=== PATIENT | male | born 1940 | race Caucasian/White ===

== ENCOUNTER 2017-02-19 17:14 | Inpatient (IN) | payer MEDICARE, BC ==
--- NOTE | 2017-02-19 17:36 | EDM.PDOC ---
ED HPI GENERAL MEDICAL PROBLEM - General Chief Complaint: Respiratory Problem Stated Complaint: SOB SENT BY PCP Time Seen by Provider: 02/19/17 17:25 - History of Present Illness INITIAL COMMENTS - FREE TEXT/NARRATIVE: 76-year-old male presents emergency room after being sent here by her primary care physician who was concerned of impending respiratory failure. Up until today the patient is been seen several times and tried on various antibiotics most recently Cipro in early January that did not help with his worsening shortness of breath. Patient presented to the clinic for follow-up today were was thought his overall condition was deteriorating. He was sent to the emergency room they did do a influenza test that was negative. Patient denies any chest pain or chest pressure he has no worsening edema. He has not had any fevers or chills. He has noticed increasing shortness of breath he states his oxygen feels like is gone. The patient has been on nighttime O2 for many years but now he seems to need it all the time. Knee Pain Score (Numeric/FACES): 4 - Related Data Allergies Allergy/AdvReac Type Severity Reaction Status Date / Time alendronate sodium Allergy Rash Verified 05/17/15 07:50 [From Fosamax] amoxicillin trihydrate Allergy Rash Verified 05/17/15 07:50 [From Augmentin] atorvastatin calcium Allergy Cannot Verified 05/17/15 07:50 [From Lipitor] Remember azathioprine [From Imuran] Allergy Rash Verified 05/17/15 07:50 azathioprine sodium Allergy Rash Verified 05/17/15 07:50 [From Imuran] azithromycin [From Zithromax] Allergy Rash Verified 05/17/15 07:50 cefuroxime axetil Allergy Rash Verified 05/17/15 07:50 [From Ceftin] methotrexate Allergy Rash Verified 05/17/15 07:50 potassium clavulanate Allergy Rash Verified 05/17/15 07:50 [From Augmentin] rofecoxib [From Vioxx] Allergy Rash Verified 05/17/15 07:50 Sulfa (Sulfonamide Allergy Rash Verified 05/17/15 07:50 Antibiotics) Home Meds: Home Meds Albuterol [Ventolin HFA] 2 puff INH Q6H PRN 05/04/15 [History] Aspirin [Halfprin] 81 mg PO DAILY 05/04/15 [History] Budesonide/Formoterol [Symbicort 160-4.5 MCG] 2 puff INH Q12H 05/04/15 [History] Carvedilol [Coreg] 6.25 mg PO BID 05/04/15 [History] Cholecalciferol (Vitamin D3) [Vitamin D3] 1,000 units PO DAILY 05/04/15 [History ] Citalopram Hydrobromide [Celexa] 40 mg PO BEDTIME 05/04/15 [History] Denosumab [Prolia] 60 mg SUBCUT ASDIRECTED 05/04/15 [History] Multivitamin [Daily Multiple Vitamin] 1 tab PO DAILY 05/04/15 [History] Roflumilast [Daliresp] 500 mcg PO DAILY 05/04/15 [History] Simvastatin [Zocor] 20 mg PO BEDTIME 05/04/15 [History] Tiotropium [Spiriva HandiHaler] 18 mcg INH BEDTIME 05/04/15 [History] predniSONE [Prednisone] 10 mg PO Q2D 05/04/15 [History] predniSONE [Prednisone] 20 mg PO Q2D 05/04/15 [History] Mycophenolate Mofetil [Cellcept] 1,000 mg PO BID 05/09/15 [History] Ascorbic Acid 500 mg PO DAILY 02/19/17 [History] Calcium Carbonate/Vitamin D3 [Oyster Shell+D 250 mg Tablet] 2 tab PO BID [History] Iron Polysaccharides Complex [Ferrex 150] 150 mg PO ACBREAKFAST 02/19/17 [ History] Linagliptin [Tradjenta] 5 mg PO DAILY 02/19/17 [History] Ubidecarenone [Co Q-10] 10 mg PO DAILY 02/19/17 [History] Vit A,C & E/Lutein/Minerals [Healthy Eyes] 1 tab PO DAILY 02/19/17 [History] guaiFENesin [Mucinex] 1,200 mg PO BID 02/19/17 [History] Past Medical History HEENT History: Reports: Hard of Hearing Other HEENT History: wears glasses Cardiovascular History: Reports: High Cholesterol, Hypertension Other Cardiovascular History: Churg-Skyler Syndrome/vasculitis Respiratory History: Reports: Asthma, COPD Other Respiratory History: Chronic oxygen use Gastrointestinal History: Reports: Colon Polyp Genitourinary History: Reports: Renal Disease Musculoskeletal History: Reports: Arthritis, Back Pain, Chronic Other Musculoskeletal History: Compression fractures Neurological History: Reports: Other (See Below) Other Neuro History: sural neuropathy. median neuropathy Psychiatric History: Reports: Other (See Below) Other Psychiatric History: situational depression Endocrine/Metabolic History: Reports: Diabetes, Type II Hematologic History: Reports: Other (See Below) Other Hematologic History: vitamin d deficiency Oncologic (Cancer) History: Reports: Squamous Cell Carcinoma Dermatologic History: Reports: Cellulitis Other Dermatologic History: Current cellulits has been treated with 20 days of antibiotics, completed course on 01/03/15 - Infectious Disease History Infectious Disease History: Reports: Chicken Pox, Mumps - Past Surgical History HEENT Surgical History: Reports: Other (See Below) Social & Family History - Family History Cardiac: Reports: Other (See Below) Other Cardiac Family History: Brother recently passed after open heart surgery. Respiratory: Reports: COPD, Other (See Below) Other Respiratory Family Hisory: brother Endocrine/Metabolic: Reports: Diabetes, type II, Other (See Below) Other Endocrine/Metabolic Family History: 2 brothers Oncologic: Reports: Other (See Below) Other Oncologic Family History: brother-unknown type - Tobacco Use Smoking Status *Q: Former Smoker Years of Tobacco use: 40 Packs/Tins Daily: 1 Used Tobacco, but Quit: Yes Month Tobacco Last Used: 20 yeas ago Second Hand Smoke Exposure: No - Alcohol Use Days Per Week of Alcohol Use: 0 - Recreational Drug Use Recreational Drug Use: No Drug Use in Last 12 Months: No ED ROS GENERAL - Review of Systems Review Of Systems: See Below Constitutional: Reports: No Symptoms HEENT: Reports: No Symptoms Respiratory: Reports: Shortness of Breath, Cough, Sputum (Rare whitish sputum) Cardiovascular: Denies: Chest Pain, Edema, Palpitations, Syncope Endocrine: Reports: No Symptoms GI/Abdominal: Reports: No Symptoms : Reports: No Symptoms Musculoskeletal: Reports: No Symptoms Skin: Reports: No Symptoms Neurological: Reports: No Symptoms Psychiatric: Reports: No Symptoms ED EXAM, GENERAL - Physical Exam Exam: See Below Exam Limited By: No Limitations General Appearance: Alert, No Apparent Distress Throat/Mouth: Normal Inspection, Normal Lips, Normal Oropharynx, Normal Voice, No Airway Compromise Head: Atraumatic, Normocephalic Neck: Normal Inspection, Supple, Non-Tender, Full Range of Motion, Other (No obvious JVD). No: Lymphadenopathy (L), Lymphadenopathy (R) Respiratory/Chest: No Respiratory Distress, Decreased Breath Sounds, Crackles, Other (Faint bibasilar crackles appreciated). No: Respiratory Distress, Rales, Rhonchi, Wheezing, Stridor Cardiovascular: Normal Peripheral Pulses, Regular Rate, Rhythm, Systolic Murmur (He has a very subtle soft systolic murmur heard in the left lower sternal border according to the patient his family he's had a murmur for a long time), Other (Scant if any edema. No obvious pre sacral edema) GI/Abdominal: Normal Bowel Sounds, Soft, Non-Tender, No Organomegaly, No Distention, No Abnormal Bruit, No Mass, Pelvis Stable Back Exam: Normal Inspection. No: CVA Tenderness (L), CVA Tenderness (R), Vertebral Tenderness Extremities: Normal Inspection, Non-Tender, Other (Scant edema according to the patient this is normal for him) Neurological: Alert, Oriented, Normal Cognition Psychiatric: Normal Affect, Normal Mood Skin Exam: Warm, Dry, Intact Lymphatic: No Adenopathy EKG INTERPRETATION EKG Date: 02/19/17 Rhythm: NSR [place]: LAD-Left [place] Deviation P-Wave: Present QRS: Other (Left ventricular hypertrophy) ST-T: Normal QT: Normal Comparison: Change From Previous EKG (he may have left axis changes. April 2015 most likely represents) EKG Interpretation Comments: Abnormal Course - Vital Signs Last Recorded V/S: Last Vital Signs Temp 37.2 C 02/20/17 02:55 Pulse 102 H 02/20/17 02:55 Resp 22 H 02/20/17 02:55 BP 127/63 02/20/17 02:55 Pulse Ox 92 L 02/20/17 03:29 - Orders/Labs/Meds Orders: Active Orders 24 hr Category Date Time Status EKG Documentation Completion [RC] STAT Care 02/19/17 17:50 Active RT Aerosol Therapy [RC] ASDIRECTED Care 02/19/17 17:53 Active Chest 1V Frontal [CR] Stat Exams 02/19/17 19:32 Taken Chest wo Cont [CT] Stat Exams 02/19/17 19:52 Taken CULTURE BLOOD [BC] Stat Lab 02/19/17 18:15 Received CULTURE BLOOD [BC] Stat Lab 02/19/17 18:20 Received Medication Orders Acetaminophen (Tylenol) 650 mg PO Q6H PRN PRN Reason: Fever Albuterol (Proventil Neb Soln) 2.5 mg NEB Q4HRRT PRN PRN Reason: shortness of breath Albuterol/Ipratropium (Duoneb 3.0-0.5 Mg/3 Ml) 3 ml NEB Q6HRRT [facility] Last Admin: 02/20/17 03:29 Dose: 3 ml Budesonide (Pulmicort) 0.25 mg NEB BID [facility] Enoxaparin Sodium (Lovenox) 40 mg SUBCUT DAILY [facility] Doxycycline Hyclate 100 mg/ (Sodium Chloride) 100 mls @ 100 mls/hr IV Q12HR [facility] Methylprednisolone Sodium Succinate (Solu-Medrol) 125 mg IVPUSH Q6H [facility] Last Admin: 02/20/17 03:49 Dose: 125 mg Morphine Sulfate (Morphine) 1 mg IVPUSH Q4H PRN PRN Reason: Pain (severe 7-10) Pantoprazole Sodium (Protonix) 40 mg PO ACBREAKFAST [facility] Last Admin: 02/20/17 05:43 Dose: 40 mg Temazepam (Restoril) 7.5 mg PO BEDTIME PRN PRN Reason: Insomnia Labs: Laboratory Tests 02/19/17 02/19/17 02/19/17 Range/Units 17:30 17:30 17:30 WBC 11.90 H (4.23-9.07) K/mm3 RBC 4.23 L (4.63-6.08) M/mm3 Hgb 12.0 L (13.7-17.5) gm/L Hct 38.3 L (40.1-51.0) % MCV 90.5 (79.0-92.2) fl MCH 28.4 (25.7-32.2) pg MCHC 31.3 L (32.2-35.5) g/dl RDW Std Deviation 52.1 H (35.1-43.9) fL Plt Count 336 (163-337) K/mm3 MPV 8.8 L (9.4-12.3) fl Neutrophils % (Manual) 82 H (40-60) % Band Neutrophils % 0 (0-10) % Lymphocytes % (Manual) 13 L (20-40) % Atypical Lymphs % 0 % Monocytes % (Manual) 5 (2-10) % Eosinophils % (Manual) 0 L (0.8-7.0) % Basophils % (Manual) 0 L (0.2-1.2) Platelet Estimate Adequate Plt Morphology Comment Normal RBC Morph Comment Normal PT 10.9 (8.0-13.0) SECONDS INR 1.00 APTT 39 H (22-36) SECONDS Puncture Site ABG pH (7.35-7.45) ABG pCO2 (35.0-45.0) mmHg ABG pO2 (80.0-100.0) mmHg ABG HCO3 (22.0-26.0) meq/L ABG O2 Saturation (96.0-97.0) % ABG Base Excess (-2-2.0) Bruno Test A-a Gradient mmHg O2 Delivery Device Oxygen Flow Rate FiO2 (21.00-100.00) % Sodium 133 L (136-145) mEq/L Potassium 4.5 (3.5-5.1) mEq/L Chloride 98 (98-107) mEq/L Carbon Dioxide 26 (21-32) mEq/L Anion Gap 13.5 (5-15) BUN 14 (7-18) mg/dL Creatinine 1.2 (0.7-1.3) mg/dL Est Cr Clr Drug Dosing 59.19 mL/min Estimated GFR (MDRD) 59 (>60) mL/min BUN/Creatinine Ratio 11.7 L (14-18) Glucose 220 H (83-115) mg/dL Calcium 10.0 (8.5-10.1) mg/dL Total Bilirubin 0.5 (0.2-1.0) mg/dL AST 15 (15-37) U/L ALT 15 L (16-63) U/L Alkaline Phosphatase 74 (46-116) U/L Troponin I < 0.017 (0.00-0.056) ng/mL NT-Pro-B Natriuret Pep 1080 H (0-450) pg/mL Total Protein 8.1 (6.4-8.2) g/dl Albumin 2.3 L (3.4-5.0) g/dl Globulin 5.8 gm/dL Albumin/Globulin Ratio 0.4 L (1-2) 02/19/17 Range/Units 18:15 WBC (4.23-9.07) K/mm3 RBC (4.63-6.08) M/mm3 Hgb (13.7-17.5) gm/L Hct (40.1-51.0) % MCV (79.0-92.2) fl MCH (25.7-32.2) pg MCHC (32.2-35.5) g/dl RDW Std Deviation (35.1-43.9) fL Plt Count (163-337) K/mm3 MPV (9.4-12.3) fl Neutrophils % (Manual) (40-60) % Band Neutrophils % (0-10) % Lymphocytes % (Manual) (20-40) % Atypical Lymphs % % Monocytes % (Manual) (2-10) % Eosinophils % (Manual) (0.8-7.0) % Basophils % (Manual) (0.2-1.2) Platelet Estimate Plt Morphology Comment RBC Morph Comment PT (8.0-13.0) SECONDS INR APTT (22-36) SECONDS Puncture Site Lt radial ABG pH 7.46 H (7.35-7.45) ABG pCO2 35.2 (35.0-45.0) mmHg ABG pO2 56.0 L (80.0-100.0) mmHg ABG HCO3 24.4 (22.0-26.0) meq/L ABG O2 Saturation 91.6 L (96.0-97.0) % ABG Base Excess 1.2 (-2-2.0) Bruno Test Positive A-a Gradient 79 mmHg O2 Delivery Device Nasal cannula Oxygen Flow Rate 2.0 FiO2 28.00 (21.00-100.00) % Sodium (136-145) mEq/L Potassium (3.5-5.1) mEq/L Chloride (98-107) mEq/L Carbon Dioxide (21-32) mEq/L Anion Gap (5-15) BUN (7-18) mg/dL Creatinine (0.7-1.3) mg/dL Est Cr Clr Drug Dosing mL/min Estimated GFR (MDRD) (>60) mL/min BUN/Creatinine Ratio (14-18) Glucose (83-115) mg/dL Calcium (8.5-10.1) mg/dL Total Bilirubin (0.2-1.0) mg/dL AST (15-37) U/L ALT (16-63) U/L Alkaline Phosphatase (46-116) U/L Troponin I (0.00-0.056) ng/mL NT-Pro-B Natriuret Pep (0-450) pg/mL Total Protein (6.4-8.2) g/dl Albumin (3.4-5.0) g/dl Globulin gm/dL Albumin/Globulin Ratio (1-2) Meds: Medications Generic Name Dose Route Start Last Admin Trade Name Freq PRN Reason Stop Dose Admin Acetaminophen 650 mg 02/20/17 02:20 Tylenol PO Q6H PRN Fever Albuterol 2.5 mg 02/20/17 02:20 Proventil Neb Soln NEB Q4HRRT PRN shortness of breath Albuterol/Ipratropium 3 ml 02/20/17 03:00 02/20/17 03:29 Duoneb 3.0-0.5 Mg/3 Ml NEB 3 ml Q6HRRT KEANU Administration Budesonide 0.25 mg 02/20/17 09:00 Pulmicort NEB BID KEANU Enoxaparin Sodium 40 mg 02/20/17 09:00 Lovenox SUBCUT DAILY KEANU Doxycycline Hyclate 100 mg/ 100 mls @ 100 mls/hr 02/20/17 09:00 Sodium Chloride IV Q12HR KEANU Methylprednisolone Sodium Succinate 125 mg 02/20/17 03:00 02/20/17 03:49 Solu-Medrol IVPUSH 125 mg Q6H KEANU Administration Morphine Sulfate 1 mg 02/20/17 02:20 Morphine IVPUSH Q4H PRN Pain (severe 7-10) Pantoprazole Sodium 40 mg 02/20/17 06:00 02/20/17 05:43 Protonix PO 40 mg ACBREAKFAST KEANU Administration Temazepam 7.5 mg 02/20/17 02:20 Restoril PO BEDTIME PRN Insomnia Discontinued Medications Generic Name Dose Route Start Last Admin Trade Name Freq PRN Reason Stop Dose Admin Albuterol/Ipratropium 3 ml 02/19/17 17:52 02/19/17 18:04 Duoneb 3.0-0.5 Mg/3 Ml NEB 02/19/17 17:53 3 ml ONETIME ONE Administration Budesonide 0.25 mg 02/20/17 09:00 Pulmicort NEB BID KEANU Enoxaparin Sodium 40 mg 02/20/17 09:00 Lovenox SUBCUT DAILY KEANU Furosemide 40 mg 02/19/17 21:03 02/19/17 21:17 Lasix IVPUSH 02/19/17 21:04 40 mg NOW ONE Administration Potassium Chloride 20 meq 02/19/17 21:05 02/19/17 21:17 Klor-Con M20 PO 02/19/17 21:06 20 meq ONETIME ONE Administration - Re-Assessments/Exams Free Text/Narrative Re-Assessment/Exam: 02/19/17 22:23 Chest x-ray was obtained which show some significant pulmonary fibrosis possible failure no obvious infiltrate but this cannot be excluded with the scarring. A unenhanced CT was obtained of her chest which showed no infiltrates and was most consistent with moderate pulmonary fibrosis it also showed a T12 compression fracture with central canal stenosis to T11-12 I did discuss this with the off-site radiologist and did find a lateral x-ray that was done which showed a compression fracture. The patient was admitted here in April 2015 and MRI at that point which showed an old fracture at this level no edema to suggest acuteness back then so this is an old finding. With his hypoxia the patient will be admitted. Case discussed with Dr. Zhu our hospitalist. Patient did have a nebulizer treatment here. He was also started on Lasix 40 mg as his proBNP was elevated. Patient has been what looks to be worsening pulmonary fibrosis etiology not well understood this can be further aggravated by an underlying bronchitis cannot exclude pneumonia at this point but this seems unlikely and he can be slightly fluid overloaded as well. Departure - Departure Time of Disposition: 20:00 Disposition: Admitted As Inpatient 66 Clinical Impression: Hypoxia, Shortness of breath, Heart failure - Discharge Information - My Orders Last 24 Hours: My Active Orders 02/19/17 17:50 EKG Documentation Completion [RC] STAT 02/19/17 17:53 RT Aerosol Therapy [RC] ASDIRECTED 02/19/17 18:15 CULTURE BLOOD [BC] Stat 02/19/17 18:20 CULTURE BLOOD [BC] Stat 02/19/17 19:32 Chest 1V Frontal [CR] Stat 02/19/17 19:52 Chest wo Cont [CT] Stat - Assessment/Plan Last 24 Hours: My Active Orders 02/19/17 17:50 EKG Documentation Completion [RC] STAT 02/19/17 17:53 RT Aerosol Therapy [RC] ASDIRECTED 02/19/17 18:15 CULTURE BLOOD [BC] Stat 02/19/17 18:20 CULTURE BLOOD [BC] Stat 02/19/17 19:32 Chest 1V Frontal [CR] Stat 02/19/17 19:52 Chest wo Cont [CT] Stat
[2017-02-19] MEDS ORDERED: Albuterol/Ipratropium 3.0-0.5 MG/3 ML Neb Soln NEB ONE (17:52)
[2017-02-19] MEDS ORDERED: Furosemide 40 MG/4 ML VIAL IVPUSH ONE (21:03)
[2017-02-19] MEDS ORDERED: Potassium Chloride 20 MEQ Tab.ER PO ONE (21:05)
[2017-02-20] MEDS ORDERED: Temazepam 7.5 MG Cap PO PRN (02:20)
[2017-02-20] MEDS ORDERED: Albuterol 0.083% 2.5 MG/3 ML Neb Soln NEB PRN (02:20)
[2017-02-20] MEDS ORDERED: Morphine 2 MG/ML Syringe IVPUSH PRN (02:20)
[2017-02-20] MEDS ORDERED: Acetaminophen 325 MG Tab PO PRN (02:20)
[2017-02-20] MEDS: Albuterol/Ipratropium 3.0-0.5 MG/3 ML Neb Soln NEB SCH ×4 (03:29→21:12)
[2017-02-20] MEDS: methylPREDNISolone Sodium Succinate 125 MG/2 ML SDV IVPUSH SCH ×4 (03:49→22:36)
[2017-02-20] MEDS: Pantoprazole 40 MG Tab.CR PO SCH (05:43)
[2017-02-20] MEDS ORDERED: Doxycycline 100 MG in Sodium Chloride 0.9% 100 ML IV SCH (09:00)
[2017-02-20] MEDS ORDERED: Budesonide 0.25 MG/2 ML Neb Susp NEB SCH (09:00)
[2017-02-20] MEDS ORDERED: Enoxaparin 40 MG/0.4 ML Syringe SUBCUT SCH (09:00)
[2017-02-20] MEDS: Budesonide 0.25 MG/2 ML Neb Susp NEB SCH ×2 (09:02→21:18)
--- NOTE | 2017-02-20 09:06 | CR ---
Chest: Portable view of the chest was obtained. Comparison: Prior chest x-ray of 05/17/15. Diffuse pulmonary fibrosis is seen. Findings are felt to be fairly stable from prior exam. Heart size is not enlarged. Upper mediastinum is normal. Bony structures are osteopenic. Surgical clips are seen from prior cholecystectomy. Impression: 1. Diffuse pulmonary fibrosis. When allowing for differences in technique, no appreciable change is seen from previous chest x-ray. Diagnostic code #3
[2017-02-20] MEDS: Enoxaparin 40 MG/0.4 ML Syringe SUBCUT SCH (09:12)
--- NOTE | 2017-02-20 09:30 | CT ---
CT chest Technique: Multiple axial sections were obtained from above the lung apices inferiorly through the lung bases. Intravenous contrast was not utilized. Comparison: Prior chest x-ray performed earlier on same day. Findings: Multiple mediastinal lymph nodes are seen. Largest lymph node measures approximately 2.7 cm. These are mildly prominent in number and size which most likely is due to chronic inflammation. No pericardial thickening is seen. Small portion of the visualized upper abdominal structures shows previous cholecystectomy. Small calcification seen within the left lobe of the liver which is felt to be incidental. Small cyst noted within the left kidney. Diffuse interstitial fibrosis with honeycombing seen within the periphery of both lungs. No focal consolidation is seen. No pneumothorax or pleural effusions are seen. Bone window settings were reviewed which show a severe compression deformity at L1 which appears old. Spondylolisthesis noted at T1-T2 measuring approximately 6.9 mm which is likely chronic although no old films are available to confirm. Impression: 1. Interstitial fibrosis with honeycombing. No focal consolidations are seen within the lungs. 2. 6.9 mm spondylolisthesis at T1-T2 most likely chronic but no previous study to confirm is available. 3. Multiple mediastinal lymph nodes most likely on a postinflammatory basis given the lung findings. 4. Other incidental findings. Diagnostic code #3 I agree with preliminary report issued by [employer] ([facility] report finalized on 02/19/17, 9:41 PM Central Time)
[2017-02-20] MEDS ORDERED: Denosumab 60 MG/1 ML Syringe SUBCUT SCH (10:30)
[2017-02-20] MEDS ORDERED: 50% Dextrose in Water 50 ML Syringe IVPUSH PRN (12:56)
--- NOTE | 2017-02-20 12:57 | PCM.HP ---
H&P History of Present Illness - General Date of Service: 02/20/17 Admit Problem/Dx: Admission Diagnosis/Problem Admission Diagnosis/Problem Hypoxia Source of Information: Patient, Provider History Limitations: Reports: No Limitations - History of Present Illness Initial Comments - Free Text/Narative: 76 year old male with several treatments for URI, presents from his PCP for further evaluation. The patient stated that he has not been seen by a starch factory laborer for several months but reportedly told to stop his Cellcept for two weeks. He was to have restarted it by the beginning of January. This did not occur because he reported that his PCP stated that it should be held until he has been seen in March by the starch factory laborer. He remains on prednisone, the current dose requires clarification. Overall his functional status has declined, he continues to be short of breath. Denies fever, chills, chest pain , orthopnea, PND, syncopal or presyncopal episodes. Admits to malaise, general weakness and decreased appetite; he requires nocturnal use of oxygen as his baseline. He was felt to be in heart failure in the ED, lasix was given. Onset of Symptoms: Reports: Unknown/Unsure Duration of Symptoms: Reports: Week(s):, Getting Worse Location: Reports: Chest, Generalized Quality: Reports: Same as Previous Episode Improves with: Reports: Medication Worsens with: Reports: None Context: Reports: Sick Contact (unknown) Associated Symptoms: Reports: Cough, Loss of Appetite, Malaise, Nausea/Vomiting , Shortness of Breath, Weakness Knee Pain Score (Numeric/FACES): 4 - Related Data Allergies/Adverse Reactions: Allergies Allergy/AdvReac Type Severity Reaction Status Date / Time alendronate sodium Allergy Rash Verified 05/17/15 07:50 [From Fosamax] amoxicillin trihydrate Allergy Rash Verified 05/17/15 07:50 [From Augmentin] atorvastatin calcium Allergy Cannot Verified 05/17/15 07:50 [From Lipitor] Remember azathioprine [From Imuran] Allergy Rash Verified 05/17/15 07:50 azathioprine sodium Allergy Rash Verified 05/17/15 07:50 [From Imuran] azithromycin [From Zithromax] Allergy Rash Verified 05/17/15 07:50 cefuroxime axetil Allergy Rash Verified 05/17/15 07:50 [From Ceftin] methotrexate Allergy Rash Verified 05/17/15 07:50 potassium clavulanate Allergy Rash Verified 05/17/15 07:50 [From Augmentin] rofecoxib [From Vioxx] Allergy Rash Verified 05/17/15 07:50 Sulfa (Sulfonamide Allergy Rash Verified 05/17/15 07:50 Antibiotics) Home Medications: Home Meds Albuterol [Ventolin HFA] 2 puff INH Q6H PRN 05/04/15 [History] Aspirin [Halfprin] 81 mg PO DAILY 05/04/15 [History] Budesonide/Formoterol [Symbicort 160-4.5 MCG] 2 puff INH Q12H 05/04/15 [History] Carvedilol [Coreg] 6.25 mg PO BID 05/04/15 [History] Cholecalciferol (Vitamin D3) [Vitamin D3] 1,000 units PO DAILY 05/04/15 [History ] Citalopram Hydrobromide [Celexa] 40 mg PO BEDTIME 05/04/15 [History] Denosumab [Prolia] 60 mg SUBCUT ASDIRECTED 05/04/15 [History] Multivitamin [Daily Multiple Vitamin] 1 tab PO DAILY 05/04/15 [History] Roflumilast [Daliresp] 500 mcg PO DAILY 05/04/15 [History] Simvastatin [Zocor] 20 mg PO BEDTIME 05/04/15 [History] Tiotropium [Spiriva HandiHaler] 18 mcg INH BEDTIME 05/04/15 [History] predniSONE [Prednisone] 10 mg PO Q2D 05/04/15 [History] predniSONE [Prednisone] 20 mg PO Q2D 05/04/15 [History] Mycophenolate Mofetil [Cellcept] 1,000 mg PO BID 05/09/15 [History] Ascorbic Acid 500 mg PO DAILY 02/19/17 [History] Calcium Carbonate/Vitamin D3 [Oyster Shell+D 250 mg Tablet] 2 tab PO BID [History] Iron Polysaccharides Complex [Ferrex 150] 150 mg PO ACBREAKFAST 02/19/17 [ History] Linagliptin [Tradjenta] 5 mg PO DAILY 02/19/17 [History] Ubidecarenone [Co Q-10] 10 mg PO DAILY 02/19/17 [History] Vit A,C & E/Lutein/Minerals [Healthy Eyes] 1 tab PO DAILY 02/19/17 [History] guaiFENesin [Mucinex] 1,200 mg PO BID 02/19/17 [History] Past Medical History HEENT History: Reports: Hard of Hearing Other HEENT History: wears glasses Cardiovascular History: Reports: High Cholesterol, Hypertension Other Cardiovascular History: Churg-Skyler Syndrome/vasculitis Respiratory History: Reports: Asthma, COPD Other Respiratory History: Chronic oxygen use Gastrointestinal History: Reports: Colon Polyp Genitourinary History: Reports: Renal Disease Other Genitourinary History: Bladder mass Musculoskeletal History: Reports: Arthritis, Back Pain, Chronic Other Musculoskeletal History: Compression fractures Neurological History: Reports: Other (See Below) Other Neuro History: sural neuropathy. median neuropathy Psychiatric History: Reports: Other (See Below) Other Psychiatric History: situational depression Endocrine/Metabolic History: Reports: Diabetes, Type II Hematologic History: Reports: Other (See Below) Other Hematologic History: vitamin d deficiency Oncologic (Cancer) History: Reports: Squamous Cell Carcinoma Dermatologic History: Reports: Cellulitis Other Dermatologic History: Current cellulits has been treated with 20 days of antibiotics, completed course on 01/03/15 - Infectious Disease History Infectious Disease History: Reports: Chicken Pox, Mumps - Past Surgical History HEENT Surgical History: Reports: Other (See Below) Social & Family History - Family History Family Medical History: Noncontributory Cardiac: Reports: Other (See Below) Other Cardiac Family History: Brother recently passed after open heart surgery. Respiratory: Reports: COPD, Other (See Below) Other Respiratory Family Hisory: brother Endocrine/Metabolic: Reports: Diabetes, type II, Other (See Below) Other Endocrine/Metabolic Family History: 2 brothers Oncologic: Reports: Other (See Below) Other Oncologic Family History: brother-unknown type - Tobacco Use Smoking Status *Q: Former Smoker Years of Tobacco use: 40 Packs/Tins Daily: 1 Used Tobacco, but Quit: Yes Month Tobacco Last Used: 20 yeas ago Second Hand Smoke Exposure: No - Caffeine Use Caffeine Use: Reports: None - Alcohol Use Days Per Week of Alcohol Use: 0 - Recreational Drug Use Recreational Drug Use: No Drug Use in Last 12 Months: No H&P Review of Systems - Review of Systems: Review Of Systems: See Below General: Reports: Malaise, Weakness, Fatigue, Decreased Appetite HEENT: Reports: No Symptoms Pulmonary: Reports: Shortness of Breath, Wheezing Cardiovascular: Reports: No Symptoms Gastrointestinal: Reports: No Symptoms Genitourinary: Reports: No Symptoms Musculoskeletal: Reports: No Symptoms Skin: Reports: No Symptoms Psychiatric: Reports: No Symptoms Neurological: Reports: Dizziness, Weakness Hematologic/Lymphatic: Reports: No Symptoms Immunologic: Reports: No Symptoms Exam - Exam Exam: See Below - Vital Signs Vital Signs: Last Vital Signs Temp 36.6 C 02/20/17 11:50 Pulse 89 02/20/17 11:50 Resp 18 02/20/17 11:50 BP 106/67 02/20/17 11:50 Pulse Ox 96 02/20/17 11:50 Weight: 82.826 kg - Exam Quality Assessment: Supplemental Oxygen General: Alert, Oriented, Cooperative HEENT: Conjunctiva Clear, Nares Patent, Normal Nasal Septum, Pupils Equal, Pupils Reactive, PERRLA Neck: Trachea Midline Lungs: Normal Respiratory Effort, Decreased Breath Sounds, Wheezing Cardiovascular: Regular Rate, Regular Rhythm GI/Abdominal Exam: Normal Bowel Sounds, Soft, Non-Tender, No Organomegaly, No Distention (Male) Exam: Deferred Rectal (Males) Exam: Deferred Back Exam: Normal Inspection Extremities: Normal Inspection Skin: Warm Neurological: Cranial Nerves Intact Neuro Extensive - Mental Status: Alert, Oriented x3, Normal Mood/Affect, Normal Cognition Neuro Extensive - Motor, Sensory, Reflexes: CN II-XII Intact Psychiatric: Alert, Normal Affect, Normal Mood - Patient Data Lab Results Last 24 hrs: Laboratory Results - last 24 hr 02/20/17 02/20/17 02/20/17 Range/Units 06:06 06:17 06:17 WBC 7.44 (4.23-9.07) K/mm3 RBC 3.60 L (4.63-6.08) M/mm3 Hgb 10.1 L (13.7-17.5) gm/L Hct 32.6 L (40.1-51.0) % MCV 90.6 (79.0-92.2) fl MCH 28.1 (25.7-32.2) pg MCHC 31.0 L (32.2-35.5) g/dl RDW Std Deviation 50.9 H (35.1-43.9) fL Plt Count 294 (163-337) K/mm3 MPV 8.7 L (9.4-12.3) fl Neut % (Auto) 85.2 H (34.0-67.9) % Lymph % (Auto) 7.4 L (21.8-53.1) % Ward % (Auto) 7.0 (5.3-12.2) % Eos % (Auto) 0 L (0.8-7.0) Baso % (Auto) 0.1 (0.1-1.2) % Neut # (Auto) 6.34 H (1.78-5.38) K/mm3 Lymph # (Auto) 0.55 L (1.32-3.57) K/mm3 Ward # (Auto) 0.52 (0.30-0.82) K/mm3 Eos # (Auto) 0.00 L (0.04-0.54) K/mm3 Baso # (Auto) 0.01 (0.01-0.08) K/mm3 Manual Slide Review Abnormal smear Sodium 132 L (136-145) mEq/L Potassium 4.1 (3.5-5.1) mEq/L Chloride 98 (98-107) mEq/L Carbon Dioxide 26 (21-32) mEq/L Anion Gap 12.1 (5-15) BUN 14 (7-18) mg/dL Creatinine 0.9 (0.7-1.3) mg/dL Est Cr Clr Drug Dosing 78.91 mL/min Estimated GFR (MDRD) > 60 (>60) mL/min BUN/Creatinine Ratio 15.6 (14-18) Glucose 176 H (83-115) mg/dL POC Glucose 185 H (83-110) mg/dL Calcium 9.2 (8.5-10.1) mg/dL Magnesium 1.9 (1.8-2.4) mg/dl C-Reactive Protein 35.6 H* (<1.0) mg/dL NT-Pro-B Natriuret Pep 586 H (0-450) pg/mL TSH 3rd Generation 0.668 (0.358-3.74) uIU/mL 02/20/17 Range/Units 11:35 WBC (4.23-9.07) K/mm3 RBC (4.63-6.08) M/mm3 Hgb (13.7-17.5) gm/L Hct (40.1-51.0) % MCV (79.0-92.2) fl MCH (25.7-32.2) pg MCHC (32.2-35.5) g/dl RDW Std Deviation (35.1-43.9) fL Plt Count (163-337) K/mm3 MPV (9.4-12.3) fl Neut % (Auto) (34.0-67.9) % Lymph % (Auto) (21.8-53.1) % Ward % (Auto) (5.3-12.2) % Eos % (Auto) (0.8-7.0) Baso % (Auto) (0.1-1.2) % Neut # (Auto) (1.78-5.38) K/mm3 Lymph # (Auto) (1.32-3.57) K/mm3 Ward # (Auto) (0.30-0.82) K/mm3 Eos # (Auto) (0.04-0.54) K/mm3 Baso # (Auto) (0.01-0.08) K/mm3 Manual Slide Review Sodium (136-145) mEq/L Potassium (3.5-5.1) mEq/L Chloride (98-107) mEq/L Carbon Dioxide (21-32) mEq/L Anion Gap (5-15) BUN (7-18) mg/dL Creatinine (0.7-1.3) mg/dL Est Cr Clr Drug Dosing mL/min Estimated GFR (MDRD) (>60) mL/min BUN/Creatinine Ratio (14-18) Glucose (83-115) mg/dL POC Glucose 395 H (83-110) mg/dL Calcium (8.5-10.1) mg/dL Magnesium (1.8-2.4) mg/dl C-Reactive Protein (<1.0) mg/dL NT-Pro-B Natriuret Pep (0-450) pg/mL TSH 3rd Generation (0.358-3.74) uIU/mL Result Diagrams: 02/21/17 05:38 02/21/17 05:38 *Q Meaningful Use (ADM) - VTE *Q VTE Criteria *Q: - Stroke *Q Stroke Criteria *Q: - AMI *Q AMI Criteria *Q: - Problem List (1) Heart failure SNOMED Code(s): 56329279 ICD Code: I50.9 - HEART FAILURE, UNSPECIFIED Status: Acute Priority: High Current Visit: Yes Qualifiers: Heart failure type: unspecified heart failure type Heart failure chronicity : unspecified heart failure chronicity Qualified Code(s): I50.9 - Heart failure, unspecified (2) Hypoxia SNOMED Code(s): 303286755 ICD Code: R09.02 - HYPOXEMIA Status: Acute Priority: High Current Visit : Yes (3) Shortness of breath SNOMED Code(s): 653978137 ICD Code: R06.02 - SHORTNESS OF BREATH Status: Acute Priority: High Current Visit: Yes (4) COPD (chronic obstructive pulmonary disease) SNOMED Code(s): 17836473 ICD Code: J44.9 - CHRONIC OBSTRUCTIVE PULMONARY DISEASE, UNSPECIFIED Status : Chronic Priority: High Current Visit: Yes Qualifiers: COPD type: 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 Qualified Code(s): J41.8 - Mixed simple and mucopurulent chronic bronchitis (5) Chronic steroid use SNOMED Code(s): 386107620 ICD Code: DFA5275 - Status: Chronic Priority: Low Current Visit: Yes (6) Immunocompromised SNOMED Code(s): 039750244 ICD Code: D84.9 - IMMUNODEFICIENCY, UNSPECIFIED Status: Acute Current Visit: No (7) Pulmonary fibrosis SNOMED Code(s): 81582789 ICD Code: J84.10 - PULMONARY FIBROSIS, UNSPECIFIED Status: Acute Current Visit: No (8) Vasculitis SNOMED Code(s): 46061947 ICD Code: I77.6 - ARTERITIS, UNSPECIFIED Status: Acute Current Visit: No (9) Churg-Skyler syndrome with lung involvement SNOMED Code(s): 59766393 ICD Code: M30.1 - POLYARTERITIS WITH LUNG INVOLVEMENT [CHURG-SKYLER] Status: Chronic Priority: Low Current Visit: No Problem List Initiated/Reviewed/Updated: Yes Orders Last 24hrs: Active Orders 24 hr Category Date Time Status Patient Status [ADT] Routine ADT 02/19/17 22:59 Active Activity as Tolerated [RC] .Routine Care 02/20/17 02:20 Active Antiembolic Devices [RC] PER UNIT ROUTINE Care 02/20/17 02:21 Active Blood Glucose Check, Bedside [RC] QIDACANDBED Care 02/20/17 04:00 Active Blood Glucose Check, Bedside [RC] QIDACANDBED Care 02/20/17 12:56 Ordered RT Aerosol Therapy [RC] ASDIRECTED Care 02/20/17 02:22 Active RT Aerosol Therapy [RC] ASDIRECTED Care 02/20/17 02:30 Active Consult to Case Management [CONS] Routine Cons 02/20/17 02:20 Active Consult to Pulmonary Rehabilitation [CONS] Routine Cons 02/20/17 02:20 Active OT Evaluation and Treatment [CONS] Routine Cons 02/20/17 02:20 Active PT Evaluation and Treatment [CONS] Routine Cons 02/20/17 02:20 Active Heart Healthy Diet [DIET] Diet 02/20/17 Breakfast Active Acetaminophen [Tylenol] Med 02/20/17 02:20 Active 650 mg PO Q6H PRN Albuterol [Proventil Neb Soln] Med 02/20/17 02:20 Active 2.5 mg NEB Q4HRRT PRN Albuterol/Ipratropium [DuoNeb 3.0-0.5 MG/3 ML] Med 02/20/17 03:00 Active 3 ml NEB Q6HRRT Aspirin [Halfprin] Med 02/21/17 09:00 Active 81 mg PO DAILY Budesonide [Pulmicort] Med 02/20/17 09:00 Active 0.25 mg NEB BID Carvedilol [Coreg] Med 02/20/17 21:00 Active 6.25 mg PO BID Citalopram [Celexa] Med 02/20/17 21:00 Active 40 mg PO BEDTIME Dextrose 50% in Water Med 02/20/17 12:56 Ordered 50 ml IVPUSH ASDIRECTED PRN Doxycycline [Vibramycin] 100 mg Med 02/20/17 21:00 Active Dextrose 5% in Water 100 ml IV Q12H Enoxaparin [Lovenox] Med 02/20/17 09:00 Active 40 mg SUBCUT DAILY Insulin Aspart [NovoLOG] Med 02/20/17 17:00 Ordered See Protocol SUBCUT QIDACANDBED Iron Polysaccharides Complex [Ferrex 150] Med 02/21/17 06:00 Active 150 mg PO ACBREAKFAST Mometasone/Formoterol [Dulera 200-5 MCG] Med 02/20/17 10:30 Active 2 puff IH Q12H Morphine Med 02/20/17 02:20 Active 1 mg IVPUSH Q4H PRN Mycophenolate Mofetil [Cellcept] Med 02/20/17 21:00 Active 1,000 mg PO BID Pantoprazole [ProTONIX] Med 02/20/17 06:00 Active 40 mg PO ACBREAKFAST Patient's Own Medication [Ptom] Med 02/21/17 09:00 Active 1 each PO DAILY Patient's Own Medication [Ptom] Med 02/21/17 09:00 Active 1 each PO DAILY Patient's Own Medication [Ptom] Med 02/21/17 09:00 Active 1 each PO DAILY Simvastatin [Zocor] Med 02/20/17 21:00 Active 20 mg PO BEDTIME Temazepam [Restoril] Med 02/20/17 02:20 Active 7.5 mg PO BEDTIME PRN Tiotropium [Spiriva HandiHaler] Med 02/20/17 21:00 Active 18 mcg INH BEDTIME guaiFENesin [Mucinex] Med 02/20/17 21:00 Active 1,200 mg PO BID methylPREDNISolone Sod Succ [Solu-MEDROL] Med 02/20/17 03:00 Active 125 mg IVPUSH Q6H Antiembolic Hose [OM.PC] Routine Oth 02/20/17 02:20 Ordered Resuscitation Status Routine Resus Stat 02/20/17 01:47 Ordered Medication Orders Acetaminophen (Tylenol) 650 mg PO Q6H PRN PRN Reason: Fever Albuterol (Proventil Neb Soln) 2.5 mg NEB Q4HRRT PRN PRN Reason: shortness of breath Albuterol/Ipratropium (Duoneb 3.0-0.5 Mg/3 Ml) 3 ml NEB Q6HRRT PENDING SALE TO [facility] Last Admin: 02/20/17 09:02 Dose: 3 ml Admin: 02/20/17 03:29 Dose: 3 ml Aspirin (Halfprin) 81 mg PO DAILY PENDING SALE TO [facility] Budesonide (Pulmicort) 0.25 mg NEB BID PENDING SALE TO [facility] Last Admin: 02/20/17 09:02 Dose: 0.25 mg Carvedilol (Coreg) 6.25 mg PO BID PENDING SALE TO [facility] Citalopram Hydrobromide (Celexa) 40 mg PO BEDTIME KEANU Enoxaparin Sodium (Lovenox) 40 mg SUBCUT DAILY PENDING SALE TO [facility] Last Admin: 02/20/17 09:12 Dose: 40 mg Guaifenesin (Mucinex) 1,200 mg PO BID PENDING SALE TO [facility] Doxycycline Hyclate 100 mg/ (Dextrose/Water) 100 mls @ 100 mls/hr IV Q12H KEANU Methylprednisolone Sodium Succinate (Solu-Medrol) 125 mg IVPUSH Q6H KEANU Last Admin: 02/20/17 09:12 Dose: 125 mg Admin: 02/20/17 03:49 Dose: 125 mg Mometasone Furoate/Formoterol Fumar (Dulera 200-5 Mcg) 2 puff IH Q12H KEANU Morphine Sulfate (Morphine) 1 mg IVPUSH Q4H PRN PRN Reason: Pain (severe 7-10) Mycophenolate Mofetil (Cellcept) 1,000 mg PO BID PENDING SALE TO [facility] Pantoprazole Sodium (Protonix) 40 mg PO ACBREAKFAST PENDING SALE TO [facility] Last Admin: 02/20/17 05:43 Dose: 40 mg Ptom: Linagliptin (5mg (Tradjenta)) 1 each PO DAILY PENDING SALE TO [facility] Ptom: Roflumilast (500mcg (Daliresp)) 1 each PO DAILY KEANU Ptom: Ubidecarenone (10mg (Co-Q 10)) 1 each PO DAILY KEANU Polysaccharide Iron Complex (Ferrex 150) 150 mg PO ACBREAKFAST KEANU Simvastatin (Zocor) 20 mg PO BEDTIME KEANU Temazepam (Restoril) 7.5 mg PO BEDTIME PRN PRN Reason: Insomnia Tiotropium [place] (Spiriva Handihaler) 18 mcg INH BEDTIME PENDING SALE TO [facility] Assessment/Plan Comment:: Impression: Query PNA, multiple treatment of URI Hypoxia COPD Immune compromised History of Cellcept, abrupt discontinuation History of Churchula Skyler on steroid Query CHF Chronic HTN HLD Colon polyps DM type II Hx of compression fx. Hx of SCC; Plan: IVF Empiric ATB IV steroids Clarify Cellcept with rheumatology at [facility]. O2, keep sat>90% Home meds Diurese as needed. DVT prophylaxis CSM/SW consult PT/OT consult.
[2017-02-20] MEDS: Formoterol/Mometasone 200-5 MCG 8.8 GM Inhaler IH SCH ×2 (14:11→21:12)
--- NOTE | 2017-02-20 14:58 | PCM.PN ---
- General Info Date of Service: 02/20/17 Admission Dx/Problem (Free Text): Admission Diagnosis/Problem Admission Diagnosis/Problem Hypoxia Subjective Update: In to see Deepa. He is doing quite well. He denies any SOB at rest. He does state that if he gets up to walk he experiences dyspnea. He is on 3L O2 via [place]. He does have an occasional cough. His sodium was a bit low so I will order some thermotabs for tonight. Functional Status: Reports: Pain Controlled, Tolerating Diet, Ambulating, Urinating. Denies: New Symptoms - Review of Systems General: Reports: No Symptoms. Denies: Fever, Weakness, Fatigue, Malaise, Chills HEENT: Reports: No Symptoms. Denies: Ear Pain, Eye Pain, Headaches, Sore Throat Pulmonary: Reports: Cough, Sputum (occasional ). Denies: Shortness of Breath Cardiovascular: Reports: Dyspnea on Exertion (chronic ). Denies: Chest Pain, Palpitations, Edema Gastrointestinal: Reports: No Symptoms. Denies: Abdominal Pain, Constipation, Diarrhea, Nausea, Vomiting Genitourinary: Reports: No Symptoms. Denies: Dysuria, Frequency, Burning, Pain , Urgency, Incontinence Musculoskeletal: Reports: No Symptoms Skin: Reports: No Symptoms Neurological: Reports: No Symptoms Psychiatric: Reports: No Symptoms - Patient Data Vitals - Most Recent: Last Vital Signs Temp 97.9 F 02/20/17 11:50 Pulse 89 02/20/17 11:50 Resp 18 02/20/17 11:50 BP 106/67 02/20/17 11:50 Pulse Ox 96 02/20/17 11:50 Weight - Most Recent: 182 lb 9.6 oz I&O - Last 24 Hours: Intake & Output 02/19/17 02/20/17 02/20/17 22:59 06:59 14:59 Intake Total 100 320 Output Total 600 Balance -500 320 Lab Results Last 24 Hours: Laboratory Results - last 24 hr 02/20/17 02/20/17 02/20/17 Range/Units 06:06 06:17 06:17 WBC 7.44 (4.23-9.07) K/mm3 RBC 3.60 L (4.63-6.08) M/mm3 Hgb 10.1 L (13.7-17.5) gm/L Hct 32.6 L (40.1-51.0) % MCV 90.6 (79.0-92.2) fl MCH 28.1 (25.7-32.2) pg MCHC 31.0 L (32.2-35.5) g/dl RDW Std Deviation 50.9 H (35.1-43.9) fL Plt Count 294 (163-337) K/mm3 MPV 8.7 L (9.4-12.3) fl Neut % (Auto) 85.2 H (34.0-67.9) % Lymph % (Auto) 7.4 L (21.8-53.1) % [place] % (Auto) 7.0 (5.3-12.2) % Eos % (Auto) 0 L (0.8-7.0) Baso % (Auto) 0.1 (0.1-1.2) % Neut # (Auto) 6.34 H (1.78-5.38) K/mm3 Lymph # (Auto) 0.55 L (1.32-3.57) K/mm3 [place] # (Auto) 0.52 (0.30-0.82) K/mm3 Eos # (Auto) 0.00 L (0.04-0.54) K/mm3 Baso # (Auto) 0.01 (0.01-0.08) K/mm3 Manual Slide Review Abnormal smear Sodium 132 L (136-145) mEq/L Potassium 4.1 (3.5-5.1) mEq/L Chloride 98 (98-107) mEq/L Carbon Dioxide 26 (21-32) mEq/L Anion Gap 12.1 (5-15) BUN 14 (7-18) mg/dL Creatinine 0.9 (0.7-1.3) mg/dL Est Cr Clr Drug Dosing 78.91 mL/min Estimated GFR (MDRD) > 60 (>60) mL/min BUN/Creatinine Ratio 15.6 (14-18) Glucose 176 H (83-115) mg/dL POC Glucose 185 H (83-110) mg/dL Calcium 9.2 (8.5-10.1) mg/dL Magnesium 1.9 (1.8-2.4) mg/dl C-Reactive Protein 35.6 H* (<1.0) mg/dL NT-Pro-B Natriuret Pep 586 H (0-450) pg/mL TSH 3rd Generation 0.668 (0.358-3.74) uIU/mL 02/20/17 Range/Units 11:35 WBC (4.23-9.07) K/mm3 RBC (4.63-6.08) M/mm3 Hgb (13.7-17.5) gm/L Hct (40.1-51.0) % MCV (79.0-92.2) fl MCH (25.7-32.2) pg MCHC (32.2-35.5) g/dl RDW Std Deviation (35.1-43.9) fL Plt Count (163-337) K/mm3 MPV (9.4-12.3) fl Neut % (Auto) (34.0-67.9) % Lymph % (Auto) (21.8-53.1) % [place] % (Auto) (5.3-12.2) % Eos % (Auto) (0.8-7.0) Baso % (Auto) (0.1-1.2) % Neut # (Auto) (1.78-5.38) K/mm3 Lymph # (Auto) (1.32-3.57) K/mm3 [place] # (Auto) (0.30-0.82) K/mm3 Eos # (Auto) (0.04-0.54) K/mm3 Baso # (Auto) (0.01-0.08) K/mm3 Manual Slide Review Sodium (136-145) mEq/L Potassium (3.5-5.1) mEq/L Chloride (98-107) mEq/L Carbon Dioxide (21-32) mEq/L Anion Gap (5-15) BUN (7-18) mg/dL Creatinine (0.7-1.3) mg/dL Est Cr Clr Drug Dosing mL/min Estimated GFR (MDRD) (>60) mL/min BUN/Creatinine Ratio (14-18) Glucose (83-115) mg/dL POC Glucose 395 H (83-110) mg/dL Calcium (8.5-10.1) mg/dL Magnesium (1.8-2.4) mg/dl C-Reactive Protein (<1.0) mg/dL NT-Pro-B Natriuret Pep (0-450) pg/mL TSH 3rd Generation (0.358-3.74) uIU/mL Med Orders - Current: Current Medications Acetaminophen (Tylenol) 650 mg PO Q6H PRN PRN Reason: Fever Albuterol (Proventil Neb Soln) 2.5 mg NEB Q4HRRT PRN PRN Reason: shortness of breath Albuterol/Ipratropium (Duoneb 3.0-0.5 Mg/3 Ml) 3 ml NEB Q6HRRT [facility] Last Admin: 02/20/17 09:02 Dose: 3 ml Aspirin (Halfprin) 81 mg PO DAILY [facility] Budesonide (Pulmicort) 0.25 mg NEB BID [facility] Last Admin: 02/20/17 09:02 Dose: 0.25 mg Carvedilol (Coreg) 6.25 mg PO BID [facility] Citalopram Hydrobromide (Celexa) 40 mg PO BEDTIME [facility] Dextrose/Water (Dextrose 50% In Water) 50 ml IVPUSH ASDIRECTED PRN PRN Reason: Hypoglycemia Enoxaparin Sodium (Lovenox) 40 mg SUBCUT DAILY [facility] Last Admin: 02/20/17 09:12 Dose: 40 mg Guaifenesin (Mucinex) 1,200 mg PO BID [facility] Doxycycline Hyclate 100 mg/ (Dextrose/Water) 100 mls @ 100 mls/hr IV Q12H [facility] Insulin Aspart (Novolog) 0 unit SUBCUT QIDACANDBED [facility] PRN Reason: Protocol Methylprednisolone Sodium Succinate (Solu-Medrol) 125 mg IVPUSH Q6H [facility] Last Admin: 02/20/17 09:12 Dose: 125 mg Mometasone Furoate/Formoterol Fumar (Dulera 200-5 Mcg) 2 puff IH Q12H [facility] Last Admin: 02/20/17 14:11 Dose: Not Given Morphine Sulfate (Morphine) 1 mg IVPUSH Q4H PRN PRN Reason: Pain (severe 7-10) Mycophenolate Mofetil (Cellcept) 1,000 mg PO BID [facility] Pantoprazole Sodium (Protonix) 40 mg PO ACBREAKFAST [facility] Last Admin: 02/20/17 05:43 Dose: 40 mg Ptom: Linagliptin (5mg (Tradjenta)) 1 each PO DAILY [facility] Ptom: Roflumilast (500mcg (Daliresp)) 1 each PO DAILY [facility] Ptom: Ubidecarenone (10mg (Co-Q 10)) 1 each PO DAILY [facility] Polysaccharide Iron Complex (Ferrex 150) 150 mg PO ACBREAKFAST [facility] Simvastatin (Zocor) 20 mg PO BEDTIME [facility] Temazepam (Restoril) 7.5 mg PO BEDTIME PRN PRN Reason: Insomnia Tiotropium [place] (Spiriva Handihaler) 18 mcg INH BEDTIME [facility] Discontinued Medications Albuterol/Ipratropium (Duoneb 3.0-0.5 Mg/3 Ml) 3 ml NEB ONETIME ONE Stop: 02/19/17 17:53 Last Admin: 02/19/17 18:04 Dose: 3 ml Budesonide (Pulmicort) 0.25 mg NEB BID [facility] Denosumab (Prolia) 60 mg SUBCUT ASDIRECTED [facility] Enoxaparin Sodium (Lovenox) 40 mg SUBCUT DAILY [facility] Furosemide (Lasix) 40 mg IVPUSH NOW ONE Stop: 02/19/17 21:04 Last Admin: 02/19/17 21:17 Dose: 40 mg Doxycycline Hyclate 100 mg/ (Sodium Chloride) 100 mls @ 100 mls/hr IV Q12HR [facility] Stop: 02/20/17 11:00 Last Admin: 02/20/17 09:14 Dose: 100 mls/hr Potassium Chloride (Klor-Con M20) 20 meq PO ONETIME ONE Stop: 02/19/17 21:06 Last Admin: 02/19/17 21:17 Dose: 20 meq - Exam Quality Assessment: Supplemental Oxygen (3L ), DVT Prophylaxis General: Alert, Oriented, Cooperative, No Acute Distress HEENT: Pupils Equal, Pupils Reactive, EOMI, Mucous Membr. Moist/[place] Neck: Supple, Trachea Midline, No JVD, No Thyromegaly Lungs: Normal Respiratory Effort, Decreased Breath Sounds, Crackles Cardiovascular: Regular Rate, Regular Rhythm GI/Abdominal Exam: Normal Bowel Sounds, Soft, Non-Tender, No Organomegaly, No Distention, No Abnormal Bruit, No Mass, Pelvis Stable (Male) Exam: Deferred Back Exam: Normal Inspection, Full Range of Motion Extremities: Normal Inspection, Normal Range of Motion, Non-Tender, No Pedal Edema, Normal Capillary Refill Peripheral Pulses: 2+: Radial (L), Radial (R), Posterior Tibial (L), Posterior Tibial (R), Dorsalis Pedis (L), Dorsalis Pedis (R) Skin: Warm, Dry Neurological: No New Focal Deficit Psy/Mental Status: Alert, Normal Affect, Normal Mood - Problem List & Annotations (1) Heart failure SNOMED Code(s): 09039539 Code(s): I50.9 - HEART FAILURE, UNSPECIFIED Status: Acute Priority: High Current Visit: Yes Qualifiers: Heart failure type: unspecified heart failure type Heart failure chronicity : unspecified heart failure chronicity Qualified Code(s): I50.9 - Heart failure, unspecified (2) Hypoxia SNOMED Code(s): 753837197 Code(s): R09.02 - HYPOXEMIA Status: Acute Priority: High Current Visit : Yes (3) Shortness of breath SNOMED Code(s): 843821759 Code(s): R06.02 - SHORTNESS OF BREATH Status: Acute Priority: High Current Visit: Yes (4) COPD (chronic obstructive pulmonary disease) SNOMED Code(s): 28570868 Code(s): J44.9 - CHRONIC OBSTRUCTIVE PULMONARY DISEASE, UNSPECIFIED Status : Chronic Priority: High Current Visit: Yes Qualifiers: COPD type: 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 Qualified Code(s): J41.8 - Mixed 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 SNOMED Code(s): 40802395 Code(s): M30.1 - POLYARTERITIS WITH LUNG INVOLVEMENT [CHURG-MARCELLA] Status : Chronic Priority: Low Current Visit: No (6) GILMER (iron deficiency anemia) SNOMED Code(s): 18997664 Code(s): D50.9 - IRON DEFICIENCY ANEMIA, UNSPECIFIED Status: Chronic Priority: Medium Current Visit: Yes Qualifiers: Iron deficiency anemia type: unspecified iron deficiency Qualified Code(s) : D50.9 - Iron deficiency anemia, unspecified (7) Chronic steroid use SNOMED Code(s): 100374454 Code(s): ICQ8957 - Status: Chronic Priority: Low Current Visit: Yes (8) Compression fracture of T12 vertebra SNOMED Code(s): 091002557 Code(s): S22.080A - WEDGE COMPRESSION FRACTURE OF T11-T12 VERTEBRA, INIT Status: Chronic Priority: Low Current Visit: Yes - Problem List Review Problem List Initiated/Reviewed/Updated: Yes - Plan Plan:: I/P: Acute: COPD exacerbation -Increasing SOB over last few days, reports difficulty with blood sugars -Normally on 3L oxygen at night -Hx/o significant pulmonary fibrosis - stable from last CXR -WBC slightly elevated in ED but on chronic steroid - WNL today -Doxycycline -Duo-nebs Q6Hr/RT -Pulmicort BID -Solumedrol 125mg Q6 -Home pulmonary medications -Consult pulmonary rehab -O2, titrate as needed; attempt to wean to home baseline Questionable CHF -No hx/o CHF per prior charts -Unable to find prior echo in our charts - attempt to locate if prior -Does report some trace edema chronically at home -BNP 1080 in ED --> 586 - repeat tomorrow -Lasix given in ED -Echo ordered Hyponatreamia -Na 133 in ED --> 132 -Thermotabs ordered tonight -Monitor need for more Anemia -Chronic -Hgb 12.0 in ED -->10.1 -Hct 38.3--32.6 -On iron supplementation at home - continue -Monitor Chronic: HLD HTN - stable Shurg-Marcella Syndrome/vasculitis Asthma Renal disease - stable Back pain Arthritis Steroid use Compression fractures at T12 - stable from last MRI Sural neuropathy Median neuropathy situational depression Type II DM Vitamin D deficiency Hx/o squamous cell carcinoma Plan: Admit to medical floor on telemetry PT/OT CM for discharge planning Other orders as indicated above Home medications as ordered Routine AM labs DVT/PE prophylaxis - mike and ILDA [place] Code status: Full Code; His PCP is Dr. Castillo at [facility] here in [place].
[2017-02-20] MEDS: Insulin Aspart 100 Units/ML 3 ML Pen SUBCUT SCH ×2 (17:28→22:37)
[2017-02-20] MEDS ORDERED: Potassium Chloride/Sodium Chloride Tab PO ONE (18:00)
[2017-02-20] MEDS: Tiotropium Inhaler 18 MCG Inhalation Powder Cap Kit of 5 INH SCH (21:13)
[2017-02-20] MEDS: Citalopram 20 MG Tab PO SCH (22:34)
[2017-02-20] MEDS: Mycophenolate Mofetil 250 MG Cap PO SCH (22:34)
[2017-02-20] MEDS: Simvastatin 20 MG Tab PO SCH (22:35)
[2017-02-20] MEDS: guaiFENesin 600 MG Tab.ER PO SCH (22:35)
[2017-02-20] MEDS: Carvedilol 6.25 MG Tab PO SCH (22:36)
[2017-02-21] MEDS: Formoterol/Mometasone 200-5 MCG 8.8 GM Inhaler IH SCH ×3 (01:55→20:57)
[2017-02-21] MEDS: Albuterol/Ipratropium 3.0-0.5 MG/3 ML Neb Soln NEB SCH ×4 (03:23→20:57)
[2017-02-21] MEDS: methylPREDNISolone Sodium Succinate 125 MG/2 ML SDV IVPUSH SCH ×4 (03:33→20:47)
[2017-02-21] MEDS: Iron Polysaccharides Complex 150 MG Cap PO SCH (06:23)
[2017-02-21] MEDS: Pantoprazole 40 MG Tab.CR PO SCH (06:23)
[2017-02-21] MEDS: Budesonide 0.25 MG/2 ML Neb Susp NEB SCH (08:46)
[2017-02-21] MEDS: Insulin Aspart 100 Units/ML 3 ML Pen SUBCUT SCH ×4 (09:42→21:04)
[2017-02-21] MEDS: Enoxaparin 40 MG/0.4 ML Syringe SUBCUT SCH (09:43)
[2017-02-21] MEDS: Mycophenolate Mofetil 250 MG Cap PO SCH ×3 (09:43→20:45)
[2017-02-21] MEDS: guaiFENesin 600 MG Tab.ER PO SCH ×2 (09:44→20:46)
[2017-02-21] MEDS: Carvedilol 6.25 MG Tab PO SCH ×2 (09:44→20:45)
[2017-02-21] MEDS: Aspirin 81 MG Tab.EC PO SCH (09:45)
[2017-02-21] MEDS: UBIDECARENONE 10 MG PO SCH (09:46)
[2017-02-21] MEDS: ROFLUMILAST 500 MCG PO SCH (09:46)
[2017-02-21] MEDS: LINAGLIPTIN 5 MG PO SCH (09:46)
--- NOTE | 2017-02-21 11:03 | PCM.PN ---
- General Info Date of Service: 02/21/17 Functional Status: Reports: Tolerating Diet, Ambulating - Review of Systems General: Reports: Weakness HEENT: Reports: No Symptoms Pulmonary: Reports: Shortness of Breath Cardiovascular: Reports: No Symptoms Gastrointestinal: Reports: No Symptoms Genitourinary: Reports: No Symptoms Musculoskeletal: Reports: No Symptoms Skin: Reports: No Symptoms Neurological: Reports: No Symptoms Psychiatric: Reports: No Symptoms - Patient Data Vitals - Most Recent: Last Vital Signs Temp 36.6 C 02/21/17 08:07 Pulse 76 02/21/17 09:44 Resp 16 02/21/17 08:07 BP 107/55 L 02/21/17 09:44 Pulse Ox 95 02/21/17 08:47 Weight - Most Recent: 81.692 kg I&O - Last 24 Hours: Intake & Output 02/20/17 02/21/17 02/21/17 22:59 06:59 14:59 Intake Total 2100 400 180 Output Total 750 950 Balance 1350 -550 180 Lab Results Last 24 Hours: Laboratory Results - last 24 hr 02/20/17 02/20/17 02/20/17 Range/Units 11:35 17:02 21:24 WBC (4.23-9.07) K/mm3 RBC (4.63-6.08) M/mm3 Hgb (13.7-17.5) gm/L Hct (40.1-51.0) % MCV (79.0-92.2) fl MCH (25.7-32.2) pg MCHC (32.2-35.5) g/dl RDW Std Deviation (35.1-43.9) fL Plt Count (163-337) K/mm3 MPV (9.4-12.3) fl Neut % (Auto) (34.0-67.9) % Lymph % (Auto) (21.8-53.1) % [place] % (Auto) (5.3-12.2) % Eos % (Auto) (0.8-7.0) Baso % (Auto) (0.1-1.2) % Neut # (Auto) (1.78-5.38) K/mm3 Lymph # (Auto) (1.32-3.57) K/mm3 [place] # (Auto) (0.30-0.82) K/mm3 Eos # (Auto) (0.04-0.54) K/mm3 Baso # (Auto) (0.01-0.08) K/mm3 Manual Slide Review Sodium (136-145) mEq/L Potassium (3.5-5.1) mEq/L Chloride (98-107) mEq/L Carbon Dioxide (21-32) mEq/L Anion Gap (5-15) BUN (7-18) mg/dL Creatinine (0.7-1.3) mg/dL Est Cr Clr Drug Dosing mL/min Estimated GFR (MDRD) (>60) mL/min BUN/Creatinine Ratio (14-18) Glucose (83-115) mg/dL POC Glucose 395 H 319 H 240 H (83-110) mg/dL Calcium (8.5-10.1) mg/dL Magnesium (1.8-2.4) mg/dl C-Reactive Protein (<1.0) mg/dL NT-Pro-B Natriuret Pep (0-450) pg/mL 02/21/17 02/21/17 02/21/17 Range/Units 05:38 05:38 06:46 WBC 6.34 (4.23-9.07) K/mm3 RBC 3.65 L (4.63-6.08) M/mm3 Hgb 10.1 L (13.7-17.5) gm/L Hct 33.1 L (40.1-51.0) % MCV 90.7 (79.0-92.2) fl MCH 27.7 (25.7-32.2) pg MCHC 30.5 L (32.2-35.5) g/dl RDW Std Deviation 50.9 H (35.1-43.9) fL Plt Count 338 H (163-337) K/mm3 MPV 8.7 L (9.4-12.3) fl Neut % (Auto) 82.7 H (34.0-67.9) % Lymph % (Auto) 10.1 L (21.8-53.1) % [place] % (Auto) 6.9 (5.3-12.2) % Eos % (Auto) 0 L (0.8-7.0) Baso % (Auto) 0.0 L (0.1-1.2) % Neut # (Auto) 5.24 (1.78-5.38) K/mm3 Lymph # (Auto) 0.64 L (1.32-3.57) K/mm3 [place] # (Auto) 0.44 (0.30-0.82) K/mm3 Eos # (Auto) 0.00 L (0.04-0.54) K/mm3 Baso # (Auto) 0.00 L (0.01-0.08) K/mm3 Manual Slide Review Abnormal smear Sodium 139 (136-145) mEq/L Potassium 4.5 (3.5-5.1) mEq/L Chloride 103 (98-107) mEq/L Carbon Dioxide 28 (21-32) mEq/L Anion Gap 12.5 (5-15) BUN 21 H (7-18) mg/dL Creatinine 1.0 (0.7-1.3) mg/dL Est Cr Clr Drug Dosing 71.02 mL/min Estimated GFR (MDRD) > 60 (>60) mL/min BUN/Creatinine Ratio 21.0 H (14-18) Glucose 235 H (83-115) mg/dL POC Glucose 246 H (83-110) mg/dL Calcium 9.3 (8.5-10.1) mg/dL Magnesium 2.0 (1.8-2.4) mg/dl C-Reactive Protein 26.2 H* (<1.0) mg/dL NT-Pro-B Natriuret Pep 441 (0-450) pg/mL Med Orders - Current: Current Medications Acetaminophen (Tylenol) 650 mg PO Q6H PRN PRN Reason: Fever Albuterol (Proventil Neb Soln) 2.5 mg NEB Q4HRRT PRN PRN Reason: shortness of breath Albuterol/Ipratropium (Duoneb 3.0-0.5 Mg/3 Ml) 3 ml NEB Q6HRRT [facility] Last Admin: 02/21/17 08:46 Dose: 3 ml Aspirin (Halfprin) 81 mg PO DAILY [facility] Last Admin: 02/21/17 09:45 Dose: 81 mg Budesonide (Pulmicort) 0.25 mg NEB BID [facility] Last Admin: 02/21/17 08:46 Dose: 0.25 mg Carvedilol (Coreg) 6.25 mg PO BID [facility] Last Admin: 02/21/17 09:44 Dose: 6.25 mg Citalopram Hydrobromide (Celexa) 40 mg PO BEDTIME [facility] Last Admin: 02/20/17 22:34 Dose: 40 mg Dextrose/Water (Dextrose 50% In Water) 50 ml IVPUSH ASDIRECTED PRN PRN Reason: Hypoglycemia Enoxaparin Sodium (Lovenox) 40 mg SUBCUT DAILY [facility] Last Admin: 02/21/17 09:43 Dose: 40 mg Guaifenesin (Mucinex) 1,200 mg PO BID [facility] Last Admin: 02/21/17 09:44 Dose: 1,200 mg Doxycycline Hyclate 100 mg/ (Dextrose/Water) 100 mls @ 100 mls/hr IV Q12H [facility] Last Admin: 02/21/17 09:45 Dose: 100 mls/hr Insulin Aspart (Novolog) 0 unit SUBCUT QIDACANDBED [facility] PRN Reason: Protocol Last Admin: 02/21/17 09:42 Dose: 4 units Methylprednisolone Sodium Succinate (Solu-Medrol) 125 mg IVPUSH Q6H [facility] Last Admin: 02/21/17 09:43 Dose: 125 mg Mometasone Furoate/Formoterol Fumar (Dulera 200-5 Mcg) 2 puff IH BID [facility] Last Admin: 02/21/17 08:46 Dose: 2 puff Morphine Sulfate (Morphine) 1 mg IVPUSH Q4H PRN PRN Reason: Pain (severe 7-10) Mycophenolate Mofetil (Cellcept) 1,000 mg PO BID [facility] Last Admin: 02/21/17 09:47 Dose: Not Given Pantoprazole Sodium (Protonix) 40 mg PO ACBREAKFAST [facility] Last Admin: 02/21/17 06:23 Dose: 40 mg Ptom: Linagliptin (5mg (Tradjenta)) 1 each PO DAILY [facility] Last Admin: 02/21/17 09:46 Dose: Not Given Ptom: Roflumilast (500mcg (Daliresp)) 1 each PO DAILY [facility] Last Admin: 02/21/17 09:46 Dose: Not Given Ptom: Ubidecarenone (10mg (Co-Q 10)) 1 each PO DAILY [facility] Last Admin: 02/21/17 09:46 Dose: Not Given Polysaccharide Iron Complex (Ferrex 150) 150 mg PO ACBREAKFAST [facility] Last Admin: 02/21/17 06:23 Dose: 150 mg Simvastatin (Zocor) 20 mg PO BEDTIME [facility] Last Admin: 02/20/17 22:35 Dose: 20 mg Temazepam (Restoril) 7.5 mg PO BEDTIME PRN PRN Reason: Insomnia Tiotropium [place] (Spiriva Handihaler) 18 mcg INH BEDTIME [facility] Last Admin: 02/20/17 21:13 Dose: 1 puff Discontinued Medications Albuterol/Ipratropium (Duoneb 3.0-0.5 Mg/3 Ml) 3 ml NEB ONETIME ONE Stop: 02/19/17 17:53 Last Admin: 02/19/17 18:04 Dose: 3 ml Budesonide (Pulmicort) 0.25 mg NEB BID [facility] Denosumab (Prolia) 60 mg SUBCUT ASDIRECTED [facility] Enoxaparin Sodium (Lovenox) 40 mg SUBCUT DAILY [facility] Furosemide (Lasix) 40 mg IVPUSH NOW ONE Stop: 02/19/17 21:04 Last Admin: 02/19/17 21:17 Dose: 40 mg Doxycycline Hyclate 100 mg/ (Sodium Chloride) 100 mls @ 100 mls/hr IV Q12HR [facility] Stop: 02/20/17 11:00 Last Admin: 02/20/17 09:14 Dose: 100 mls/hr Mometasone Furoate/Formoterol Fumar (Dulera 200-5 Mcg) 2 puff IH Q12H [facility] Last Admin: 02/21/17 01:55 Dose: Not Given Oral Electrolytes (Thermotabs) 1 each PO ONETIME ONE Stop: 02/20/17 18:01 Last Admin: 02/20/17 22:33 Dose: 1 each Potassium Chloride (Klor-Con M20) 20 meq PO ONETIME ONE Stop: 02/19/17 21:06 Last Admin: 02/19/17 21:17 Dose: 20 meq - Exam Quality Assessment: Supplemental Oxygen, DVT Prophylaxis General: Alert, Oriented, Cooperative, No Acute Distress HEENT: Pupils Equal, Pupils Reactive, EOMI Neck: Trachea Midline, No JVD Lungs: Normal Respiratory Effort, Decreased Breath Sounds Cardiovascular: Regular Rate, Regular Rhythm GI/Abdominal Exam: Normal Bowel Sounds, Soft, Non-Tender, No Organomegaly, No Distention (Male) Exam: Deferred Back Exam: Normal Inspection Extremities: Normal Inspection, Non-Tender Skin: Warm Neurological: No New Focal Deficit Psy/Mental Status: Alert, Normal Affect, Normal Mood - Problem List Review Problem List Initiated/Reviewed/Updated: Yes - My Orders Last 24 Hours: My Active Orders 02/20/17 12:56 Dextrose 50% in Water 50 ml IVPUSH ASDIRECTED PRN 02/20/17 17:00 Insulin Aspart [NovoLOG] See Protocol SUBCUT QIDACANDBED 02/20/17 21:00 Carvedilol [Coreg] 6.25 mg PO BID Citalopram [Celexa] 40 mg PO BEDTIME Doxycycline [Vibramycin] 100 mg Dextrose 5% in Water 100 ml IV Q12H Mycophenolate Mofetil [Cellcept] 1,000 mg PO BID Simvastatin [Zocor] 20 mg PO BEDTIME Tiotropium [Spiriva HandiHaler] 18 mcg INH BEDTIME guaiFENesin [Mucinex] 1,200 mg PO BID 02/20/17 22:34 Oxygen Therapy [RC] ASDIRECTED 02/21/17 06:00 Iron Polysaccharides Complex [Ferrex 150] 150 mg PO ACBREAKFAST 02/21/17 09:00 Aspirin [Halfprin] 81 mg PO DAILY Mometasone/Formoterol [Dulera 200-5 MCG] 2 puff IH BID Patient's Own Medication [Ptom] 1 each PO DAILY Patient's Own Medication [Ptom] 1 each PO DAILY Patient's Own Medication [Ptom] 1 each PO DAILY - Plan Plan:: I/P: Acute: COPD exacerbation -Increasing SOB over last few days, reports difficulty with blood sugars -Normally on 3L oxygen at night -Hx/o significant pulmonary fibrosis - stable from last CXR -WBC slightly elevated in ED but on chronic steroid - WNL today -Doxycycline -Duo-nebs Q6Hr/RT -Pulmicort BID -Solumedrol 125mg Q6 -Home pulmonary medications -Consult pulmonary rehab -O2, titrate as needed; attempt to wean to home baseline Questionable CHF -No hx/o CHF per prior charts -Unable to find prior echo in our charts - attempt to locate if prior -Does report some trace edema chronically at home -BNP 1080 in ED --> 586 - repeat tomorrow -Lasix given in ED -Echo ordered Hyponatreamia -Na 133 in ED --> 132 -Thermotabs ordered tonight -Monitor need for more Anemia -Chronic -Hgb 12.0 in ED -->10.1 -Hct 38.3--32.6 -On iron supplementation at home - continue -Monitor Chronic: HLD HTN - stable Churg-Skyler Syndrome/vasculitis Asthma Renal disease - stable Back pain Arthritis Steroid use Compression fractures at T12 - stable from last MRI Sural neuropathy Median neuropathy situational depression Type II DM Vitamin D deficiency Hx/o squamous cell carcinoma Plan: Admit to medical floor on telemetry PT/OT CM for discharge planning Other orders as indicated above Home medications as ordered Routine AM labs DVT/PE prophylaxis - mike and ILDA Ocamp[place] Code status: Full Code; His PCP is Dr. Castillo at [facility] here in [place].
[2017-02-21] MEDS ORDERED: Albuterol/Ipratropium 3.0-0.5 MG/3 ML Neb Soln NEB SCH (17:00)
[2017-02-21] MEDS: Citalopram 20 MG Tab PO SCH (20:45)
[2017-02-21] MEDS: Simvastatin 20 MG Tab PO SCH (20:47)
[2017-02-21] MEDS: Tiotropium Inhaler 18 MCG Inhalation Powder Cap Kit of 5 INH SCH (20:58)
[2017-02-21] MEDS: Budesonide 0.5 MG/2 ML Neb Susp NEB SCH (20:58)
[2017-02-22] MEDS: methylPREDNISolone Sodium Succinate 125 MG/2 ML SDV IVPUSH SCH ×4 (03:54→21:53)
[2017-02-22] MEDS: Albuterol/Ipratropium 3.0-0.5 MG/3 ML Neb Soln NEB SCH ×4 (06:45→21:13)
[2017-02-22] MEDS: Iron Polysaccharides Complex 150 MG Cap PO SCH (07:22)
[2017-02-22] MEDS: Pantoprazole 40 MG Tab.CR PO SCH (07:22)
[2017-02-22] MEDS: Formoterol/Mometasone 200-5 MCG 8.8 GM Inhaler IH SCH ×2 (09:21→21:13)
[2017-02-22] MEDS: Budesonide 0.5 MG/2 ML Neb Susp NEB SCH ×2 (09:21→21:13)
[2017-02-22] MEDS: Enoxaparin 40 MG/0.4 ML Syringe SUBCUT SCH (09:36)
[2017-02-22] MEDS: Insulin Aspart 100 Units/ML 3 ML Pen SUBCUT SCH ×4 (09:36→21:56)
[2017-02-22] MEDS: guaiFENesin 600 MG Tab.ER PO SCH ×2 (09:37→21:49)
[2017-02-22] MEDS: Aspirin 81 MG Tab.EC PO SCH (09:37)
[2017-02-22] MEDS: Carvedilol 6.25 MG Tab PO SCH ×2 (09:37→21:48)
[2017-02-22] MEDS: UBIDECARENONE 10 MG PO SCH (09:38)
[2017-02-22] MEDS: Mycophenolate Mofetil 250 MG Cap PO SCH ×2 (09:38→21:50)
[2017-02-22] MEDS: LINAGLIPTIN 5 MG PO SCH (09:38)
[2017-02-22] MEDS: ROFLUMILAST 500 MCG PO SCH (09:38)
--- NOTE | 2017-02-22 14:28 | PCM.PN ---
- General Info Date of Service: 02/22/17 Functional Status: Reports: Ambulating - Review of Systems General: Reports: Weakness HEENT: Reports: No Symptoms Pulmonary: Reports: Shortness of Breath Cardiovascular: Reports: No Symptoms Gastrointestinal: Reports: No Symptoms Genitourinary: Reports: No Symptoms Musculoskeletal: Reports: No Symptoms Skin: Reports: No Symptoms Neurological: Reports: No Symptoms Psychiatric: Reports: No Symptoms - Patient Data Vitals - Most Recent: Last Vital Signs Temp 36.7 C 02/22/17 07:48 Pulse 63 02/22/17 09:37 Resp 17 02/22/17 07:48 BP 118/70 02/22/17 09:37 Pulse Ox 97 02/22/17 09:21 Weight - Most Recent: 81.783 kg I&O - Last 24 Hours: Intake & Output 02/21/17 02/22/17 02/22/17 22:59 06:59 14:59 Intake Total 1400 700 540 Output Total 750 750 Balance 650 -50 540 Lab Results Last 24 Hours: Laboratory Results - last 24 hr 02/21/17 02/21/17 02/22/17 Range/Units 17:26 21:00 06:30 WBC 7.35 (4.23-9.07) K/mm3 RBC 3.67 L (4.63-6.08) M/mm3 Hgb 10.3 L (13.7-17.5) gm/L Hct 33.5 L (40.1-51.0) % MCV 91.3 (79.0-92.2) fl MCH 28.1 (25.7-32.2) pg MCHC 30.7 L (32.2-35.5) g/dl RDW Std Deviation 50.6 H (35.1-43.9) fL Plt Count 338 H (163-337) K/mm3 MPV 8.4 L (9.4-12.3) fl Neut % (Auto) 85.4 H (34.0-67.9) % Lymph % (Auto) 9.3 L (21.8-53.1) % [place] % (Auto) 4.8 L (5.3-12.2) % Eos % (Auto) 0 L (0.8-7.0) Baso % (Auto) 0.1 (0.1-1.2) % Neut # (Auto) 6.28 H (1.78-5.38) K/mm3 Lymph # (Auto) 0.68 L (1.32-3.57) K/mm3 [place] # (Auto) 0.35 (0.30-0.82) K/mm3 Eos # (Auto) 0.00 L (0.04-0.54) K/mm3 Baso # (Auto) 0.01 (0.01-0.08) K/mm3 Manual Slide Review Abnormal smear Sodium (136-145) mEq/L Potassium (3.5-5.1) mEq/L Chloride (98-107) mEq/L Carbon Dioxide (21-32) mEq/L Anion Gap (5-15) BUN (7-18) mg/dL Creatinine (0.7-1.3) mg/dL Est Cr Clr Drug Dosing mL/min Estimated GFR (MDRD) (>60) mL/min BUN/Creatinine Ratio (14-18) Glucose (83-115) mg/dL POC Glucose 175 H 364 H (83-110) mg/dL Calcium (8.5-10.1) mg/dL Magnesium (1.8-2.4) mg/dl C-Reactive Protein (<1.0) mg/dL 02/22/17 02/22/17 02/22/17 Range/Units 06:30 06:32 11:24 WBC (4.23-9.07) K/mm3 RBC (4.63-6.08) M/mm3 Hgb (13.7-17.5) gm/L Hct (40.1-51.0) % MCV (79.0-92.2) fl MCH (25.7-32.2) pg MCHC (32.2-35.5) g/dl RDW Std Deviation (35.1-43.9) fL Plt Count (163-337) K/mm3 MPV (9.4-12.3) fl Neut % (Auto) (34.0-67.9) % Lymph % (Auto) (21.8-53.1) % [place] % (Auto) (5.3-12.2) % Eos % (Auto) (0.8-7.0) Baso % (Auto) (0.1-1.2) % Neut # (Auto) (1.78-5.38) K/mm3 Lymph # (Auto) (1.32-3.57) K/mm3 [place] # (Auto) (0.30-0.82) K/mm3 Eos # (Auto) (0.04-0.54) K/mm3 Baso # (Auto) (0.01-0.08) K/mm3 Manual Slide Review Sodium 138 (136-145) mEq/L Potassium 4.5 (3.5-5.1) mEq/L Chloride 104 (98-107) mEq/L Carbon Dioxide 27 (21-32) mEq/L Anion Gap 11.5 (5-15) BUN 23 H (7-18) mg/dL Creatinine 0.9 (0.7-1.3) mg/dL Est Cr Clr Drug Dosing 78.91 mL/min Estimated GFR (MDRD) > 60 (>60) mL/min BUN/Creatinine Ratio 25.6 H (14-18) Glucose 198 H (83-115) mg/dL POC Glucose 175 H 301 H (83-110) mg/dL Calcium 9.1 (8.5-10.1) mg/dL Magnesium 2.1 (1.8-2.4) mg/dl C-Reactive Protein 12.0 H* (<1.0) mg/dL Med Orders - Current: Current Medications Acetaminophen (Tylenol) 650 mg PO Q6H PRN PRN Reason: Fever Albuterol (Proventil Neb Soln) 2.5 mg NEB Q4HRRT PRN PRN Reason: shortness of breath Albuterol/Ipratropium (Duoneb 3.0-0.5 Mg/3 Ml) 3 ml NEB QIDRT [facility] Last Admin: 02/22/17 09:21 Dose: 3 ml Aspirin (Halfprin) 81 mg PO DAILY [facility] Last Admin: 02/22/17 09:37 Dose: 81 mg Budesonide (Pulmicort) 0.5 mg NEB BID [facility] Last Admin: 02/22/17 09:21 Dose: 0.5 mg Carvedilol (Coreg) 6.25 mg PO BID [facility] Last Admin: 02/22/17 09:37 Dose: 6.25 mg Citalopram Hydrobromide (Celexa) 40 mg PO BEDTIME [facility] Last Admin: 02/21/17 20:45 Dose: 40 mg Dextrose/Water (Dextrose 50% In Water) 50 ml IVPUSH ASDIRECTED PRN PRN Reason: Hypoglycemia Enoxaparin Sodium (Lovenox) 40 mg SUBCUT DAILY [facility] Last Admin: 02/22/17 09:36 Dose: 40 mg Guaifenesin (Mucinex) 1,200 mg PO BID [facility] Last Admin: 02/22/17 09:37 Dose: 1,200 mg Doxycycline Hyclate 100 mg/ (Dextrose/Water) 100 mls @ 100 mls/hr IV Q12H [facility] Last Admin: 02/22/17 09:44 Dose: 100 mls/hr Insulin Aspart (Novolog) 0 unit SUBCUT QIDACANDBED [facility] PRN Reason: Protocol Last Admin: 02/22/17 11:25 Dose: 8 units Methylprednisolone Sodium Succinate (Solu-Medrol) 125 mg IVPUSH Q6H [facility] Last Admin: 02/22/17 14:24 Dose: 125 mg Mometasone Furoate/Formoterol Fumar (Dulera 200-5 Mcg) 2 puff IH BID [facility] Last Admin: 02/22/17 09:21 Dose: 2 puff Morphine Sulfate (Morphine) 1 mg IVPUSH Q4H PRN PRN Reason: Pain (severe 7-10) Mycophenolate Mofetil (Cellcept) 1,000 mg PO BID [facility] Last Admin: 02/22/17 09:38 Dose: Not Given Pantoprazole Sodium (Protonix) 40 mg PO ACBREAKFAST [facility] Last Admin: 02/22/17 07:22 Dose: 40 mg Ptom: Linagliptin (5mg (Tradjenta)) 1 each PO DAILY [facility] Last Admin: 02/22/17 09:38 Dose: Not Given Ptom: Roflumilast (500mcg (Daliresp)) 1 each PO DAILY [facility] Last Admin: 02/22/17 09:38 Dose: Not Given Ptom: Ubidecarenone (10mg (Co-Q 10)) 1 each PO DAILY [facility] Last Admin: 02/22/17 09:38 Dose: Not Given Polysaccharide Iron Complex (Ferrex 150) 150 mg PO ACBREAKFAST [facility] Last Admin: 02/22/17 07:22 Dose: 150 mg Simvastatin (Zocor) 20 mg PO BEDTIME [facility] Last Admin: 02/21/17 20:47 Dose: 20 mg Temazepam (Restoril) 7.5 mg PO BEDTIME PRN PRN Reason: Insomnia Tiotropium [place] (Spiriva Handihaler) 18 mcg INH BEDTIME [facility] Last Admin: 02/21/17 20:58 Dose: 1 puff Discontinued Medications Albuterol/Ipratropium (Duoneb 3.0-0.5 Mg/3 Ml) 3 ml NEB ONETIME ONE Stop: 02/19/17 17:53 Last Admin: 02/19/17 18:04 Dose: 3 ml Albuterol/Ipratropium (Duoneb 3.0-0.5 Mg/3 Ml) 3 ml NEB Q6HRRT [facility] Last Admin: 02/21/17 14:32 Dose: 3 ml Albuterol/Ipratropium (Duoneb 3.0-0.5 Mg/3 Ml) 3 ml NEB QID [facility] Budesonide (Pulmicort) 0.25 mg NEB BID [facility] Budesonide (Pulmicort) 0.25 mg NEB BID [facility] Last Admin: 02/21/17 08:46 Dose: 0.25 mg Denosumab (Prolia) 60 mg SUBCUT ASDIRECTED [facility] Enoxaparin Sodium (Lovenox) 40 mg SUBCUT DAILY [facility] Furosemide (Lasix) 40 mg IVPUSH NOW ONE Stop: 02/19/17 21:04 Last Admin: 02/19/17 21:17 Dose: 40 mg Doxycycline Hyclate 100 mg/ (Sodium Chloride) 100 mls @ 100 mls/hr IV Q12HR [facility] Stop: 02/20/17 11:00 Last Admin: 02/20/17 09:14 Dose: 100 mls/hr Mometasone Furoate/Formoterol Fumar (Dulera 200-5 Mcg) 2 puff IH Q12H [facility] Last Admin: 02/21/17 01:55 Dose: Not Given Oral Electrolytes (Thermotabs) 1 each PO ONETIME ONE Stop: 02/20/17 18:01 Last Admin: 02/20/17 22:33 Dose: 1 each Potassium Chloride (Klor-Con M20) 20 meq PO ONETIME ONE Stop: 02/19/17 21:06 Last Admin: 02/19/17 21:17 Dose: 20 meq - Exam Quality Assessment: Supplemental Oxygen, DVT Prophylaxis General: Alert, Oriented, No Acute Distress HEENT: Pupils Equal, Pupils Reactive, EOMI Neck: Trachea Midline, No JVD Lungs: Normal Respiratory Effort Cardiovascular: Regular Rate, Regular Rhythm GI/Abdominal Exam: Normal Bowel Sounds, Soft, Non-Tender, No Organomegaly, No Distention (Male) Exam: Deferred Back Exam: Normal Inspection Extremities: Normal Inspection Skin: Warm Neurological: No New Focal Deficit, Normal Speech Psy/Mental Status: Alert, Normal Affect, Normal Mood - Problem List Review Problem List Initiated/Reviewed/Updated: Yes - My Orders Last 24 Hours: My Active Orders 02/21/17 15:07 Budesonide [Pulmicort] 0.5 mg NEB BID 02/21/17 21:00 Albuterol/Ipratropium [DuoNeb 3.0-0.5 MG/3 ML] 3 ml NEB QIDRT 02/23/17 09:00 Echo Comp wo Cont [US] Routine 02/23/17 10:00 CXR [Chest 2V] [CR] Routine - Plan Plan:: I/P: Acute: COPD exacerbation -Increasing SOB over last few days, reports difficulty with blood sugars -Normally on 3L oxygen at night -Hx/o significant pulmonary fibrosis - stable from last CXR -WBC slightly elevated in ED but on chronic steroid - WNL today -Doxycycline -Duo-nebs Q6Hr/RT -Pulmicort BID -Solumedrol 125mg Q6 -Home pulmonary medications -Consult pulmonary rehab -O2, titrate as needed; attempt to wean to home baseline Questionable CHF -No hx/o CHF per prior charts -Unable to find prior echo in our charts - attempt to locate if prior -Does report some trace edema chronically at home -BNP 1080 in ED --> 586 - repeat tomorrow -Lasix given in ED -Echo ordered Hyponatreamia -Na 133 in ED --> 132 -Thermotabs ordered tonight -Monitor need for more Anemia -Chronic -Hgb 12.0 in ED -->10.1 -Hct 38.3--32.6 -On iron supplementation at home - continue -Monitor Chronic: HLD HTN - stable Churg-Skyler Syndrome/vasculitis Asthma Renal disease - stable Back pain Arthritis Steroid use Compression fractures at T12 - stable from last MRI Sural neuropathy Median neuropathy situational depression Type II DM Vitamin D deficiency Hx/o squamous cell carcinoma Plan: Admit to medical floor on telemetry PT/OT CM for discharge planning Other orders as indicated above Home medications as ordered Routine AM labs DVT/PE prophylaxis - mike and ILDA Ocampo Code status: Full Code; His PCP is Dr. Castillo at [facility] here in [place].
[2017-02-22] MEDS: Tiotropium Inhaler 18 MCG Inhalation Powder Cap Kit of 5 INH SCH (21:13)
[2017-02-22] MEDS: Simvastatin 20 MG Tab PO SCH (21:49)
[2017-02-22] MEDS: Doxycycline 100 MG Cap PO SCH (21:50)
[2017-02-22] MEDS: Citalopram 20 MG Tab PO SCH (21:50)
[2017-02-23] MEDS: Albuterol/Ipratropium 3.0-0.5 MG/3 ML Neb Soln NEB SCH ×4 (06:48→21:08)
[2017-02-23] MEDS: Pantoprazole 40 MG Tab.CR PO SCH (07:02)
[2017-02-23] MEDS: Iron Polysaccharides Complex 150 MG Cap PO SCH (07:02)
[2017-02-23] MEDS: methylPREDNISolone Sodium Succinate 125 MG/2 ML SDV IVPUSH SCH (07:02)
[2017-02-23] MEDS: Insulin Aspart 100 Units/ML 3 ML Pen SUBCUT SCH ×4 (08:02→23:15)
[2017-02-23] MEDS: Mycophenolate Mofetil 250 MG Cap PO SCH ×2 (08:14→21:44)
[2017-02-23] MEDS: Aspirin 81 MG Tab.EC PO SCH (08:15)
[2017-02-23] MEDS: Carvedilol 6.25 MG Tab PO SCH ×2 (08:15→21:41)
[2017-02-23] MEDS: guaiFENesin 600 MG Tab.ER PO SCH ×2 (08:15→21:41)
[2017-02-23] MEDS: LINAGLIPTIN 5 MG PO SCH (08:15)
[2017-02-23] MEDS: Doxycycline 100 MG Cap PO SCH ×2 (08:15→21:41)
[2017-02-23] MEDS: Enoxaparin 40 MG/0.4 ML Syringe SUBCUT SCH (08:15)
[2017-02-23] MEDS: ROFLUMILAST 500 MCG PO SCH (08:16)
[2017-02-23] MEDS: UBIDECARENONE 10 MG PO SCH (08:16)
--- NOTE | 2017-02-23 08:54 | CR ---
Chest: Two views of the chest were obtained. Comparison: Prior chest x-ray of 02/19/17. Diffuse interstitial change is seen which appears fairly stable. Heart size is normal. Tortuous thoracic aorta is seen. Bony structures are osteopenic. Compression deformities noted at the thoracolumbar junction and upper lumbar spine appear stable. Impression: 1. Diffuse interstitial change which appears fairly stable from prior exam. 2. Other stable findings as noted above. Diagnostic code #3
--- NOTE | 2017-02-23 09:54 | PCM.PN ---
- General Info Date of Service: 02/23/17 Admission Dx/Problem (Free Text): Admission Diagnosis/Problem Admission Diagnosis/Problem Hypoxia/COPD braden Arenas is seen this morning, resting comfortably in bed. Reports O2 and breathing is "much better". Oxygen levels are 97% on 3L, titrating down as he has required oxygen at night only prior. Denies c/o pain/discomfort. Slept well. Ate good breakfast. Has been up ambulatory. Moving bowels, no difficulty with voiding. Functional Status: Reports: Pain Controlled, Tolerating Diet, Ambulating, Urinating. Denies: New Symptoms - Review of Systems General: Reports: No Symptoms, Weakness (improved) HEENT: Reports: No Symptoms Pulmonary: Reports: Shortness of Breath (improved), Cough (improved) Cardiovascular: Reports: No Symptoms. Denies: Chest Pain Gastrointestinal: Reports: No Symptoms. Denies: Abdominal Pain, Diarrhea, Nausea, Vomiting Genitourinary: Reports: No Symptoms Musculoskeletal: Reports: Other (reports chronic "arthritis" pain in general.) Skin: Reports: No Symptoms Neurological: Reports: No Symptoms Psychiatric: Reports: No Symptoms - Patient Data Vitals - Most Recent: Last Vital Signs Temp 97.9 F 02/23/17 08:12 Pulse 81 02/23/17 08:15 Resp 18 02/23/17 08:12 BP 124/65 02/23/17 08:15 Pulse Ox 97 02/23/17 08:12 Weight - Most Recent: 181 lb 3.2 oz I&O - Last 24 Hours: Intake & Output 02/22/17 02/23/17 02/23/17 22:59 06:59 14:59 Intake Total 740 600 Output Total 675 1200 Balance 65 -600 Lab Results Last 24 Hours: Laboratory Results - last 24 hr 02/22/17 02/22/17 02/22/17 Range/Units 11:24 16:11 21:21 WBC (4.23-9.07) K/mm3 RBC (4.63-6.08) M/mm3 Hgb (13.7-17.5) gm/L Hct (40.1-51.0) % MCV (79.0-92.2) fl MCH (25.7-32.2) pg MCHC (32.2-35.5) g/dl RDW Std Deviation (35.1-43.9) fL Plt Count (163-337) K/mm3 MPV (9.4-12.3) fl Neut % (Auto) (34.0-67.9) % Lymph % (Auto) (21.8-53.1) % [place] % (Auto) (5.3-12.2) % Eos % (Auto) (0.8-7.0) Baso % (Auto) (0.1-1.2) % Neut # (Auto) (1.78-5.38) K/mm3 Lymph # (Auto) (1.32-3.57) K/mm3 [place] # (Auto) (0.30-0.82) K/mm3 Eos # (Auto) (0.04-0.54) K/mm3 Baso # (Auto) (0.01-0.08) K/mm3 Manual Slide Review Sodium (136-145) mEq/L Potassium (3.5-5.1) mEq/L Chloride (98-107) mEq/L Carbon Dioxide (21-32) mEq/L Anion Gap (5-15) BUN (7-18) mg/dL Creatinine (0.7-1.3) mg/dL Est Cr Clr Drug Dosing mL/min Estimated GFR (MDRD) (>60) mL/min BUN/Creatinine Ratio (14-18) Glucose (83-115) mg/dL POC Glucose 301 H 261 H 319 H (83-110) mg/dL Hemoglobin A1c (4.50-6.20) % Calcium (8.5-10.1) mg/dL Magnesium (1.8-2.4) mg/dl C-Reactive Protein (<1.0) mg/dL 02/23/17 02/23/17 02/23/17 Range/Units 05:50 05:50 05:50 WBC 8.31 (4.23-9.07) K/mm3 RBC 3.70 L (4.63-6.08) M/mm3 Hgb 10.2 L (13.7-17.5) gm/L Hct 33.8 L (40.1-51.0) % MCV 91.4 (79.0-92.2) fl MCH 27.6 (25.7-32.2) pg MCHC 30.2 L (32.2-35.5) g/dl RDW Std Deviation 50.5 H (35.1-43.9) fL Plt Count 341 H (163-337) K/mm3 MPV 8.6 L (9.4-12.3) fl Neut % (Auto) 82.2 H (34.0-67.9) % Lymph % (Auto) 10.7 L (21.8-53.1) % [place] % (Auto) 6.7 (5.3-12.2) % Eos % (Auto) 0 L (0.8-7.0) Baso % (Auto) 0.2 (0.1-1.2) % Neut # (Auto) 6.82 H (1.78-5.38) K/mm3 Lymph # (Auto) 0.89 L (1.32-3.57) K/mm3 [place] # (Auto) 0.56 (0.30-0.82) K/mm3 Eos # (Auto) 0.00 L (0.04-0.54) K/mm3 Baso # (Auto) 0.02 (0.01-0.08) K/mm3 Manual Slide Review Abnormal smear Sodium 140 (136-145) mEq/L Potassium 4.7 (3.5-5.1) mEq/L Chloride 106 (98-107) mEq/L Carbon Dioxide 29 (21-32) mEq/L Anion Gap 9.7 (5-15) BUN 25 H (7-18) mg/dL Creatinine 0.9 (0.7-1.3) mg/dL Est Cr Clr Drug Dosing 78.91 mL/min Estimated GFR (MDRD) > 60 (>60) mL/min BUN/Creatinine Ratio 27.8 H (14-18) Glucose 204 H (83-115) mg/dL POC Glucose (83-110) mg/dL Hemoglobin A1c 7.10 H (4.50-6.20) % Calcium 8.8 (8.5-10.1) mg/dL Magnesium 2.2 (1.8-2.4) mg/dl C-Reactive Protein 6.1 H* (<1.0) mg/dL 02/23/17 Range/Units 07:05 WBC (4.23-9.07) K/mm3 RBC (4.63-6.08) M/mm3 Hgb (13.7-17.5) gm/L Hct (40.1-51.0) % MCV (79.0-92.2) fl MCH (25.7-32.2) pg MCHC (32.2-35.5) g/dl RDW Std Deviation (35.1-43.9) fL Plt Count (163-337) K/mm3 MPV (9.4-12.3) fl Neut % (Auto) (34.0-67.9) % Lymph % (Auto) (21.8-53.1) % [place] % (Auto) (5.3-12.2) % Eos % (Auto) (0.8-7.0) Baso % (Auto) (0.1-1.2) % Neut # (Auto) (1.78-5.38) K/mm3 Lymph # (Auto) (1.32-3.57) K/mm3 [place] # (Auto) (0.30-0.82) K/mm3 Eos # (Auto) (0.04-0.54) K/mm3 Baso # (Auto) (0.01-0.08) K/mm3 Manual Slide Review Sodium (136-145) mEq/L Potassium (3.5-5.1) mEq/L Chloride (98-107) mEq/L Carbon Dioxide (21-32) mEq/L Anion Gap (5-15) BUN (7-18) mg/dL Creatinine (0.7-1.3) mg/dL Est Cr Clr Drug Dosing mL/min Estimated GFR (MDRD) (>60) mL/min BUN/Creatinine Ratio (14-18) Glucose (83-115) mg/dL POC Glucose 205 H (83-110) mg/dL Hemoglobin A1c (4.50-6.20) % Calcium (8.5-10.1) mg/dL Magnesium (1.8-2.4) mg/dl C-Reactive Protein (<1.0) mg/dL Med Orders - Current: Current Medications Acetaminophen (Tylenol) 650 mg PO Q6H PRN PRN Reason: Fever Albuterol (Proventil Neb Soln) 2.5 mg NEB Q4HRRT PRN PRN Reason: shortness of breath Albuterol/Ipratropium (Duoneb 3.0-0.5 Mg/3 Ml) 3 ml NEB QIDRT [facility] Last Admin: 02/23/17 06:48 Dose: 3 ml Aspirin (Halfprin) 81 mg PO DAILY [facility] Last Admin: 02/23/17 08:15 Dose: 81 mg Budesonide (Pulmicort) 0.5 mg NEB BID [facility] Last Admin: 02/22/17 21:13 Dose: 0.5 mg Carvedilol (Coreg) 6.25 mg PO BID [facility] Last Admin: 02/23/17 08:15 Dose: 6.25 mg Citalopram Hydrobromide (Celexa) 40 mg PO BEDTIME [facility] Last Admin: 02/22/17 21:50 Dose: 40 mg Dextrose/Water (Dextrose 50% In Water) 50 ml IVPUSH ASDIRECTED PRN PRN Reason: Hypoglycemia Doxycycline Hyclate (Vibramycin) 100 mg PO BID [facility] Last Admin: 02/23/17 08:15 Dose: 100 mg Enoxaparin Sodium (Lovenox) 40 mg SUBCUT DAILY [facility] Last Admin: 02/23/17 08:15 Dose: 40 mg Guaifenesin (Mucinex) 1,200 mg PO BID [facility] Last Admin: 02/23/17 08:15 Dose: 1,200 mg Insulin Aspart (Novolog) 0 unit SUBCUT QIDACANDBED [facility] PRN Reason: Protocol Last Admin: 02/23/17 08:02 Dose: 4 units Methylprednisolone Sodium Succinate (Solu-Medrol) 80 mg IVPUSH Q8H [facility] Last Admin: 02/23/17 07:02 Dose: 80 mg Mometasone Furoate/Formoterol Fumar (Dulera 200-5 Mcg) 2 puff IH BID [facility] Last Admin: 02/22/17 21:13 Dose: 2 puff Morphine Sulfate (Morphine) 1 mg IVPUSH Q4H PRN PRN Reason: Pain (severe 7-10) Mycophenolate Mofetil (Cellcept) 1,000 mg PO BID [facility] Last Admin: 02/23/17 08:14 Dose: 1,000 mg Pantoprazole Sodium (Protonix) 40 mg PO ACBREAKFAST [facility] Last Admin: 02/23/17 07:02 Dose: 40 mg Ptom: Linagliptin (5mg (Tradjenta)) 1 each PO DAILY [facility] Last Admin: 02/23/17 08:15 Dose: Not Given Ptom: Roflumilast (500mcg (Daliresp)) 1 each PO DAILY [facility] Last Admin: 02/23/17 08:16 Dose: Not Given Ptom: Ubidecarenone (10mg (Co-Q 10)) 1 each PO DAILY [facility] Last Admin: 02/23/17 08:16 Dose: Not Given Polysaccharide Iron Complex (Ferrex 150) 150 mg PO ACBREAKFAST [facility] Last Admin: 02/23/17 07:02 Dose: 150 mg Simvastatin (Zocor) 20 mg PO BEDTIME [facility] Last Admin: 02/22/17 21:49 Dose: 20 mg Temazepam (Restoril) 7.5 mg PO BEDTIME PRN PRN Reason: Insomnia Tiotropium [place] (Spiriva Handihaler) 18 mcg INH BEDTIME [facility] Last Admin: 02/22/17 21:13 Dose: 1 puff Discontinued Medications Albuterol/Ipratropium (Duoneb 3.0-0.5 Mg/3 Ml) 3 ml NEB ONETIME ONE Stop: 02/19/17 17:53 Last Admin: 02/19/17 18:04 Dose: 3 ml Albuterol/Ipratropium (Duoneb 3.0-0.5 Mg/3 Ml) 3 ml NEB Q6HRRT [facility] Last Admin: 02/21/17 14:32 Dose: 3 ml Albuterol/Ipratropium (Duoneb 3.0-0.5 Mg/3 Ml) 3 ml NEB QID [facility] Budesonide (Pulmicort) 0.25 mg NEB BID [facility] Budesonide (Pulmicort) 0.25 mg NEB BID [facility] Last Admin: 02/21/17 08:46 Dose: 0.25 mg Denosumab (Prolia) 60 mg SUBCUT ASDIRECTED [facility] Enoxaparin Sodium (Lovenox) 40 mg SUBCUT DAILY [facility] Furosemide (Lasix) 40 mg IVPUSH NOW ONE Stop: 02/19/17 21:04 Last Admin: 02/19/17 21:17 Dose: 40 mg Doxycycline Hyclate 100 mg/ (Sodium Chloride) 100 mls @ 100 mls/hr IV Q12HR [facility] Stop: 02/20/17 11:00 Last Admin: 02/20/17 09:14 Dose: 100 mls/hr Doxycycline Hyclate 100 mg/ (Dextrose/Water) 100 mls @ 100 mls/hr IV Q12H [facility] Last Admin: 02/22/17 09:44 Dose: 100 mls/hr Methylprednisolone Sodium Succinate (Solu-Medrol) 125 mg IVPUSH Q6H [facility] Last Admin: 02/22/17 14:24 Dose: 125 mg Mometasone Furoate/Formoterol Fumar (Dulera 200-5 Mcg) 2 puff IH Q12H [facility] Last Admin: 02/21/17 01:55 Dose: Not Given Oral Electrolytes (Thermotabs) 1 each PO ONETIME ONE Stop: 02/20/17 18:01 Last Admin: 02/20/17 22:33 Dose: 1 each Potassium Chloride (Klor-Con M20) 20 meq PO ONETIME ONE Stop: 02/19/17 21:06 Last Admin: 02/19/17 21:17 Dose: 20 meq - Exam Quality Assessment: DVT Prophylaxis General: Alert, Oriented, Cooperative, No Acute Distress HEENT: Pupils Equal, EOMI, Mucous Membr. Moist/[place] Neck: Supple Lungs: Normal Respiratory Effort, Decreased Breath Sounds (mid to lower lobes), Rales (bilat, fine at bases) Cardiovascular: Regular Rate, Regular Rhythm GI/Abdominal Exam: Normal Bowel Sounds, Soft, Non-Tender (Male) Exam: Deferred Extremities: No Pedal Edema, Normal Capillary Refill Neurological: No New Focal Deficit Psy/Mental Status: Alert, Normal Affect, Normal Mood - Problem List & Annotations (1) Hypoxia SNOMED Code(s): 161856932 Code(s): R09.02 - HYPOXEMIA Status: Acute Priority: High Current Visit : Yes (2) COPD (chronic obstructive pulmonary disease) SNOMED Code(s): 41727681 Code(s): J44.9 - CHRONIC OBSTRUCTIVE PULMONARY DISEASE, UNSPECIFIED Status : Chronic Priority: High Current Visit: Yes Qualifiers: COPD type: 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 Qualified Code(s): J41.8 - Mixed simple and mucopurulent chronic bronchitis (3) Chronic steroid use SNOMED Code(s): 108645722 Code(s): ZAH0037 - Status: Chronic Priority: Low Current Visit: Yes (4) Compression fracture of T12 vertebra SNOMED Code(s): 670117573 Code(s): S22.080A - WEDGE COMPRESSION FRACTURE OF T11-T12 VERTEBRA, INIT Status: Chronic Priority: Low Current Visit: Yes (5) GILMER (iron deficiency anemia) SNOMED Code(s): 16087839 Code(s): D50.9 - IRON DEFICIENCY ANEMIA, UNSPECIFIED Status: Chronic Priority: Medium Current Visit: Yes Qualifiers: Iron deficiency anemia type: unspecified iron deficiency Qualified Code(s) : D50.9 - Iron deficiency anemia, unspecified (6) Churg-Marcella syndrome with lung involvement SNOMED Code(s): 09497095 Code(s): M30.1 - POLYARTERITIS WITH LUNG INVOLVEMENT [CHURG-MARCELLA] Status : Chronic Priority: Low Current Visit: No - Problem List Review Problem List Initiated/Reviewed/Updated: Yes - Plan Plan:: I/P: Acute: COPD exacerbation with hx of churg-marcella vasculitis -Increasing SOB over last few days, reports difficulty with blood sugars; Normally on 3L oxygen at night -Hx/o significant pulmonary fibrosis - stable from last CXR--repeat CXR on 02/23/17 is also "stable". -WBC slightly elevated in ED but on chronic steroid -Doxycycline, IV --->PO now -Solumedrol 125mg Q6-->decreasing dose then transition to prednisone taper to baseline dose -Home pulmonary medications -Consult pulmonary rehab -RT/Nebs/IS/FV; O2, titrate as needed; attempt to wean to home baseline Questionable CHF -No hx/o CHF per prior charts; Unable to find prior echo in our charts-- ordered and pending results. 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 Asthma CKD - stable Back pain Arthritis Steroid use- chronic daily, as above Compression fractures at A18--dbzzvuv as stable from last MRI--minimal to no pain. Sural neuropathy; median neuropathy Reactive depression Type II DM--A1C 7.1 Vitamin D deficiency Hx/o squamous cell carcinoma Plan: Admit to medical floor on telemetry PT/OT CM for discharge planning -- plans to DC home with family when ready. Likely 24- 48 hours--will taper solumedrol. -Has f/up with new Systems Mgr Dr. Garcia scheduled fro 03/30/17. Was abruptly stopped on cellcept in December, not restarted but has been maintained on prednisone 20mg alternating with 10mg every other day since that time. Routine AM labs DVT/PE prophylaxis - lovenox and ILDA Hose Code status: Full Code His PCP is Dr. Castillo at [facility] here in [place].
[2017-02-23] MEDS: Formoterol/Mometasone 200-5 MCG 8.8 GM Inhaler IH SCH ×2 (10:33→21:08)
[2017-02-23] MEDS: Budesonide 0.5 MG/2 ML Neb Susp NEB SCH ×2 (10:33→21:08)
[2017-02-23] MEDS: Nystatin Susp 100,000 Unit/ML 5 ML UD Cup PO SCH ×3 (12:11→21:43)
[2017-02-23] MEDS: Tiotropium Inhaler 18 MCG Inhalation Powder Cap Kit of 5 INH SCH (21:08)
[2017-02-23] MEDS: Citalopram 20 MG Tab PO SCH (21:43)
[2017-02-23] MEDS: Simvastatin 20 MG Tab PO SCH (21:43)
[2017-02-24] MEDS: Albuterol/Ipratropium 3.0-0.5 MG/3 ML Neb Soln NEB SCH ×2 (06:08→09:00)
[2017-02-24] MEDS: Pantoprazole 40 MG Tab.CR PO SCH (06:16)
[2017-02-24] MEDS: Iron Polysaccharides Complex 150 MG Cap PO SCH (06:16)
[2017-02-24] MEDS: Insulin Aspart 100 Units/ML 3 ML Pen SUBCUT SCH ×2 (06:18→11:42)
--- NOTE | 2017-02-24 07:51 | PCM.DCSUM1 ---
Discharge Summary - Hospital Course Free Text/Narrative:: 76 year old male with several treatments for URI, presents from his PCP for further evaluation. The patient stated that he has not been seen by a senior validation engineer for several months but reportedly told to stop his Cellcept for two weeks. He was to have restarted it by the beginning of January. This did not occur because he reported that his PCP stated that it should be held until he has been seen in March by the senior validation engineer. He remains on prednisone, the current dose requires clarification. Overall his functional status has declined, he continues to be short of breath. Denies fever, chills, chest pain , orthopnea, PND, syncopal or presyncopal episodes. Admits to malaise, general weakness and decreased appetite; he requires nocturnal use of oxygen as his baseline. He was felt to be in heart failure in the ED, lasix was given. Hospitalist is consulted for admission to [facility] for ? 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 Of note: Patient history with regard to vasculitis-- Patient is in between Rheumatologists at this time. Had been seeing Dr. Hernandez , who unfortunately left, will now be seeing Dr. Chappell with next f/up/consult set for 03/30/17. Cellcept had been discontinued in December, by patient report was to be restarted 2 weeks later. He had seen Dr Castillo in the mean time who recommended prednisone 20mg alternating with 10mg every other day. He has been taking this dosing schedule since December, off of cellcept which he had previously been on for 5 years. - Discharge Data Discharge Date: 02/24/17 (admit date 02/19/17) Discharge Disposition: Home, Self-Care 01 Condition: Good - Discharge Diagnosis/Problem(s) (1) Hypoxia SNOMED Code(s): 523074849 ICD Code: R09.02 - HYPOXEMIA Status: Acute Priority: High Current Visit : Yes (2) COPD (chronic obstructive pulmonary disease) SNOMED Code(s): 20751521 ICD Code: J44.9 - CHRONIC OBSTRUCTIVE PULMONARY DISEASE, UNSPECIFIED Status : Chronic Priority: High Current Visit: Yes Qualifiers: COPD type: 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 Qualified Code(s): J41.8 - Mixed simple and mucopurulent chronic bronchitis (3) Chronic steroid use SNOMED Code(s): 744181053 ICD Code: [id number] - Status: Chronic Priority: Low Current Visit: Yes (4) Compression fracture of T12 vertebra SNOMED Code(s): 778730713 ICD Code: S22.080A - WEDGE COMPRESSION FRACTURE OF T11-T12 VERTEBRA, INIT Status: Chronic Priority: Low Current Visit: Yes (5) GILMER (iron deficiency anemia) SNOMED Code(s): 21967714 ICD Code: D50.9 - IRON DEFICIENCY ANEMIA, UNSPECIFIED Status: Chronic Priority: Medium Current Visit: Yes Qualifiers: Iron deficiency anemia type: unspecified iron deficiency Qualified Code(s) : D50.9 - Iron deficiency anemia, unspecified (6) Churg-Marcella syndrome with lung involvement SNOMED Code(s): 76541149 ICD Code: M30.1 - POLYARTERITIS WITH LUNG INVOLVEMENT [CHURG-MARCELLA] Status: Chronic Priority: Low Current Visit: No - Patient Summary/Data Operative Procedure(s) Performed: None Complications: None Consults: Consultations 02/20/17 02:20 Consult to Case Management [CONS] Routine Consult to Pulmonary Rehabilitation [CONS] Routine OT Evaluation and Treatment [CONS] Routine PT Evaluation and Treatment [CONS] Routine Labs Pending at D/C: None Recommended Follow-up Testing/Procedures: Patient DC instructions: Continue home Oxygen. Reassess oxygen need at next fup with PCP. Outpatient PT. Patient has Front wheeled walker at home. Follow up with PCP, Dr. Castillo within one week of discharge Follow up with Rheumatology, Dr. Chappell as scheduled on 03/30/17--continue current dose of prednisone as directed by Dr. 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 -WBC slightly elevated in ED but on chronic steroid -Doxycycline, IV --->PO now--will DC on doxycycline -Solumedrol 125mg Q6-->decreasing dose then transition to prednisone taper to baseline dose -Home pulmonary medications -Consult pulmonary rehab -RT/Nebs/IS/FV; O2, titrate as needed; attempt to wean to home baseline Questionable CHF---Resolved -No hx/o CHF per prior charts; Unable to find prior echo in our charts-- ordered and pending results. Results still pending for echo---will forward to PCP office when available. 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 --Phoned [facility] yesterday (02/23/17) discussed cellcept vs prednisone dosing. Recommend cont prednisone dosing until establish care with Dr. Chappell on 03/30/17. Asthma CKD - stable Back pain Arthritis Steroid use- chronic daily, as above Compression fractures at S45--urlowdx as stable from last MRI--minimal to no pain. Sural neuropathy; median neuropathy Reactive depression Type II DM--A1C 7.1 Vitamin D deficiency Hx/o squamous cell carcinoma Plan: Admit to medical floor on telemetry PT/OT CM for discharge planning -- plans to DC home with family when ready. Likely 24- 48 hours--will taper solumedrol. -Has f/up with new Metal Die Finisher Dr. Garcia scheduled fro 03/30/17. Was abruptly stopped on cellcept in December, not restarted but has been maintained on prednisone 20mg alternating with 10mg every other day since that time. Routine AM labs DVT/PE prophylaxis - lovenox and ILDA Hose Code status: Full Code His PCP is Dr. Castillo at [facility] here in [place]. - Patient Instructions Diet: Heart Healthy Diet, Diabetic Diet Activity: As Tolerated Showering/Bathing: May Shower Notify Provider of: Fever, Increased Pain, Swelling and Redness, Nausea and/or Vomiting - Discharge Plan Prescriptions/Med Rec: Nystatin [Mycostatin] 5 ml PO QID #240 ml Pantoprazole [ProTONIX] 40 mg PO ACBREAKFAST #30 tab.cr predniSONE 40 mg PO .Daily Taper #35 tablet Home Medications: Home Meds Albuterol [Ventolin HFA] 2 puff INH Q6H PRN 05/04/15 [History] Aspirin [Halfprin] 81 mg PO DAILY 05/04/15 [History] Budesonide/Formoterol [Symbicort 160-4.5 MCG] 2 puff INH Q12H 05/04/15 [History] Carvedilol [Coreg] 6.25 mg PO BID 05/04/15 [History] Cholecalciferol (Vitamin D3) [Vitamin D3] 1,000 units PO DAILY 05/04/15 [History ] Citalopram Hydrobromide [Celexa] 40 mg PO BEDTIME 05/04/15 [History] Denosumab [Prolia] 60 mg SUBCUT ASDIRECTED 05/04/15 [History] Multivitamin [Daily Multiple Vitamin] 1 tab PO DAILY 05/04/15 [History] Roflumilast [Daliresp] 500 mcg PO DAILY 05/04/15 [History] Simvastatin [Zocor] 20 mg PO BEDTIME 05/04/15 [History] Tiotropium [Spiriva HandiHaler] 18 mcg INH BEDTIME 05/04/15 [History] predniSONE [Prednisone] 10 mg PO Q2D 05/04/15 [History] predniSONE [Prednisone] 20 mg PO Q2D 05/04/15 [History] Mycophenolate Mofetil [Cellcept] 1,000 mg PO BID 05/09/15 [History] Ascorbic Acid 500 mg PO DAILY 02/19/17 [History] Calcium Carbonate/Vitamin D3 [Oyster Shell+D 250 mg Tablet] 2 tab PO BID [History] Iron Polysaccharides Complex [Ferrex 150] 150 mg PO ACBREAKFAST 02/19/17 [ History] Linagliptin [Tradjenta] 5 mg PO DAILY 02/19/17 [History] Ubidecarenone [Co Q-10] 10 mg PO DAILY 02/19/17 [History] Vit A,C & E/Lutein/Minerals [Healthy Eyes] 1 tab PO DAILY 02/19/17 [History] guaiFENesin [Mucinex] 1,200 mg PO BID 02/19/17 [History] Nystatin [Mycostatin] 5 ml PO QID #240 ml 02/24/17 [Rx] Pantoprazole [ProTONIX] 40 mg PO ACBREAKFAST #30 tab.cr 02/24/17 [Rx] predniSONE 40 mg PO .Daily Taper #35 tablet 02/24/17 [Rx] Patient Handouts: Type 2 Diabetes Mellitus, Adult, Vasculitis, Chronic Obstructive Pulmonary Disease, [id number] Forms: ED Department Discharge Referrals: Shara Castillo MD [Primary Care Provider] - 03/02/17 2:30 pm (Please follow up with Dr. Castillo on ThursdayMarch 02 at 2:30pm) - Discharge Summary/Plan Comment DC Time >30 min.: Yes (45 min) - General Info Date of Service: 02/24/17 Admission Dx/Problem (Free Text: Admission Diagnosis/Problem Admission Diagnosis/Problem Hypoxia/COPD braden Arenas is seen this morning, resting comfortably in bed. Reports O2 and breathing is "much better". Denies c/o pain/discomfort. Slept well. Ate good breakfast. Has been up ambulatory. Moving bowels, no difficulty with voiding. Doing very well, ambulating. Plans dc today, home. Functional Status: Reports: Pain Controlled, Tolerating Diet, Ambulating, Urinating, Incentive Spirometry. Denies: New Symptoms - Review of Systems General: Reports: No Symptoms HEENT: Reports: No Symptoms Pulmonary: Reports: No Symptoms, Shortness of Breath (chronic- at baseline), Cough (chronic- at baseline) Cardiovascular: Reports: No Symptoms Gastrointestinal: Reports: No Symptoms Genitourinary: Reports: No Symptoms Musculoskeletal: Reports: No Symptoms Skin: Reports: No Symptoms Neurological: Reports: No Symptoms Psychiatric: Reports: No Symptoms - Patient Data Vitals - Most Recent: Last Vital Signs Temp 98.1 F 02/24/17 03:27 Pulse 66 02/24/17 03:27 Resp 20 02/24/17 03:27 BP 114/69 02/24/17 03:20 Pulse Ox 90 L 02/24/17 06:09 Weight - Most Recent: 179 lb 4.8 oz I&O - Last 24 hours: Intake & Output 02/23/17 02/24/17 02/24/17 22:59 06:59 14:59 Intake Total 1400 700 Output Total 800 950 Balance 600 -250 Lab Results - Last 24 hrs: Laboratory Results - last 24 hr 02/23/17 02/23/17 02/23/17 Range/Units 05:50 11:14 17:14 WBC (4.23-9.07) K/mm3 RBC (4.63-6.08) M/mm3 Hgb (13.7-17.5) gm/L Hct (40.1-51.0) % MCV (79.0-92.2) fl MCH (25.7-32.2) pg MCHC (32.2-35.5) g/dl RDW Std Deviation (35.1-43.9) fL Plt Count (163-337) K/mm3 MPV (9.4-12.3) fl Neut % (Auto) (34.0-67.9) % Lymph % (Auto) (21.8-53.1) % Wallace % (Auto) (5.3-12.2) % Eos % (Auto) (0.8-7.0) Baso % (Auto) (0.1-1.2) % Neut # (Auto) (1.78-5.38) K/mm3 Lymph # (Auto) (1.32-3.57) K/mm3 Wallace # (Auto) (0.30-0.82) K/mm3 Eos # (Auto) (0.04-0.54) K/mm3 Baso # (Auto) (0.01-0.08) K/mm3 Sodium (136-145) mEq/L Potassium (3.5-5.1) mEq/L Chloride (98-107) mEq/L Carbon Dioxide (21-32) mEq/L Anion Gap (5-15) BUN (7-18) mg/dL Creatinine (0.7-1.3) mg/dL Est Cr Clr Drug Dosing mL/min Estimated GFR (MDRD) (>60) mL/min BUN/Creatinine Ratio (14-18) Glucose (83-115) mg/dL POC Glucose 277 H 255 H (83-110) mg/dL Hemoglobin A1c 7.10 H (4.50-6.20) % Calcium (8.5-10.1) mg/dL Magnesium (1.8-2.4) mg/dl C-Reactive Protein (<1.0) mg/dL 02/23/17 02/24/17 02/24/17 Range/Units 22:07 06:04 06:35 WBC 8.72 (4.23-9.07) K/mm3 RBC 3.84 L (4.63-6.08) M/mm3 Hgb 10.7 L (13.7-17.5) gm/L Hct 35.1 L (40.1-51.0) % MCV 91.4 (79.0-92.2) fl MCH 27.9 (25.7-32.2) pg MCHC 30.5 L (32.2-35.5) g/dl RDW Std Deviation 51.6 H (35.1-43.9) fL Plt Count 359 H (163-337) K/mm3 MPV 8.2 L (9.4-12.3) fl Neut % (Auto) 71.0 H (34.0-67.9) % Lymph % (Auto) 19.2 L (21.8-53.1) % Wallace % (Auto) 8.8 (5.3-12.2) % Eos % (Auto) 0.3 L (0.8-7.0) Baso % (Auto) 0.1 (0.1-1.2) % Neut # (Auto) 6.19 H (1.78-5.38) K/mm3 Lymph # (Auto) 1.67 (1.32-3.57) K/mm3 Wallace # (Auto) 0.77 (0.30-0.82) K/mm3 Eos # (Auto) 0.03 L (0.04-0.54) K/mm3 Baso # (Auto) 0.01 (0.01-0.08) K/mm3 Sodium (136-145) mEq/L Potassium (3.5-5.1) mEq/L Chloride (98-107) mEq/L Carbon Dioxide (21-32) mEq/L Anion Gap (5-15) BUN (7-18) mg/dL Creatinine (0.7-1.3) mg/dL Est Cr Clr Drug Dosing mL/min Estimated GFR (MDRD) (>60) mL/min BUN/Creatinine Ratio (14-18) Glucose (83-115) mg/dL POC Glucose 187 H 131 H (83-110) mg/dL Hemoglobin A1c (4.50-6.20) % Calcium (8.5-10.1) mg/dL Magnesium (1.8-2.4) mg/dl C-Reactive Protein (<1.0) mg/dL 02/24/17 Range/Units 06:35 WBC (4.23-9.07) K/mm3 RBC (4.63-6.08) M/mm3 Hgb (13.7-17.5) gm/L Hct (40.1-51.0) % MCV (79.0-92.2) fl MCH (25.7-32.2) pg MCHC (32.2-35.5) g/dl RDW Std Deviation (35.1-43.9) fL Plt Count (163-337) K/mm3 MPV (9.4-12.3) fl Neut % (Auto) (34.0-67.9) % Lymph % (Auto) (21.8-53.1) % Wallace % (Auto) (5.3-12.2) % Eos % (Auto) (0.8-7.0) Baso % (Auto) (0.1-1.2) % Neut # (Auto) (1.78-5.38) K/mm3 Lymph # (Auto) (1.32-3.57) K/mm3 Wallace # (Auto) (0.30-0.82) K/mm3 Eos # (Auto) (0.04-0.54) K/mm3 Baso # (Auto) (0.01-0.08) K/mm3 Sodium 140 (136-145) mEq/L Potassium 4.0 (3.5-5.1) mEq/L Chloride 105 (98-107) mEq/L Carbon Dioxide 28 (21-32) mEq/L Anion Gap 11.0 (5-15) BUN 19 H (7-18) mg/dL Creatinine 0.8 (0.7-1.3) mg/dL Est Cr Clr Drug Dosing 88.78 mL/min Estimated GFR (MDRD) > 60 (>60) mL/min BUN/Creatinine Ratio 23.8 H (14-18) Glucose 116 H (83-115) mg/dL POC Glucose (83-110) mg/dL Hemoglobin A1c (4.50-6.20) % Calcium 8.5 (8.5-10.1) mg/dL Magnesium 2.0 (1.8-2.4) mg/dl C-Reactive Protein 3.6 H* (<1.0) mg/dL Med Orders - Current: Current Medications Acetaminophen (Tylenol) 650 mg PO Q6H PRN PRN Reason: Fever Albuterol (Proventil Neb Soln) 2.5 mg NEB Q4HRRT PRN PRN Reason: shortness of breath Albuterol/Ipratropium (Duoneb 3.0-0.5 Mg/3 Ml) 3 ml NEB QIDRT [facility] Last Admin: 02/24/17 06:08 Dose: 3 ml Aspirin (Halfprin) 81 mg PO DAILY [facility] Last Admin: 02/23/17 08:15 Dose: 81 mg Budesonide (Pulmicort) 0.5 mg NEB BID [facility] Last Admin: 02/23/17 21:08 Dose: 0.5 mg Carvedilol (Coreg) 6.25 mg PO BID [facility] Last Admin: 02/23/17 21:41 Dose: 6.25 mg Citalopram Hydrobromide (Celexa) 40 mg PO BEDTIME [facility] Last Admin: 02/23/17 21:43 Dose: 40 mg Dextrose/Water (Dextrose 50% In Water) 50 ml IVPUSH ASDIRECTED PRN PRN Reason: Hypoglycemia Doxycycline Hyclate (Vibramycin) 100 mg PO BID [facility] Last Admin: 02/23/17 21:41 Dose: 100 mg Enoxaparin Sodium (Lovenox) 40 mg SUBCUT DAILY [facility] Last Admin: 02/23/17 08:15 Dose: 40 mg Guaifenesin (Mucinex) 1,200 mg PO BID [facility] Last Admin: 02/23/17 21:41 Dose: 1,200 mg Insulin Aspart (Novolog) 0 unit SUBCUT QIDACANDBED [facility] PRN Reason: Protocol Last Admin: 02/24/17 06:18 Dose: Not Given Mometasone Furoate/Formoterol Fumar (Dulera 200-5 Mcg) 2 puff IH BID [facility] Last Admin: 02/23/17 21:08 Dose: 2 puff Morphine Sulfate (Morphine) 1 mg IVPUSH Q4H PRN PRN Reason: Pain (severe 7-10) Mycophenolate Mofetil (Cellcept) 1,000 mg PO BID [facility] Last Admin: 02/23/17 21:44 Dose: 1,000 mg Nystatin (Mycostatin) 5 ml PO QID [facility] Last Admin: 02/23/17 21:43 Dose: 5 ml Pantoprazole Sodium (Protonix) 40 mg PO ACBREAKFAST [facility] Last Admin: 02/24/17 06:16 Dose: 40 mg Ptom: Linagliptin (5mg (Tradjenta)) 1 each PO DAILY [facility] Last Admin: 02/23/17 08:15 Dose: Not Given Ptom: Roflumilast (500mcg (Daliresp)) 1 each PO DAILY [facility] Last Admin: 02/23/17 08:16 Dose: Not Given Ptom: Ubidecarenone (10mg (Co-Q 10)) 1 each PO DAILY [facility] Last Admin: 02/23/17 08:16 Dose: Not Given Polysaccharide Iron Complex (Ferrex 150) 150 mg PO ACBREAKFAST [facility] Last Admin: 02/24/17 06:16 Dose: 150 mg Prednisone (Prednisone) 40 mg PO .Daily Taper [facility] Simvastatin (Zocor) 20 mg PO BEDTIME [facility] Last Admin: 02/23/17 21:43 Dose: 20 mg Temazepam (Restoril) 7.5 mg PO BEDTIME PRN PRN Reason: Insomnia Tiotropium [place] (Spiriva Handihaler) 18 mcg INH BEDTIME [facility] Last Admin: 02/23/17 21:08 Dose: 1 puff Discontinued Medications Albuterol/Ipratropium (Duoneb 3.0-0.5 Mg/3 Ml) 3 ml NEB ONETIME ONE Stop: 02/19/17 17:53 Last Admin: 02/19/17 18:04 Dose: 3 ml Albuterol/Ipratropium (Duoneb 3.0-0.5 Mg/3 Ml) 3 ml NEB Q6HRRT [facility] Last Admin: 02/21/17 14:32 Dose: 3 ml Albuterol/Ipratropium (Duoneb 3.0-0.5 Mg/3 Ml) 3 ml NEB QID [facility] Budesonide (Pulmicort) 0.25 mg NEB BID [facility] Budesonide (Pulmicort) 0.25 mg NEB BID [facility] Last Admin: 02/21/17 08:46 Dose: 0.25 mg Denosumab (Prolia) 60 mg SUBCUT ASDIRECTED [facility] Enoxaparin Sodium (Lovenox) 40 mg SUBCUT DAILY [facility] Furosemide (Lasix) 40 mg IVPUSH NOW ONE Stop: 02/19/17 21:04 Last Admin: 02/19/17 21:17 Dose: 40 mg Doxycycline Hyclate 100 mg/ (Sodium Chloride) 100 mls @ 100 mls/hr IV Q12HR [facility] Stop: 02/20/17 11:00 Last Admin: 02/20/17 09:14 Dose: 100 mls/hr Doxycycline Hyclate 100 mg/ (Dextrose/Water) 100 mls @ 100 mls/hr IV Q12H [facility] Last Admin: 02/22/17 09:44 Dose: 100 mls/hr Methylprednisolone Sodium Succinate (Solu-Medrol) 125 mg IVPUSH Q6H [facility] Last Admin: 02/22/17 14:24 Dose: 125 mg Methylprednisolone Sodium Succinate (Solu-Medrol) 80 mg IVPUSH Q8H [facility] Last Admin: 02/23/17 07:02 Dose: 80 mg Mometasone Furoate/Formoterol Fumar (Dulera 200-5 Mcg) 2 puff IH Q12H [facility] Last Admin: 02/21/17 01:55 Dose: Not Given Oral Electrolytes (Thermotabs) 1 each PO ONETIME ONE Stop: 02/20/17 18:01 Last Admin: 02/20/17 22:33 Dose: 1 each Potassium Chloride (Klor-Con M20) 20 meq PO ONETIME ONE Stop: 02/19/17 21:06 Last Admin: 02/19/17 21:17 Dose: 20 meq - Exam Quality Assessment: Reports: Supplemental Oxygen, DVT Prophylaxis General: Reports: Alert, Oriented, Cooperative, No Acute Distress HEENT: Reports: Pupils Equal, EOMI, Mucous Membr. Moist/[place] Neck: Reports: Supple Lungs: Reports: Normal Respiratory Effort, Decreased Breath Sounds, Rales ( bilat fine at bases) Cardiovascular: Reports: Regular Rate, Regular Rhythm GI/Abdominal Exam: Normal Bowel Sounds, Soft, Non-Tender (Male) Exam: Deferred Rectal (Males) Exam: Deferred Extremities: No Pedal Edema, Normal Capillary Refill Neurological: Reports: No New Focal Deficit Psy/Mental Status: Reports: Alert, Normal Affect, Normal Mood *Q Meaningful Use (DIS) - VTE *Q VTE Criteria *Q: - Stroke *Q Stroke Criteria *Q: - AMI *Q AMI Criteria *Q:
[2017-02-24] MEDS: Mycophenolate Mofetil 250 MG Cap PO SCH (08:20)
[2017-02-24] MEDS: Nystatin Susp 100,000 Unit/ML 5 ML UD Cup PO SCH (08:20)
[2017-02-24] MEDS: Doxycycline 100 MG Cap PO SCH (08:20)
[2017-02-24] MEDS: Aspirin 81 MG Tab.EC PO SCH (08:21)
[2017-02-24] MEDS: guaiFENesin 600 MG Tab.ER PO SCH (08:21)
[2017-02-24] MEDS: ROFLUMILAST 500 MCG PO SCH (08:21)
[2017-02-24] MEDS: LINAGLIPTIN 5 MG PO SCH (08:21)
[2017-02-24] MEDS: Enoxaparin 40 MG/0.4 ML Syringe SUBCUT SCH (08:21)
[2017-02-24] MEDS: UBIDECARENONE 10 MG PO SCH (08:21)
[2017-02-24] MEDS: Carvedilol 6.25 MG Tab PO SCH (08:21)
[2017-02-24 08:22] VITALS: BP 115/76
[2017-02-24] MEDS: Budesonide 0.5 MG/2 ML Neb Susp NEB SCH (08:49)
[2017-02-24] MEDS: Formoterol/Mometasone 200-5 MCG 8.8 GM Inhaler IH SCH (08:49)
[2017-02-24] MEDS ORDERED: predniSONE 10 MG Tab PO SCH (09:00)
== END 2017-02-24 12:22 | disposition home or self-care (01) | DRG 191 ==
LOC: JD.ED 17:14 → UNDOADMIN 21:20 → JD.MS 21:20 → UNDODISIN 02-24 12:22
PROVIDERS: ADMIT Internal Medicine Cardiovascular Disease; ATTEND Internal Medicine Cardiovascular Disease
DX: I11.0 Hypertensive heart disease with heart failure (principal); J44.1 Chronic obstructive pulmonary disease with (acute) exacerbation; D84.9 Immunodeficiency, unspecified; E78.00 Pure hypercholesterolemia, unspecified; M30.1 Polyarteritis with lung involvement [Churg-Strauss]; E87.1 Hypo-osmolality and hyponatremia; I13.0 Hypertensive heart and chronic kidney disease with heart failure and stage 1 through stage 4 chronic kidney disease, or unspecified chronic kidney disease; I50.9 Heart failure, unspecified; R09.02 Hypoxemia; J44.9 Chronic obstructive pulmonary disease, unspecified; H91.90 Unspecified hearing loss, unspecified ear; J41.8 Mixed simple and mucopurulent chronic bronchitis; Z79.52 Long term (current) use of systemic steroids; J84.10 Pulmonary fibrosis, unspecified; E78.5 Hyperlipidemia, unspecified; E11.40 Type 2 diabetes mellitus with diabetic neuropathy, unspecified; D64.9 Anemia, unspecified; E11.22 Type 2 diabetes mellitus with diabetic chronic kidney disease; N18.9 Chronic kidney disease, unspecified; D50.9 Iron deficiency anemia, unspecified; M19.90 Unspecified osteoarthritis, unspecified site; G89.29 Other chronic pain; M54.9 Dorsalgia, unspecified; E55.9 Vitamin D deficiency, unspecified; Z87.891 Personal history of nicotine dependence; Z88.1 Allergy status to other antibiotic agents; Z88.2 Allergy status to sulfonamides; Z88.8 Allergy status to other drugs, medicaments and biological substances; Z79.82 Long term (current) use of aspirin; Z99.81 Dependence on supplemental oxygen; Z79.899 Other long term (current) drug therapy
CPT/HCPCS: 36415; 36600; 71045; 71250; 80053; 82803; 83880; 84484; 85025; 85610; 85730; 87040 ×2; 93005; 96374; 99285; A9270; J1940; 71046; 71046-26; 80048; 82962; 83036; 83735; 84443; 86140; 93010; 93306; 94640; 94664; 94761; 97116-GP; 97162-GP; 97165-GO; 97530-GO; 97530-GP; J1650; J1815-GY; J2930; J7030; J7060

== ENCOUNTER 2018-10-25 15:07 | Emergency (ER) | payer MEDICARE, BC ==
--- NOTE | 2018-10-25 15:25 | EDM.PDOC ---
ED HPI GENERAL MEDICAL PROBLEM - General Chief Complaint: Respiratory Problem Stated Complaint: SOB SENT BY DR LISA Time Seen by Provider: 10/25/18 15:19 Source of Information: Reports: Patient History Limitations: Reports: No Limitations - History of Present Illness INITIAL COMMENTS - FREE TEXT/NARRATIVE: 78-year-old male sent to the ED by his distal care physician Dr. Shara Lisa at [facility]. Patient arrives there with a history of being sick for at least 3 days with high fever of 102 associate with fever chills and rigors 2 days. He did keep down a little bit of food today. Do not have much to eat yesterday. Patient has lost a good deal of weight since I have seen him last probably 30 pounds. Current vital signs show a heart rate in the 130s. BP 127/77 spine . Respiratory rate is 28--32 /m. Sats are 88% on 3 L. Patient is usually maintained on 2-3 L at all times at home. I've asked the patient if he wishes to be intubated or not and he states whenever I decide. He has never been intubated before. Patient presents in a moribund state. He appreciates increased shortness of breath and productive sounding cough. Temperature up to 102 yesterday. According to his . No vomiting or diarrhea. No genitourinary complaints. Onset: Sudden Onset Date: 10/23/18 Duration: Day(s):, Getting Worse, Other (Fever chills riders 2 days.) Location: Reports: Chest ( Increasing productive cough Increasing dyspnea on minimal exertion and productive cough.). Denies: Upper Extremity, Left, Upper Extremity, Right, Lower Extremity, Left Quality: Reports: Other (Productive sounding cough. Yellowish sputum denies blood.) Severity: Severe Improves with: Reports: Rest Worsens with: Reports: Breathing, Movement Context: Reports: Other (Spontaneous). Denies: Activity, Exercise (Any movement makes him much worse.), Lifting, Sick Contact, Trauma Associated Symptoms: Reports: Cough ( yellowish-green in color. ), cough w sputum ( recurrence of fever chills and rigors. Patient has history of chronic bronchitis and COPD.), Fever/Chills, Loss of Appetite (With rigors.), Malaise, Shortness of Breath (Much worse than normal.), Weakness. 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: Oxygen (He is on home oxygen at 3 L/m most times.) Right Knee Pain Score (Numeric/FACES): 7 - Related Data Allergies Allergy/AdvReac Type Severity Reaction Status Date / Time alendronate sodium Allergy Rash Verified 10/25/18 15:19 [From Fosamax] amoxicillin trihydrate Allergy Rash Verified 10/25/18 15:19 [From Augmentin] atorvastatin calcium Allergy Cannot Verified 10/25/18 15:19 [From Lipitor] Remember azathioprine [From Imuran] Allergy Rash Verified 10/25/18 15:19 azathioprine sodium Allergy Rash Verified 10/25/18 15:19 [From Imuran] azithromycin [From Zithromax] Allergy Rash Verified 10/25/18 15:19 cefuroxime axetil Allergy Rash Verified 10/25/18 15:19 [From Ceftin] methotrexate Allergy Rash Verified 10/25/18 15:19 potassium clavulanate Allergy Rash Verified 10/25/18 15:19 [From Augmentin] rofecoxib [From Vioxx] Allergy Rash Verified 10/25/18 15:19 Sulfa (Sulfonamide Allergy Rash Verified 10/25/18 15:19 Antibiotics) Home Meds: Home Meds Albuterol [Ventolin HFA] 2 puff INH Q6H PRN 10/25/18 [History] Budesonide/Formoterol [Symbicort 160-4.5 MCG] 2 puff INH Q12HR 10/25/18 [History ] Calcium Carbonate/Vitamin D3 [Oyster Shell Calcium-Vit D Tab] 2 tab PO BID 10/25 [History] Carvedilol [Coreg] 12.5 mg PO BID 10/25/18 [History] Citalopram Hydrobromide [Celexa] 20 mg PO BEDTIME 10/25/18 [History] Denosumab [Prolia] 60 mg SUBCUT ASDIRECTED 10/25/18 [History] Furosemide [Lasix] 20 mg PO DAILY 10/25/18 [History] Iron Ag,Ps/C/Fa6/B12/Zn/SA/Sto [Niferex Tablet] 1 tab PO BID 10/25/18 [History] LORazepam [Ativan] 0.5 mg PO DAILY PRN 10/25/18 [History] Multivitamin [Multivitamins] 1 tab PO DAILY 10/25/18 [History] Mycophenolate Mofetil [Cellcept] 1,000 mg PO DAILY 10/25/18 [History] Mycophenolate Mofetil [Cellcept] 1,500 mg PO DAILY 10/25/18 [History] Omeprazole Magnesium [Prilosec Otc] 40 mg PO DAILY 10/25/18 [History] Roflumilast [Daliresp] 500 mcg PO DAILY 10/25/18 [History] Simvastatin 20 mg PO DAILY 10/25/18 [History] Tiotropium [Spiriva HandiHaler] 18 mcg PO DAILY 10/25/18 [History] Ubidecarenone [Co Q-10] 100 mg PO DAILY 10/25/18 [History] Vit A,C & E/Lutein/Minerals [Healthy Eyes] 1 tab PO DAILY 10/25/18 [History] guaiFENesin [Mucinex] 1,200 mg PO BID 10/25/18 [History] predniSONE [Prednisone] 1 mg PO DAILY 10/25/18 [History] Past Medical History HEENT History: Reports: Hard of Hearing Other HEENT History: wears glasses, has hearing aids, dentures Cardiovascular History: Reports: Heart Failure, High Cholesterol, Hypertension, SOB on Exertion Other Cardiovascular History: Churg-Skyler Syndrome/vasculitis, ASCVD, edema Respiratory History: Reports: Asthma, COPD Other Respiratory History: Chronic oxygen use at 3 L/m. interstitial lung disease--pulmonary fibrosis with COPD Gastrointestinal History: Reports: Colon Polyp, Gastritis Genitourinary History: Reports: Renal Disease Other Genitourinary History: Bladder mass Musculoskeletal History: Reports: Arthritis, Back Pain, Chronic, Osteoarthritis (Knees hips low back and shoulders.), Other (See Below) (Rotator cuff disease both shoulders) Other Musculoskeletal History: Compression fractures Neurological History: Reports: None, Other (See Below) Other Neuro History: sural neuropathy. median neuropathy Psychiatric History: Reports: Depression, Other (See Below) Other Psychiatric History: situational depression Endocrine/Metabolic History: Reports: Diabetes, Type II Hematologic History: Reports: Other (See Below) Other Hematologic History: vitamin d deficiency, eosinophillia Immunologic History: Reports: None Oncologic (Cancer) History: Reports: None, Bladder (History of bladder carcinoma treated with fulguration and cauterization.), Squamous Cell Carcinoma Dermatologic History: Reports: Cellulitis Other Dermatologic History: Current cellulits has been treated with 20 days of antibiotics, completed course on 01/03/15 - Infectious Disease History Infectious Disease History: Reports: Chicken Pox, Mumps - Past Surgical History Head Surgeries/Procedures: Reports: None HEENT Surgical History: Reports: Cataract Surgery, Naso-Sinus Surgery, Other ( See Below) Other HEENT Surgeries/Procedures: Septum repair Cardiovascular Surgical History: Reports: None Respiratory Surgical History: Reports: None GI Surgical History: Reports: Appendectomy, Cholecystectomy, Colonoscopy Male Surgical History: Reports: Vasectomy Endocrine Surgical History: Reports: None Neurological Surgical History: Reports: None Musculoskeletal Surgical History: Reports: Other (See Below) Other Musculoskeletal Surgeries/Procedures:: kyphoplasty Oncologic Surgical History: Reports: None Social & Family History - Family History Family Medical History: Noncontributory Cardiac: Reports: Other (See Below) Other Cardiac Family History: Brother recently passed after open heart surgery. Respiratory: Reports: COPD, Other (See Below) Other Respiratory Family Hisory: brother Endocrine/Metabolic: Reports: Diabetes, type II, Other (See Below) Other Endocrine/Metabolic Family History: 2 brothers Oncologic: Reports: Other (See Below) Other Oncologic Family History: brother-unknown type - Caffeine Use Caffeine Use: Reports: Coffee - Living Situation & Occupation Living situation: Reports: Occupation: Retired ED ROS GENERAL - Review of Systems Review Of Systems: See Below Constitutional: Reports: Fever, Chills, Malaise, Weakness, Fatigue, Decreased Appetite, Weight Loss HEENT: Reports: Glasses, Hearing Loss, Vertigo Respiratory: Reports: Shortness of Breath (Has had positive vertigo in the past) , Wheezing, Cough, Sputum (Very productive sounding cough much worse than normal over the last 3 days.). Denies: Pleuritic Chest Pain (. He), Hemoptysis , Other ( Yellowish green color to the sputum.) Cardiovascular: Reports: Orthopnea. Denies: Blood Pressure Problem, Claudication Endocrine: Reports: Fatigue GI/Abdominal: Reports: Constipation (Occasional positive constipation.), Difficulty Swallowing (Lai easily at times.). Denies: Diarrhea, Hematemesis, Hematochezia : Reports: Frequency, Other (Known prostatic hypertrophy. Nocturia 3 times nightly.) Musculoskeletal: Reports: Shoulder Pain (Lateral shoulder pain due to rotator cuff disease. Worse on the right side as compared to the left.), Back Pain, Joint Pain (Particular his left knee.) Skin: Reports: Bruising (Uses very easily.) Neurological: Reports: No Symptoms Psychiatric: Reports: No Symptoms Hematologic/Lymphatic: Reports: No Symptoms ED EXAM, GENERAL - Physical Exam Exam: See Below Exam Limited By: No Limitations General Appearance: Alert, Severe Distress, Cachetic (All ribs are easily visible. Patient has lost at least 30 pounds weight sinusitis seen him last which is probably 6 months ago.), Other (Temperature is 37.1 at this time. His heart rate is 138-1 40/m respiratory rate is 25-32/m sats are 87% on 3 L. Placed on 5 L to bring him up to 92%. BP 125/79.) Eye Exam: Bilateral Eye: Normal Inspection (Mild bladder pallor. No scleral icterus.) Throat/Mouth: Normal Inspection, Normal Oropharynx, Other (Tongue is mildly dry and coated.). No: Normal Teeth Head: Atraumatic, Normocephalic Neck: Normal Inspection, Supple, Non-Tender, Limited Range of Motion, Tender Lateral (Tender both sides of his neck.). No: Carotid Bruit, Lymphadenopathy (L ), Lymphadenopathy (R) Respiratory/Chest: Respiratory Distress (Marked tachypnea 28-32/m.), Decreased Breath Sounds (Occasional expiratory wheeze. Decreased breath sounds to the lower 50% of lung meneses), Rhonchi (Rhonchi throughout both lung meneses.), Wheezing, Accessory Muscle Use (Using accessory muscles of respiration.). No: Lungs Clear, Normal Breath Sounds Cardiovascular: No Edema, No Gallop, No Murmur, No Rub, Tachycardia ( Tachycardia of unclear etiology. 1 40/m.) Peripheral Pulses: 0: Posterior Tibial (L), Posterior Tibial (R), Dorsalis Pedis (L), Dorsalis Pedis (R), 2+: Carotid (L), Carotid (R) GI/Abdominal: Soft, Non-Tender, No Organomegaly, No Abnormal Bruit, No Mass, Pelvis Stable, Distended (Scaphoid abdomen. Mildly tympanitic to percussion throughout.), Abnormal Bowel Sounds, Other Back Exam: Decreased Range of Motion, Other (Mild kyphosis thoracic spine.). No : CVA Tenderness (L), CVA Tenderness (R) Extremities: Limited Range of Motion (Limited range of motion of both shoulders particular with abduction past 80 bilaterally.), Increased Warmth. No: Pedal Edema Neurological: Alert (Mildly increased warmth medial aspect of the left knee joint. He has osteophytic changes both knees with very limited internal/ external rotation of both hips compare with arthritis.), Oriented, CN II-XII Intact, Normal Cognition Psychiatric: Anxious, Other Skin Exam: Warm, Dry, Intact, Normal Color, No Rash, Other (Patient is definitely febrile.) Course - Vital Signs Last Recorded V/S: Last Vital Signs Temp 37.1 C 10/25/18 15:17 Pulse 138 H 10/25/18 15:17 Resp 25 H 10/25/18 15:17 BP 125/79 10/25/18 15:17 Pulse Ox 94 L 10/25/18 15:31 - Orders/Labs/Meds Orders: Active Orders 24 hr Category Date Time Status Bladder Scan [RC] ASDIRECTED Care 10/25/18 15:56 Active Blood Glucose Check, Bedside [RC] ONETIME Care 10/25/18 15:20 Active EKG Documentation Completion [RC] STAT Care 10/25/18 15:20 Active Oxygen Therapy [RC] ASDIRECTED Care 10/25/18 15:20 Active Chest 1V Frontal [CR] Stat Exams 10/25/18 15:19 Taken CULTURE BLOOD [BC] Stat Lab 10/25/18 15:43 Received CULTURE BLOOD [BC] Stat Lab 10/25/18 15:57 Received CULTURE SPUTUM + SMEAR [RM] Stat Lab 10/25/18 16:30 Ordered DOPamine/Dextrose 5%-Water [DOPamine in D5W 400 MG/250 Med 10/25/18 18:15 Active ML] 400 mg in 250 ml IV ASDIRECTED Dextrose 5%-0.9% NaCl [Dextrose 5%-Normal Saline] 1,000 Med 10/25/18 15:30 Active ml IV ASDIRECTED Blood Culture x2 Reflex Set [OM.PC] Stat Oth 10/25/18 15:21 Ordered Medication Orders Dextrose/Sodium Chloride (Dextrose 5%-Normal Saline) 1,000 mls @ 999 mls/hr IV ASDIRECTED KEANU Last Admin: 10/25/18 15:36 Dose: 999 mls/hr Dopamine HCl/Dextrose (Dopamine In D5w 400 Mg/250 Ml) 400 mg in 250 mls @ 8.505 mls/hr IV ASDIRECTED KEANU Labs: Laboratory Tests 10/25/18 10/25/18 10/25/18 Range/Units 15:39 15:44 15:45 WBC 16.55 H (4.23-9.07) K/mm3 RBC 3.87 L (4.63-6.08) M/mm3 Hgb 10.2 L (13.7-17.5) gm/L Hct 33.6 L (40.1-51.0) % MCV 86.8 D (79.0-92.2) fl MCH 26.4 (25.7-32.2) pg MCHC 30.4 L (32.2-35.5) g/dl RDW Std Deviation 63.0 H (35.1-43.9) fL Plt Count 335 (163-337) K/mm3 MPV 7.9 L (9.4-12.3) fl Neutrophils % (Manual) 44 (40-60) % Band Neutrophils % 0 (0-10) % Lymphocytes % (Manual) 25 (20-40) % Atypical Lymphs % 0 % Monocytes % (Manual) 4 (2-10) % Eosinophils % (Manual) 27 H (0.8-7.0) % Basophils % (Manual) 0 L (0.2-1.2) Platelet Estimate Adequate Hypochromasia 2+ moderate Anisocytosis 2+ moderate RBC Morph Comment Abnormal ESR (0-15) mm/hr PT (9.7-12.0) SECONDS INR APTT (22-31) SECONDS Puncture Site Lt radial ABG pH 7.45 (7.35-7.45) ABG pCO2 36.4 (35.0-45.0) mmHg ABG pO2 63.0 L (80.0-100.0) mmHg ABG HCO3 25.0 (22.0-26.0) meq/L ABG O2 Saturation 93.3 L (96.0-97.0) % ABG Base Excess 1.6 (-2-2.0) Bruno Test Positive A-a Gradient 163 mmHg O2 Delivery Device Nasal cannula Oxygen Flow Rate 4.5 FiO2 38.00 (21.00-100.00) % Sodium (136-145) mEq/L Potassium (3.5-5.1) mEq/L Chloride (98-107) mEq/L Carbon Dioxide (21-32) mEq/L Anion Gap (5-15) BUN (7-18) mg/dL Creatinine (0.7-1.3) mg/dL Est Cr Clr Drug Dosing mL/min Estimated GFR (MDRD) (>60) mL/min BUN/Creatinine Ratio (14-18) Glucose (83-115) mg/dL POC Glucose 134 H (83-110) mg/dL Lactic Acid (0.4-2.0) mmol/L Calcium (8.5-10.1) mg/dL Magnesium (1.8-2.4) mg/dl Total Bilirubin (0.2-1.0) mg/dL AST (15-37) U/L ALT (16-63) U/L Alkaline Phosphatase (46-116) U/L CK-MB (CK-2) (0-3.6) ng/ml Troponin I (0.00-0.056) ng/mL C-Reactive Protein (<1.0) mg/dL NT-Pro-B Natriuret Pep (0-450) pg/mL Total Protein (6.4-8.2) g/dl Albumin (3.4-5.0) g/dl Globulin gm/dL Albumin/Globulin Ratio (1-2) Urine Color (Yellow) Urine Appearance (Clear) Urine pH (5.0-8.0) Ur Specific [place] (1.005-1.030) Urine Protein (Negative) Urine Glucose (UA) (Negative) Urine Ketones (Negative) Urine Occult Blood (Negative) Urine Nitrite (Negative) Urine Bilirubin (Negative) Urine Urobilinogen (0.2-1.0) Ur Leukocyte Esterase (Negative) Urine RBC (0-5) /hpf Urine WBC (0-5) /hpf Ur Squamous Epith Cells (0-5) /hpf Urine Bacteria (FEW) /hpf Urine Mucus (FEW) /hpf 10/25/18 10/25/18 10/25/18 Range/Units 15:45 15:45 15:45 WBC (4.23-9.07) K/mm3 RBC (4.63-6.08) M/mm3 Hgb (13.7-17.5) gm/L Hct (40.1-51.0) % MCV (79.0-92.2) fl MCH (25.7-32.2) pg MCHC (32.2-35.5) g/dl RDW Std Deviation (35.1-43.9) fL Plt Count (163-337) K/mm3 MPV (9.4-12.3) fl Neutrophils % (Manual) (40-60) % Band Neutrophils % (0-10) % Lymphocytes % (Manual) (20-40) % Atypical Lymphs % % Monocytes % (Manual) (2-10) % Eosinophils % (Manual) (0.8-7.0) % Basophils % (Manual) (0.2-1.2) Platelet Estimate Hypochromasia Anisocytosis RBC Morph Comment ESR 97 H (0-15) mm/hr PT 13.0 H (9.7-12.0) SECONDS INR 1.21 APTT 33 H (22-31) SECONDS Puncture Site ABG pH (7.35-7.45) ABG pCO2 (35.0-45.0) mmHg ABG pO2 (80.0-100.0) mmHg ABG HCO3 (22.0-26.0) meq/L ABG O2 Saturation (96.0-97.0) % ABG Base Excess (-2-2.0) Bruno Test A-a Gradient mmHg O2 Delivery Device Oxygen Flow Rate FiO2 (21.00-100.00) % Sodium 137 (136-145) mEq/L Potassium 4.9 (3.5-5.1) mEq/L Chloride 102 (98-107) mEq/L Carbon Dioxide 26 (21-32) mEq/L Anion Gap 13.9 (5-15) BUN 19 H (7-18) mg/dL Creatinine 1.0 (0.7-1.3) mg/dL Est Cr Clr Drug Dosing 48.82 mL/min Estimated GFR (MDRD) > 60 (>60) mL/min BUN/Creatinine Ratio 19.0 H (14-18) Glucose 132 H (83-115) mg/dL POC Glucose (83-110) mg/dL Lactic Acid (0.4-2.0) mmol/L Calcium 8.8 (8.5-10.1) mg/dL Magnesium 1.7 L (1.8-2.4) mg/dl Total Bilirubin 0.4 (0.2-1.0) mg/dL AST 32 (15-37) U/L ALT 28 (16-63) U/L Alkaline Phosphatase 142 H (46-116) U/L CK-MB (CK-2) 3.5 (0-3.6) ng/ml Troponin I 2.542 H* (0.00-0.056) ng/mL C-Reactive Protein 23.8 H* (<1.0) mg/dL NT-Pro-B Natriuret Pep (0-450) pg/mL Total Protein 7.9 (6.4-8.2) g/dl Albumin 1.6 L (3.4-5.0) g/dl Globulin 6.3 gm/dL Albumin/Globulin Ratio 0.3 L (1-2) Urine Color (Yellow) Urine Appearance (Clear) Urine pH (5.0-8.0) Ur Specific [place] (1.005-1.030) Urine Protein (Negative) Urine Glucose (UA) (Negative) Urine Ketones (Negative) Urine Occult Blood (Negative) Urine Nitrite (Negative) Urine Bilirubin (Negative) Urine Urobilinogen (0.2-1.0) Ur Leukocyte Esterase (Negative) Urine RBC (0-5) /hpf Urine WBC (0-5) /hpf Ur Squamous Epith Cells (0-5) /hpf Urine Bacteria (FEW) /hpf Urine Mucus (FEW) /hpf 10/25/18 10/25/18 10/25/18 Range/Units 15:45 15:45 16:22 WBC (4.23-9.07) K/mm3 RBC (4.63-6.08) M/mm3 Hgb (13.7-17.5) gm/L Hct (40.1-51.0) % MCV (79.0-92.2) fl MCH (25.7-32.2) pg MCHC (32.2-35.5) g/dl RDW Std Deviation (35.1-43.9) fL Plt Count (163-337) K/mm3 MPV (9.4-12.3) fl Neutrophils % (Manual) (40-60) % Band Neutrophils % (0-10) % Lymphocytes % (Manual) (20-40) % Atypical Lymphs % % Monocytes % (Manual) (2-10) % Eosinophils % (Manual) (0.8-7.0) % Basophils % (Manual) (0.2-1.2) Platelet Estimate Hypochromasia Anisocytosis RBC Morph Comment ESR (0-15) mm/hr PT (9.7-12.0) SECONDS INR APTT (22-31) SECONDS Puncture Site ABG pH (7.35-7.45) ABG pCO2 (35.0-45.0) mmHg ABG pO2 (80.0-100.0) mmHg ABG HCO3 (22.0-26.0) meq/L ABG O2 Saturation (96.0-97.0) % ABG Base Excess (-2-2.0) Bruno Test A-a Gradient mmHg O2 Delivery Device Oxygen Flow Rate FiO2 (21.00-100.00) % Sodium (136-145) mEq/L Potassium (3.5-5.1) mEq/L Chloride (98-107) mEq/L Carbon Dioxide (21-32) mEq/L Anion Gap (5-15) BUN (7-18) mg/dL Creatinine (0.7-1.3) mg/dL Est Cr Clr Drug Dosing mL/min Estimated GFR (MDRD) (>60) mL/min BUN/Creatinine Ratio (14-18) Glucose (83-115) mg/dL POC Glucose (83-110) mg/dL Lactic Acid 2.6 H (0.4-2.0) mmol/L Calcium (8.5-10.1) mg/dL Magnesium (1.8-2.4) mg/dl Total Bilirubin (0.2-1.0) mg/dL AST (15-37) U/L ALT (16-63) U/L Alkaline Phosphatase (46-116) U/L CK-MB (CK-2) (0-3.6) ng/ml Troponin I (0.00-0.056) ng/mL C-Reactive Protein (<1.0) mg/dL NT-Pro-B Natriuret Pep 15304 H (0-450) pg/mL Total Protein (6.4-8.2) g/dl Albumin (3.4-5.0) g/dl Globulin gm/dL Albumin/Globulin Ratio (1-2) Urine Color Dark yellow (Yellow) Urine Appearance Clear (Clear) Urine pH 5.5 (5.0-8.0) Ur Specific [place] 1.020 (1.005-1.030) Urine Protein 2+ H (Negative) Urine Glucose (UA) Negative (Negative) Urine Ketones Negative (Negative) Urine Occult Blood Negative (Negative) Urine Nitrite Negative (Negative) Urine Bilirubin Negative (Negative) Urine Urobilinogen 0.2 (0.2-1.0) Ur Leukocyte Esterase Negative (Negative) Urine RBC 0-5 (0-5) /hpf Urine WBC 0-5 (0-5) /hpf Ur Squamous Epith Cells 0-5 (0-5) /hpf Urine Bacteria Rare (FEW) /hpf Urine Mucus Few (FEW) /hpf Meds: Medications Generic Name Dose Route Start Last Admin Trade Name Freq PRN Reason Stop Dose Admin Dextrose/Sodium Chloride 1,000 mls @ 999 mls/hr 10/25/18 15:30 10/25/18 15:36 Dextrose 5%-Normal Saline IV 999 mls/hr ASDIRECTED KEANU Administration Dopamine HCl/Dextrose 400 mg in 250 mls @ 8.505 mls/hr 10/25/18 18:15 Dopamine In D5w 400 Mg/250 Ml IV ASDIRECTED KEANU 4 MCG/KG/MIN Discontinued Medications Generic Name Dose Route Start Last Admin Trade Name Freq PRN Reason Stop Dose Admin Acetaminophen 650 mg 10/25/18 15:32 10/25/18 15:44 Tylenol PO 10/25/18 15:33 650 mg NOW STA Administration Adenosine Confirm 10/25/18 15:45 10/25/18 15:49 Adenocard Administered 10/25/18 15:46 Not Given Dose 6 mg .ROUTE .STK-MED ONE Adenosine 6 mg 10/25/18 15:48 10/25/18 15:50 Adenocard IVPUSH 10/25/18 15:49 6 mg NOW ONE Administration Adenosine 12 mg 10/25/18 15:49 10/25/18 15:52 Adenocard IVPUSH 10/25/18 15:50 12 mg NOW ONE Administration Adenosine Confirm 10/25/18 15:50 10/25/18 16:35 Adenocard Administered 10/25/18 15:51 Not Given Dose 12 mg .ROUTE .STK-MED ONE Furosemide 60 mg 10/25/18 16:42 10/25/18 16:55 Lasix IVPUSH 10/25/18 16:43 60 mg NOW ONE Administration Linezolid 600 mg/ Premix 300 mls @ 300 mls/hr 10/25/18 15:33 10/25/18 15:44 IV 10/25/18 16:32 300 mls/hr ONETIME ONE Administration Metoclopramide HCl 5 mg 10/25/18 18:09 Reglan IVPUSH 10/25/18 18:10 ONETIME ONE - Radiology Interpretation Free Text/Narrative:: 78-year-old male presents to the ED at the request of his primary care physician Dr. Shara Lisa at [facility]. Patient presented there with worsening of his COPD with very productive sounding cough and reported fever of 2-1/2-3 days duration. Fever has been up to 102. He shouldn't has taken very little oral intake over the last 2 days. He hasn't voided apparently for 24 hours. Urine was quite dark in color according to the patient. Heart rate was noted to be up as high as 140. Question whether he is in atrial fibrillation or sinus tach. Has COPD and is on oxygen at 3 L/m all times with O2 sats here only 87%. He will be bumped up to 5 L/m. He on questioning would allow intubation if necessary. has a very productive sounding cough suggestive of pneumonia. Lab will be septic workup including an ABG right off the bat. He will be given Zosyn 600 mg IV as soon as blood cultures 2 are collected. - Re-Assessments/Exams Free Text/Narrative Re-Assessment/Exam: 10/25/18: His ECG shows a regular tachycardia at 133/m. I cannot define any definitive P waves I think that is probably sinus with a P wave on top of the T- wave. It is important to make a differentiation between atrial fibrillation is the treatment would be completely different. Shaheed clinically is febrile. Plan I 'm going to slowing down with some addendum occurred trying 6 mg first and if necessary 12 mg to establish whether or not this is a sinus tachycardia. 10/25/18 6 mg of Benicar did not change his heart rate substantially. 12 mg did slowing down transiently to prove that he has in a sinus rhythm. Therefore we will continue fluid resuscitation for sepsis. Bladder scan will be done to make sure that he is not in retention since he mentions he has not voided for 24 hours. 10/25/18 16:24 White count is elevated at 16.55. Differential pending. Hemoglobin slightly low at 10.2. Hematocrit is 33.6. Platelet count 3 and 35, 000. PT is 13.0 with an INR 1.21. PTT is 33 slightly elevated. ABG showed pH of 7.45. PCO2 is 36.4 i.e. he has a non-retainer. PO2 is 63.0. Bicarbonate is 25 oxygen saturation 93.3% on 4.5 L. Bedside glucose was 134. Chest x-ray is not yet done. 10/25/18: Bladder scan showed greater than 500 mils of urine in the bladder. He was therefore catheterized and bladder emptied. Will not be left in at this time. Patient couldn't void on his own volition however. Remy sent for analysis. We'll try and get him to cough hard enough to produce a good sputum 10/25/18 16:31 heart rate is down to 1 23/m. BP is fallen to 94/45. Sats are 95% . 10/25/18 16:41 Chemistry shows a sodium of 137. Potassium 4.9 chloride 102 with a bicarbonate of 26. Anion gap is 13.9. BUN is 19 with a creatinine of 1.0. GFR remains greater than 60. BUN/creatinine ratio slightly elevated at 19.0. Glucose is 132. Lactic acid is elevated at 2.6. Calcium is 8.8 with a magnesium slightly low at 1.7. Liver function normal alk phosphatase 142. CK-MB fraction 3.5. Troponin is elevated at 2.54-6 strongly suggestive of a cardiac infarction. BNP is 10,828. Total protein is 7.9 with an albumin fraction of 1.6 international units very low. This bodes very poorly for survival. He is in significant heart failure likely cardiogenic. His blood pressure continues to fall secondary to sepsis and cardiogenic shock. Will give him Lasix 60 mg IV. 10/25/18 16:41 CRP is elevated at 23.8. Discussed the findings with the patient and the patient's daughter and they both prefer to stay in [place] versus going to [facility] for care. Advised that his condition is extremely grave. He has a combination of timing had a heart attack due to the stress of rapid heart rate and high fever. Severe congestive heart failure causing hypoxemia on top of this. He is maintaining his blood pressure long enough to perfuse his kidneys to try and promote a diuresis and improve his hypoxic state and allow the antibiotics to potentially clear up pneumonia. The chest x-ray shows a combination of fluid and pneumonia likely in both lungs. Peers to have a small pleural effusion on the right side. Elevated left hemidiaphragm which appears to be chronic. Hazy infiltrate left lower lobe compatible with pneumonia. Treated right upper lobe and right middle lobe with collapse consolidation I believe in this area compatible with pneumonia. There is fluid in the azygous fissure. Lungs are hyperinflated compatible with COPD pattern. Cardiac silhouette is essentially normal size. Does have a lot of air in his stomach at this time. I will discuss case with Dr. Vidal aeronautical research engineer hospitalist. 10/25/18 17:29 have spoken with the patient once again. It spoken with Dr. Vidal and he does not feel comfortable looking after the patient here if he is a full CODE STATUS. He should would be better suited in a larger hospital that can manage sepsis and congestive heart failure in particular he is likely going to require inotropic support. Right now his blood pressure is 96/52 with a mean arterial pressure of 66. He is therefore borderline about needing inotrope support. Heart rate is down to 110 per minute and is sinus. Sats are improving up to 97% on the 5 L after receiving Lasix 60 mg IV. His IV fluids have been completed 1 L. I will now run maintenance fluids at 100 mils per hour. 10/25/18 18:37 I have spoken with --tower switch operator at [facility] in [place] and he is accepted care of this patient primarily because he required an atrophic support to improve his blood pressure hasn't dropped and stayed pretty well around 78-89 systolic. His mean arterial pressure was around 60. However shortly after starting the dopamine at 4 mcg/kg/m the patient's blood pressure went up to 123/76 but his heart rate also went up to 160. Therefore the dosage was reduced to 2 mcg/kg/m and may have to be discontinued due to aggravation of tachycardia. Decision made to place Moore catheter to urometer. Patient voided 100 however bladder scan revealed 600 mils still his bladder and that's what came out in the catheter. Therefore he has voided 700+ mils of urine after receiving Lasix 60 mg IV. 10/25/18 18:48 Patient had persistent tachycardia on the dopamine infusion given at 2 mcg/m he was still in the high 130s. It will therefore be discontinued. This may change his admission status, ICU versus going to [facility] telemetry unit. I will discuss this with aeronautical research engineer personnel at [facility]. 10/25/18 18:56 heart rate is coming back down to 117. Minute. BP is 93/57. O2 sats dropped with the elevated heart rate but are slowly improving again from 85 % up to 92% on 5 L. The medics were instructed that they could place him on 6 L and if he cannot keep them above 92 he can be placed on a nonrebreather mask at 10 L/m. patient will receive second dose of Tylenol 650 mg by mouth it is been 4 hours since initial dose and I don't want to spike a fever in transit. Departure - Departure Time of Disposition: 19:00 Disposition: DC/Tfer to [facility] 02 Condition: Critical Clinical Impression: Acute febrile illness, Elevated troponin I measurement, Hypoxemia requiring supplemental oxygen Bilateral pneumonia Qualifiers: Pneumonia type: due to unspecified organism Lung location: unspecified part of lung Qualified Code(s): J18.9 - Pneumonia, unspecified organism Congestive heart failure Qualifiers: Heart failure type: diastolic Heart failure chronicity: acute on chronic Qualified Code(s): I50.33 - Acute on chronic diastolic (congestive) heart failure Hypotension Qualifiers: Hypotension type: other hypotension type Qualified Code(s): I95.89 - Other hypotension - Discharge Information Referrals: Shara Lisa MD [Primary Care Provider] - Forms: ED Department Discharge Additional Instructions: Patient wishes to remain code level I status. For transferred to [facility] in [facility] for management of acute febrile illness with bilateral pneumonia with exacerbation of COPD causing hypoxemia. Elevated troponin I suggest recent myocardial infarction with acute exacerbation of congestive heart failure with BNP nearly 11,000. This is continued into the hypoxemia and he has a component of septic and cardiogenic shock. Blood pressure is maintaining in the lower 90s. Could not tolerate low-dose dopamine inotrope support due to severe tachycardia . - My Orders Last 24 Hours: My Active Orders 10/25/18 15:19 Chest 1V Frontal [CR] Stat 10/25/18 15:20 Blood Glucose Check, Bedside [RC] ONETIME EKG Documentation Completion [RC] STAT Oxygen Therapy [RC] ASDIRECTED 10/25/18 15:21 Blood Culture x2 Reflex Set [OM.PC] Stat 10/25/18 15:30 Dextrose 5%-0.9% NaCl [Dextrose 5%-Normal Saline] 1,000 ml IV ASDIRECTED 10/25/18 15:43 CULTURE BLOOD [BC] Stat 10/25/18 15:56 Bladder Scan [RC] ASDIRECTED 10/25/18 15:57 CULTURE BLOOD [BC] Stat 10/25/18 16:30 CULTURE SPUTUM + SMEAR [RM] Stat 10/25/18 18:15 DOPamine/Dextrose 5%-Water [DOPamine in D5W 400 MG/250 ML] 400 mg in 250 ml IV ASDIRECTED - Assessment/Plan Last 24 Hours: My Active Orders 10/25/18 15:19 Chest 1V Frontal [CR] Stat 10/25/18 15:20 Blood Glucose Check, Bedside [RC] ONETIME EKG Documentation Completion [RC] STAT Oxygen Therapy [RC] ASDIRECTED 10/25/18 15:21 Blood Culture x2 Reflex Set [OM.PC] Stat 10/25/18 15:30 Dextrose 5%-0.9% NaCl [Dextrose 5%-Normal Saline] 1,000 ml IV ASDIRECTED 10/25/18 15:43 CULTURE BLOOD [BC] Stat 10/25/18 15:56 Bladder Scan [RC] ASDIRECTED 10/25/18 15:57 CULTURE BLOOD [BC] Stat 10/25/18 16:30 CULTURE SPUTUM + SMEAR [RM] Stat 10/25/18 18:15 DOPamine/Dextrose 5%-Water [DOPamine in D5W 400 MG/250 ML] 400 mg in 250 ml IV ASDIRECTED
[2018-10-25] MEDS ORDERED: Dextrose 5%-0.9% NaCl 1,000 ML IV SCH (15:30)
[2018-10-25] MEDS ORDERED: Acetaminophen 325 MG Tab PO STA (15:32)
[2018-10-25] MEDS ORDERED: Linezolid 600 MG in Premix Bag 1 BAG IV ONE (15:33)
[2018-10-25] MEDS ORDERED: Adenosine 6 MG/2 ML SDV ONE (15:45)
[2018-10-25] MEDS ORDERED: Adenosine 6 MG/2 ML SDV IVPUSH ONE ×2 (15:48→15:49)
[2018-10-25] MEDS ORDERED: Adenosine 12 MG/4 ML SDV ONE (15:50)
[2018-10-25] MEDS ORDERED: Furosemide 40 MG/4 ML VIAL IVPUSH ONE (16:42)
[2018-10-25] MEDS ORDERED: Metoclopramide 10 MG/2 ML SDV IVPUSH ONE (18:09)
[2018-10-25] MEDS ORDERED: cefTRIAXone 2 GM in Sodium Chloride 0.9% 100 ML IV SCH (18:15)
[2018-10-25] MEDS ORDERED: DOPamine/Dextrose 5%-Water 400 MG/250 ML BAG IV SCH (18:15)
[2018-10-25 18:37] VITALS: BP 123/76; PULSE 150
[2018-10-25] MEDS ORDERED: Sodium Chloride 0.9% 1,000 ML IV SCH (18:45)
[2018-10-25] MEDS ORDERED: Acetaminophen 325 MG Tab PO ONE (18:55)
[2018-10-25] MEDS ORDERED: Acetaminophen 325 MG Tab ONE ×2 (18:57)
--- NOTE | 2018-10-26 09:52 | CR ---
Chest: Portable view of the chest was obtained. Comparison: Prior chest x-ray of 02/23/17. Diffuse interstitial change is noted. Findings are felt to be fairly stable from previous exam. Findings are felt compatible with prominent diffuse fibrosis. No definite acute parenchymal change is seen. Heart size does not appear enlarged. Tortuous thoracic aorta is seen. Bony structures are osteopenic. Chronic rotator cuff tear is noted within the right shoulder. Impression: 1. Diffuse interstitial fibrosis which is without definite change from prior chest x-ray. 2. Other findings believed to be incidental. 3. Nothing acute is definitely appreciated. Diagnostic code #3
== END 2018-10-25 19:07 ==
LOC: JD.ED 15:07
DX: I11.0 Hypertensive heart disease with heart failure (principal); I50.33 Acute on chronic diastolic (congestive) heart failure; J18.9 Pneumonia, unspecified organism; R09.02 Hypoxemia; I95.89 Other hypotension; R50.9 Fever, unspecified; R79.89 Other specified abnormal findings of blood chemistry; E11.9 Type 2 diabetes mellitus without complications; E78.00 Pure hypercholesterolemia, unspecified; J44.9 Chronic obstructive pulmonary disease, unspecified; M19.90 Unspecified osteoarthritis, unspecified site; F32.9 Major depressive disorder, single episode, unspecified; Z88.1 Allergy status to other antibiotic agents; Z88.2 Allergy status to sulfonamides; Z88.8 Allergy status to other drugs, medicaments and biological substances; Z79.899 Other long term (current) drug therapy
CPT/HCPCS: 36415; 36600; 71045; 80053; 81001; 82553; 82803; 82962; 83605; 83735; 83880; 84484; 85007; 85027; 85610; 85652; 85730; 86140; 87040; 93005; 94762; 96361; 96365; 96367; 96368; 96375; 99285; A9270; J0153; J0696; J1265; J1940; J2020; J2765; J7030; J7040; J7042; 93010

== ENCOUNTER 2019-06-23 13:44 | Emergency (ER) | payer MEDICARE, BC ==
[2019-06-23] MEDS ORDERED: Sodium Chloride 0.9% 10 ML Syringe FLUSH PRN (14:12)
[2019-06-23] MEDS ORDERED: Atropine 0.1 MG/ML 10 ML Syringe IVPUSH ONE ×3 (14:13→14:42)
[2019-06-23] MEDS ORDERED: Sodium Chloride 0.9% 1,000 ML IV SCH (14:15)
--- NOTE | 2019-06-23 14:31 | EDM.PDOC ---
ED HPI GENERAL MEDICAL PROBLEM - General Chief Complaint: Cardiovascular Problem Stated Complaint: [facility] Time Seen by Provider: 06/23/19 13:47 Source of Information: Reports: Patient, EMS History Limitations: Reports: No Limitations - History of Present Illness INITIAL COMMENTS - FREE TEXT/NARRATIVE: The patient presents by [facility] for syncope. He passed out a few days ago and hit his head. He did a virtual appointment with his provider and she had him check his pulse and it has been in the 40s at times. His daughter came home today and made him some lunch. He had a bite of a sandwich and passed out for a few seconds. When he arrived here he was in a NSR and had no complaints. He has some ecchymosis above the left eye with an abrasion and he has ecchymosis to the left forearm. He has no fever, chills, cough, headache, chest pain, shortness of breath, abdominal pain, nausea or vomiting. He has no numbness or weakness. He is oxygen dependent. Left Knee Pain Score (Numeric/FACES): 4 - Related Data Allergies Allergy/AdvReac Type Severity Reaction Status Date / Time alendronate sodium Allergy Severe Rash Verified 06/23/19 13:56 [From Fosamax] amoxicillin trihydrate Allergy Severe Rash Verified 06/23/19 13:56 [From Augmentin] atorvastatin calcium Allergy Severe Cannot Verified 06/23/19 13:56 [From Lipitor] Remember azathioprine [From Imuran] Allergy Severe Rash Verified 06/23/19 13:56 azathioprine sodium Allergy Severe Rash Verified 06/23/19 13:56 [From Imuran] azithromycin [From Zithromax] Allergy Severe Rash Verified 06/23/19 13:56 cefuroxime axetil Allergy Severe Rash Verified 06/23/19 13:56 [From Ceftin] methotrexate Allergy Severe Rash Verified 06/23/19 13:56 potassium clavulanate Allergy Severe Rash Verified 06/23/19 13:56 [From Augmentin] rofecoxib [From Vioxx] Allergy Severe Rash Verified 06/23/19 13:56 Sulfa (Sulfonamide Allergy Severe Rash Verified 06/23/19 13:56 Antibiotics) Home Meds: Home Meds Albuterol [Ventolin HFA] 2 puff INH Q6H PRN 10/25/18 [History] Budesonide/Formoterol [Symbicort 160-4.5 MCG] 2 puff INH Q12HR 10/25/18 [History ] Calcium Carbonate/Vitamin D3 [Oyster Shell Calcium-Vit D Tab] 2 tab PO BID 10/25 [History] Citalopram Hydrobromide [Celexa] 20 mg PO BEDTIME 10/25/18 [History] Furosemide [Lasix] 20 mg PO DAILY 10/25/18 [History] Iron Ag,Ps/C/Fa6/B12/Zn/SA/Sto [Niferex Tablet] 1 tab PO BID 10/25/18 [History] Multivitamin [Multivitamins] 1 tab PO DAILY 10/25/18 [History] Omeprazole Magnesium [Prilosec Otc] 40 mg PO DAILY 10/25/18 [History] Simvastatin 40 mg PO DAILY 10/25/18 [History] Ubidecarenone [Co Q-10] 100 mg PO DAILY 10/25/18 [History] Vits A,C,E/Lutein/Minerals [Healthy Eyes] 1 tab PO DAILY 10/25/18 [History] guaiFENesin [Mucinex] 1,200 mg PO BID 10/25/18 [History] mycophenolate mofetiL [Cellcept] 1,000 mg PO DAILY 10/25/18 [History] mycophenolate mofetiL [Cellcept] 1,500 mg PO DAILY 10/25/18 [History] predniSONE [Prednisone] 15 mg PO DAILY 10/25/18 [History] Arformoterol [Brovana] 15 mcg INH BID 06/23/19 [History] Ascorbic Acid [Vitamin C] 500 mg PO BID 06/23/19 [History] Aspirin [Halfprin] 81 mg PO DAILY 06/23/19 [History] Cholecalciferol (Vitamin D3) [Vitamin D] 5,000 unit PO DAILY 06/23/19 [History] Denosumab [Prolia] 60 mg IM Q6M 06/23/19 [History] Lutein 6 mg PO DAILY 06/23/19 [History] Tamsulosin HCl 0.4 mg PO DAILY 06/23/19 [History] Past Medical History HEENT History: Reports: Hard of Hearing Other HEENT History: wears glasses Cardiovascular History: Reports: High Cholesterol, Hypertension Other Cardiovascular History: Churg-Skyler Syndrome/vasculitis Respiratory History: Reports: Asthma, COPD Other Respiratory History: Chronic oxygen use Gastrointestinal History: Reports: Colon Polyp Genitourinary History: Reports: Other (See Below) Other Genitourinary History: possible urinary retention...started Flomax on 2019 HOGSHEAD BUILDER History: Reports: None Musculoskeletal History: Reports: Arthritis, Back Pain, Chronic, Osteoarthritis , Other (See Below) Other Musculoskeletal History: chronic left knee pain Neurological History: Reports: Other (See Below) Other Neuro History: sural neuropathy. 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 Hematologic History: Reports: Other (See Below) Other Hematologic History: vitamin d deficiency Immunologic History: Reports: None Oncologic (Cancer) History: Reports: Squamous Cell Carcinoma Dermatologic History: Reports: Cellulitis Other Dermatologic History: Current cellulits has been treated with 20 days of antibiotics, completed course on 01/03/15 - Infectious Disease History Infectious Disease History: Reports: Chicken Pox, Mumps - Past Surgical History Head Surgeries/Procedures: Reports: None HEENT Surgical History: Reports: Other (See Below) Other HEENT Surgeries/Procedures: pt has full upper, lower partial and bilateral hearing aids GI Surgical History: Reports: None, Colonoscopy Male Surgical History: Reports: None Endocrine Surgical History: Reports: None Musculoskeletal Surgical History: Reports: None Social & Family History - Family History Family Medical History: Noncontributory Cardiac: Reports: Other (See Below) Other Cardiac Family History: Brother recently passed after open heart surgery. Respiratory: Reports: COPD, Other (See Below) Other Respiratory Family Hisory: brother Endocrine/Metabolic: Reports: Diabetes, type II, Other (See Below) Other Endocrine/Metabolic Family History: 2 brothers Oncologic: Reports: Other (See Below) Other Oncologic Family History: brother-unknown type - Tobacco Use Smoking Status *Q: Former Smoker Years of Tobacco use: 35 Packs/Tins Daily: 1 Used Tobacco, but Quit: Yes Month/Year Tobacco Last Used: 1984 - Caffeine Use Caffeine Use: Reports: Coffee - Recreational Drug Use Recreational Drug Use: No - Living Situation & Occupation Living situation: Reports: Occupation: Retired ED ROS GENERAL - Review of Systems Review Of Systems: See Below Constitutional: Reports: No Symptoms HEENT: Reports: No Symptoms Respiratory: Reports: No Symptoms Cardiovascular: Reports: Syncope. Denies: Chest Pain Endocrine: Reports: No Symptoms GI/Abdominal: Reports: No Symptoms : Reports: No Symptoms Musculoskeletal: Reports: No Symptoms ED EXAM, GENERAL - Physical Exam Exam: See Below Exam Limited By: No Limitations General Appearance: Alert, No Apparent Distress Ears: Normal External Exam Nose: Normal Inspection Head: Other (Edema and ecchymosis with an abrasion above the left eyebrow) Neck: Normal Inspection, Supple, Non-Tender Respiratory/Chest: No Respiratory Distress, Lungs Clear, Normal Breath Sounds Cardiovascular: Regular Rate, Rhythm, No Edema, No Murmur GI/Abdominal: Soft, Non-Tender, No Organomegaly, No Mass Back Exam: Normal Inspection Extremities: Normal Inspection Neurological: Alert, Oriented, No Motor/Sensory Deficits EKG INTERPRETATION EKG Date: 06/23/19 Time: 14:14 Rhythm: Other (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 DIRECTED Care 06/23/19 14:12 Active EKG Documentation Completion [RC] STAT Care 06/23/19 14:12 Active Oxygen Therapy [RC] PRN Care 06/23/19 14:12 Active Peripheral IV Care [RC] . DIRECTED Care 06/23/19 14:13 Active Chest 1V Frontal [CR] Stat Exams 06/23/19 14:13 Taken CBC WITH AUTO DIFF [HEME] Stat Lab 06/23/19 14:14 Received COMPREHENSIVE METABOLIC PN,CMP [CHEM] Stat Lab 06/23/19 14:14 Received MAGNESIUM [CHEM] Stat Lab 06/23/19 14:14 Received TROPONIN I [CHEM] Stat Lab 06/23/19 14:14 Received Sodium Chloride 0.9% [Normal Saline] 1,000 ml Med 06/23/19 14:15 Active IV ASDIRECTED Sodium Chloride 0.9% [Saline Flush] Med 06/23/19 14:12 Active 10 ml FLUSH ASDIRECTED PRN Peripheral IV Insertion Adult [OM.PC] Stat Oth 06/23/19 14:12 Ordered Medication Orders Sodium Chloride (Normal Saline) 1,000 mls @ 125 mls/hr IV ASDIRECTED KEANU Sodium Chloride (Saline Flush) 10 ml FLUSH ASDIRECTED PRN PRN Reason: Keep Vein Open Meds: Medications Generic Name Dose Route Start Last Admin Trade Name Freq PRN Reason Stop Dose Admin Sodium Chloride 1,000 mls @ 125 mls/hr 06/23/19 14:15 Normal Saline IV ASDIRECTED KEANU Sodium Chloride 10 ml 06/23/19 14:12 Saline Flush FLUSH ASDIRECTED PRN Keep Vein Open - Re-Assessments/Exams Free Text/Narrative Re-Assessment/Exam: 06/23/19 14:35 I ordered an IV NS at 125ml/hr, EKG, CXR and labs. He did have a syncopal episode and went into asystole for a short time. His heart rate was in the upper 30s. I did give him 2 doses of atropine and it got his heart rate up to the 60s and now he is in the 40s. His BP is still holding good. 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 There is no sign of ischemia. His Hgb was a little low at 10.7. His CXR looks good. I called [facility] in [place] and talked with Dr Lee the customer response representative and Dr Styles the hospitalist and they accepted the patient. His heart rate went down below 40 again so I gave him another dose of atropine. Departure - Departure Time of Disposition: 15:00 Disposition: DC/Tfer to Acute Hospital 02 Reason for Transfer *Q: Other Condition: Serious Clinical Impression: Asystole, 2nd degree AV block Referrals: Shara Castillo MD [Primary Care Provider] - Sepsis Event Note - Evaluation Sepsis Screening Result: No Definite Risk - Focused Exam Vital Signs: Vital Signs Temp Pulse Resp BP Pulse Ox 06/23/19 13:50 98.4 F 96 22 H 162/109 H 99 Date Exam was Performed: 06/23/19 Time Exam was Performed: 14:24 - My Orders Last 24 Hours: My Active Orders 06/23/19 14:12 Cardiac Monitoring [RC] . DIRECTED EKG Documentation Completion [RC] STAT Oxygen Therapy [RC] PRN Sodium Chloride 0.9% [Saline Flush] 10 ml FLUSH ASDIRECTED PRN Peripheral IV Insertion Adult [OM.PC] Stat 06/23/19 14:13 Peripheral IV Care [RC] . DIRECTED Chest 1V Frontal [CR] Stat 06/23/19 14:14 CBC WITH AUTO DIFF [HEME] Stat COMPREHENSIVE METABOLIC PN,CMP [CHEM] Stat MAGNESIUM [CHEM] Stat TROPONIN I [CHEM] Stat 06/23/19 14:15 Sodium Chloride 0.9% [Normal Saline] 1,000 ml IV ASDIRECTED - Assessment/Plan Last 24 Hours: My Active Orders 06/23/19 14:12 Cardiac Monitoring [RC] . DIRECTED EKG Documentation Completion [RC] STAT Oxygen Therapy [RC] PRN Sodium Chloride 0.9% [Saline Flush] 10 ml FLUSH ASDIRECTED PRN Peripheral IV Insertion Adult [OM.PC] Stat 06/23/19 14:13 Peripheral IV Care [RC] . DIRECTED Chest 1V Frontal [CR] Stat 06/23/19 14:14 CBC WITH AUTO DIFF [HEME] Stat COMPREHENSIVE METABOLIC PN,CMP [CHEM] Stat MAGNESIUM [CHEM] Stat TROPONIN I [CHEM] Stat 06/23/19 14:15 Sodium Chloride 0.9% [Normal Saline] 1,000 ml IV ASDIRECTED
--- NOTE | 2019-06-23 14:37 | CR ---
Chest: Portable view of the chest was obtained. Comparison: Prior chest x-ray of 10/25/18. Heart size is normal. Tortuous thoracic aorta is seen. Diffuse interstitial change is noted which appears to be chronic. No definite acute parenchymal change is seen. Scoliosis is noted within the spine. Chronic rotator cuff tear within the right shoulder is noted. Impression: 1. Findings as described above. 2. Nothing acute is appreciated. Diagnostic code #2 This report was dictated in MDT
[2019-06-23] MEDS ORDERED: Atropine 0.1 MG/ML 10 ML Syringe ONE (14:42)
[2019-06-23 15:15] VITALS: BP 148/84; PULSE 60
== END 2019-06-23 15:10 ==
LOC: JD.ED 13:44 → SUPCPDRO 13:44 → JD.ED 15:10
DX: I46.9 Cardiac arrest, cause unspecified (principal); I44.1 Atrioventricular block, second degree; E78.00 Pure hypercholesterolemia, unspecified; I10 Essential (primary) hypertension; J44.9 Chronic obstructive pulmonary disease, unspecified; M19.90 Unspecified osteoarthritis, unspecified site; E11.40 Type 2 diabetes mellitus with diabetic neuropathy, unspecified; F32.9 Major depressive disorder, single episode, unspecified; Z87.891 Personal history of nicotine dependence; Z88.8 Allergy status to other drugs, medicaments and biological substances; Z88.1 Allergy status to other antibiotic agents; Z88.2 Allergy status to sulfonamides; Z99.81 Dependence on supplemental oxygen
CPT/HCPCS: 36415; 71045; 80053; 83735; 84484; 85025; 93005; 96361; 96374; 99285; J0461; J7030; 93010; 99284

== ENCOUNTER 2019-11-27 15:34 | Emergency (ER) | payer MEDICARE, BC ==
[2019-11-27 15:48] VITALS: BP 105/72; PULSE 94
--- NOTE | 2019-11-27 16:30 | EDM.PDOC ---
ED HPI GENERAL MEDICAL PROBLEM - General Chief Complaint: Respiratory Problem Stated Complaint: SHORT OF BREATH Time Seen by Provider: 11/27/19 15:52 Source of Information: Reports: Patient History Limitations: Reports: No Limitations - History of Present Illness INITIAL COMMENTS - FREE TEXT/NARRATIVE: Mr. Back is a very pleasant 79-year-old gentleman with a past medical history significant for Churg-Skyler vasculitis, who states that he has a chronic mild cough productive of cream-colored sputum, on home oxygen, who now presents the ED stating that he woke this morning with mild dyspnea that he has felt on and off today, along with slight retrosternal chest tightness, which has since resolved. He states that he had a fever of 101 degrees this past , 11/24/2019 and 11/25/2019, but none since. He states that he also feels dehydrated. No history of coronary disease, and no prior similar symptoms. Here in the ED, the patient is found to be hemodynamically stable, afebrile, with an oxygen saturation of 97 to 100% on his usual 2 L of oxygen per nasal cannula, but down to 79% with mild exertion. Higher to , 11/24/2019, the patient denies having a recent fever, chills, sore throat, ear pain, nasal or sinus congestion, dyspnea, chest pain, palpitations, nausea, vomiting, constipation, diarrhea, abdominal pain, urinary symptoms, recent weight gain or weight loss, recent bloody bowel movements or black bowel movements, recent joint aches, headaches, or rashes. The patient's PCP is Dr. Shara Castillo. His Urologist is Dr. Randall Priest. His Machine Set Up is Dr. Alfonso Chappell. His pulmonary midlevel is Luiz Atkinson NP. Treatments [employer]ET [employer]ER: Reports: Acetaminophen - Related Data Allergies Allergy/AdvReac Type Severity Reaction Status Date / Time alendronate sodium Allergy Intermediate Rash Verified 11/27/19 16:08 [From Fosamax] amoxicillin trihydrate Allergy Intermediate Rash Verified 11/27/19 16:08 [From Augmentin] azathioprine [From Imuran] Allergy Intermediate Rash Verified 11/27/19 16:08 azathioprine sodium Allergy Intermediate Rash Verified 11/27/19 16:08 [From Imuran] azithromycin [From Zithromax] Allergy Intermediate Rash Verified 11/27/19 16:08 cefuroxime axetil Allergy Intermediate Rash Verified 11/27/19 16:08 [From Ceftin] methotrexate Allergy Intermediate Rash Verified 11/27/19 16:08 potassium clavulanate Allergy Intermediate Rash Verified 11/27/19 16:08 [From Augmentin] rofecoxib [From Vioxx] Allergy Intermediate Rash Verified 11/27/19 16:08 Sulfa (Sulfonamide Allergy Intermediate Rash Verified 11/27/19 16:08 Antibiotics) atorvastatin calcium Allergy Mild Cannot Verified 11/27/19 16:08 [From Lipitor] Remember Home Meds: Home Meds Albuterol [Ventolin HFA] 2 puff INH Q6H PRN 10/25/18 [History] Budesonide/Formoterol [Symbicort 160-4.5 MCG] 2 puff INH Q12HR 10/25/18 [History] Calcium Carbonate/Vitamin D3 [Oyster Shell Calcium-Vit D Tab] 2 tab PO BID 10/25/18 [History] Citalopram Hydrobromide [Celexa] 20 mg PO BEDTIME 10/25/18 [History] Furosemide [Lasix] 40 mg PO DAILY 10/25/18 [History] Iron Ag,Ps/C/Fa6/B12/Zn/SA/Sto [Niferex Tablet] 1 tab PO BID 10/25/18 [History] Multivitamin [Multivitamins] 1 tab PO DAILY 10/25/18 [History] Omeprazole Magnesium [Prilosec Otc] 40 mg PO DAILY 10/25/18 [History] Simvastatin 40 mg PO DAILY 10/25/18 [History] Ubidecarenone [Co Q-10] 100 mg PO DAILY 10/25/18 [History] Vits A,C,E/Lutein/Minerals [Healthy Eyes] 1 tab PO DAILY 10/25/18 [History] guaiFENesin [Mucinex] 1,200 mg PO QID 10/25/18 [History] mycophenolate mofetiL [Cellcept] 2,500 mg PO BID 10/25/18 [History] predniSONE [Prednisone] 15 mg PO DAILY 10/25/18 [History] Arformoterol [Brovana] 15 mcg INH BID 06/23/19 [History] Ascorbic Acid [Vitamin C] 500 mg PO BID 06/23/19 [History] Aspirin [Halfprin] 81 mg PO DAILY 06/23/19 [History] Cholecalciferol (Vitamin D3) [Vitamin D] 5,000 unit PO DAILY 06/23/19 [History] Denosumab [Prolia] 60 mg IM Q6M 06/23/19 [History] Lutein 6 mg PO DAILY 06/23/19 [History] Tamsulosin HCl 0.4 mg PO DAILY 06/23/19 [History] Fluticasone Propionate [Flonase Allergy Relief] 50 mcg JENNY BID 11/27/19 [History] Potassium Chloride [Klor-Con M20] 20 meq PO DAILY 11/27/19 [History] dilTIAZem HCL [Dilt-Xr] 180 mg PO DAILY 11/27/19 [History] metFORMIN HCl [Metformin HCl] 250 mg PO DAILY 11/27/19 [History] Past Medical History HEENT History: Reports: Hard of Hearing (wears hearing aids), Impaired Vision (wears glasses) Cardiovascular History: Reports: High Cholesterol, Hypertension, Other (See Below) (Eosinophilic granulomatosis with polyangiitis, previously known as Churg-Skyler vasculitis) Respiratory History: Reports: Asthma (PFT-proven), COPD (PFT-proven, on home O2, 2L per NC continuously) Gastrointestinal History: Reports: Colon Polyp Genitourinary History: Reports: BPH Musculoskeletal History: Reports: Osteoarthritis Endocrine/Metabolic History: Reports: Diabetes, Type II, Vitamin D Deficiency Oncologic (Cancer) History: Reports: Bladder, Squamous Cell Carcinoma - Infectious Disease History Infectious Disease History: Reports: Chicken Pox - Past Surgical History HEENT Surgical History: Reports: Cataract Surgery (bilateral) Cardiovascular Surgical History: Reports: Pacer (June 2019) GI Surgical History: Reports: Appendectomy, Cholecystectomy (around 2012), Colonoscopy (x 3) Neurological Surgical History: Reports: Other (See Below) (Sural nerve biopsy attempted) Social & Family History - Family History Family Medical History: Noncontributory Cardiac: Reports: Other (See Below) Other Cardiac Family History: Brother recently passed after open heart surgery. Respiratory: Reports: COPD, Other (See Below) Other Respiratory Family Hisory: brother Endocrine/Metabolic: Reports: Diabetes, type II, Other (See Below) Other Endocrine/Metabolic Family History: 2 brothers Oncologic: Reports: Other (See Below) Other Oncologic Family History: brother-unknown type - Tobacco Use Smoking Status *Q: Former Smoker Years of Tobacco use: 27 Packs/Tins Daily: 0.6 Month/Year Tobacco Last Used: Quit 1984 - Caffeine Use Caffeine Use: Reports: Coffee - Alcohol Use Alcohol Use History: No - Recreational Drug Use Recreational Drug Use: No - Living Situation & Occupation Living situation: Reports: , with Family (Daughter + son-in-law) Occupation: Retired ED ROS GENERAL - Review of Systems Review Of Systems: Comprehensive ROS is negative, except as noted in HPI. ED EXAM, GENERAL - Physical Exam Exam: See Below Exam Limited By: No Limitations General Appearance: Alert, WD/WN, No Apparent Distress Eye Exam: Bilateral Eye: EOMI, Normal Inspection (s/p cataract surgery) Ears: Normal External Exam, Hearing Grossly Normal Nose: Normal Inspection Throat/Mouth: Normal Inspection, Normal Lips, Normal Voice, No Airway Compromise Head: Atraumatic, Normocephalic Neck: Normal Inspection, Full Range of Motion Respiratory/Chest: No Respiratory Distress, No Accessory Muscle Use, Crackles (moderate, thoughout both lungs). No: Decreased Breath Sounds, Rhonchi, Wheezing, Stridor, Prolonged Expiration Cardiovascular: Normal Peripheral Pulses, Regular Rate, Rhythm, No Edema, No Gallop, No JVD, No Murmur, No Rub Peripheral Pulses: 3+: Radial (L), Radial (R) GI/Abdominal: Normal Bowel Sounds, Soft, Non-Tender, No Organomegaly, No Distention, No Abnormal Bruit, No Mass Back Exam: Normal Inspection, Full Range of Motion, NT Extremities: Normal Inspection, Normal Range of Motion, No Pedal Edema, Normal Capillary Refill Neurological: Alert, Oriented, Normal Cognition, No Motor/Sensory Deficits Psychiatric: Normal Affect Skin Exam: Warm, Dry, Intact, Normal Color, No Rash EKG INTERPRETATION EKG Date: 11/27/19 Time: 15:48 Rhythm: NSR Rate (Beats/Min): 86 QRS: Other (Ventricular paced) Comparison: Change From Previous EKG (Was in sinus bradycardia 06/23/2019) Course - Vital Signs Last Recorded V/S: Last Vital Signs Temp 36.1 C 11/27/19 15:43 Pulse 94 11/27/19 15:43 Resp 22 H 11/27/19 15:43 BP 105/72 11/27/19 15:43 Pulse Ox 79 L 11/27/19 15:43 - Orders/Labs/Meds Orders: Active Orders 24 hr Category Date Time Status EKG Documentation Completion [RC] STAT Care 11/27/19 16:03 Active Ang Chest [CT] Stat Exams 11/27/19 17:53 Taken Chest 2V [CR] Stat Exams 11/27/19 16:21 Taken CORONAVIRUS COVID-19 PCR PHL Stat Lab 11/27/19 16:23 Ordered CULTURE BLOOD [BC] Stat Lab 11/27/19 16:54 Received CULTURE BLOOD [BC] Stat Lab 11/27/19 17:15 Received MYCOPLASMA PNEUMONIAE, IGG AB [REF] Routine Lab 11/27/19 15:52 Received Sodium Chloride 0.9% [Normal Saline] 1,000 ml Med 11/27/19 18:00 Active IV ASDIRECTED Blood Culture x2 Reflex Set [OM.PC] Stat Oth 11/27/19 16:21 Ordered Medication Orders Sodium Chloride (Normal Saline) 1,000 mls @ 100 mls/hr IV ASDIRECTED KEANU Last Admin: 11/27/19 18:19 Dose: 100 mls/hr Documented by: DOM Labs: Laboratory Tests 11/27/19 11/27/19 11/27/19 Range/Units 15:52 15:52 15:52 WBC 6.21 (4.23-9.07) K/mm3 RBC 3.70 L (4.63-6.08) M/mm3 Hgb 11.0 L (13.7-17.5) gm/dl Hct 36.3 L (40.1-51.0) % MCV 98.1 H (79.0-92.2) fl MCH 29.7 (25.7-32.2) pg MCHC 30.3 L (32.2-35.5) g/dl RDW Std Deviation 53.6 H (35.1-43.9) fL Plt Count 213 D (163-337) K/mm3 MPV 8.7 L (9.4-12.3) fl Neutrophils % (Manual) 82 H (40-60) % Band Neutrophils % 2 (0-10) % Lymphocytes % (Manual) 12 L (20-40) % Atypical Lymphs % 0 % Immat Monocytes % (Man) 0 Monocytes % (Manual) 3 (2-10) % Eosinophils % (Manual) 1 (0.8-7.0) % Basophils % (Manual) 0 L (0.2-1.2) Metamyelocytes % 0 Myelocytes % 0 Promyelocytes % 0 Blast Cells % 0 Plasma Cell % (Manual) 0 Nucleated RBCs 0.0 % Platelet Estimate Adequate RBC Morph Comment Normal D-Dimer, Quantitative 1.47 H (0.19-0.50) mg/L Sodium 138 (136-145) mEq/L Potassium 3.4 L (3.5-5.1) mEq/L Chloride 100 (98-107) mEq/L Carbon Dioxide 25 (21-32) mEq/L Anion Gap 16.4 H (5-15) BUN 12 (7-18) mg/dL Creatinine 1.2 (0.7-1.3) mg/dL Est Cr Clr Drug Dosing 47.08 mL/min Estimated GFR (MDRD) 58 (>60) mL/min BUN/Creatinine Ratio 10.0 L (14-18) Glucose 223 H (83-115) mg/dL Lactic Acid (0.4-2.0) mmol/L Calcium 8.3 L (8.5-10.1) mg/dL Magnesium 1.6 L (1.8-2.4) mg/dl Total Bilirubin 0.5 (0.2-1.0) mg/dL AST 17 (15-37) U/L ALT 20 (16-63) U/L Alkaline Phosphatase 86 (46-116) U/L Troponin I 0.018 (0.00-0.056) ng/mL NT-Pro-B Natriuret Pep (0-450) pg/mL Total Protein 6.4 (6.4-8.2) g/dl Albumin 2.3 L (3.4-5.0) g/dl Globulin 4.1 gm/dL Albumin/Globulin Ratio 0.6 L (1-2) Mycoplasma pneumon IgM Negative (NEGATIVE) 11/27/19 11/27/19 11/27/19 Range/Units 15:52 16:54 16:54 WBC (4.23-9.07) K/mm3 RBC (4.63-6.08) M/mm3 Hgb (13.7-17.5) gm/dl Hct (40.1-51.0) % MCV (79.0-92.2) fl MCH (25.7-32.2) pg MCHC (32.2-35.5) g/dl RDW Std Deviation (35.1-43.9) fL Plt Count (163-337) K/mm3 MPV (9.4-12.3) fl Neutrophils % (Manual) (40-60) % Band Neutrophils % (0-10) % Lymphocytes % (Manual) (20-40) % Atypical Lymphs % % Immat Monocytes % (Man) Monocytes % (Manual) (2-10) % Eosinophils % (Manual) (0.8-7.0) % Basophils % (Manual) (0.2-1.2) Metamyelocytes % Myelocytes % Promyelocytes % Blast Cells % Plasma Cell % (Manual) Nucleated RBCs % Platelet Estimate RBC Morph Comment D-Dimer, Quantitative (0.19-0.50) mg/L Sodium (136-145) mEq/L Potassium (3.5-5.1) mEq/L Chloride (98-107) mEq/L Carbon Dioxide (21-32) mEq/L Anion Gap (5-15) BUN (7-18) mg/dL Creatinine (0.7-1.3) mg/dL Est Cr Clr Drug Dosing mL/min Estimated GFR (MDRD) (>60) mL/min BUN/Creatinine Ratio (14-18) Glucose (83-115) mg/dL Lactic Acid 1.6 (0.4-2.0) mmol/L Calcium (8.5-10.1) mg/dL Magnesium (1.8-2.4) mg/dl Total Bilirubin (0.2-1.0) mg/dL AST (15-37) U/L ALT (16-63) U/L Alkaline Phosphatase (46-116) U/L Troponin I (0.00-0.056) ng/mL NT-Pro-B Natriuret Pep 6735 H (0-450) pg/mL Total Protein (6.4-8.2) g/dl Albumin (3.4-5.0) g/dl Globulin gm/dL Albumin/Globulin Ratio (1-2) Mycoplasma pneumon IgM Cancelled (NEGATIVE) Meds: Medications Generic Name Dose Route Start Last Admin Trade Name Freq PRN Reason Stop Dose Admin Sodium Chloride 1,000 mls @ 100 mls/hr 11/27/19 18:00 11/27/19 18:19 Normal Saline IV 100 mls/hr ASDIRECTED KEANU Administration Discontinued Medications Generic Name Dose Route Start Last Admin Trade Name [place] PRN Reason Stop Dose Admin Magnesium Sulfate 2 gm in 50 mls @ 25 mls/hr 11/27/19 18:00 11/27/19 18:19 Magnesium Sulfate In Water Premix IV 11/27/19 19:59 25 mls/hr ONETIME ONE Administration Sodium Chloride 100 mls @ 4 mls/sec 11/27/19 18:55 11/27/19 19:22 Normal Saline IV 11/27/19 18:56 4 mls/sec ONETIME ONE Administration Iopamidol 100 ml 11/27/19 18:55 11/27/19 19:22 Isovue-370 (76%) IVPUSH 11/27/19 18:56 100 ml ONETIME ONE Administration Magnesium Sulfate 2 gm 11/27/19 17:49 Magnesium Sulfate In Water Premix IV 11/27/19 17:50 ONETIME STA - Re-Assessments/Exams Free Text/Narrative Re-Assessment/Exam: 11/27/19 16:25 As above, the patient states that he has a chronic mild cough productive of greenish colored sputum, however, he had a fever of 101 degrees on both , 11/24/2019 and 11/25/2019, then woke up with mild dyspnea and slight retrosternal chest tightness this morning. No chest tightness at this time, although he states that he still has mild dyspnea, and he states that he feels dehydrated. He is afebrile, with an oxygen saturation of 97 to 100% on his usual 2 L of oxygen per nasal cannula, although it went down to about 79% with mild exertion. An ECG obtained at triage is ventricularly paced and otherwise uninterpretable. On examination, he has bilateral crackles throughout both lung meneses, otherwise, his examination is unremarkable. I have ordered a work-up that includes blood work, mycoplasma IgM and IgG antibodies, 2 sets of blood cultures, a chest x-ray, and a swab for the SARS-CoV-2 virus. 11/27/19 17:52 The patient's CBC is remarkable for a H/H slightly depressed at 11.0/36.3, with the remainder of his CBC being unremarkable. His CMP is remarkable for potassium slightly depressed at 3.4, an anion gap slightly elevated at 16.4 but with a bicarbonate normal at 25, and a blood glucose elevated at 223, with the remainder of his CMP being unremarkable. His magnesium level is depressed at 1.6. His lactic acid level is within normal limits at 1.6. His troponin is within normal limits at 0.018. His BNP is significantly elevated at 6735. His D-dimer is elevated at 1.47. The patient's mycoplasma IgM is still pending. His swab for the SARS-CoV-2 virus and a chest x-ray have not yet been obtained. Review of prior labs finds the patient's BNP was 10,828 on 10/25/2018. Based on the above, I have ordered a 2 g Mg-rider and a CT angiogram of the chest, along with IV fluid. 11/27/19 18:26 2-view chest radiograph is read by Marley as "Stable appearance to the lungs with pattern of pulmonary fibrosis. No pneumonia." The patient's mycoplasma pneumonia IgM antibody has returned negative. The IgG antibody is a send-out test. 11/27/19 19:33 CT angiogram of the chest is read by Marley as: 1. No pulmonary embolism. 2. Pattern of interstitial lung disease consistent with idiopathic pulmonary fibrosis. In the differential diagnosis is mixed connective tissue disease and inhalation disorders. There is no significant effusion. No pneumothorax. No mass, plaque or calcification. 3. Mild findings of chronic calcified pancreatitis. No acute pancreatitis is evident. 11/27/19 19:38 Test results discussed with the patient. As above, other than mild hypomagnesemia and hyperglycemia, today's work-up is grossly unremarkable, finding only chronic issues. I do not see an indication for admitting the patient to the hospital, and the patient is very happy about going home. He will be discharged once his Mg-rider is infusing. Departure - Departure Time of Disposition: 19:39 Disposition: Home, Self-Care 01 Condition: Good Clinical Impression: Dyspnea, Chest tightness, Chronic cough, Hypomagnesemia, Hyperglycemia due to type 2 diabetes mellitus, Fever - Discharge Information *PRESCRIPTION DRUG MONITORING PROGRAM REVIEWED*: Not Applicable *COPY OF PRESCRIPTION DRUG MONITORING REPORT IN PATIENT JONATHON: Not Applicable Instructions: Shortness of Breath, Adult, [id number], Cough, Adult, [id number], Hypomagnesemia, Hyperglycemia, [id number] Referrals: Shara Castillo MD [Primary Care Provider] - Pj Atkinson NP [Ordering Only Provider] - Aylx Priest MD [Ordering Only Provider] - Alfonso Chpapell MD [Ordering Only Provider] - Forms: ED Department Discharge Additional Instructions: You were seen in the emergency room after experiencing 2 days of fever late last week, followed by mild shortness of breath and slight chest tightness this morning. Work-up in the ER included blood work, 2 sets of blood cultures, a chest x-ray, a CT angiogram of your chest, a swab for the SARS-CoV-2 virus, and an ECG. Your work-up found your magnesium level to be mildly depressed at 1.6. You were given IV magnesium replacement in the ER. Your blood glucose was found to be elevated at 223. You were swabbed to test for the SARS-CoV-2 virus, the virus that causes COVID- 19. You will be notified within the next few days of your test results. The remainder of your work-up was unremarkable, and does not explain the cause of your symptoms. You have not suffered a heart attack. You do not have a blood clot in your lungs. You do not have pneumonia. If your symptoms persist, we recommend that you follow-up with your PCP, Dr. Shara Castillo, this week. If any other problems, please do not hesitate to return to the ER. Sepsis Event Note (ED) - Evaluation Sepsis Screening Result: No Definite Risk - Focused Exam Vital Signs: Vital Signs Temp Pulse Resp BP Pulse Ox 11/27/19 15:43 36.1 C 94 22 H 105/72 79 L - My Orders Last 24 Hours: My Active Orders 11/27/19 15:52 MYCOPLASMA PNEUMONIAE, IGG AB [REF] Routine 11/27/19 16:03 EKG Documentation Completion [RC] STAT 11/27/19 16:21 Chest 2V [CR] Stat Blood Culture x2 Reflex Set [OM.PC] Stat 11/27/19 16:23 CORONAVIRUS COVID-19 PCR PHL Stat 11/27/19 16:54 CULTURE BLOOD [BC] Stat 11/27/19 17:15 CULTURE BLOOD [BC] Stat 11/27/19 17:53 Ang Chest [CT] Stat 11/27/19 18:00 Sodium Chloride 0.9% [Normal Saline] 1,000 ml IV ASDIRECTED - Assessment/Plan Last 24 Hours: My Active Orders 11/27/19 15:52 MYCOPLASMA PNEUMONIAE, IGG AB [REF] Routine 11/27/19 16:03 EKG Documentation Completion [RC] STAT 11/27/19 16:21 Chest 2V [CR] Stat Blood Culture x2 Reflex Set [OM.PC] Stat 11/27/19 16:23 CORONAVIRUS COVID-19 PCR PHL Stat 11/27/19 16:54 CULTURE BLOOD [BC] Stat 11/27/19 17:15 CULTURE BLOOD [BC] Stat 11/27/19 17:53 Ang Chest [CT] Stat 11/27/19 18:00 Sodium Chloride 0.9% [Normal Saline] 1,000 ml IV ASDIRECTED
[2019-11-27] MEDS ORDERED: Magnesium Sulfate/Water 2 GM/50 ML Premix Bag IV STA (17:49)
[2019-11-27] MEDS ORDERED: Sodium Chloride 0.9% 1,000 ML IV SCH (18:00)
[2019-11-27] MEDS ORDERED: Magnesium Sulfate/Water 2 GM/50 ML BAG IV ONE (18:00)
[2019-11-27] MEDS ORDERED: Sodium Chloride 0.9% 100 ML IV ONE (18:55)
[2019-11-27] MEDS ORDERED: Iopamidol 755 Mg/ML 100 ML Bottle IVPUSH ONE (18:55)
== END 2019-11-27 20:43 | disposition home or self-care (01) ==
LOC: JD.ED 15:34
DX: R06.00 Dyspnea, unspecified (principal); R07.89 Other chest pain; E83.42 Hypomagnesemia; R05 Cough; E11.65 Type 2 diabetes mellitus with hyperglycemia; R50.9 Fever, unspecified; E78.00 Pure hypercholesterolemia, unspecified; J44.9 Chronic obstructive pulmonary disease, unspecified; M19.90 Unspecified osteoarthritis, unspecified site; N40.0 Benign prostatic hyperplasia without lower urinary tract symptoms; I10 Essential (primary) hypertension; Z79.82 Long term (current) use of aspirin; Z79.899 Other long term (current) drug therapy; Z88.1 Allergy status to other antibiotic agents; Z88.2 Allergy status to sulfonamides; Z88.8 Allergy status to other drugs, medicaments and biological substances; Z79.84 Long term (current) use of oral hypoglycemic drugs; Z87.891 Personal history of nicotine dependence; Z20.828 Contact with and (suspected) exposure to other viral communicable diseases
CPT/HCPCS: 36415; 71046; 71275; 80053; 83605; 83735; 83880; 84484; 85007; 85027; 85379; 86738; 87040; 93005; 96365; 96366; 99285; J3475; J7030; Q9967; U0002

== ENCOUNTER 2020-01-16 12:39 | Emergency (ER) | payer MEDICARE, BC ==
[2020-01-16 13:04] VITALS: BP 119/77; PULSE 55
[2020-01-16] MEDS ORDERED: Sodium Chloride 0.9% 10 ML Syringe FLUSH PRN (13:26)
[2020-01-16] MEDS ORDERED: Sodium Chloride 0.9% 1,000 ML IV ONE (13:26)
--- NOTE | 2020-01-16 13:32 | EDM.PDOC ---
ED HPI GENERAL MEDICAL PROBLEM - General Chief Complaint: Cardiovascular Problem Stated Complaint: SOB,NOT EATING OR DRINKING Time Seen by Provider: 01/16/20 13:08 Source of Information: Reports: Patient, Old Records, RN Notes Reviewed History Limitations: Reports: No Limitations - History of Present Illness INITIAL COMMENTS - FREE TEXT/NARRATIVE: Patient is a 79-year-old male who presents to the ED for evaluation of his increasing shortness of breath, and loss of appetite. The patient currently resides with his daughter, and she brought him to the ER because he feels gene ralized weakness, and some dehydration as he has not been really eating or drinking much for the past few days. He does have a cough, that he does not seem to be able to get clear from his throat. This is a junky sounding cough. He does have a history of COPD and idiopathic pulmonary fibrosis as well. He was evaluated in this ER at the beginning of November in 2019, and his Covid screen was negative at that time. He was tested for mycoplasma pneumonia at that time as well and it was negative. He does currently require 2 L of and he gets quite winded at all if he does any sort of exertion. Noxygen via nasal cannula on a regular basis, O2 sats on the 2 L have been 94 to 95%. Patient notes that he had a mild fever last night of 101 degrees, did take some Tylenol with this. He was supposed to have an appointment with his primary care provider Dr. Shara Castillo sometime last week, but he states he was too sick to go see his doctor; so he had to reschedule this appointment. Left Knee Pain Score (Numeric/FACES): 0 - Related Data Allergies Allergy/AdvReac Type Severity Reaction Status Date / Time alendronate sodium Allergy Intermediate Rash Verified 11/27/19 16:08 [From Fosamax] amoxicillin trihydrate Allergy Intermediate Rash Verified 11/27/19 16:08 [From Augmentin] azathioprine [From Imuran] Allergy Intermediate Rash Verified 11/27/19 16:08 azathioprine sodium Allergy Intermediate Rash Verified 11/27/19 16:08 [From Imuran] azithromycin [From Zithromax] Allergy Intermediate Rash Verified 11/27/19 16:08 cefuroxime axetil Allergy Intermediate Rash Verified 11/27/19 16:08 [From Ceftin] methotrexate Allergy Intermediate Rash Verified 11/27/19 16:08 potassium clavulanate Allergy Intermediate Rash Verified 11/27/19 16:08 [From Augmentin] rofecoxib [From Vioxx] Allergy Intermediate Rash Verified 11/27/19 16:08 Sulfa (Sulfonamide Allergy Intermediate Rash Verified 11/27/19 16:08 Antibiotics) atorvastatin calcium Allergy Mild Cannot Verified 11/27/19 16:08 [From Lipitor] Remember Home Meds: Home Meds Albuterol [Ventolin HFA] 2 puff INH Q6H PRN 10/25/18 [History] Budesonide/Formoterol [Symbicort 160-4.5 MCG] 2 puff INH Q12HR 10/25/18 [History] Calcium Carbonate/Vitamin D3 [Oyster Shell Calcium-Vit D Tab] 2 tab PO BID 10/25/18 [History] Citalopram Hydrobromide [Celexa] 20 mg PO BEDTIME 10/25/18 [History] Furosemide [Lasix] 40 mg PO DAILY 10/25/18 [History] Iron Ag,Ps/C/Fa6/B12/Zn/SA/Sto [Niferex Tablet] 1 tab PO BID 10/25/18 [History] Multivitamin [Multivitamins] 1 tab PO DAILY 10/25/18 [History] Omeprazole Magnesium [Prilosec Otc] 40 mg PO DAILY 10/25/18 [History] Simvastatin 40 mg PO DAILY 10/25/18 [History] Ubidecarenone [Co Q-10] 100 mg PO DAILY 10/25/18 [History] Vits A,C,E/Lutein/Minerals [Healthy Eyes] 1 tab PO DAILY 10/25/18 [History] guaiFENesin [Mucinex] 1,200 mg PO QID 10/25/18 [History] mycophenolate mofetiL [Cellcept] 2,500 mg PO BID 10/25/18 [History] predniSONE [Prednisone] 15 mg PO DAILY 10/25/18 [History] Arformoterol [Brovana] 15 mcg INH BID 06/23/19 [History] Ascorbic Acid [Vitamin C] 500 mg PO BID 06/23/19 [History] Aspirin [Halfprin] 81 mg PO DAILY 06/23/19 [History] Cholecalciferol (Vitamin D3) [Vitamin D] 5,000 unit PO DAILY 06/23/19 [History] Denosumab [Prolia] 60 mg IM Q6M 06/23/19 [History] Lutein 6 mg PO DAILY 06/23/19 [History] Tamsulosin HCl 0.4 mg PO DAILY 06/23/19 [History] Fluticasone Propionate [Flonase Allergy Relief] 50 mcg JENNY BID 11/27/19 [History] Potassium Chloride [Klor-Con M20] 20 meq PO DAILY 11/27/19 [History] dilTIAZem HCL [Dilt-Xr] 180 mg PO DAILY 11/27/19 [History] metFORMIN HCl [Metformin HCl] 250 mg PO DAILY 11/27/19 [History] Doxycycline [Vibramycin] 100 mg PO BID #14 cap 01/16/20 [Rx] Past Medical History HEENT History: Reports: Hard of Hearing, Impaired Vision Other HEENT History: wears glasses Cardiovascular History: Reports: High Cholesterol, Hypertension, Other (See Below) Other Cardiovascular History: Churg-Skyler Syndrome/vasculitis Respiratory History: Reports: Asthma, COPD, Pulmonary Fibrosis (idiopathic pulm fibrosis) Other Respiratory History: Chronic oxygen use Gastrointestinal History: Reports: Colon Polyp Genitourinary History: Reports: BPH Other Genitourinary History: possible urinary retention...started Flomax on 06-18-2019 Musculoskeletal History: Reports: Osteoarthritis Other Musculoskeletal History: chronic left knee pain Neurological History: Reports: Other (See Below) Other Neuro History: sural neuropathy. 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 Oncologic (Cancer) History: Reports: Bladder, Squamous Cell Carcinoma Dermatologic History: Reports: Cellulitis - Infectious Disease History Infectious Disease History: Reports: Chicken Pox - Past Surgical History HEENT Surgical History: Reports: Cataract Surgery Other HEENT Surgeries/Procedures: pt has full upper, lower partial and bilateral hearing aids Cardiovascular Surgical History: Reports: Pacer GI Surgical History: Reports: Appendectomy, Cholecystectomy, Colonoscopy Musculoskeletal Surgical History: Reports: Other (See Below) Other Musculoskeletal Surgeries/Procedures:: kyphoplasty Social & Family History - Family History Family Medical History: No Pertinent Family History Cardiac: Reports: Other (See Below) Other Cardiac Family History: Brother recently passed after open heart surgery. Respiratory: Reports: COPD, Other (See Below) Other Respiratory Family Hisory: brother Endocrine/Metabolic: Reports: Diabetes, type II, Other (See Below) Other Endocrine/Metabolic Family History: 2 brothers Oncologic: Reports: Other (See Below) Other Oncologic Family History: brother-unknown type - Tobacco Use Tobacco Use Status *Q: Former Tobacco User Used Tobacco, but Quit: Yes Month/Year Tobacco Last Used: 35 yr - Caffeine Use Caffeine Use: Reports: Coffee, Soda - Recreational Drug Use Recreational Drug Use: No - Living Situation & Occupation Living situation: Reports: , with Family (Daughter + son-in-law) Occupation: Retired ED ROS GENERAL - Review of Systems Review Of Systems: Comprehensive ROS is negative, except as noted in HPI. ED EXAM, GENERAL - Physical Exam Exam: See Below Exam Limited By: No Limitations General Appearance: Alert, WD/WN, No Apparent Distress Respiratory/Chest: No Respiratory Distress, No Accessory Muscle Use, Chest Non- Tender, Crackles (diffuse throughout), Rhonchi (diffuse throughout), Other (productive sounding cough that he states that he cannot clear; notes that this does not seem to be worse than his normal.) Cardiovascular: Normal Peripheral Pulses, Regular Rate, Rhythm, No Edema, No Murmur Peripheral Pulses: 2+: Radial (L), Radial (R) GI/Abdominal: Normal Bowel Sounds, Soft, Non-Tender, No Distention, No Mass Extremities: Normal Inspection, Normal Capillary Refill Neurological: Alert, Oriented, Normal Cognition, No Motor/Sensory Deficits Psychiatric: Normal Affect, Normal Mood Skin Exam: Warm, Dry, Intact, Normal Color, No Rash #1 Interpretation EKG Date: 01/16/20 Time: 14:43 Rhythm: Other (Ventricular paced complex) Rate (Beats/Min): 102 [place]: LAD-Left [place] Deviation (-62 ) P-Wave: Present QRS: Normal ST-T: Normal QT: Prolonged (Moderately prolonged, QTC is 567) EKG Interpretation Comments: EKG reviewed by myself and Dr. Greenberg. Course - Vital Signs Last Recorded V/S: Last Vital Signs Temp 98.0 F 01/16/20 13:02 Pulse 55 L 01/16/20 13:02 Resp 20 01/16/20 13:02 BP 119/77 01/16/20 13:02 Pulse Ox 74 L 01/16/20 13:02 - Orders/Labs/Meds Orders: Active Orders 24 hr Category Date Time Status EKG Documentation Completion [RC] STAT Care 01/16/20 13:25 Active Peripheral IV Care [RC] . DIRECTED Care 01/16/20 13:27 Active Sodium Chloride 0.9% [Saline Flush] Med 01/16/20 13:26 Active 10 ml FLUSH ASDIRECTED PRN Peripheral IV Insertion Adult [OM.PC] Routine Oth 01/16/20 13:26 Ordered Medication Orders Sodium Chloride (Saline Flush) 10 ml FLUSH ASDIRECTED PRN PRN Reason: Keep Vein Open Last Admin: 01/16/20 14:07 Dose: 10 ml Documented by: KINDRA Labs: Laboratory Tests 01/16/20 01/16/20 01/16/20 Range/Units 13:25 13:50 13:50 WBC (4.23-9.07) K/mm3 RBC (4.63-6.08) M/mm3 Hgb (13.7-17.5) gm/dl Hct (40.1-51.0) % MCV (79.0-92.2) fl MCH (25.7-32.2) pg MCHC (32.2-35.5) g/dl RDW Std Deviation (35.1-43.9) fL Plt Count (163-337) K/mm3 MPV (9.4-12.3) fl Neutrophils % (Manual) (40-60) % Band Neutrophils % (0-10) % Lymphocytes % (Manual) (20-40) % Atypical Lymphs % % Monocytes % (Manual) (2-10) % Eosinophils % (Manual) (0.8-7.0) % Basophils % (Manual) (0.2-1.2) Platelet Estimate RBC Morph Comment PT (9.7-12.0) SECONDS INR APTT (21.7-31.4) SECONDS D-Dimer, Quantitative (0.19-0.50) mg/L Sodium 142 (136-145) mEq/L Potassium 3.8 (3.5-5.1) mEq/L Chloride 103 (98-107) mEq/L Carbon Dioxide 32 (21-32) mEq/L Anion Gap 10.8 (5-15) BUN 12 (7-18) mg/dL Creatinine 0.9 (0.7-1.3) mg/dL Est Cr Clr Drug Dosing 76.86 mL/min Estimated GFR (MDRD) > 60 (>60) mL/min BUN/Creatinine Ratio 13.3 L (14-18) Glucose 119 H (83-115) mg/dL Calcium 9.3 (8.5-10.1) mg/dL Magnesium 1.8 (1.8-2.4) mg/dl Ferritin 386 (26-388) ng/ml Total Bilirubin 0.4 (0.2-1.0) mg/dL AST 14 L (15-37) U/L ALT 13 L (16-63) U/L Alkaline Phosphatase 108 (46-116) U/L Troponin I 0.022 (0.00-0.056) ng/mL C-Reactive Protein 17.7 H* (<1.0) mg/dL NT-Pro-B Natriuret Pep (0-450) pg/mL Total Protein 6.4 (6.4-8.2) g/dl Albumin 2.2 L (3.4-5.0) g/dl Globulin 4.2 gm/dL Albumin/Globulin Ratio 0.5 L (1-2) SARS-CoV-2 RNA ([facility]HSAN) (NEGATIVE) 01/16/20 01/16/20 01/16/20 Range/Units 13:50 13:53 13:53 WBC 10.73 H (4.23-9.07) K/mm3 RBC 3.37 L (4.63-6.08) M/mm3 Hgb 9.7 L (13.7-17.5) gm/dl Hct 33.1 L (40.1-51.0) % MCV 98.2 H (79.0-92.2) fl MCH 28.8 (25.7-32.2) pg MCHC 29.3 L (32.2-35.5) g/dl RDW Std Deviation 54.5 H (35.1-43.9) fL Plt Count 391 H D (163-337) K/mm3 MPV 8.2 L (9.4-12.3) fl Neutrophils % (Manual) 75 H (40-60) % Band Neutrophils % 0 (0-10) % Lymphocytes % (Manual) 15 L (20-40) % Atypical Lymphs % 0 % Monocytes % (Manual) 8 (2-10) % Eosinophils % (Manual) 2 (0.8-7.0) % Basophils % (Manual) 0 L (0.2-1.2) Platelet Estimate Adequate RBC Morph Comment Normal PT (9.7-12.0) SECONDS INR APTT (21.7-31.4) SECONDS D-Dimer, Quantitative (0.19-0.50) mg/L Sodium (136-145) mEq/L Potassium (3.5-5.1) mEq/L Chloride (98-107) mEq/L Carbon Dioxide (21-32) mEq/L Anion Gap (5-15) BUN (7-18) mg/dL Creatinine (0.7-1.3) mg/dL Est Cr Clr Drug Dosing mL/min Estimated GFR (MDRD) (>60) mL/min BUN/Creatinine Ratio (14-18) Glucose (83-115) mg/dL Calcium (8.5-10.1) mg/dL Magnesium (1.8-2.4) mg/dl Ferritin (26-388) ng/ml Total Bilirubin (0.2-1.0) mg/dL AST (15-37) U/L ALT (16-63) U/L Alkaline Phosphatase (46-116) U/L Troponin I (0.00-0.056) ng/mL C-Reactive Protein (<1.0) mg/dL NT-Pro-B Natriuret Pep 5794 H (0-450) pg/mL Total Protein (6.4-8.2) g/dl Albumin (3.4-5.0) g/dl Globulin gm/dL Albumin/Globulin Ratio (1-2) SARS-CoV-2 RNA ([facility]AN) Negative (NEGATIVE) 01/16/20 Range/Units 13:58 WBC (4.23-9.07) K/mm3 RBC (4.63-6.08) M/mm3 Hgb (13.7-17.5) gm/dl Hct (40.1-51.0) % MCV (79.0-92.2) fl MCH (25.7-32.2) pg MCHC (32.2-35.5) g/dl RDW Std Deviation (35.1-43.9) fL Plt Count (163-337) K/mm3 MPV (9.4-12.3) fl Neutrophils % (Manual) (40-60) % Band Neutrophils % (0-10) % Lymphocytes % (Manual) (20-40) % Atypical Lymphs % % Monocytes % (Manual) (2-10) % Eosinophils % (Manual) (0.8-7.0) % Basophils % (Manual) (0.2-1.2) Platelet Estimate RBC Morph Comment PT 12.0 (9.7-12.0) SECONDS INR 1.12 APTT 27.9 (21.7-31.4) SECONDS D-Dimer, Quantitative 1.17 H (0.19-0.50) mg/L Sodium (136-145) mEq/L Potassium (3.5-5.1) mEq/L Chloride (98-107) mEq/L Carbon Dioxide (21-32) mEq/L Anion Gap (5-15) BUN (7-18) mg/dL Creatinine (0.7-1.3) mg/dL Est Cr Clr Drug Dosing mL/min Estimated GFR (MDRD) (>60) mL/min BUN/Creatinine Ratio (14-18) Glucose (83-115) mg/dL Calcium (8.5-10.1) mg/dL Magnesium (1.8-2.4) mg/dl Ferritin (26-388) ng/ml Total Bilirubin (0.2-1.0) mg/dL AST (15-37) U/L ALT (16-63) U/L Alkaline Phosphatase (46-116) U/L Troponin I (0.00-0.056) ng/mL C-Reactive Protein (<1.0) mg/dL NT-Pro-B Natriuret Pep (0-450) pg/mL Total Protein (6.4-8.2) g/dl Albumin (3.4-5.0) g/dl Globulin gm/dL Albumin/Globulin Ratio (1-2) SARS-CoV-2 RNA ([facility]AN) (NEGATIVE) Meds: Medications Generic Name Dose Route Start Last Admin Trade Name Freq PRN Reason Stop Dose Admin Sodium Chloride 10 ml 01/16/20 13:26 01/16/20 14:07 Saline Flush FLUSH 10 ml ASDIRECTED PRN Administration Keep Vein Open Discontinued Medications Generic Name Dose Route Start Last Admin Trade Name Hakan PRN Reason Stop Dose Admin Sodium Chloride 1,000 mls @ 500 mls/hr 01/16/20 13:26 01/16/20 14:06 Normal Saline IV 01/16/20 15:25 500 mls/hr ONETIME ONE Administration - Re-Assessments/Exams Free Text/Narrative Re-Assessment/Exam: 01/16/20 13:34 Patient presents to the ED for the evaluation of his ongoing shortness of breath, and possible dehydration. We will get some labs, and rule him in or out for COVID-19, as he had a fever, increased shortness of breath. He will get light IV fluids to start with at 500 mils per hour and they will be adjusted as needed. 01/16/20 14:55 labs have returned, CBC is remarkable for mildly elevated white count at 10.73 with 75% neutrophils no bands. D-dimer is once again elevated at 1.17, metabolic panel is essentially unremarkable. Troponin is 0.022, and normal limits. CRP is elevated at 17.7. The patient's chest x-ray does demonstrate worsening advanced interstitial lung changes throughout both lungs, underlying interstitial lung disease is suspected given prior chest CT appearance. Superimposed infiltrates or edema may be present. EKG is a ventricular paced rhythm at 102 bpm reviewed by myself and Dr. Greenberg, no acute change was appreciated. 01/16/20 15:48 The patient's labs have mostly resulted, BNP is elevated but he has a history of heart failure and is on Lasix. I will treat him for a pneumonia at this time, due to elevated white count, elevated CRP, and changes on the chest x-ray. Patient is fine with this, but does request a 14-day course of antibiotics. He will be started on doxycycline, as he takes citalopram and Levaquin will likely cause QT prolongation, for which he already has evident on his EKG today. Departure - Departure Time of Disposition: 15:49 Disposition: Home, Self-Care 01 Condition: Good Clinical Impression: Pneumonia Qualifiers: Pneumonia type: due to unspecified organism Laterality: right Lung location: lower lobe of lung Qualified Code(s): J18.9 - Pneumonia, unspecified organism Prescriptions: Doxycycline [Vibramycin] 100 mg PO BID #14 cap Instructions: Community-Acquired Pneumonia, Adult, [id number] Referrals: Shara Castillo MD [Primary Care Provider] - Forms: ED Department Discharge Additional Instructions: You were see in the ER today for your increased SOB and weakness/dehydration. You likely have a pneumonia causing some of your issues today, and you have been started on an antibiotic doxycycline 100mg BID x 14 days. Your laboratory evaluation did demonstrate a mildly elevated white count, with a elevated CRP, which would be suggestive of an acute bacterial infection superimposed on top of your chronic lung changes. You did get some IV fluids in the ER, this did seem to help relieve your dehydration feelings. Recommend you go home and increase your oral hydration with fluids like Gatorade, Powerade, or Pedialyte. Recommend you get a family member to get you some protein shakes, to supplement your diet if you do not feel like eating. Please keep your appointment with your regular provider at the end of this week, for reevaluation make sure everything is getting better as expected. I would recommend that if you are taking your oral vitamins, that you do not take your antibiotic until 2 hours after you take your multivitamins, or vice versa. Please return to the ER at any time if symptoms change or worsen. Sepsis Event Note (ED) - Evaluation Sepsis Screening Result: No Definite Risk - Focused Exam Vital Signs: Vital Signs Temp Pulse Resp BP Pulse Ox 01/16/20 13:02 98.0 F 55 L 20 119/77 74 L - My Orders Last 24 Hours: My Active Orders 01/16/20 13:25 EKG Documentation Completion [RC] STAT 01/16/20 13:26 Sodium Chloride 0.9% [Saline Flush] 10 ml FLUSH ASDIRECTED PRN Peripheral IV Insertion Adult [OM.PC] Routine 01/16/20 13:27 Peripheral IV Care [RC] . DIRECTED - Assessment/Plan Last 24 Hours: My Active Orders 01/16/20 13:25 EKG Documentation Completion [RC] STAT 01/16/20 13:26 Sodium Chloride 0.9% [Saline Flush] 10 ml FLUSH ASDIRECTED PRN Peripheral IV Insertion Adult [OM.PC] Routine 01/16/20 13:27 Peripheral IV Care [RC] . DIRECTED
--- NOTE | 2020-01-16 14:44 | CR ---
PROCEDURE INFORMATION: Exam: XR Chest, 1 View Exam date and time: 01/16/2020 1:52 PM Age: 79 years old Clinical indication: Cough and shortness of breath; Patient HX: Junking sounding cough possible covid. On chronic 02 @ 2l for IPF and COPD TECHNIQUE: Imaging protocol: XR of the chest Views: 1 view. COMPARISON: OT Chest 2V 11/27/2019 5:[address] chest 11/27/2019 FINDINGS: Tubes, catheters and devices: Pacemaker again noted Lungs: Interval worsening of extensive coarse interstitial opacities throughout both lungs, left greater than right . Pleural space: Unremarkable. No pleural effusion. No pneumothorax. Heart/Mediastinum: Unremarkable. No cardiomegaly. Bones/joints: Unremarkable. IMPRESSION: Worsening advanced interstitial lung changes throughout both lungs. Underlying interstitial lung disease is suspected given prior chest CT appearance. Superimposed infiltrates or edema may be present. Thank you for allowing us to participate in the care of your patient. Dictated and Authenticated by: Norberto Burnette MD 01/16/2020 3:40 PM Central Time ([place] & [place]) [facility]
== END 2020-01-16 16:22 | disposition home or self-care (01) ==
LOC: JD.ED 12:39
DX: J18.9 Pneumonia, unspecified organism (principal); E78.00 Pure hypercholesterolemia, unspecified; I10 Essential (primary) hypertension; J44.9 Chronic obstructive pulmonary disease, unspecified; N40.0 Benign prostatic hyperplasia without lower urinary tract symptoms; M19.90 Unspecified osteoarthritis, unspecified site; E11.40 Type 2 diabetes mellitus with diabetic neuropathy, unspecified; Z20.828 Contact with and (suspected) exposure to other viral communicable diseases; Z88.1 Allergy status to other antibiotic agents; Z88.8 Allergy status to other drugs, medicaments and biological substances; Z88.2 Allergy status to sulfonamides; Z79.82 Long term (current) use of aspirin; Z79.84 Long term (current) use of oral hypoglycemic drugs; Z79.899 Other long term (current) drug therapy; Z87.891 Personal history of nicotine dependence
CPT/HCPCS: 36415; 71045; 80053; 82728; 83735; 83880; 84484; 85007; 85027; 85379; 85610; 85730; 86140; 93005; 99285; J7030; U0002; 93010; 99284

== ENCOUNTER 2020-01-20 09:22 | Inpatient (IN) | payer MEDICARE, BC ==
[2020-01-20] MEDS ORDERED: Sodium Chloride 0.9% 10 ML Syringe FLUSH PRN (09:44)
[2020-01-20] MEDS ORDERED: Sodium Chloride 0.9% 1,000 ML IV SCH (09:45)
[2020-01-20] MEDS ORDERED: Levofloxacin/Dextrose 5%-Water 750 MG in Premix Bag 1 BAG IV ONE (09:55)
--- NOTE | 2020-01-20 10:19 | CR ---
Chest: Frontal portable view of the chest was obtained. Comparison: Previous chest x-ray of 06/23/19. Findings: Lungs: Diffuse interstitial change is seen within both lungs which has increased from prior study. Heart and mediastinum: Heart size is within normal limits for portable technique. Tortuous thoracic aorta is seen. Pacemaker is noted. Osseous: Findings compatible with chronic rotator cuff tear within the right shoulder. Bony structures are osteopenic. Limited upper abdomin: Surgical clips appear to be present from prior cholecystectomy. Impression: 1. Interstitial fibrosis with findings having increased from prior study. Findings could represent worsening fibrosis versus diffuse bronchitis or pulmonary vascular congestion. 2. Other findings which are stable as noted above. Diagnostic code #3
--- NOTE | 2020-01-20 10:27 | EDM.PDOC ---
ED HPI GENERAL MEDICAL PROBLEM - General Chief Complaint: Respiratory Problem Stated Complaint: SOB Time Seen by Provider: 01/20/20 09:39 Source of Information: Reports: Patient, Provider History Limitations: Reports: No Limitations - History of Present Illness INITIAL COMMENTS - FREE TEXT/NARRATIVE: The patient presents from [facility]. He was sent over by Dr Castillo his doctor. She feels he needs to be admitted. He has pneumonia and increased oxygen demands. He is normally on 2L and his oxygen saturations at the clinic were in the upper 70s to lower to mid 80s. He came up well with more oxygen. He was seen here on the and diagnosed with pneumonia. He was put on doxycycline. He has not gotten any better. He still has a cough and is short of breath. He does not have a fever anymore. He has a history of COPD and pulmonary fibrosis. He quit smoking in 1984. He has no fever, chest pain, abdominal pain, nause aor vomiting. Onset: Gradual Duration: Week(s): Severity: Moderate Improves with: Reports: None Worsens with: Reports: None Associated Symptoms: Reports: Cough, Shortness of Breath. Denies: Chest Pain, Fever/Chills, Headaches, Nausea/Vomiting - Related Data Allergies Allergy/AdvReac Type Severity Reaction Status Date / Time alendronate sodium Allergy Severe Rash Verified 01/20/20 09:41 [From Fosamax] amoxicillin trihydrate Allergy Severe Rash Verified 01/20/20 09:41 [From Augmentin] atorvastatin calcium Allergy Severe Cannot Verified 01/20/20 09:41 [From Lipitor] Remember azathioprine [From Imuran] Allergy Severe Rash Verified 01/20/20 09:41 azathioprine sodium Allergy Severe Rash Verified 01/20/20 09:41 [From Imuran] azithromycin [From Zithromax] Allergy Severe Rash Verified 01/20/20 09:41 cefuroxime axetil Allergy Severe Rash Verified 01/20/20 09:41 [From Ceftin] clindamycin Allergy Severe Rash Verified 01/20/20 09:41 methotrexate Allergy Severe Rash Verified 01/20/20 09:41 potassium clavulanate Allergy Severe Rash Verified 01/20/20 09:41 [From Augmentin] rofecoxib [From Vioxx] Allergy Severe Rash Verified 01/20/20 09:41 Sulfa (Sulfonamide Allergy Severe Rash Verified 01/20/20 09:41 Antibiotics) Home Meds: Home Meds Albuterol [Ventolin HFA] 2 puff INH Q6H PRN 10/25/18 [History] Citalopram Hydrobromide [Celexa] 20 mg PO BEDTIME 10/25/18 [History] Furosemide [Lasix] 40 mg PO DAILY 10/25/18 [History] Multivitamin [Multivitamins] 1 tab PO DAILY 10/25/18 [History] Omeprazole Magnesium [Prilosec Otc] 40 mg PO BEDTIME 10/25/18 [History] Simvastatin 40 mg PO BEDTIME 10/25/18 [History] Ubidecarenone [Co Q-10] 100 mg PO DAILY 10/25/18 [History] guaiFENesin [Mucinex] 1,200 mg PO BID 10/25/18 [History] mycophenolate mofetiL [Cellcept] 2,500 mg PO BID 10/25/18 [History] predniSONE [Prednisone] 15 mg PO DAILY 10/25/18 [History] Arformoterol [Brovana] 15 mcg INH BID 06/23/19 [History] Ascorbic Acid [Vitamin C] 500 mg PO BID 06/23/19 [History] Aspirin [Halfprin] 81 mg PO DAILY 06/23/19 [History] Denosumab [Prolia] 60 mg IM Q6M 06/23/19 [History] Lutein 6 mg PO BEDTIME 06/23/19 [History] Tamsulosin HCl 0.4 mg PO DAILY 06/23/19 [History] Fluticasone Propionate [Flonase Allergy Relief] 2 spray JENNY BID 11/27/19 [History] Potassium Chloride [Klor-Con M20] 20 meq PO DAILY 11/27/19 [History] dilTIAZem HCL [Dilt-Xr] 180 mg PO DAILY 11/27/19 [History] metFORMIN HCl [Metformin HCl] 500 mg PO DAILY 11/27/19 [History] Budesonide [Pulmicort] 1 inh INH BID 01/16/20 [History] Calcium Carbonate [Calcium] 600 mg PO BID 01/16/20 [History] Cholecalciferol (Vitamin D3) [Vitamin D3] 1,000 mg PO BEDTIME 01/16/20 [History] Ciclopirox/Urea/Camph/Men/Euc [Ciclopirox 8% Treatment Kit] 1 applic .ROUTE BEDTIME 01/16/20 [History] Doxycycline [Vibramycin] 100 mg PO BID #14 cap 01/16/20 [Rx] Magnesium Oxide [Magnesium] 400 mg PO BEDTIME 01/16/20 [History] Roflumilast [Daliresp] 500 mcg PO DAILY 01/16/20 [History] Sulfamethoxazole/Trimethoprim [Sulfamethoxazole-Tmp Ds Tablet] 1 tab PO MOWEFR 01/16/20 [History] Ferrous Sulfate [Iron] 325 mg PO BID 01/20/20 [History] Ipratropium/Albuterol Sulfate [Iprat-Albut 0.5-3(2.5) mg/3 ml] 1 inh IH TID 01/20/20 [History] Past Medical History HEENT History: Reports: Hard of Hearing, Impaired Vision Other HEENT History: wears glasses Cardiovascular History: Reports: High Cholesterol, Hypertension, Other (See Below) Other Cardiovascular History: Churg-Skyler Syndrome/vasculitis Respiratory History: Reports: Asthma, COPD, Pulmonary Fibrosis Other Respiratory History: Chronic oxygen use Gastrointestinal History: Reports: Colon Polyp Genitourinary History: Reports: BPH Other Genitourinary History: possible urinary retention...started Flomax on 06-18-2019 Musculoskeletal History: Reports: Osteoarthritis Other Musculoskeletal History: chronic left knee pain Neurological History: Reports: Other (See Below) Other Neuro History: sural neuropathy. 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, Squamous Cell Carcinoma Dermatologic History: Reports: Cellulitis Other Dermatologic History: Current cellulits has been treated with 20 days of antibiotics, completed course on 01/03/15 - Infectious Disease History Infectious Disease History: Reports: Chicken Pox - Past Surgical History HEENT Surgical History: Reports: Cataract Surgery Other HEENT Surgeries/Procedures: pt has full upper, lower partial and bilateral hearing aids Cardiovascular Surgical History: Reports: Pacer GI Surgical History: Reports: Appendectomy, Cholecystectomy, Colonoscopy Neurological Surgical History: Reports: Other (See Below) Musculoskeletal Surgical History: Reports: Other (See Below) Other Musculoskeletal Surgeries/Procedures:: kyphoplasty Social & Family History - Family History Family Medical History: No Pertinent Family History Cardiac: Reports: Other (See Below) Other Cardiac Family History: Brother recently passed after open heart surgery. Respiratory: Reports: COPD, Other (See Below) Other Respiratory Family Hisory: brother Endocrine/Metabolic: Reports: Diabetes, type II, Other (See Below) Other Endocrine/Metabolic Family History: 2 brothers Oncologic: Reports: Other (See Below) Other Oncologic Family History: brother-unknown type - Tobacco Use Tobacco Use Status *Q: Former Tobacco User Used Tobacco, but Quit: Yes Month/Year Tobacco Last Used: 1984 - Caffeine Use Caffeine Use: Reports: Coffee - Recreational Drug Use Recreational Drug Use: No - Living Situation & Occupation Living situation: Reports: , with Family (Daughter + son-in-law) Occupation: Retired ED ROS GENERAL - Review of Systems Review Of Systems: See Below Constitutional: Reports: No Symptoms HEENT: Reports: No Symptoms Respiratory: Reports: Shortness of Breath, Cough Cardiovascular: Reports: No Symptoms Endocrine: Reports: No Symptoms GI/Abdominal: Reports: No Symptoms : Reports: No Symptoms Musculoskeletal: Reports: No Symptoms ED EXAM, GENERAL - Physical Exam Exam: See Below Exam Limited By: No Limitations General Appearance: Alert, No Apparent Distress Ears: Normal External Exam Nose: Normal Inspection Head: Atraumatic, Normocephalic Neck: Normal Inspection Respiratory/Chest: No Respiratory Distress, Decreased Breath Sounds, Rhonchi Cardiovascular: Regular Rate, Rhythm, No Edema, No Murmur GI/Abdominal: Soft, Non-Tender, No Organomegaly, No Mass Back Exam: Normal Inspection Extremities: Normal Inspection Course - Vital Signs Last Recorded V/S: Last Vital Signs Temp 97.7 F 01/20/20 09:36 Pulse 82 01/20/20 11:00 Resp 20 01/20/20 11:00 BP 89/51 L 01/20/20 11:00 Pulse Ox 97 01/20/20 11:00 - Orders/Labs/Meds Orders: Active Orders 24 hr Category Date Time Status Cardiac Monitoring [RC] . DIRECTED Care 01/20/20 09:44 Active EKG Documentation Completion [RC] STAT Care 01/20/20 09:45 Active Oxygen Therapy [RC] PRN Care 01/20/20 09:44 Active Peripheral IV Care [RC] . DIRECTED Care 01/20/20 09:46 Active CULTURE BLOOD [BC] Stat Lab 01/20/20 10:08 Received CULTURE BLOOD [BC] Stat Lab 01/20/20 10:15 Received LACTIC ACID [CHEM] Stat Lab 01/20/20 12:50 Ordered Sodium Chloride 0.9% [Normal Saline] 1,000 ml Med 01/20/20 09:45 Active IV ASDIRECTED Sodium Chloride 0.9% [Saline Flush] Med 01/20/20 09:44 Active 10 ml FLUSH ASDIRECTED PRN Blood Culture x2 Reflex Set [OM.PC] Stat Oth 01/20/20 09:46 Ordered Peripheral IV Insertion Adult [OM.PC] Stat Oth 01/20/20 09:44 Ordered Medication Orders Sodium Chloride (Normal Saline) 1,000 mls @ 125 mls/hr IV ASDIRECTED KEANU Last Infusion: 01/20/20 12:05 Dose: 999 mls/hr Documented by: Infusion: 01/20/20 10:45 Dose: 400 mls/hr Documented by: Admin: 01/20/20 10:11 Dose: 125 mls/hr Documented by: KHADIJAH Sodium Chloride (Saline Flush) 10 ml FLUSH ASDIRECTED PRN PRN Reason: Keep Vein Open Last Admin: 01/20/20 10:11 Dose: 10 ml Documented by: KHADIJAH Labs: Laboratory Tests 01/20/20 01/20/20 01/20/20 Range/Units 09:50 09:50 09:50 WBC 9.79 H (4.23-9.07) K/mm3 RBC 3.32 L (4.63-6.08) M/mm3 Hgb 9.3 L (13.7-17.5) gm/dl Hct 33.0 L (40.1-51.0) % MCV 99.4 H (79.0-92.2) fl MCH 28.0 (25.7-32.2) pg MCHC 28.2 L (32.2-35.5) g/dl RDW Std Deviation 53.8 H (35.1-43.9) fL Plt Count 440 H (163-337) K/mm3 MPV 8.0 L (9.4-12.3) fl Neut % (Auto) 78.6 H (34.0-67.9) % Lymph % (Auto) 10.1 L (21.8-53.1) % Newberry % (Auto) 6.8 (5.3-12.2) % Eos % (Auto) 3.9 (0.8-7.0) Baso % (Auto) 0.4 (0.1-1.2) % Neut # (Auto) 7.69 H (1.78-5.38) K/mm3 Lymph # (Auto) 0.99 L (1.32-3.57) K/mm3 Newberry # (Auto) 0.67 (0.30-0.82) K/mm3 Eos # (Auto) 0.38 (0.04-0.54) K/mm3 Baso # (Auto) 0.04 (0.01-0.08) K/mm3 Manual Slide Review Abnormal smear PT 11.7 (9.7-12.0) SECONDS INR 1.10 APTT 28.4 (21.7-31.4) SECONDS Sodium 142 (136-145) mEq/L Potassium 3.4 L (3.5-5.1) mEq/L Chloride 105 (98-107) mEq/L Carbon Dioxide 29 (21-32) mEq/L Anion Gap 11.4 (5-15) BUN 8 (7-18) mg/dL Creatinine 0.8 (0.7-1.3) mg/dL Est Cr Clr Drug Dosing 68.21 mL/min Estimated GFR (MDRD) > 60 (>60) mL/min BUN/Creatinine Ratio 10.0 L (14-18) Glucose 149 H (83-115) mg/dL Lactic Acid (0.4-2.0) mmol/L Calcium 9.2 (8.5-10.1) mg/dL Ferritin (26-388) ng/ml Total Bilirubin 0.4 (0.2-1.0) mg/dL AST 13 L (15-37) U/L ALT 14 L (16-63) U/L Alkaline Phosphatase 98 (46-116) U/L Lactate Dehydrogenase 146 (85-227) U/L Troponin I 0.025 (0.00-0.056) ng/mL C-Reactive Protein 6.4 H* (<1.0) mg/dL NT-Pro-B Natriuret Pep (0-450) pg/mL Total Protein 6.1 L (6.4-8.2) g/dl Albumin 2.2 L (3.4-5.0) g/dl Globulin 3.9 gm/dL Albumin/Globulin Ratio 0.6 L (1-2) Influenza Type A RNA (NEGATIVE) Influenza Type B RNA (NEGATIVE) SARS-CoV-2 RNA (AHSAN) (NEGATIVE) 01/20/20 01/20/20 01/20/20 Range/Units 09:50 09:50 09:50 WBC (4.23-9.07) K/mm3 RBC (4.63-6.08) M/mm3 Hgb (13.7-17.5) gm/dl Hct (40.1-51.0) % MCV (79.0-92.2) fl MCH (25.7-32.2) pg MCHC (32.2-35.5) g/dl RDW Std Deviation (35.1-43.9) fL Plt Count (163-337) K/mm3 MPV (9.4-12.3) fl Neut % (Auto) (34.0-67.9) % Lymph % (Auto) (21.8-53.1) % Newberry % (Auto) (5.3-12.2) % Eos % (Auto) (0.8-7.0) Baso % (Auto) (0.1-1.2) % Neut # (Auto) (1.78-5.38) K/mm3 Lymph # (Auto) (1.32-3.57) K/mm3 Newberry # (Auto) (0.30-0.82) K/mm3 Eos # (Auto) (0.04-0.54) K/mm3 Baso # (Auto) (0.01-0.08) K/mm3 Manual Slide Review PT (9.7-12.0) SECONDS INR APTT (21.7-31.4) SECONDS Sodium (136-145) mEq/L Potassium (3.5-5.1) mEq/L Chloride (98-107) mEq/L Carbon Dioxide (21-32) mEq/L Anion Gap (5-15) BUN (7-18) mg/dL Creatinine (0.7-1.3) mg/dL Est Cr Clr Drug Dosing mL/min Estimated GFR (MDRD) (>60) mL/min BUN/Creatinine Ratio (14-18) Glucose (83-115) mg/dL Lactic Acid 3.1 H* (0.4-2.0) mmol/L Calcium (8.5-10.1) mg/dL Ferritin 318 (26-388) ng/ml Total Bilirubin (0.2-1.0) mg/dL AST (15-37) U/L ALT (16-63) U/L Alkaline Phosphatase (46-116) U/L Lactate Dehydrogenase (85-227) U/L Troponin I (0.00-0.056) ng/mL C-Reactive Protein (<1.0) mg/dL NT-Pro-B Natriuret Pep 07098 H (0-450) pg/mL Total Protein (6.4-8.2) g/dl Albumin (3.4-5.0) g/dl Globulin gm/dL Albumin/Globulin Ratio (1-2) Influenza Type A RNA (NEGATIVE) Influenza Type B RNA (NEGATIVE) SARS-CoV-2 RNA (AHSAN) (NEGATIVE) 01/20/20 Range/Units 10:10 WBC (4.23-9.07) K/mm3 RBC (4.63-6.08) M/mm3 Hgb (13.7-17.5) gm/dl Hct (40.1-51.0) % MCV (79.0-92.2) fl MCH (25.7-32.2) pg MCHC (32.2-35.5) g/dl RDW Std Deviation (35.1-43.9) fL Plt Count (163-337) K/mm3 MPV (9.4-12.3) fl Neut % (Auto) (34.0-67.9) % Lymph % (Auto) (21.8-53.1) % Newberry % (Auto) (5.3-12.2) % Eos % (Auto) (0.8-7.0) Baso % (Auto) (0.1-1.2) % Neut # (Auto) (1.78-5.38) K/mm3 Lymph # (Auto) (1.32-3.57) K/mm3 Newberry # (Auto) (0.30-0.82) K/mm3 Eos # (Auto) (0.04-0.54) K/mm3 Baso # (Auto) (0.01-0.08) K/mm3 Manual Slide Review PT (9.7-12.0) SECONDS INR APTT (21.7-31.4) SECONDS Sodium (136-145) mEq/L Potassium (3.5-5.1) mEq/L Chloride (98-107) mEq/L Carbon Dioxide (21-32) mEq/L Anion Gap (5-15) BUN (7-18) mg/dL Creatinine (0.7-1.3) mg/dL Est Cr Clr Drug Dosing mL/min Estimated GFR (MDRD) (>60) mL/min BUN/Creatinine Ratio (14-18) Glucose (83-115) mg/dL Lactic Acid (0.4-2.0) mmol/L Calcium (8.5-10.1) mg/dL Ferritin (26-388) ng/ml Total Bilirubin (0.2-1.0) mg/dL AST (15-37) U/L ALT (16-63) U/L Alkaline Phosphatase (46-116) U/L Lactate Dehydrogenase (85-227) U/L Troponin I (0.00-0.056) ng/mL C-Reactive Protein (<1.0) mg/dL NT-Pro-B Natriuret Pep (0-450) pg/mL Total Protein (6.4-8.2) g/dl Albumin (3.4-5.0) g/dl Globulin gm/dL Albumin/Globulin Ratio (1-2) Influenza Type A RNA Negative (NEGATIVE) Influenza Type B RNA Negative (NEGATIVE) SARS-CoV-2 RNA ([facility]AN) Negative (NEGATIVE) Meds: Medications Generic Name Dose Route Start Last Admin Trade Name Freq PRN Reason Stop Dose Admin Sodium Chloride 1,000 mls @ 125 mls/hr 01/20/20 09:45 01/20/20 12:05 Normal Saline IV 999 mls/hr ASDIRECTED KEANU Infusion Sodium Chloride 10 ml 01/20/20 09:44 01/20/20 10:11 Saline Flush FLUSH 10 ml ASDIRECTED PRN Administration Keep Vein Open Discontinued Medications Generic Name Dose Route Start Last Admin Trade Name Hakan PRN Reason Stop Dose Admin Levofloxacin/Dextrose 750 mg/ 150 mls @ 100 mls/hr 01/20/20 09:55 01/20/20 10:15 Premix IV 01/20/20 11:24 100 mls/hr ONETIME ONE Administration Sodium Chloride 500 mls @ 1,000 mls/hr 01/20/20 10:45 01/20/20 10:58 Normal Saline IV 01/20/20 11:14 Not Given .BOLUS ONE - Re-Assessments/Exams Free Text/Narrative Re-Assessment/Exam: 01/20/20 10:25 I ordered oxygen, EKG, CXR, labs, lactic acid, blood cultures and levaquin 750mg IV. He is allergic to penicillin, cephalosporins, clindamycin and bactrim. I talked with pharmacy and they did recommend the levaquin. 01/20/20 12:08 His CXR shows interstitial fibrosis with findings having increased from prior study. Findings could represent worsening fibrosis versus diffuse bronchitis or pulmonary vascular congestion. Other findings which are stable. His WBC is elevated at 9.79. His Hgb is low at 9.3. His K is low at 3.4. His glucose is elevated at 149. His lactic acid is elevated at 3.1. I ordered a NS bolus and a rate of 125ml/hr. His CRP is elevated at 6.4. His BNP is elevated at 10,701. His COVID 19 is negative. I feel he needs to be admitted. I called Dr Vidal and he agreed to the admiss ion. 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, Pulmonary fibrosis, Hypoxia COPD (chronic obstructive pulmonary disease) Qualifiers: COPD type: 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 Qualified Code(s): J41.8 - Mixed simple and mucopurulent chronic bronchitis Pneumonia Qualifiers: Pneumonia type: due to unspecified organism Laterality: right Lung location: lower lobe of lung Qualified Code(s): J18.9 - Pneumonia, unspecified organism - Discharge Information Referrals: Shara Castillo MD [Primary Care Provider] - Forms: ED Department Discharge Sepsis Event Note (ED) - Evaluation Sepsis Screening Result: No Definite Risk - Focused Exam Vital Signs: Vital Signs Temp Pulse Resp BP Pulse Ox 01/20/20 11:00 82 20 89/51 L 97 01/20/20 10:30 94 20 96/61 93 L 01/20/20 10:00 78 20 100/78 95 01/20/20 09:36 97.7 F 80 24 H 94/69 77 L - My Orders Last 24 Hours: My Active Orders 01/20/20 09:44 Cardiac Monitoring [RC] . DIRECTED Oxygen Therapy [RC] PRN Sodium Chloride 0.9% [Saline Flush] 10 ml FLUSH ASDIRECTED PRN Peripheral IV Insertion Adult [OM.PC] Stat 01/20/20 09:45 EKG Documentation Completion [RC] STAT Sodium Chloride 0.9% [Normal Saline] 1,000 ml IV ASDIRECTED 01/20/20 09:46 Peripheral IV Care [RC] . DIRECTED Blood Culture x2 Reflex Set [OM.PC] Stat 01/20/20 10:08 CULTURE BLOOD [BC] Stat 01/20/20 10:15 CULTURE BLOOD [BC] Stat 01/20/20 12:50 LACTIC ACID [CHEM] Stat - Assessment/Plan Last 24 Hours: My Active Orders 01/20/20 09:44 Cardiac Monitoring [RC] . DIRECTED Oxygen Therapy [RC] PRN Sodium Chloride 0.9% [Saline Flush] 10 ml FLUSH ASDIRECTED PRN Peripheral IV Insertion Adult [OM.PC] Stat 01/20/20 09:45 EKG Documentation Completion [RC] STAT Sodium Chloride 0.9% [Normal Saline] 1,000 ml IV ASDIRECTED 01/20/20 09:46 Peripheral IV Care [RC] . DIRECTED Blood Culture x2 Reflex Set [OM.PC] Stat 01/20/20 10:08 CULTURE BLOOD [BC] Stat 01/20/20 10:15 CULTURE BLOOD [BC] Stat 01/20/20 12:50 LACTIC ACID [CHEM] Stat
[2020-01-20] MEDS ORDERED: Sodium Chloride 0.9% 500 ML IV ONE (10:45)
[2020-01-20 11:31] LABS: CORONAVIRUS COVID-19 NAA NEGATIVE (NEGATIVE)
[2020-01-20] MEDS ORDERED: guaiFENesin/Dextromethorphan 100-10 MG/5 ML Soln 5 ML Cup PO PRN (14:00)
[2020-01-20] MEDS ORDERED: Acetaminophen 325 MG Tab PO PRN (14:14)
--- NOTE | 2020-01-20 14:28 | PCM.HP.2 ---
H&P History of Present Illness - General Date of Service: 01/20/20 Admit Problem/Dx: Admission Diagnosis/Problem Admission Diagnosis/Problem Hypoxia Source of Information: Patient, Old Records, Provider, RN, RN Notes Reviewed History Limitations: Reports: No Limitations - History of Present Illness Initial Comments - Free Text/Narative: This is a 79 yo male who presents to our ED on 01/20/2020 after being seen by Dr. Castillo. He has been receiving treatment for pneumonia and was noted to have low saturations in the clinic. His primary care provider then instructed him to come to our ED. He is normally on 2 L of oxygen with 3 L at night. In the clinic he was noted to have oxygen saturations in the upper 70s and low 80s but they did respond with more oxygen. He was diagnosed with pneumonia in our ED on the and started on doxycycline. He reports is not getting any better. He still complains of cough and shortness of breath but denies any continuing fevers. He does have a history of COPD and pulmonary fibrosis. He is also on immunosuppressive medications secondary to vasculitis in the s. He is a former who quit in 1984. Denies any current fever, chest pain, abdominal pain, nausea, or vomiting. In the ED chest x-ray is obtained showing interstitial fibrosis with findings having increased from prior study. Findings could represent worsening fibrosis versus diffuse bronchitis versus pulmonary vascular congestion. There are other stable findings noted. In the ED temp is 97.7. Pulse 82. Respirations 20. Blood pressure 89/51. Pulse ox 97% on oxygen. Pain showing WBC of 9.79. Hemoglobin is 9.3. Hematocrit 33.0. Platelets are elevated at 440. Neutrophils are elevated at 78.6. PT is 11.7. INR is 1.10. aPTT is 20.4. Sodium is 142. Potassium is slightly low at 3.4. Anion gap is 11.4. GFR is greater than 60. Glucose is slightly high at 149. Bilirubin 0.4. AST is 13, ALT 14, alkaline phosphatase 98. LDH is 46. Troponin is 0.025. CRP is 6.4. Protein is 6.1. Albumin 2.2. Lactic acid is 3.1. Ferritin is 318. proBNP is 11/22/2000. Influenza a and B, as well as SARS-CoV-2 are all negative. Even a 500 mL bolus and started 125 mils an hour of IV fluid. ED provider consulted with pharmacy as patient has multiple prior drug allergies and Levaquin was started 750 mg. He carries a history of HLD, hypertension, Churg-Marcella syndrome/vasculitis, asthma, COPD, pulmonary fibrosis, chronic oxygen use, BPH, urinary retention, osteoarthritis, neuropathy, situational depression, type II DM, vitamin D deficiency, squamous cell cancer [place], bladder cancer, cellulitis, pacemaker. He is on chronic immunosuppression therapy. He is a former smoker. His PCP is Dr. Castillo. He is a DNR/DNI. He is subsequently admitted to the medical floor on telemetry for management of his failed outpatient pneumonia, suspected CHF exacerbation, and hypoxia. - Related Data Allergies/Adverse Reactions: Allergies Allergy/AdvReac Type Severity Reaction Status Date / Time alendronate sodium Allergy Intermediate Rash Verified 01/20/20 14:13 [From Fosamax] amoxicillin trihydrate Allergy Intermediate Rash Verified 01/20/20 14:13 [From Augmentin] azathioprine [From Imuran] Allergy Intermediate Rash Verified 01/20/20 14:13 azathioprine sodium Allergy Intermediate Rash Verified 01/20/20 14:13 [From Imuran] azithromycin [From Zithromax] Allergy Intermediate Rash Verified 01/20/20 14:13 cefuroxime axetil Allergy Intermediate Rash Verified 01/20/20 14:13 [From Ceftin] clindamycin Allergy Intermediate Rash Verified 01/20/20 14:13 methotrexate Allergy Intermediate Rash Verified 01/20/20 14:13 potassium clavulanate Allergy Intermediate Rash Verified 01/20/20 14:13 [From Augmentin] rofecoxib [From Vioxx] Allergy Intermediate Rash Verified 01/20/20 14:13 Sulfa (Sulfonamide Allergy Intermediate Rash Verified 01/20/20 14:13 Antibiotics) atorvastatin calcium Allergy Unknown Cannot Verified 01/20/20 14:13 [From Lipitor] Remember Home Medications: Home Meds Albuterol [Ventolin HFA] 2 puff INH Q4H PRN 10/25/18 [History] Citalopram Hydrobromide [Celexa] 20 mg PO BEDTIME 10/25/18 [History] Furosemide [Lasix] 40 mg PO DAILY 10/25/18 [History] Multivitamin [Multivitamins] 1 tab PO DAILY 10/25/18 [History] Omeprazole Magnesium [Prilosec Otc] 40 mg PO BEDTIME 10/25/18 [History] Simvastatin 40 mg PO BEDTIME 10/25/18 [History] Ubidecarenone [Co Q-10] 100 mg PO DAILY 10/25/18 [History] guaiFENesin [Mucinex] 1,200 mg PO BID 10/25/18 [History] mycophenolate mofetiL [Cellcept] 2,500 mg PO BID 10/25/18 [History] predniSONE [Prednisone] 15 mg PO DAILY 10/25/18 [History] Arformoterol [Brovana] 15 mcg INH BID 06/23/19 [History] Ascorbic Acid [Vitamin C] 500 mg PO BID 06/23/19 [History] Aspirin [Halfprin] 81 mg PO DAILY 06/23/19 [History] Denosumab [Prolia] 60 mg IM ASDIRECTED 06/23/19 [History] Lutein 6 mg PO BEDTIME 06/23/19 [History] Tamsulosin HCl 0.4 mg PO DAILY 06/23/19 [History] Fluticasone Propionate [Flonase Allergy Relief] 2 spray NASBOTH BID 11/27/19 [History] Potassium Chloride [Klor-Con M20] 20 meq PO DAILY 11/27/19 [History] dilTIAZem HCL [Dilt-Xr] 180 mg PO DAILY 11/27/19 [History] metFORMIN HCl [Metformin HCl] 500 mg PO DAILY 11/27/19 [History] Budesonide [Pulmicort] 1 unit INH BID 01/16/20 [History] Calcium Carbonate [Calcium] 600 mg PO BID 01/16/20 [History] Cholecalciferol (Vitamin D3) [Vitamin D3] 1,000 units PO BEDTIME 01/16/20 [History] Ciclopirox/Urea/Camph/Men/Euc [Ciclopirox 8% Treatment Kit] 1 applic TOP BEDTIME 01/16/20 [History] Doxycycline [Vibramycin] 100 mg PO BID #14 cap 01/16/20 [Rx] Magnesium Oxide [Magnesium] 400 mg PO BEDTIME 01/16/20 [History] Roflumilast [Daliresp] 500 mcg PO DAILY 01/16/20 [History] Sulfamethoxazole/Trimethoprim [Sulfamethoxazole-Tmp Ds Tablet] 1 tab PO MOWEFR 01/16/20 [History] Ferrous Sulfate [Iron] 325 mg PO BID 01/20/20 [History] Ipratropium/Albuterol Sulfate [Iprat-Albut 0.5-3(2.5) mg/3 ml] 1 unit IH TID [History] Past Medical History HEENT History: Reports: Hard of Hearing, Impaired Vision Other HEENT History: wears glasses Cardiovascular History: Reports: High Cholesterol, Hypertension, Other (See Be low) Other Cardiovascular History: Churg-Marcella Syndrome/vasculitis Respiratory History: Reports: Asthma, COPD, Pulmonary Fibrosis Other Respiratory History: Chronic oxygen use Gastrointestinal History: Reports: Colon Polyp Genitourinary History: Reports: BPH Other Genitourinary History: possible urinary retention...started Flomax on 06-18-2019 Musculoskeletal History: Reports: Osteoarthritis Other Musculoskeletal History: chronic left knee pain Neurological History: Reports: Other (See Below) Other Neuro History: sural neuropathy. 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, Squamous Cell Carcinoma Dermatologic History: Reports: Cellulitis Other Dermatologic History: Current cellulits has been treated with 20 days of antibiotics, completed course on 01/03/15 - Infectious Disease History Infectious Disease History: Reports: Chicken Pox - Past Surgical History HEENT Surgical History: Reports: Cataract Surgery Other HEENT Surgeries/Procedures: pt has full upper, lower partial and bilateral hearing aids Cardiovascular Surgical History: Reports: Pacer GI Surgical History: Reports: Appendectomy, Cholecystectomy, Colonoscopy Neurological Surgical History: Reports: Other (See Below) Musculoskeletal Surgical History: Reports: Other (See Below) Other Musculoskeletal Surgeries/Procedures:: kyphoplasty Social & Family History - Family History Family Medical History: No Pertinent Family History Cardiac: Reports: Other (See Below) Other Cardiac Family History: Brother recently passed after open heart surgery. Respiratory: Reports: COPD, Other (See Below) Other Respiratory Family Hisory: brother Endocrine/Metabolic: Reports: Diabetes, type II, Other (See Below) Other Endocrine/Metabolic Family History: 2 brothers Oncologic: Reports: Other (See Below) Other Oncologic Family History: brother-unknown type - Tobacco Use Tobacco Use Status *Q: Former Tobacco User Used Tobacco, but Quit: Yes Month/Year Tobacco Last Used: 1984 - Caffeine Use Caffeine Use: Reports: Coffee - Recreational Drug Use Recreational Drug Use: No - Living Situation & Occupation Living situation: Reports: , with Family (Daughter + son-in-law) Occupation: Retired H&P Review of Systems - Review of Systems: Review Of Systems: See Below General: Reports: No Symptoms, Malaise, Weakness, Fatigue. Denies: Fever, Chills, Decreased Appetite HEENT: Reports: No Symptoms. Denies: Headaches, Sore Throat Pulmonary: Reports: No Symptoms, Shortness of Breath, Cough, Sputum. Denies: Wheezing, Pleuritic Chest Pain, Hemoptysis Cardiovascular: Reports: No Symptoms, Dyspnea on Exertion, Orthopnea, Edema. Denies: Chest Pain, Palpitations, Lightheadedness, Syncope Gastrointestinal: Reports: No Symptoms. Denies: Abdominal Pain, Constipation, Diarrhea, Nausea, Vomiting Genitourinary: Reports: No Symptoms Musculoskeletal: Reports: No Symptoms Skin: Reports: No Symptoms. Denies: Cyanosis Psychiatric: Reports: No Symptoms. Denies: Confusion Neurological: Reports: No Symptoms. Denies: Confusion, Dizziness, Numbness, Pre-Existing Deficit, Seizure, Syncope, Tingling, Trouble Speaking, Difficulty Walking, Weakness, Change in Speech, Gait Disturbance Hematologic/Lymphatic: Reports: No Symptoms Immunologic: Reports: No Symptoms Exam - Exam Exam: See Below (Redness to coccyx and sacral area) - Vital Signs Vital Signs: Last Vital Signs Temp 98.4 F 01/20/20 12:00 Pulse 89 01/20/20 12:00 Resp 20 01/20/20 12:00 BP 98/62 01/20/20 12:00 Pulse Ox 96 01/20/20 12:00 Weight: 142 lb - Exam Quality Assessment: Supplemental Oxygen, DVT Prophylaxis. No: Urinary Catheter General: Alert, Oriented, Cooperative, Other (Very thin and cachectic). No: Mild Distress HEENT: Conjunctiva Clear, EACs Clear, Hearing Intact, Mucosa Moist & [place], Posterior Pharynx Clear Neck: Supple, Trachea Midline Lungs: Decreased Breath Sounds, Rhonchi, Other (Oxygen saturations noted to drop into 70's while talking ) Cardiovascular: Regular Rate, Regular Rhythm, Other (Pacemaker ) GI/Abdominal Exam: Normal Bowel Sounds, Soft, Non-Tender, No Distention (Male) Exam: Deferred Rectal (Males) Exam: Deferred Back Exam: Full Range of Motion, Other (Blanchable redness to coccyx and sacral area) Extremities: Normal Inspection, Normal Range of Motion, Pedal Edema Skin: Warm, Dry, Intact Neurological: Cranial Nerves Intact (Grossly ) Neuro Extensive - Mental Status: Alert, Oriented x3, Normal Mood/Affect - Patient Data Lab Results Last 24 hrs: Laboratory Results - last 24 hr 01/20/20 01/20/20 01/20/20 Range/Units 09:50 09:50 09:50 WBC 9.79 H (4.23-9.07) K/mm3 RBC 3.32 L (4.63-6.08) M/mm3 Hgb 9.3 L (13.7-17.5) gm/dl Hct 33.0 L (40.1-51.0) % MCV 99.4 H (79.0-92.2) fl MCH 28.0 (25.7-32.2) pg MCHC 28.2 L (32.2-35.5) g/dl RDW Std Deviation 53.8 H (35.1-43.9) fL Plt Count 440 H (163-337) K/mm3 MPV 8.0 L (9.4-12.3) fl Neut % (Auto) 78.6 H (34.0-67.9) % Lymph % (Auto) 10.1 L (21.8-53.1) % [place] % (Auto) 6.8 (5.3-12.2) % Eos % (Auto) 3.9 (0.8-7.0) Baso % (Auto) 0.4 (0.1-1.2) % Neut # (Auto) 7.69 H (1.78-5.38) K/mm3 Lymph # (Auto) 0.99 L (1.32-3.57) K/mm3 [place] # (Auto) 0.67 (0.30-0.82) K/mm3 Eos # (Auto) 0.38 (0.04-0.54) K/mm3 Baso # (Auto) 0.04 (0.01-0.08) K/mm3 Manual Slide Review Abnormal smear PT 11.7 (9.7-12.0) SECONDS INR 1.10 APTT 28.4 (21.7-31.4) SECONDS Sodium 142 (136-145) mEq/L Potassium 3.4 L (3.5-5.1) mEq/L Chloride 105 (98-107) mEq/L Carbon Dioxide 29 (21-32) mEq/L Anion Gap 11.4 (5-15) BUN 8 (7-18) mg/dL Creatinine 0.8 (0.7-1.3) mg/dL Est Cr Clr Drug Dosing 68.21 mL/min Estimated GFR (MDRD) > 60 (>60) mL/min BUN/Creatinine Ratio 10.0 L (14-18) Glucose 149 H (83-115) mg/dL Lactic Acid (0.4-2.0) mmol/L Calcium 9.2 (8.5-10.1) mg/dL Ferritin (26-388) ng/ml Total Bilirubin 0.4 (0.2-1.0) mg/dL AST 13 L (15-37) U/L ALT 14 L (16-63) U/L Alkaline Phosphatase 98 (46-116) U/L Lactate Dehydrogenase 146 (85-227) U/L Troponin I 0.025 (0.00-0.056) ng/mL C-Reactive Protein 6.4 H* (<1.0) mg/dL NT-Pro-B Natriuret Pep (0-450) pg/mL Total Protein 6.1 L (6.4-8.2) g/dl Albumin 2.2 L (3.4-5.0) g/dl Globulin 3.9 gm/dL Albumin/Globulin Ratio 0.6 L (1-2) Influenza Type A RNA (NEGATIVE) Influenza Type B RNA (NEGATIVE) SARS-CoV-2 RNA ([facility]) (NEGATIVE) 01/20/20 01/20/20 01/20/20 Range/Units 09:50 09:50 09:50 WBC (4.23-9.07) K/mm3 RBC (4.63-6.08) M/mm3 Hgb (13.7-17.5) gm/dl Hct (40.1-51.0) % MCV (79.0-92.2) fl MCH (25.7-32.2) pg MCHC (32.2-35.5) g/dl RDW Std Deviation (35.1-43.9) fL Plt Count (163-337) K/mm3 MPV (9.4-12.3) fl Neut % (Auto) (34.0-67.9) % Lymph % (Auto) (21.8-53.1) % [place] % (Auto) (5.3-12.2) % Eos % (Auto) (0.8-7.0) Baso % (Auto) (0.1-1.2) % Neut # (Auto) (1.78-5.38) K/mm3 Lymph # (Auto) (1.32-3.57) K/mm3 [place] # (Auto) (0.30-0.82) K/mm3 Eos # (Auto) (0.04-0.54) K/mm3 Baso # (Auto) (0.01-0.08) K/mm3 Manual Slide Review PT (9.7-12.0) SECONDS INR APTT (21.7-31.4) SECONDS Sodium (136-145) mEq/L Potassium (3.5-5.1) mEq/L Chloride (98-107) mEq/L Carbon Dioxide (21-32) mEq/L Anion Gap (5-15) BUN (7-18) mg/dL Creatinine (0.7-1.3) mg/dL Est Cr Clr Drug Dosing mL/min Estimated GFR (MDRD) (>60) mL/min BUN/Creatinine Ratio (14-18) Glucose (83-115) mg/dL Lactic Acid 3.1 H* (0.4-2.0) mmol/L Calcium (8.5-10.1) mg/dL Ferritin 318 (26-388) ng/ml Total Bilirubin (0.2-1.0) mg/dL AST (15-37) U/L ALT (16-63) U/L Alkaline Phosphatase (46-116) U/L Lactate Dehydrogenase (85-227) U/L Troponin I (0.00-0.056) ng/mL C-Reactive Protein (<1.0) mg/dL NT-Pro-B Natriuret Pep 90499 H (0-450) pg/mL Total Protein (6.4-8.2) g/dl Albumin (3.4-5.0) g/dl Globulin gm/dL Albumin/Globulin Ratio (1-2) Influenza Type A RNA (NEGATIVE) Influenza Type B RNA (NEGATIVE) SARS-CoV-2 RNA ([facility]) (NEGATIVE) 01/20/20 01/20/20 Range/Units 10:10 13:10 WBC (4.23-9.07) K/mm3 RBC (4.63-6.08) M/mm3 Hgb (13.7-17.5) gm/dl Hct (40.1-51.0) % MCV (79.0-92.2) fl MCH (25.7-32.2) pg MCHC (32.2-35.5) g/dl RDW Std Deviation (35.1-43.9) fL Plt Count (163-337) K/mm3 MPV (9.4-12.3) fl Neut % (Auto) (34.0-67.9) % Lymph % (Auto) (21.8-53.1) % [place] % (Auto) (5.3-12.2) % Eos % (Auto) (0.8-7.0) Baso % (Auto) (0.1-1.2) % Neut # (Auto) (1.78-5.38) K/mm3 Lymph # (Auto) (1.32-3.57) K/mm3 [place] # (Auto) (0.30-0.82) K/mm3 Eos # (Auto) (0.04-0.54) K/mm3 Baso # (Auto) (0.01-0.08) K/mm3 Manual Slide Review PT (9.7-12.0) SECONDS INR APTT (21.7-31.4) SECONDS Sodium (136-145) mEq/L Potassium (3.5-5.1) mEq/L Chloride (98-107) mEq/L Carbon Dioxide (21-32) mEq/L Anion Gap (5-15) BUN (7-18) mg/dL Creatinine (0.7-1.3) mg/dL Est Cr Clr Drug Dosing mL/min Estimated GFR (MDRD) (>60) mL/min BUN/Creatinine Ratio (14-18) Glucose (83-115) mg/dL Lactic Acid 2.0 (0.4-2.0) mmol/L Calcium (8.5-10.1) mg/dL Ferritin (26-388) ng/ml Total Bilirubin (0.2-1.0) mg/dL AST (15-37) U/L ALT (16-63) U/L Alkaline Phosphatase (46-116) U/L Lactate Dehydrogenase (85-227) U/L Troponin I (0.00-0.056) ng/mL C-Reactive Protein (<1.0) mg/dL NT-Pro-B Natriuret Pep (0-450) pg/mL Total Protein (6.4-8.2) g/dl Albumin (3.4-5.0) g/dl Globulin gm/dL Albumin/Globulin Ratio (1-2) Influenza Type A RNA Negative (NEGATIVE) Influenza Type B RNA Negative (NEGATIVE) SARS-CoV-2 RNA ([facility]) Negative (NEGATIVE) Result Diagrams: 01/20/20 09:50 01/20/20 09:50 Sepsis Event Note - Evaluation Sepsis Screening Result: No Definite Risk - Focused Exam Vital Signs: Vital Signs Temp Pulse Resp BP Pulse Ox 01/20/20 12:00 98.4 F 89 20 98/62 96 01/20/20 11:00 82 20 89/51 L 97 01/20/20 10:30 94 20 96/61 93 L 01/20/20 10:00 78 20 100/78 95 01/20/20 09:36 97.7 F 80 24 H 94/69 77 L - Problem List (1) Hypoxia SNOMED Code(s): 924967381 ICD Code: R09.02 - HYPOXEMIA Status: Acute Priority: High Current Visit: Yes (2) Pneumonia SNOMED Code(s): 068336326 ICD Code: J18.9 - PNEUMONIA, UNSPECIFIED ORGANISM Status: Acute Current Visit: Yes Qualifiers: Pneumonia type: due to unspecified organism Laterality: right Lung location: lower lobe of lung Qualified Code(s): J18.9 - Pneumonia, unspecified organism (3) Pulmonary fibrosis SNOMED Code(s): 31391819 ICD Code: J84.10 - PULMONARY FIBROSIS, UNSPECIFIED Status: Acute Current Visit: Yes (4) COPD (chronic obstructive pulmonary disease) SNOMED Code(s): 31620439 ICD Code: J44.9 - CHRONIC OBSTRUCTIVE PULMONARY DISEASE, UNSPECIFIED Status: Chronic Priority: High Current Visit: Yes Qualifiers: COPD type: 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 Qualified Code(s): J41.8 - Mixed 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 SNOMED Code(s): 43148732 ICD Code: M30.1 - POLYARTERITIS WITH LUNG INVOLVEMENT [CHURG-MARCELLA] Status: Chronic Priority: Low Current Visit: Yes (6) Hyperglycemia due to type 2 diabetes mellitus SNOMED Code(s): 344458379118011, 002671551468233 ICD Code: E11.65 - TYPE 2 DIABETES MELLITUS WITH HYPERGLYCEMIA Status: Acute Current Visit: No (7) Hypomagnesemia SNOMED Code(s): 796922576 ICD Code: E83.42 - HYPOMAGNESEMIA Status: Acute Current Visit: No (8) Hypoxemia requiring supplemental oxygen SNOMED Code(s): 716377717 ICD Code: R09.02 - HYPOXEMIA; Z99.81 - DEPENDENCE ON SUPPLEMENTAL OXYGEN Status: Acute Current Visit: No (9) Immunocompromised SNOMED Code(s): 004852129 ICD Code: D84.9 - IMMUNODEFICIENCY, UNSPECIFIED Status: Acute Current Visit: No (10) Shortness of breath SNOMED Code(s): 109867408 ICD Code: R06.02 - SHORTNESS OF BREATH Status: Acute Priority: High Current Visit: No (11) Vasculitis SNOMED Code(s): 26949577 ICD Code: I77.6 - ARTERITIS, UNSPECIFIED Status: Acute Current Visit: No (12) Chronic steroid use SNOMED Code(s): 319987134 ICD Code: QJZ4259 - Status: Chronic Priority: Low Current Visit: No (13) Pacemaker SNOMED Code(s): 458518160 ICD Code: Z95.0 - PRESENCE OF CARDIAC PACEMAKER Status: Acute Current Visit: Yes (14) Hypokalemia SNOMED Code(s): 19512614 ICD Code: E87.6 - HYPOKALEMIA Status: Acute Priority: High Current Visit: Yes (15) Incontinence SNOMED Code(s): 16944552 ICD Code: R32 - UNSPECIFIED URINARY INCONTINENCE Status: Acute Priority: High Current Visit: Yes Qualifiers: Incontinence type: urinary Urinary Incontinence type: unspecified incontinence Qualified Code(s): R32 - Unspecified urinary incontinence (16) Hypoalbuminemia SNOMED Code(s): 442030351 ICD Code: E88.09 - OTH DISORDERS OF PLASMA-PROTEIN METABOLISM, NEC Status: Acute Priority: High Current Visit: Yes (17) Cachexia SNOMED Code(s): 373536175 ICD Code: R64 - CACHEXIA Status: Acute Priority: High Current Visit: Yes (18) BPH (benign prostatic hyperplasia) SNOMED Code(s): 878009082 ICD Code: N40.0 - BENIGN PROSTATIC HYPERPLASIA WITHOUT LOWER URINRY TRACT SYMP Status: Chronic Priority: Medium Current Visit: No Qualifiers: Lower urinary tract symptom presence: symptoms present Lower urinary tract symptom detail: unspecified Qualified Code(s): N40.1 - Benign prostatic hyperplasia with lower urinary tract symptoms (19) Urinary retention SNOMED Code(s): 058816441 ICD Code: R33.9 - RETENTION OF URINE, UNSPECIFIED Status: Chronic Priority: Medium Current Visit: No (20) History of second degree heart block SNOMED Code(s): 731219903 ICD Code: Z86.79 - PERSONAL HISTORY OF OTHER DISEASES OF THE CIRCULATORY SYSTEM Status: Chronic Priority: Low Current Visit: No Problem List Initiated/Reviewed/Updated: Yes Orders Last 24hrs: Active Orders 24 hr Category Date Time Status Patient Status [ADT] Routine ADT 01/20/20 12:49 Active Accu Check [Blood Glucose Check, Bedside] [RC] Care 01/20/20 14:21 Active QIDACANDBED Cardiac Monitoring [RC] . DIRECTED Care 01/20/20 09:44 Active EKG Documentation Completion [RC] STAT Care 01/20/20 09:45 Active Height and Weight [RC] DAILY Care 01/20/20 14:14 Active Intake and Output [RC] QSHIFT Care 01/20/20 14:14 Active Nurse Communication: Isolation [RC] ASDIRECTED Care 01/20/20 13:53 Active Oxygen Therapy [RC] PRN Care 01/20/20 09:44 Active Peripheral IV Care [RC] . DIRECTED Care 01/20/20 09:46 Active Pulse Oximetry [RC] PRN Care 01/20/20 14:14 Active RT Aerosol Therapy [RC] ASDIRECTED Care 01/20/20 13:57 Active RT Aerosol Therapy [RC] ASDIRECTED Care 01/20/20 14:06 Active RT Incentive Spirometry [RC] ASDIRECTED Care 01/20/20 13:55 Active Up With Assistance [RC] ASDIRECTED Care 01/20/20 14:14 Active VTE/DVT Education [RC] PER UNIT ROUTINE Care 01/20/20 14:14 Active Vital Signs [RC] Q4H Care 01/20/20 14:14 Active Consult to Case Management/Medical Sales Associate [CONS] Cons 01/20/20 14:14 Active Routine Consult to Air Conditioning Engineer [CONS] Routine Cons 01/20/20 14:14 Active Consult to Spiritual Care [CONS] Routine Cons 01/20/20 14:14 Active OT Evaluation and Treatment [CONS] Routine Cons 01/20/20 14:14 Active PT Evaluation and Treatment [CONS] Routine Cons 01/20/20 14:14 Active Respiratory Care Assess and Treatment [CONS] Routine Cons 01/20/20 14:14 Active Heart Healthy Diet [DIET] Diet 01/20/20 Lunch Active Echo Comp wo Cont [US] Routine Exams 01/20/20 13:55 Ordered A1C [GLYCOSYLATED HEMOGLOBIN,HGBA1C] [CHEM] Routine Lab 01/20/20 14:19 Ordered CBC WITH AUTO DIFF [HEME] AM Lab 01/21/20 05:11 Ordered CBC WITH AUTO DIFF [HEME] AM Lab 01/22/20 05:11 Ordered CBC WITH AUTO DIFF [HEME] AM Lab 01/23/20 05:11 Ordered CBC WITH AUTO DIFF [HEME] AM Lab 01/24/20 05:11 Ordered CMP [COMPREHENSIVE METABOLIC PN,CMP] [CHEM] AM Lab 01/21/20 05:11 Ordered CMP [COMPREHENSIVE METABOLIC PN,CMP] [CHEM] AM Lab 01/22/20 05:11 Ordered CMP [COMPREHENSIVE METABOLIC PN,CMP] [CHEM] AM Lab 01/23/20 05:11 Ordered CMP [COMPREHENSIVE METABOLIC PN,CMP] [CHEM] AM Lab 01/24/20 05:11 Ordered CRP [C-REACTIVE PROTEIN] [CHEM] AM Lab 01/21/20 05:11 Ordered CRP [C-REACTIVE PROTEIN] [CHEM] AM Lab 01/22/20 05:11 Ordered CRP [C-REACTIVE PROTEIN] [CHEM] AM Lab 01/23/20 05:11 Ordered CRP [C-REACTIVE PROTEIN] [CHEM] AM Lab 01/24/20 05:11 Ordered CULTURE BLOOD [BC] Stat Lab 01/20/20 10:08 Received CULTURE BLOOD [BC] Stat Lab 01/20/20 10:15 Received CULTURE SPUTUM + SMEAR [RM] Routine Lab 01/20/20 14:12 Ordered MAGNESIUM [CHEM] AM Lab 01/21/20 05:11 Ordered MAGNESIUM [CHEM] AM Lab 01/22/20 05:11 Ordered MAGNESIUM [CHEM] AM Lab 01/23/20 05:11 Ordered MAGNESIUM [CHEM] AM Lab 01/24/20 05:11 Ordered MAGNESIUM [CHEM] Routine Lab 01/20/20 13:57 Ordered UA W/MICROSCOPIC [URIN] Routine Lab 01/20/20 13:53 Ordered Acetaminophen [TylenoL] Med 01/20/20 14:14 Active 650 mg PO Q4H PRN Albuterol/Ipratropium [DuoNeb 3.0-0.5 MG/3 ML] Med 01/20/20 13:56 Active 3 ml NEB Q6HRRT PRN Arformoterol Med 01/20/20 21:00 Ordered 15 mcg INH BID Ascorbic Acid [Vitamin C] Med 01/20/20 21:00 Active 500 mg PO BID Aspirin [Halfprin] Med 01/21/20 09:00 Active 81 mg PO DAILY Budesonide [Pulmicort] Med 01/20/20 21:00 Ordered DOSE mg INH BID Calcium Carbonate Med 01/20/20 21:00 Active 600 mg PO BID Cholecalciferol (Vitamin D3) [Vitamin D3] Med 01/20/20 21:00 Ordered 1,000 mg PO BEDTIME Ciclopirox/Urea/Camph/Men/Euc [Ciclopirox 8% Treatment Med 01/20/20 21:00 Ordered Kit] 1 applic .ROUTE BEDTIME Citalopram [Celexa] Med 01/20/20 21:00 Active 20 mg PO BEDTIME Dextromethorphan/guaiFENesin [Robitussin DM] Med 01/20/20 14:00 Active 10 ml PO TID@0700,1400,2100 PRN Diltiazem [Cardizem CD] Med 01/21/20 09:00 Active 180 mg PO DAILY Enoxaparin [Lovenox] Med 01/21/20 09:00 Active 30 mg SUBCUT DAILY Ferrous Sulfate Med 01/20/20 21:00 Active 324 mg PO BID Furosemide [Lasix] Med 01/21/20 09:00 Ordered 40 mg IVPUSH DAILY Furosemide [Lasix] Med 01/20/20 14:24 Once 40 mg IVPUSH NOW ONE Insulin Lispro [HumaLOG] Med 01/20/20 17:00 Ordered See Protocol SUBCUT QIDACANDBED Levofloxacin/Dextrose 5%-Water [Levaquin in D5W 750 MG/ Med 01/21/20 10:00 Active 150 ML] 750 mg Premix Bag 1 bag IV Q24H Magnesium Oxide [Magnesium] Med 01/20/20 21:00 Ordered 400 mg PO BEDTIME Multivitamins,Therapeutic [Thera] Med 01/21/20 09:00 Active 1 each PO DAILY Pantoprazole [ProTONIX] Med 01/20/20 21:00 Active 40 mg PO BEDTIME Roflumilast Med 01/21/20 09:00 Ordered 500 mcg PO DAILY Simvastatin [Zocor] Med 01/20/20 21:00 Active 40 mg PO BEDTIME Sodium Chloride 0.9% [Normal Saline] 1,000 ml Med 01/20/20 09:45 Active IV ASDIRECTED Sodium Chloride 0.9% [Saline Flush] Med 01/20/20 09:44 Active 10 ml FLUSH ASDIRECTED PRN Tamsulosin [Flomax] Med 01/21/20 09:00 Active 0.4 mg PO DAILY predniSONE Med 01/21/20 09:00 Active 15 mg PO DAILY Blood Culture x2 Reflex Set [OM.PC] Stat Oth 01/20/20 09:46 Ordered Isolation [COMM] Routine Oth 01/20/20 13:53 Ordered Peripheral IV Insertion Adult [OM.PC] Stat Oth 01/20/20 09:44 Ordered RT Acapella [RESPCARE] Routine Oth 01/20/20 13:55 Active Code Status [Resuscitation Status] Routine Resus Stat 01/20/20 14:13 Ordered Medication Orders Acetaminophen (Tylenol) 650 mg PO Q4H PRN PRN Reason: Pain (Mild 1-3)/fever Albuterol/Ipratropium (Duoneb 3.0-0.5 Mg/3 Ml) 3 ml NEB Q6HRRT PRN PRN Reason: wheezing/SOB/cough Arformoterol Tartrate (Brovana) 15 mcg INH BID [facility] Ascorbic Acid (Vitamin C) 500 mg PO BID [facility] Aspirin (Halfprin) 81 mg PO DAILY [facility] Budesonide (Pulmicort) mg INH BID [facility] Calcium Carbonate/Glycine (Calcium Carbonate) 600 mg PO BID [facility] Citalopram Hydrobromide (Celexa) 20 mg PO BEDTIME [facility] Diltiazem HCl (Cardizem Cd) 180 mg PO DAILY [facility] Enoxaparin Sodium (Lovenox) 30 mg SUBCUT DAILY [facility] Ferrous Sulfate (Ferrous Sulfate) 324 mg PO BID [facility] Furosemide (Lasix) 40 mg IVPUSH NOW ONE Stop: 01/20/20 14:25 Furosemide (Lasix) 40 mg IVPUSH DAILY [facility] Guaifenesin/Phenylephrine HCl (Robitussin Dm) 10 ml PO TID@0700,1400,2100 PRN PRN Reason: Cough Sodium Chloride (Normal Saline) 1,000 mls @ 125 mls/hr IV ASDIRECTED [facility] Last Infusion: 01/20/20 12:45 Dose: 125 mls/hr Documented by: Infusion: 01/20/20 12:05 Dose: 999 mls/hr Documented by: Infusion: 01/20/20 10:45 Dose: 400 mls/hr Documented by: Admin: 01/20/20 10:11 Dose: 125 mls/hr Documented by: KHADIJAH Levofloxacin/Dextrose 750 mg/ (Premix) 150 mls @ 100 mls/hr IV Q24H [facility] Insulin Human Lispro (Humalog) 0 unit SUBCUT QIDACANDBED [facility]; Protocol Magnesium Oxide (Magnesium Oxide) 400 mg PO BEDTIME [facility] Multivitamins (Thera) 1 each PO DAILY [facility] Non-Formulary Medication (Cholecalciferol (Vitamin D3) [Vitamin D3]) 1,000 mg PO BEDTIME [facility] Non-Formulary Medication (Ciclopirox/Urea/Camph/Men/Euc [Ciclopirox 8% Treatment Kit]) 1 applic .ROUTE BEDTIME [facility] Non-Formulary Medication (Roflumilast) 500 mcg PO DAILY [facility] Pantoprazole Sodium (Protonix) 40 mg PO BEDTIME [facility] Prednisone (Prednisone) 15 mg PO DAILY [facility] Simvastatin (Zocor) 40 mg PO BEDTIME [facility] Sodium Chloride (Saline Flush) 10 ml FLUSH ASDIRECTED PRN PRN Reason: Keep Vein Open Last Admin: 01/20/20 10:11 Dose: 10 ml Documented by: KHADIJAH Tamsulosin HCl (Flomax) 0.4 mg PO DAILY [facility] Assessment/Plan Comment:: Assessment on day of admission - 01/20/2020 * 79 yo presents to ED after being seen by PCP Dr. 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 Worsening fibrosis vs. diffuse bronchitis vs. pulmonary vascular congestion * 12-lead EKG shows paced rhythm at 99 BPM * Labs * WBC 9.79 * Hgb 9.3 * Plt 440 * Neutrophils 7.69 * INR 1.10 * Potassium 3.4 * Creatinine 0.8, GFR >60 * Glucose 149 * Troponin I 0.025 * CRP 6.4 * Protein 6.1 * Albumin 2.2 * Influenza A & B negative * SARS-CoV-2 screen negative * Lactic acid 3.1 - Repeat 2.0 * Pro-BNP 05944 * Patient reports he is on Cellcept and daily prednisone (15mg) due to vasculitis may years ago * States he encountered multiple asthma attacks when trying to stop prednisone * Sepsis screen: * CAP, No tachycardia, fever, tachypnea or significant leukocytosis * Does not meet criteria * Patient reports incontinence that is new for him Plan Hypoxia CHF exacerbation Pneumonia Pulmonary fibrosis COPD (chronic obstructive pulmonary disease) Churg-Marcella syndrome with lung involvement Hypoxemia requiring supplemental oxygen Immunocompromised Shortness of breath Chronic steroid use Hx/o Vasculitis * Continue 750mg Levaquin daily * IS/Acapella * Obtain echo * RT consult * Duonebs scheduled * Sputum culture ordered * Home medications as ordered * O2 to keep oxygen saturations 88-94% * PT/OT * Stop IV fluids for now * 40mg IVP Lasix now * Start 40mg IVP lasix daily * I&O monitoring * Daily weights * Discussed steroid and cellcept with Dr. Vidal - will continue for now * 2L fluid restriction and heart healthy diet * Tylenol for fever * Droplet isolation * Consider repeat CXR vs. 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 PCP: Dr. Castillo Code status: DNR/DNI (confirmed with patient on admission) DVT Prophylaxis: Lovenox Disposition: Admit to medical floor on telemetry for treatment of Pneumonia and CHF exacerbation. Prognosis: Poor overall prognosis given immunocompromised state with multiple comorbidities - Mortality Measure Prognosis:: Poor
[2020-01-20] MEDS ORDERED: Furosemide 40 MG/4 ML VIAL IVPUSH ONE (14:35)
[2020-01-20 14:41] LABS: HEMOGLOBIN A1C 6.9 % (4.50-6.20)
[2020-01-20] MEDS ORDERED: Magnesium Sulfate/Water 2 GM/50 ML BAG IV ONE (16:30)
[2020-01-20] MEDS: Budesonide 0.5 MG/2 ML Neb Susp INH SCH (20:19)
[2020-01-20] MEDS: Arformoterol 15 MCG/2 ML Neb Soln INH SCH (20:19)
[2020-01-20] MEDS: Calcium Carbonate 600 MG Tab PO SCH (21:27)
[2020-01-20] MEDS: Citalopram 20 MG Tab PO SCH (21:28)
[2020-01-20] MEDS: Ferrous Sulfate 324 MG Tab.EC PO SCH (21:28)
[2020-01-20] MEDS: Magnesium Oxide 400 MG Tab PO SCH (21:29)
[2020-01-20] MEDS: Pantoprazole 40 MG Tab.CR PO SCH (21:29)
[2020-01-20] MEDS: Potassium Chloride 20 MEQ Tab.ER PO SCH (21:29)
[2020-01-20] MEDS: CICLOPIROX 8% TOP SCH (21:30)
[2020-01-20] MEDS: Ascorbic Acid 500 MG Tab PO SCH (21:30)
[2020-01-20] MEDS: Cholecalciferol (Vitamin D3) 25 MCG Tab PO SCH (21:31)
[2020-01-20] MEDS: Simvastatin 40 MG Tab PO SCH (21:31)
[2020-01-21] MEDS ORDERED: Magnesium Sulfate/Water 2 GM in Premix Bag 1 BAG IV ONE (08:22)
[2020-01-21] MEDS: Budesonide 0.5 MG/2 ML Neb Susp INH SCH ×2 (08:24→20:05)
[2020-01-21] MEDS: Arformoterol 15 MCG/2 ML Neb Soln INH SCH ×2 (08:24→20:05)
[2020-01-21] MEDS ORDERED: Sodium Chloride 0.65% Nasal Spray 45 ML Bottle NASBOTH PRN (08:53)
[2020-01-21] MEDS ORDERED: Enoxaparin 30 MG/0.3 ML Syringe SUBCUT SCH (09:00)
[2020-01-21] MEDS ORDERED: FLUTICASONE PROPIONATE NASBOTH SCH (09:00)
[2020-01-21] MEDS ORDERED: Furosemide 40 MG/4 ML VIAL IVPUSH SCH (09:00)
[2020-01-21] MEDS: Levofloxacin/Dextrose 5%-Water 750 MG in Premix Bag 1 BAG IV SCH (09:48)
[2020-01-21] MEDS: Diltiazem 180 MG Cap.CD PO SCH (09:51)
[2020-01-21] MEDS: Tamsulosin 0.4 MG Cap.ER PO SCH (09:51)
[2020-01-21] MEDS: Aspirin 81 MG Tab.EC PO SCH (09:51)
[2020-01-21] MEDS: predniSONE 5 MG Tab PO SCH (09:52)
[2020-01-21] MEDS: Calcium Carbonate 600 MG Tab PO SCH ×2 (09:52→21:29)
[2020-01-21] MEDS: Multivitamins,Therapeutic Tab PO SCH (09:52)
[2020-01-21] MEDS: Potassium Chloride 20 MEQ Tab.ER PO SCH ×2 (09:52→21:31)
[2020-01-21] MEDS: Ascorbic Acid 500 MG Tab PO SCH ×2 (09:52→21:30)
[2020-01-21] MEDS: Ferrous Sulfate 324 MG Tab.EC PO SCH ×2 (09:52→21:29)
[2020-01-21] MEDS: Roflumilast 500 MCG **PTOM PO SCH (09:54)
[2020-01-21] MEDS: Furosemide 40 MG/4 ML VIAL IVPUSH SCH (14:11)
--- NOTE | 2020-01-21 17:00 | PCM.PN ---
- General Info Date of Service: 01/21/20 Admission Dx/Problem (Free Text): Admission Diagnosis/Problem Admission Diagnosis/Problem Hypoxia Subjective Update: Patient is generally doing well. She states that her shortness of breath have improved, and her oxygen saturations have improved so she is on 3 L of nasal cannula. Appetite is good. Functional Status: Reports: Pain Controlled - Review of Systems General: Reports: No Symptoms HEENT: Reports: No Symptoms Pulmonary: Reports: Shortness of Breath, Cough Cardiovascular: Reports: No Symptoms Gastrointestinal: Reports: No Symptoms Musculoskeletal: Reports: No Symptoms - Patient Data Vitals - Most Recent: Last Vital Signs Temp 97.5 F 01/21/20 16:19 Pulse 80 01/21/20 16:19 Resp 20 01/21/20 16:19 BP 93/47 L 01/21/20 16:19 Pulse Ox 96 01/21/20 16:19 Weight - Most Recent: 137 lb 14.4 oz I&O - Last 24 Hours: Intake & Output 01/21/20 01/21/20 01/21/20 06:59 14:59 22:59 Intake Total 300 360 400 Output Total 1150 Balance -850 360 400 Lab Results Last 24 Hours: Laboratory Results - last 24 hr 01/20/20 01/20/20 01/20/20 Range/Units 17:03 17:52 21:21 WBC (4.23-9.07) K/mm3 RBC (4.63-6.08) M/mm3 Hgb (13.7-17.5) gm/dl Hct (40.1-51.0) % MCV (79.0-92.2) fl MCH (25.7-32.2) pg MCHC (32.2-35.5) g/dl RDW Std Deviation (35.1-43.9) fL Plt Count (163-337) K/mm3 MPV (9.4-12.3) fl Neut % (Auto) (34.0-67.9) % Lymph % (Auto) (21.8-53.1) % Orange % (Auto) (5.3-12.2) % Eos % (Auto) (0.8-7.0) Baso % (Auto) (0.1-1.2) % Neut # (Auto) (1.78-5.38) K/mm3 Lymph # (Auto) (1.32-3.57) K/mm3 Orange # (Auto) (0.30-0.82) K/mm3 Eos # (Auto) (0.04-0.54) K/mm3 Baso # (Auto) (0.01-0.08) K/mm3 Manual Slide Review Sodium (136-145) mEq/L Potassium (3.5-5.1) mEq/L Chloride (98-107) mEq/L Carbon Dioxide (21-32) mEq/L Anion Gap (5-15) BUN (7-18) mg/dL Creatinine (0.7-1.3) mg/dL Est Cr Clr Drug Dosing mL/min Estimated GFR (MDRD) (>60) mL/min BUN/Creatinine Ratio (14-18) Glucose (83-115) mg/dL POC Glucose 161 H 117 H (83-110) mg/dL Calcium (8.5-10.1) mg/dL Phosphorus (2.6-4.7) mg/dL Magnesium (1.8-2.4) mg/dl Total Bilirubin (0.2-1.0) mg/dL AST (15-37) U/L ALT (16-63) U/L Alkaline Phosphatase (46-116) U/L C-Reactive Protein (<1.0) mg/dL Total Protein (6.4-8.2) g/dl Albumin (3.4-5.0) g/dl Globulin gm/dL Albumin/Globulin Ratio (1-2) Urine Color Yellow (Yellow) Urine Appearance Clear (Clear) Urine pH 6.5 (5.0-8.0) Ur Specific Gibson 1.020 (1.005-1.030) Urine Protein Negative (Negative) Urine Glucose (UA) Negative (Negative) Urine Ketones Negative (Negative) Urine Occult Blood Negative (Negative) Urine Nitrite Negative (Negative) Urine Bilirubin Negative (Negative) Urine Urobilinogen 0.2 (0.2-1.0) Ur Leukocyte Esterase Negative (Negative) Urine RBC 0-5 (0-5) /hpf Urine WBC 5-10 H (0-5) /hpf Ur Squamous Epith Cells 0-5 (0-5) /hpf Urine Bacteria Few (FEW) /hpf Urine Mucus Not seen (FEW) /hpf 12/07/0501/21/20 01/21/20 Range/Units 05:35 05:35 06:47 WBC 8.39 (4.23-9.07) K/mm3 RBC 3.22 L (4.63-6.08) M/mm3 Hgb 9.0 L (13.7-17.5) gm/dl Hct 31.3 L (40.1-51.0) % MCV 97.2 H (79.0-92.2) fl MCH 28.0 (25.7-32.2) pg MCHC 28.8 L (32.2-35.5) g/dl RDW Std Deviation 51.0 H (35.1-43.9) fL Plt Count 435 H (163-337) K/mm3 MPV 8.2 L (9.4-12.3) fl Neut % (Auto) 65.6 (34.0-67.9) % Lymph % (Auto) 19.7 L (21.8-53.1) % Orange % (Auto) 11.4 (5.3-12.2) % Eos % (Auto) 2.9 (0.8-7.0) Baso % (Auto) 0.2 (0.1-1.2) % Neut # (Auto) 5.50 H (1.78-5.38) K/mm3 Lymph # (Auto) 1.65 (1.32-3.57) K/mm3 Orange # (Auto) 0.96 H (0.30-0.82) K/mm3 Eos # (Auto) 0.24 (0.04-0.54) K/mm3 Baso # (Auto) 0.02 (0.01-0.08) K/mm3 Manual Slide Review Abnormal smear Sodium 142 (136-145) mEq/L Potassium 3.7 (3.5-5.1) mEq/L Chloride 105 (98-107) mEq/L Carbon Dioxide 29 (21-32) mEq/L Anion Gap 11.7 (5-15) BUN 6 L (7-18) mg/dL Creatinine 0.8 (0.7-1.3) mg/dL Est Cr Clr Drug Dosing 66.24 mL/min Estimated GFR (MDRD) > 60 (>60) mL/min BUN/Creatinine Ratio 7.5 L (14-18) Glucose 105 (83-115) mg/dL POC Glucose 108 (83-110) mg/dL Calcium 9.2 (8.5-10.1) mg/dL Phosphorus 2.5 L (2.6-4.7) mg/dL Magnesium 1.7 L (1.8-2.4) mg/dl Total Bilirubin 0.3 (0.2-1.0) mg/dL AST 14 L (15-37) U/L ALT 15 L (16-63) U/L Alkaline Phosphatase 84 (46-116) U/L C-Reactive Protein 6.1 H* (<1.0) mg/dL Total Protein 5.7 L (6.4-8.2) g/dl Albumin 2.0 L (3.4-5.0) g/dl Globulin 3.7 gm/dL Albumin/Globulin Ratio 0.5 L (1-2) Urine Color (Yellow) Urine Appearance (Clear) Urine pH (5.0-8.0) Ur Specific Gibson (1.005-1.030) Urine Protein (Negative) Urine Glucose (UA) (Negative) Urine Ketones (Negative) Urine Occult Blood (Negative) Urine Nitrite (Negative) Urine Bilirubin (Negative) Urine Urobilinogen (0.2-1.0) Ur Leukocyte Esterase (Negative) Urine RBC (0-5) /hpf Urine WBC (0-5) /hpf Ur Squamous Epith Cells (0-5) /hpf Urine Bacteria (FEW) /hpf Urine Mucus (FEW) /hpf 01/20/ Range/Units 12:26 WBC (4.23-9.07) K/mm3 RBC (4.63-6.08) M/mm3 Hgb (13.7-17.5) gm/dl Hct (40.1-51.0) % MCV (79.0-92.2) fl MCH (25.7-32.2) pg MCHC (32.2-35.5) g/dl RDW Std Deviation (35.1-43.9) fL Plt Count (163-337) K/mm3 MPV (9.4-12.3) fl Neut % (Auto) (34.0-67.9) % Lymph % (Auto) (21.8-53.1) % Orange % (Auto) (5.3-12.2) % Eos % (Auto) (0.8-7.0) Baso % (Auto) (0.1-1.2) % Neut # (Auto) (1.78-5.38) K/mm3 Lymph # (Auto) (1.32-3.57) K/mm3 Orange # (Auto) (0.30-0.82) K/mm3 Eos # (Auto) (0.04-0.54) K/mm3 Baso # (Auto) (0.01-0.08) K/mm3 Manual Slide Review Sodium (136-145) mEq/L Potassium (3.5-5.1) mEq/L Chloride (98-107) mEq/L Carbon Dioxide (21-32) mEq/L Anion Gap (5-15) BUN (7-18) mg/dL Creatinine (0.7-1.3) mg/dL Est Cr Clr Drug Dosing mL/min Estimated GFR (MDRD) (>60) mL/min BUN/Creatinine Ratio (14-18) Glucose (83-115) mg/dL POC Glucose 188 H (83-110) mg/dL Calcium (8.5-10.1) mg/dL Phosphorus (2.6-4.7) mg/dL Magnesium (1.8-2.4) mg/dl Total Bilirubin (0.2-1.0) mg/dL AST (15-37) U/L ALT (16-63) U/L Alkaline Phosphatase (46-116) U/L C-Reactive Protein (<1.0) mg/dL Total Protein (6.4-8.2) g/dl Albumin (3.4-5.0) g/dl Globulin gm/dL Albumin/Globulin Ratio (1-2) Urine Color (Yellow) Urine Appearance (Clear) Urine pH (5.0-8.0) Ur Specific Gibson (1.005-1.030) Urine Protein (Negative) Urine Glucose (UA) (Negative) Urine Ketones (Negative) Urine Occult Blood (Negative) Urine Nitrite (Negative) Urine Bilirubin (Negative) Urine Urobilinogen (0.2-1.0) Ur Leukocyte Esterase (Negative) Urine RBC (0-5) /hpf Urine WBC (0-5) /hpf Ur Squamous Epith Cells (0-5) /hpf Urine Bacteria (FEW) /hpf Urine Mucus (FEW) /hpf Timothy Results Last 24 Hours: Microbiology 01/20/20 10:15 Aerobic Blood Culture - Preliminary Blood - Venous NO GROWTH AFTER 1 DAY Anaerobic Blood Culture - Final 01/20/20 10:08 Aerobic Blood Culture - Preliminary Blood - Venous - Lab Draw NO GROWTH AFTER 1 DAY Anaerobic Blood Culture - Preliminary NO GROWTH AFTER 1 DAY 01/20/20 19:45 Gram Stain - Preliminary Sputum - Expectorated Sputum Culture - Preliminary Med Orders - Current: Current Medications Acetaminophen (Tylenol) 650 mg PO Q4H PRN PRN Reason: Pain (Mild 1-3)/fever Albuterol/Ipratropium (Duoneb 3.0-0.5 Mg/3 Ml) 3 ml NEB Q6HRRT PRN PRN Reason: wheezing/SOB/cough Arformoterol Tartrate (Brovana) 15 mcg INH BID [facility] Last Admin: 01/21/20 08:24 Dose: 15 mcg Documented by: Ascorbic Acid (Vitamin C) 500 mg PO BID [facility] Last Admin: 01/21/20 09:52 Dose: 500 mg Documented by: Aspirin (Halfprin) 81 mg PO DAILY [facility] Last Admin: 01/21/20 09:51 Dose: 81 mg Documented by: Budesonide (Pulmicort) 0.5 mg INH BID [facility] Last Admin: 01/21/20 08:24 Dose: 0.5 mg Documented by: Calcium Carbonate/Glycine (Calcium Carbonate) 600 mg PO BID [facility] Last Admin: 01/21/20 09:52 Dose: 600 mg Documented by: Cholecalciferol (Vitamin D3) 25 mcg PO BEDTIME [facility] Last Admin: 01/20/20 21:31 Dose: 25 mcg Documented by: Citalopram Hydrobromide (Celexa) 20 mg PO BEDTIME [facility] Last Admin: 01/20/20 21:28 Dose: 20 mg Documented by: Diltiazem HCl (Cardizem Cd) 180 mg PO DAILY [facility] Last Admin: 01/21/20 09:51 Dose: 180 mg Documented by: Enoxaparin Sodium (Lovenox) 40 mg SUBCUT DAILY [facility] Ferrous Sulfate (Ferrous Sulfate) 324 mg PO BID [facility] Last Admin: 01/21/20 09:52 Dose: 324 mg Documented by: Furosemide (Lasix) 40 mg IVPUSH Q24H [facility] Last Admin: 01/21/20 14:11 Dose: 40 mg Documented by: Guaifenesin/Phenylephrine HCl (Robitussin Dm) 10 ml PO TID@0700,1400,2100 PRN PRN Reason: Cough Levofloxacin/Dextrose 750 mg/ (Premix) 150 mls @ 100 mls/hr IV Q24H [facility] Last Admin: 01/21/20 09:48 Dose: 100 mls/hr Documented by: Insulin Human Lispro (Humalog) 0 unit SUBCUT QIDACANDBED [facility]; Protocol Last Admin: 01/21/20 12:32 Dose: 1 unit Documented by: Magnesium Oxide (Magnesium Oxide) 400 mg PO BEDTIME [facility] Last Admin: 01/20/20 21:29 Dose: 400 mg Documented by: Multivitamins (Thera) 1 each PO DAILY [facility] Last Admin: 01/21/20 09:52 Dose: 1 each Documented by: Pantoprazole Sodium (Protonix) 40 mg PO BEDTIME [facility] Last Admin: 01/20/20 21:29 Dose: 40 mg Documented by: Ciclopirox 8% (Treatment Ki) 0 each TOP BEDTIME [facility] Last Admin: 01/20/20 21:30 Dose: Not Given Documented by: Roflumilast 500 Mcg 0 each PO DAILY [facility] Last Admin: 01/21/20 09:54 Dose: Not Given Documented by: Potassium Chloride (Klor-Con M20) 40 meq PO BID [facility] Stop: 01/21/20 21:01 Last Admin: 01/21/20 09:52 Dose: 40 meq Documented by: Prednisone (Prednisone) 15 mg PO DAILY [facility] Last Admin: 01/21/20 09:52 Dose: 15 mg Documented by: Simvastatin (Zocor) 40 mg PO BEDTIME [facility] Last Admin: 01/20/20 21:31 Dose: 40 mg Documented by: Sodium Chloride (Saline Flush) 10 ml FLUSH ASDIRECTED PRN PRN Reason: Keep Vein Open Last Admin: 01/20/20 10:11 Dose: 10 ml Documented by: Sodium Chloride (Amelia Nasal Waldo) 0 ml NASBOTH BID PRN PRN Reason: CONGESTION/DRYNESS Last Admin: 01/21/20 09:53 Dose: 1 spray Documented by: Tamsulosin HCl (Flomax) 0.4 mg PO DAILY [facility] Last Admin: 01/21/20 09:51 Dose: 0.4 mg Documented by: Discontinued Medications Enoxaparin Sodium (Lovenox) 30 mg SUBCUT DAILY [facility] Last Admin: 01/21/20 09:52 Dose: 30 mg Documented by: Furosemide (Lasix) 40 mg IVPUSH NOW ONE Stop: 01/20/20 14:36 Last Admin: 01/20/20 16:35 Dose: 40 mg Documented by: Furosemide (Lasix) 40 mg IVPUSH DAILY [facility] Last Admin: 01/21/20 13:58 Dose: Not Given Documented by: Sodium Chloride (Normal Saline) 1,000 mls @ 125 mls/hr IV ASDIRECTED [facility] Last Infusion: 01/20/20 12:45 Dose: Infused Documented by: Levofloxacin/Dextrose 750 mg/ (Premix) 150 mls @ 100 mls/hr IV ONETIME ONE Stop: 01/20/20 11:24 Last Admin: 01/20/20 10:15 Dose: 100 mls/hr Documented by: Sodium Chloride (Normal Saline) 500 mls @ 1,000 mls/hr IV .BOLUS ONE Stop: 01/20/20 11:14 Last Admin: 01/20/20 10:58 Dose: Not Given Documented by: Magnesium Sulfate (Magnesium Sulfate In Water Premix) 2 gm in 50 mls @ 25 mls/hr IV ONETIME ONE Stop: 01/20/20 18:29 Last Admin: 01/20/20 16:40 Dose: 25 mls/hr Documented by: Magnesium Sulfate 2 gm/ Premix 50 mls @ 25 mls/hr IV ONETIME ONE Stop: 01/21/20 10:21 Last Admin: 01/21/20 12:23 Dose: 25 mls/hr Documented by: - Exam Quality Assessment: Supplemental Oxygen General: Alert, Oriented HEENT: Pupils Equal, Mucous Membr. Moist/Shafer Neck: Supple Lungs: Normal Respiratory Effort, Rales Cardiovascular: Regular Rate, Regular Rhythm GI/Abdominal Exam: Normal Bowel Sounds, Soft, Non-Tender, No Distention Extremities: Normal Inspection, Normal Range of Motion, Non-Tender, No Pedal Edema, Normal Capillary Refill Skin: Warm, Dry, Intact Psy/Mental Status: Alert, Normal Affect, Normal Mood Sepsis Event Note - Evaluation Sepsis Screening Result: No Definite Risk - Focused Exam Vital Signs: Vital Signs Temp Temp Pulse Pulse Resp BP BP 01/21/20 16:19 97.5 F 80 20 93/47 L 01/21/20 14:14 01/21/20 08:27 98.1 F 96 28 H 92/52 L 01/21/20 08:26 01/21/20 08:00 98.0 F 98 28 H 92/52 L 01/21/20 05:36 98.2 F 79 18 107/73 Pulse Ox Pulse Ox 01/21/20 16:19 96 01/21/20 14:14 92 L 01/21/20 08:27 100 01/21/20 08:26 98 01/21/20 08:00 93 L 01/21/20 05:36 96 - Problem List & Annotations (1) Pulmonary fibrosis SNOMED Code(s): 79984964 Code(s): J84.10 - PULMONARY FIBROSIS, UNSPECIFIED Status: Acute Current Visit: Yes (2) Hypoalbuminemia SNOMED Code(s): 007618868 Code(s): E88.09 - OTH DISORDERS OF PLASMA-PROTEIN METABOLISM, NEC Status: Acute Priority: High Current Visit: Yes (3) COPD (chronic obstructive pulmonary disease) SNOMED Code(s): 21537814 Code(s): J44.9 - CHRONIC OBSTRUCTIVE PULMONARY DISEASE, UNSPECIFIED Status: Chronic Priority: High Current Visit: Yes Qualifiers: COPD type: 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 Qualified Code(s): J41.8 - 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 SNOMED Code(s): 92959694 Code(s): M30.1 - POLYARTERITIS WITH LUNG INVOLVEMENT [CHURG-SKYLER] Status: Chronic Priority: Low Current Visit: Yes (5) Hypomagnesemia SNOMED Code(s): 069608694 Code(s): E83.42 - HYPOMAGNESEMIA Status: Acute Current Visit: Yes (6) Pneumonia SNOMED Code(s): 075992222 Code(s): J18.9 - PNEUMONIA, UNSPECIFIED ORGANISM Status: Acute Current Visit: Yes Qualifiers: Pneumonia type: due to unspecified organism Laterality: right Lung location: lower lobe of lung Qualified Code(s): J18.9 - Pneumonia, unspecified organism - Problem List Review Problem List Initiated/Reviewed/Updated: Yes - My Orders Last 24 Hours: My Active Orders 01/21/20 08:53 Sodium Chloride 0.65% [Amelia Nasal Waldo] 0 ml NASBOTH BID PRN - Plan Plan:: Assessment * 79 yo presents to ED after being seen by PCP Dr. 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 Worsening fibrosis vs. diffuse bronchitis vs. pulmonary vascular congestion * 12-lead EKG shows paced rhythm at 99 BPM * Labs * WBC 8.4 * Hgb 9.0 * Plt 435 * Potassium 3.7 * Creatinine 0.8, GFR >60 * Glucose 105 * CRP 6.1 * Albumin 2.0 * Influenza A & B negative * SARS-CoV-2 screen negative * Lactic acid 3.1 - Repeat 2.0 * Pro-BNP 42998 on admission * Patient reports he is on Cellcept and daily prednisone (15mg) due to vasculitis may years ago * States he encountered multiple asthma attacks when trying to stop prednisone * Sepsis screen: * CAP, No tachycardia, fever, tachypnea or significant leukocytosis * Does not meet criteria * Patient reports incontinence that is new for him Plan Hypoxia CHF exacerbation Pneumonia Pulmonary fibrosis COPD (chronic obstructive pulmonary disease) Churg-Skyler syndrome with lung involvement Hypoxemia requiring supplemental oxygen Immunocompromised Shortness of breath Chronic steroid use Hx/o Vasculitis * Continue 750mg Levaquin daily * IS/Acapella * Echo results pending * RT consult * Duonebs scheduled * Sputum culture ordered * Home medications as ordered * O2 to keep oxygen saturations 88-94% * PT/OT * Stop IV fluids for now * 40mg IVP Lasix now * Start 40mg IVP lasix daily * I&O monitoring * Daily weights * Discussed steroid and cellcept with Dr. Vidal - will continue for now * 2L fluid restriction and heart healthy diet * Tylenol for fever * Droplet isolation * Consider repeat CXR vs. 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 PCP: Dr. aCstillo Code status: DNR/DNI (confirmed with patient on admission) DVT Prophylaxis: Lovenox Disposition: Admit to medical floor on telemetry for treatment of Pneumonia and CHF exacerbation. Prognosis: Poor overall prognosis given immunocompromised state with multiple comorbidities
[2020-01-21] MEDS: Albuterol/Ipratropium 3.0-0.5 MG/3 ML Neb Soln NEB PRN (20:10)
[2020-01-21] MEDS: Magnesium Oxide 400 MG Tab PO SCH (21:30)
[2020-01-21] MEDS: Pantoprazole 40 MG Tab.CR PO SCH (21:30)
[2020-01-21] MEDS: Simvastatin 40 MG Tab PO SCH (21:30)
[2020-01-21] MEDS: Citalopram 20 MG Tab PO SCH (21:30)
[2020-01-21] MEDS: Cholecalciferol (Vitamin D3) 25 MCG Tab PO SCH (21:31)
[2020-01-21] MEDS: CICLOPIROX 8% TOP SCH (21:31)
[2020-01-22] MEDS: Albuterol/Ipratropium 3.0-0.5 MG/3 ML Neb Soln NEB PRN ×4 (08:34→20:07)
[2020-01-22] MEDS: Budesonide 0.5 MG/2 ML Neb Susp INH SCH ×2 (08:34→20:07)
[2020-01-22] MEDS: Arformoterol 15 MCG/2 ML Neb Soln INH SCH ×2 (08:34→20:07)
--- NOTE | 2020-01-22 09:12 | PCM.PN ---
- General Info Date of Service: 01/22/20 Admission Dx/Problem (Free Text): Admission Diagnosis/Problem Admission Diagnosis/Problem Hypoxia Subjective Update: Patient states he is feeling better. He is down to 3 L nasal cannula. Sputum is growing out yeast and gram-negative rods. Functional Status: Reports: Pain Controlled - Review of Systems General: Reports: No Symptoms HEENT: Reports: No Symptoms Pulmonary: Reports: Shortness of Breath Cardiovascular: Reports: No Symptoms Gastrointestinal: Reports: No Symptoms Musculoskeletal: Reports: No Symptoms - Patient Data Vitals - Most Recent: Last Vital Signs Temp 98.2 F 01/22/20 04:45 Pulse 86 01/22/20 04:45 Resp 20 01/22/20 04:45 BP 104/44 L 01/22/20 04:45 Pulse Ox 96 01/22/20 08:35 Weight - Most Recent: 134 lb 4.8 oz I&O - Last 24 Hours: Intake & Output 01/21/20 01/22/20 01/22/20 22:59 06:59 14:59 Intake Total 400 300 Output Total 1130 1050 Balance -730 -750 Lab Results Last 24 Hours: Laboratory Results - last 24 hr 01/21/20 01/21/20 01/21/20 Range/Units 12:26 17:18 20:55 WBC (4.23-9.07) K/mm3 RBC (4.63-6.08) M/mm3 Hgb (13.7-17.5) gm/dl Hct (40.1-51.0) % MCV (79.0-92.2) fl MCH (25.7-32.2) pg MCHC (32.2-35.5) g/dl RDW Std Deviation (35.1-43.9) fL Plt Count (163-337) K/mm3 MPV (9.4-12.3) fl Neut % (Auto) (34.0-67.9) % Lymph % (Auto) (21.8-53.1) % [facility] % (Auto) (5.3-12.2) % Eos % (Auto) (0.8-7.0) Baso % (Auto) (0.1-1.2) % Neut # (Auto) (1.78-5.38) K/mm3 Lymph # (Auto) (1.32-3.57) K/mm3 [facility] # (Auto) (0.30-0.82) K/mm3 Eos # (Auto) (0.04-0.54) K/mm3 Baso # (Auto) (0.01-0.08) K/mm3 Manual Slide Review Sodium (136-145) mEq/L Potassium (3.5-5.1) mEq/L Chloride (98-107) mEq/L Carbon Dioxide (21-32) mEq/L Anion Gap (5-15) BUN (7-18) mg/dL Creatinine (0.7-1.3) mg/dL Est Cr Clr Drug Dosing mL/min Estimated GFR (MDRD) (>60) mL/min BUN/Creatinine Ratio (14-18) Glucose (83-115) mg/dL POC Glucose 188 H 192 H 243 H (83-110) mg/dL Calcium (8.5-10.1) mg/dL Magnesium (1.8-2.4) mg/dl Total Bilirubin (0.2-1.0) mg/dL AST (15-37) U/L ALT (16-63) U/L Alkaline Phosphatase (46-116) U/L C-Reactive Protein (<1.0) mg/dL Total Protein (6.4-8.2) g/dl Albumin (3.4-5.0) g/dl Globulin gm/dL Albumin/Globulin Ratio (1-2) 01/22/20 01/22/20 01/22/20 Range/Units 04:40 04:40 06:43 WBC 9.71 H (4.23-9.07) K/mm3 RBC 3.01 L (4.63-6.08) M/mm3 Hgb 8.3 L (13.7-17.5) gm/dl Hct 29.2 L (40.1-51.0) % MCV 97.0 H (79.0-92.2) fl MCH 27.6 (25.7-32.2) pg MCHC 28.4 L (32.2-35.5) g/dl RDW Std Deviation 51.6 H (35.1-43.9) fL Plt Count 421 H (163-337) K/mm3 MPV 8.2 L (9.4-12.3) fl Neut % (Auto) 75.7 H (34.0-67.9) % Lymph % (Auto) 13.6 L (21.8-53.1) % [facility] % (Auto) 9.5 (5.3-12.2) % Eos % (Auto) 0.8 (0.8-7.0) Baso % (Auto) 0.1 (0.1-1.2) % Neut # (Auto) 7.35 H (1.78-5.38) K/mm3 Lymph # (Auto) 1.32 (1.32-3.57) K/mm3 [facility] # (Auto) 0.92 H (0.30-0.82) K/mm3 Eos # (Auto) 0.08 (0.04-0.54) K/mm3 Baso # (Auto) 0.01 (0.01-0.08) K/mm3 Manual Slide Review Abnormal smear Sodium 140 (136-145) mEq/L Potassium 3.9 (3.5-5.1) mEq/L Chloride 105 (98-107) mEq/L Carbon Dioxide 31 (21-32) mEq/L Anion Gap 7.9 (5-15) BUN 8 (7-18) mg/dL Creatinine 0.9 (0.7-1.3) mg/dL Est Cr Clr Drug Dosing 58.88 mL/min Estimated GFR (MDRD) > 60 (>60) mL/min BUN/Creatinine Ratio 8.9 L (14-18) Glucose 137 H (83-115) mg/dL POC Glucose 93 (83-110) mg/dL Calcium 8.9 (8.5-10.1) mg/dL Magnesium 2.0 (1.8-2.4) mg/dl Total Bilirubin 0.3 (0.2-1.0) mg/dL AST 12 L (15-37) U/L ALT 13 L (16-63) U/L Alkaline Phosphatase 78 (46-116) U/L C-Reactive Protein 5.3 H* (<1.0) mg/dL Total Protein 5.6 L (6.4-8.2) g/dl Albumin 2.0 L (3.4-5.0) g/dl Globulin 3.6 gm/dL Albumin/Globulin Ratio 0.6 L (1-2) Timothy Results Last 24 Hours: Microbiology 01/20/20 19:45 Gram Stain - Preliminary Sputum - Expectorated Sputum Culture - Preliminary Yeast Isolated Gram Negative Rods 01/20/20 10:15 Aerobic Blood Culture - Preliminary Blood - Venous NO GROWTH AFTER 1 DAY Anaerobic Blood Culture - Final 01/20/20 10:08 Aerobic Blood Culture - Preliminary Blood - Venous - Lab Draw NO GROWTH AFTER 1 DAY Anaerobic Blood Culture - Preliminary NO GROWTH AFTER 1 DAY Med Orders - Current: Current Medications Acetaminophen (Tylenol) 650 mg PO Q4H PRN PRN Reason: Pain (Mild 1-3)/fever Albuterol/Ipratropium (Duoneb 3.0-0.5 Mg/3 Ml) 3 ml NEB Q6HRRT PRN PRN Reason: wheezing/SOB/cough Last Admin: 01/22/20 08:34 Dose: 3 ml Documented by: Arformoterol Tartrate (Brovana) 15 mcg INH BID [facility] Last Admin: 01/22/20 08:34 Dose: 15 mcg Documented by: Ascorbic Acid (Vitamin C) 500 mg PO BID [facility] Last Admin: 01/21/20 21:30 Dose: 500 mg Documented by: Aspirin (Halfprin) 81 mg PO DAILY [facility] Last Admin: 01/21/20 09:51 Dose: 81 mg Documented by: Budesonide (Pulmicort) 0.5 mg INH BID [facility] Last Admin: 01/22/20 08:34 Dose: 0.5 mg Documented by: Calcium Carbonate/Glycine (Calcium Carbonate) 600 mg PO BID [facility] Last Admin: 01/21/20 21:29 Dose: 600 mg Documented by: Cholecalciferol (Vitamin D3) 25 mcg PO BEDTIME [facility] Last Admin: 01/21/20 21:31 Dose: 25 mcg Documented by: Citalopram Hydrobromide (Celexa) 20 mg PO BEDTIME [facility] Last Admin: 01/21/20 21:30 Dose: 20 mg Documented by: Diltiazem HCl (Cardizem Cd) 180 mg PO DAILY [facility] Last Admin: 01/21/20 09:51 Dose: 180 mg Documented by: Enoxaparin Sodium (Lovenox) 40 mg SUBCUT DAILY [facility] Ferrous Sulfate (Ferrous Sulfate) 324 mg PO BID [facility] Last Admin: 01/21/20 21:29 Dose: 324 mg Documented by: Furosemide (Lasix) 40 mg IVPUSH Q24H [facility] Last Admin: 01/21/20 14:11 Dose: 40 mg Documented by: Guaifenesin/Phenylephrine HCl (Robitussin Dm) 10 ml PO TID@0700,1400,2100 PRN PRN Reason: Cough Levofloxacin/Dextrose 750 mg/ (Premix) 150 mls @ 100 mls/hr IV Q24H [facility] Last Admin: 01/21/20 09:48 Dose: 100 mls/hr Documented by: Insulin Human Lispro (Humalog) 0 unit SUBCUT QIDACANDBED [facility]; Protocol Last Admin: 01/22/20 06:43 Dose: Not Given Documented by: Magnesium Oxide (Magnesium Oxide) 400 mg PO BEDTIME [facility] Last Admin: 01/21/20 21:30 Dose: 400 mg Documented by: Multivitamins (Thera) 1 each PO DAILY [facility] Last Admin: 01/21/20 09:52 Dose: 1 each Documented by: Pantoprazole Sodium (Protonix) 40 mg PO BEDTIME [facility] Last Admin: 01/21/20 21:30 Dose: 40 mg Documented by: Ciclopirox 8% (Treatment Ki) 0 each TOP BEDTIME [facility] Last Admin: 01/21/20 21:31 Dose: Not Given Documented by: Roflumilast 500 Mcg (Ptom) 0 each PO DAILY [facility] Last Admin: 01/21/20 09:54 Dose: Not Given Documented by: Prednisone (Prednisone) 15 mg PO DAILY [facility] Last Admin: 01/21/20 09:52 Dose: 15 mg Documented by: Simvastatin (Zocor) 40 mg PO BEDTIME [facility] Last Admin: 01/21/20 21:30 Dose: 40 mg Documented by: Sodium Chloride (Saline Flush) 10 ml FLUSH ASDIRECTED PRN PRN Reason: Keep Vein Open Last Admin: 01/20/20 10:11 Dose: 10 ml Documented by: Sodium Chloride ([place] Nasal [place]) 0 ml NASBOTH BID PRN PRN Reason: CONGESTION/DRYNESS Last Admin: 01/21/20 09:53 Dose: 1 spray Documented by: Tamsulosin HCl (Flomax) 0.4 mg PO DAILY [facility] Last Admin: 01/21/20 09:51 Dose: 0.4 mg Documented by: Discontinued Medications Enoxaparin Sodium (Lovenox) 30 mg SUBCUT DAILY [facility] Last Admin: 01/21/20 09:52 Dose: 30 mg Documented by: Furosemide (Lasix) 40 mg IVPUSH NOW ONE Stop: 01/20/20 14:36 Last Admin: 01/20/20 16:35 Dose: 40 mg Documented by: Furosemide (Lasix) 40 mg IVPUSH DAILY [facility] Last Admin: 01/21/20 13:58 Dose: Not Given Documented by: Sodium Chloride (Normal Saline) 1,000 mls @ 125 mls/hr IV ASDIRECTED [facility] Last Infusion: 01/20/20 12:45 Dose: Infused Documented by: Levofloxacin/Dextrose 750 mg/ (Premix) 150 mls @ 100 mls/hr IV ONETIME ONE Stop: 01/20/20 11:24 Last Admin: 01/20/20 10:15 Dose: 100 mls/hr Documented by: Sodium Chloride (Normal Saline) 500 mls @ 1,000 mls/hr IV .BOLUS ONE Stop: 01/20/20 11:14 Last Admin: 01/20/20 10:58 Dose: Not Given Documented by: Magnesium Sulfate (Magnesium Sulfate In Water Premix) 2 gm in 50 mls @ 25 mls/hr IV ONETIME ONE Stop: 01/20/20 18:29 Last Admin: 01/20/20 16:40 Dose: 25 mls/hr Documented by: Magnesium Sulfate 2 gm/ Premix 50 mls @ 25 mls/hr IV ONETIME ONE Stop: 01/21/20 10:21 Last Admin: 01/21/20 12:23 Dose: 25 mls/hr Documented by: Potassium Chloride (Klor-Con M20) 40 meq PO BID [facility] Stop: 01/21/20 21:01 Last Admin: 01/21/20 21:31 Dose: 40 meq Documented by: - Exam Quality Assessment: Supplemental Oxygen Lungs: Normal Respiratory Effort, Crackles, Rhonchi (bilateral lung meneses. R>L) Cardiovascular: Regular Rate, Regular Rhythm GI/Abdominal Exam: Normal Bowel Sounds, Soft, Non-Tender, No Organomegaly, No Distention, No Abnormal Bruit, No Mass Extremities: Normal Inspection, Normal Capillary Refill Skin: Warm, Dry, Intact Psy/Mental Status: Alert, Normal Affect, Normal Mood Sepsis Event Note - Evaluation Sepsis Screening Result: No Definite Risk - Focused Exam Vital Signs: Vital Signs Temp Pulse Pulse Resp BP BP Pulse Ox 01/22/20 08:35 01/22/20 04:45 98.2 F 86 20 104/44 L 96 01/21/20 23:45 92 20 92 L 01/21/20 23:30 97.9 F 102 H 24 H 118/44 L 91 L 01/21/20 21:37 99 93 L Pulse Ox 01/22/20 08:35 96 01/22/20 04:45 01/21/20 23:45 01/21/20 23:30 01/21/20 21:37 - Problem List & Annotations (1) Pulmonary fibrosis SNOMED Code(s): 77161865 Code(s): J84.10 - PULMONARY FIBROSIS, UNSPECIFIED Status: Acute Current Visit: Yes (2) Hypoalbuminemia SNOMED Code(s): 208118892 Code(s): E88.09 - OTH DISORDERS OF PLASMA-PROTEIN METABOLISM, NEC Status: Acute Priority: High Current Visit: Yes (3) COPD (chronic obstructive pulmonary disease) SNOMED Code(s): 53677203 Code(s): J44.9 - CHRONIC OBSTRUCTIVE PULMONARY DISEASE, UNSPECIFIED Status: Chronic Priority: High Current Visit: Yes Qualifiers: COPD type: 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 Qualified Code(s): J41.8 - 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 SNOMED Code(s): 31888157 Code(s): M30.1 - POLYARTERITIS WITH LUNG INVOLVEMENT [CHURG-SKYLER] Status: Chronic Priority: Low Current Visit: Yes (5) Hypomagnesemia SNOMED Code(s): 577906546 Code(s): E83.42 - HYPOMAGNESEMIA Status: Acute Current Visit: Yes (6) Pneumonia SNOMED Code(s): 226655264 Code(s): J18.9 - PNEUMONIA, UNSPECIFIED ORGANISM Status: Acute Current Visit: Yes Qualifiers: Pneumonia type: due to unspecified organism Laterality: right Lung location: lower lobe of lung Qualified Code(s): J18.9 - Pneumonia, unspecified organism - Problem List Review Problem List Initiated/Reviewed/Updated: Yes - My Orders Last 24 Hours: My Active Orders 01/21/20 08:53 Sodium Chloride 0.65% [[place] Nasal [place]] 0 ml NASBOTH BID PRN - Plan Plan:: Assessment * 79 yo presents to ED after being seen by PCP Dr. 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 Worsening fibrosis vs. diffuse bronchitis vs. pulmonary vascular congestion * 12-lead EKG shows paced rhythm at 99 BPM * Labs * WBC 8.4 * Hgb 9.0 * Plt 435 * Potassium 3.7 * Creatinine 0.8, GFR >60 * Glucose 105 * CRP 6.1 * Albumin 2.0 * Influenza A & B negative * SARS-CoV-2 screen negative * Lactic acid 3.1 - Repeat 2.0 * Pro-BNP 03113 on admission * Patient reports he is on Cellcept and daily prednisone (15mg) due to vasculitis may years ago * States he encountered multiple asthma attacks when trying to stop prednisone * Sepsis screen: * CAP, No tachycardia, fever, tachypnea or significant leukocytosis * Does not meet criteria * Patient reports incontinence that is new for him Plan Hypoxia CHF exacerbation Pneumonia Pulmonary fibrosis COPD (chronic obstructive pulmonary disease) Churg-Skyler syndrome with lung involvement Hypoxemia requiring supplemental oxygen Immunocompromised Shortness of breath Chronic steroid use Hx/o Vasculitis * Change Levaquin to 750 mg PO daily * Called lab to confirm sputum culture will be plated for emilee quinolone sensitivity * IS/Acapella * Echo results pending * RT consult * Duonebs scheduled * Sputum culture ordered * Home medications as ordered * O2 to keep oxygen saturations 88-94% * PT/OT * Stop IV fluids for now * 40mg IVP lasix daily * I&O monitoring * Daily weights * Restart CellCept * 2L fluid restriction and heart healthy diet * Tylenol for fever * Droplet isolation * Repeat chest x-ray in the morning Hyperglycemia due to type 2 diabetes mellitus * Hold home metformin * QID AC and Bedtime glucose checks * Check A1C Hypomagnesemia�resolved Hypokalemia�resolved Hypoalbuminemia Cachexia * Check magnesium * Continue home magnesium supplementation * Recheck potassium * Resume home supplementation * Dietary consultation Pacemaker 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 PCP: Dr. Castillo Code status: DNR/DNI (confirmed with patient on admission) DVT Prophylaxis: Lovenox Disposition: Admit to medical floor on telemetry for treatment of Pneumonia and CHF exacerbation. Prognosis: Poor overall prognosis given immunocompromised state with multiple comorbidities
[2020-01-22] MEDS: Ferrous Sulfate 324 MG Tab.EC PO SCH ×2 (10:16→21:23)
[2020-01-22] MEDS: Multivitamins,Therapeutic Tab PO SCH (10:16)
[2020-01-22] MEDS: Ascorbic Acid 500 MG Tab PO SCH ×2 (10:16→21:23)
[2020-01-22] MEDS: Enoxaparin 40 MG/0.4 ML Syringe SUBCUT SCH (10:16)
[2020-01-22] MEDS: Aspirin 81 MG Tab.EC PO SCH (10:16)
[2020-01-22] MEDS: Calcium Carbonate 600 MG Tab PO SCH ×2 (10:16→21:22)
[2020-01-22] MEDS: predniSONE 5 MG Tab PO SCH (10:16)
[2020-01-22] MEDS: Tamsulosin 0.4 MG Cap.ER PO SCH (10:16)
[2020-01-22] MEDS: Diltiazem 180 MG Cap.CD PO SCH (10:16)
[2020-01-22] MEDS: Roflumilast 500 MCG **PTOM PO SCH (10:28)
[2020-01-22] MEDS: Levofloxacin/Dextrose 5%-Water 750 MG in Premix Bag 1 BAG IV SCH (10:40)
[2020-01-22] MEDS: Nystatin Susp 100,000 Unit/ML 5 ML Oral Syringe PO SCH ×2 (14:22→21:24)
[2020-01-22] MEDS: Furosemide 40 MG/4 ML VIAL IVPUSH SCH (14:30)
[2020-01-22] MEDS ORDERED: MYCOPHENOLATE MOFETIL PO SCH (21:00)
[2020-01-22] MEDS: Magnesium Oxide 400 MG Tab PO SCH (21:22)
[2020-01-22] MEDS: CICLOPIROX 8% TOP SCH (21:23)
[2020-01-22] MEDS: Pantoprazole 40 MG Tab.CR PO SCH (21:23)
[2020-01-22] MEDS: Cholecalciferol (Vitamin D3) 25 MCG Tab PO SCH (21:23)
[2020-01-22] MEDS: Citalopram 20 MG Tab PO SCH (21:24)
[2020-01-22] MEDS: Simvastatin 40 MG Tab PO SCH (21:24)
[2020-01-23] MEDS: Albuterol/Ipratropium 3.0-0.5 MG/3 ML Neb Soln NEB PRN ×4 (08:07→20:09)
[2020-01-23] MEDS: Budesonide 0.5 MG/2 ML Neb Susp INH SCH ×2 (08:08→20:10)
[2020-01-23] MEDS: Arformoterol 15 MCG/2 ML Neb Soln INH SCH ×2 (08:08→20:10)
[2020-01-23] MEDS: Ascorbic Acid 500 MG Tab PO SCH ×2 (08:11→21:25)
[2020-01-23] MEDS: predniSONE 5 MG Tab PO SCH (08:11)
[2020-01-23] MEDS: Nystatin Susp 100,000 Unit/ML 5 ML Oral Syringe PO SCH ×3 (08:11→21:24)
[2020-01-23] MEDS: Diltiazem 180 MG Cap.CD PO SCH (08:11)
[2020-01-23] MEDS: Multivitamins,Therapeutic Tab PO SCH (08:11)
[2020-01-23] MEDS: Ferrous Sulfate 324 MG Tab.EC PO SCH ×2 (08:11→21:26)
[2020-01-23] MEDS: Tamsulosin 0.4 MG Cap.ER PO SCH (08:12)
[2020-01-23] MEDS: Calcium Carbonate 600 MG Tab PO SCH ×2 (08:12→21:25)
[2020-01-23] MEDS: Enoxaparin 40 MG/0.4 ML Syringe SUBCUT SCH (08:12)
[2020-01-23] MEDS: Aspirin 81 MG Tab.EC PO SCH (08:12)
[2020-01-23] MEDS: Mycophenolate Mofetil 250 MG Cap PO SCH ×2 (08:12→18:54)
[2020-01-23] MEDS: Roflumilast 500 MCG **PTOM PO SCH (08:17)
--- NOTE | 2020-01-23 08:37 | PCM.PN ---
- General Info Date of Service: 01/23/20 Admission Dx/Problem (Free Text): Admission Diagnosis/Problem Admission Diagnosis/Problem Hypoxia Subjective Update: In to see Deepa. He is sitting in the chair. He reports he feels pretty good. His lung sounds have improved overall but there are still rhonchi and crackles noted. He remains somewhat weak. PT/OT continues to work with him. Sputum is growing yeast and a gram negative bacteria. Awaiting echo results. Functional Status: Reports: Pain Controlled, Tolerating Diet, Ambulating, Urinating, Incentive Spirometry, Other (acapella ). Denies: New Symptoms - Review of Systems General: Reports: Weakness (improving ). Denies: Fever, Fatigue, Malaise, Chills HEENT: Reports: No Symptoms. Denies: Headaches, Sore Throat Pulmonary: Reports: Shortness of Breath, Cough, Sputum. Denies: Pleuritic Chest Pain, Wheezing Cardiovascular: Reports: No Symptoms, Dyspnea on Exertion. Denies: Chest Pain, Palpitations, Edema Gastrointestinal: Reports: No Symptoms. Denies: Abdominal Pain, Constipation, Diarrhea, Nausea, Vomiting Genitourinary: Reports: No Symptoms. Denies: Pain Musculoskeletal: Reports: No Symptoms Skin: Reports: No Symptoms. Denies: Cyanosis Neurological: Reports: Difficulty Walking, Weakness, Gait Disturbance. Denies: Confusion Psychiatric: Reports: No Symptoms - Patient Data Vitals - Most Recent: Last Vital Signs Temp 98.2 F 01/23/20 03:54 Pulse 77 01/23/20 08:14 Resp 20 01/23/20 08:14 BP 112/64 01/23/20 08:14 Pulse Ox 97 01/23/20 08:14 Weight - Most Recent: 136 lb 1.6 oz I&O - Last 24 Hours: Intake & Output 01/22/20 01/23/20 01/23/20 22:59 06:59 14:59 Intake Total 390 240 Output Total 325 950 Balance 65 -710 Lab Results Last 24 Hours: Laboratory Results - last 24 hr 01/22/20 01/22/20 01/22/20 Range/Units 11:24 16:10 21:06 WBC (4.23-9.07) K/mm3 RBC (4.63-6.08) M/mm3 Hgb (13.7-17.5) gm/dl Hct (40.1-51.0) % MCV (79.0-92.2) fl MCH (25.7-32.2) pg MCHC (32.2-35.5) g/dl RDW Std Deviation (35.1-43.9) fL Plt Count (163-337) K/mm3 MPV (9.4-12.3) fl Neut % (Auto) (34.0-67.9) % Lymph % (Auto) (21.8-53.1) % [place]yer % (Auto) (5.3-12.2) % Eos % (Auto) (0.8-7.0) Baso % (Auto) (0.1-1.2) % Neut # (Auto) (1.78-5.38) K/mm3 Lymph # (Auto) (1.32-3.57) K/mm3 Sawyer # (Auto) (0.30-0.82) K/mm3 Eos # (Auto) (0.04-0.54) K/mm3 Baso # (Auto) (0.01-0.08) K/mm3 Manual Slide Review Sodium (136-145) mEq/L Potassium (3.5-5.1) mEq/L Chloride (98-107) mEq/L Carbon Dioxide (21-32) mEq/L Anion Gap (5-15) BUN (7-18) mg/dL Creatinine (0.7-1.3) mg/dL Est Cr Clr Drug Dosing mL/min Estimated GFR (MDRD) (>60) mL/min BUN/Creatinine Ratio (14-18) Glucose (83-115) mg/dL POC Glucose 245 H 139 H 310 H (83-110) mg/dL Calcium (8.5-10.1) mg/dL Magnesium (1.8-2.4) mg/dl Total Bilirubin (0.2-1.0) mg/dL AST (15-37) U/L ALT (16-63) U/L Alkaline Phosphatase (46-116) U/L C-Reactive Protein (<1.0) mg/dL Total Protein (6.4-8.2) g/dl Albumin (3.4-5.0) g/dl Globulin gm/dL Albumin/Globulin Ratio (1-2) 01/23/20 01/23/2020 Range/Units 05:56 05:56 06:36 WBC 6.77 (4.23-9.07) K/mm3 RBC 2.83 L (4.63-6.08) M/mm3 Hgb 7.9 L (13.7-17.5) gm/dl Hct 27.7 L (40.1-51.0) % MCV 97.9 H (79.0-92.2) fl MCH 27.9 (25.7-32.2) pg MCHC 28.5 L (32.2-35.5) g/dl RDW Std Deviation 51.4 H (35.1-43.9) fL Plt Count 394 H (163-337) K/mm3 MPV 8.0 L (9.4-12.3) fl Neut % (Auto) 67.7 (34.0-67.9) % Lymph % (Auto) 19.1 L (21.8-53.1) % Sawyer % (Auto) 12.3 H (5.3-12.2) % Eos % (Auto) 0.7 L (0.8-7.0) Baso % (Auto) 0.1 (0.1-1.2) % Neut # (Auto) 4.58 (1.78-5.38) K/mm3 Lymph # (Auto) 1.29 L (1.32-3.57) K/mm3 Sawyer # (Auto) 0.83 H (0.30-0.82) K/mm3 Eos # (Auto) 0.05 (0.04-0.54) K/mm3 Baso # (Auto) 0.01 (0.01-0.08) K/mm3 Manual Slide Review Abnormal smear Sodium 141 (136-145) mEq/L Potassium 3.5 (3.5-5.1) mEq/L Chloride 105 (98-107) mEq/L Carbon Dioxide 32 (21-32) mEq/L Anion Gap 7.5 (5-15) BUN 11 (7-18) mg/dL Creatinine 0.8 (0.7-1.3) mg/dL Est Cr Clr Drug Dosing 64.51 mL/min Estimated GFR (MDRD) > 60 (>60) mL/min BUN/Creatinine Ratio 13.8 L (14-18) Glucose 128 H (83-115) mg/dL POC Glucose 98 (83-110) mg/dL Calcium 9.0 (8.5-10.1) mg/dL Magnesium 2.1 (1.8-2.4) mg/dl Total Bilirubin 0.2 (0.2-1.0) mg/dL AST 10 L (15-37) U/L ALT 12 L (16-63) U/L Alkaline Phosphatase 80 (46-116) U/L C-Reactive Protein 7.7 H* (<1.0) mg/dL Total Protein 5.7 L (6.4-8.2) g/dl Albumin 2.0 L (3.4-5.0) g/dl Globulin 3.7 gm/dL Albumin/Globulin Ratio 0.5 L (1-2) Timothy Results Last 24 Hours: Microbiology 01/20/20 19:45 Gram Stain - Preliminary Sputum - Expectorated Sputum Culture - Preliminary Yeast Isolated Gram Negative Rods 01/20/20 10:15 Aerobic Blood Culture - Preliminary Blood - Venous NO GROWTH AFTER 2 DAYS Anaerobic Blood Culture - Final 01/20/20 10:08 Aerobic Blood Culture - Preliminary Blood - Venous - Lab Draw NO GROWTH AFTER 2 DAYS Anaerobic Blood Culture - Preliminary NO GROWTH AFTER 2 DAYS Med Orders - Current: Current Medications Acetaminophen (Tylenol) 650 mg PO Q4H PRN PRN Reason: Pain (Mild 1-3)/fever Albuterol/Ipratropium (Duoneb 3.0-0.5 Mg/3 Ml) 3 ml NEB Q2H PRN PRN Reason: wheezing/SOB/cough Last Admin: 01/23/20 08:07 Dose: 3 ml Documented by: Arformoterol Tartrate (Brovana) 15 mcg INH BID [facility] Last Admin: 01/23/20 08:08 Dose: 15 mcg Documented by: Ascorbic Acid (Vitamin C) 500 mg PO BID [facility] Last Admin: 01/23/20 08:11 Dose: 500 mg Documented by: Aspirin (Halfprin) 81 mg PO DAILY [facility] Last Admin: 01/23/20 08:12 Dose: 81 mg Documented by: Budesonide (Pulmicort) 0.5 mg INH BID [facility] Last Admin: 01/23/20 08:08 Dose: 0.5 mg Documented by: Calcium Carbonate/Glycine (Calcium Carbonate) 600 mg PO BID [facility] Last Admin: 01/23/20 08:12 Dose: 600 mg Documented by: Cholecalciferol (Vitamin D3) 25 mcg PO BEDTIME [facility] Last Admin: 01/22/20 21:23 Dose: 25 mcg Documented by: Citalopram Hydrobromide (Celexa) 20 mg PO BEDTIME [facility] Last Admin: 01/22/20 21:24 Dose: 20 mg Documented by: Diltiazem HCl (Cardizem Cd) 180 mg PO DAILY [facility] Last Admin: 01/23/20 08:11 Dose: 180 mg Documented by: Enoxaparin Sodium (Lovenox) 40 mg SUBCUT DAILY [facility] Last Admin: 01/23/20 08:12 Dose: 40 mg Documented by: Ferrous Sulfate (Ferrous Sulfate) 324 mg PO BID [facility] Last Admin: 01/23/20 08:11 Dose: 324 mg Documented by: Furosemide (Lasix) 40 mg IVPUSH Q24H [facility] Last Admin: 01/22/20 14:30 Dose: 20 mg Documented by: Guaifenesin/Phenylephrine HCl (Robitussin Dm) 10 ml PO TID@0700,1400,2100 PRN PRN Reason: Cough Insulin Human Lispro (Humalog) 0 unit SUBCUT QIDACANDBED [facility]; Protocol Last Admin: 01/23/20 07:56 Dose: Not Given Documented by: Levofloxacin (Levaquin) 750 mg PO Q24H [facility] Magnesium Oxide (Magnesium Oxide) 400 mg PO BEDTIME [facility] Last Admin: 01/22/20 21:22 Dose: 400 mg Documented by: Multivitamins (Thera) 1 each PO DAILY [facility] Last Admin: 01/23/20 08:11 Dose: 1 each Documented by: Mycophenolate Mofetil (Cellcept) 1,000 mg PO QAM [facility] Last Admin: 01/23/20 08:12 Dose: 1,000 mg Documented by: Mycophenolate Mofetil (Cellcept) 1,500 mg PO QPM [facility] Nystatin (Nystatin Oral Syringe) 500,000 unit PO TID [facility] Last Admin: 01/23/20 08:11 Dose: 500,000 unit Documented by: Pantoprazole Sodium (Protonix) 40 mg PO BEDTIME [facility] Last Admin: 01/22/20 21:23 Dose: 40 mg Documented by: Ciclopirox 8% (Treatment Ki) 0 each TOP BEDTIME [facility] Last Admin: 01/22/20 21:23 Dose: Not Given Documented by: Roflumilast 500 Mcg (Ptom) 0 each PO DAILY [facility] Last Admin: 01/23/20 08:17 Dose: 1 each Documented by: Prednisone (Prednisone) 15 mg PO DAILY [facility] Last Admin: 01/23/20 08:11 Dose: 15 mg Documented by: Simvastatin (Zocor) 40 mg PO BEDTIME [facility] Last Admin: 01/22/20 21:24 Dose: 40 mg Documented by: Sodium Chloride (Saline Flush) 10 ml FLUSH ASDIRECTED PRN PRN Reason: Keep Vein Open Last Admin: 01/20/20 10:11 Dose: 10 ml Documented by: Sodium Chloride ([place] Nasal [place]) 0 ml NASBOTH BID PRN PRN Reason: CONGESTION/DRYNESS Last Admin: 01/21/20 09:53 Dose: 1 spray Documented by: Tamsulosin HCl (Flomax) 0.4 mg PO DAILY [facility] Last Admin: 01/23/20 08:12 Dose: 0.4 mg Documented by: Discontinued Medications Albuterol/Ipratropium (Duoneb 3.0-0.5 Mg/3 Ml) 3 ml NEB Q6HRRT PRN PRN Reason: wheezing/SOB/cough Last Admin: 01/22/20 12:26 Dose: 3 ml Documented by: Enoxaparin Sodium (Lovenox) 30 mg SUBCUT DAILY [facility] Last Admin: 01/21/20 09:52 Dose: 30 mg Documented by: Furosemide (Lasix) 40 mg IVPUSH NOW ONE Stop: 01/20/20 14:36 Last Admin: 01/20/20 16:35 Dose: 40 mg Documented by: Furosemide (Lasix) 40 mg IVPUSH DAILY [facility] Last Admin: 01/21/20 13:58 Dose: Not Given Documented by: Sodium Chloride (Normal Saline) 1,000 mls @ 125 mls/hr IV ASDIRECTED [facility] Last Infusion: 01/20/20 12:45 Dose: Infused Documented by: Levofloxacin/Dextrose 750 mg/ (Premix) 150 mls @ 100 mls/hr IV ONETIME ONE Stop: 01/20/20 11:24 Last Admin: 01/20/20 10:15 Dose: 100 mls/hr Documented by: Sodium Chloride (Normal Saline) 500 mls @ 1,000 mls/hr IV .BOLUS ONE Stop: 01/20/20 11:14 Last Admin: 01/20/20 10:58 Dose: Not Given Documented by: Levofloxacin/Dextrose 750 mg/ (Premix) 150 mls @ 100 mls/hr IV Q24H [facility] Last Admin: 01/22/20 10:40 Dose: 100 mls/hr Documented by: Magnesium Sulfate (Magnesium Sulfate In Water Premix) 2 gm in 50 mls @ 25 mls/hr IV ONETIME ONE Stop: 01/20/20 18:29 Last Admin: 01/20/20 16:40 Dose: 25 mls/hr Documented by: Magnesium Sulfate 2 gm/ Premix 50 mls @ 25 mls/hr IV ONETIME ONE Stop: 01/21/20 10:21 Last Admin: 01/21/20 12:23 Dose: 25 mls/hr Documented by: Non-Formulary Medication (Mycophenolate Mofetil [Cellcept]) 2,500 mg PO BID [facility] Potassium Chloride (Klor-Con M20) 40 meq PO BID [facility] Stop: 01/21/20 21:01 Last Admin: 01/21/20 21:31 Dose: 40 meq Documented by: - Exam Quality Assessment: Supplemental Oxygen (2L), DVT Prophylaxis General: Alert, Oriented, Cooperative, No Acute Distress HEENT: Pupils Equal, Pupils Reactive, Mucous Membr. Moist/[place] Neck: Supple, Trachea Midline Lungs: Normal Respiratory Effort, Decreased Breath Sounds, Crackles (improved ), Rhonchi (Improved ) Cardiovascular: Regular Rate, Regular Rhythm, Other (Pacemaker) GI/Abdominal Exam: Normal Bowel Sounds, Soft, Non-Tender, No Distention (Male) Exam: Deferred Back Exam: Normal Inspection, Full Range of Motion Extremities: Normal Inspection, Normal Range of Motion, Non-Tender, No Pedal Edema Skin: Warm, Dry, Intact Neurological: No New Focal Deficit Psy/Mental Status: Alert, Normal Affect, Normal Mood Sepsis Event Note - Evaluation Sepsis Screening Result: No Definite Risk - Focused Exam Vital Signs: Vital Signs Temp Temp Pulse Pulse Resp BP BP 01/23/20 08:14 77 20 112/64 01/23/20 08:09 01/23/20 03:54 98.2 F 79 20 94/58 L 01/23/20 00:00 98.1 F 89 22 H 102/55 L 01/22/20 21:21 88 01/22/20 21:02 97.9 F 110 H 28 H 96/54 L Pulse Ox Pulse Ox 01/23/20 08:14 97 01/23/20 08:09 92 L 01/23/20 03:54 93 L 01/23/20 00:00 96 01/22/20 21:21 97 01/22/20 21:02 83 L - Problem List & Annotations (1) Hypoxia SNOMED Code(s): 341641173 Code(s): R09.02 - HYPOXEMIA Status: Acute Priority: High Current Visit: Yes (2) Pneumonia SNOMED Code(s): 291919907 Code(s): J18.9 - PNEUMONIA, UNSPECIFIED ORGANISM Status: Acute Priority: High Current Visit: Yes Qualifiers: Pneumonia type: due to unspecified organism Laterality: right Lung location: lower lobe of lung Qualified Code(s): J18.9 - Pneumonia, unspecified organism (3) Pulmonary fibrosis SNOMED Code(s): 26674795 Code(s): J84.10 - PULMONARY FIBROSIS, UNSPECIFIED Status: Chronic Priority: High Current Visit: Yes (4) COPD (chronic obstructive pulmonary disease) SNOMED Code(s): 88153061 Code(s): J44.9 - CHRONIC OBSTRUCTIVE PULMONARY DISEASE, UNSPECIFIED Status: Chronic Priority: High Current Visit: Yes Qualifiers: COPD type: 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 Qualified Code(s): J41.8 - Mixed 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 SNOMED Code(s): 39479082 Code(s): M30.1 - POLYARTERITIS WITH LUNG INVOLVEMENT [CHURG-MARCELLA] Status: Chronic Priority: Low Current Visit: Yes (6) Hyperglycemia due to type 2 diabetes mellitus SNOMED Code(s): 493446333066390, 786725245332190 Code(s): E11.65 - TYPE 2 DIABETES MELLITUS WITH HYPERGLYCEMIA Status: Acute Priority: Medium Current Visit: No Qualifiers: Diabetes mellitus fdc 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 Qualified Code(s): E11.65 - Type 2 diabetes mellitus with hyperglycemia (7) Hypomagnesemia SNOMED Code(s): 690187055 Code(s): E83.42 - HYPOMAGNESEMIA Status: Resolved Priority: High Current Visit: Yes (8) Hypoxemia requiring supplemental oxygen SNOMED Code(s): 060869555 Code(s): R09.02 - HYPOXEMIA; Z99.81 - DEPENDENCE ON SUPPLEMENTAL OXYGEN Status: Acute Priority: High Current Visit: Yes (9) Immunocompromised SNOMED Code(s): 786278809 Code(s): D84.9 - IMMUNODEFICIENCY, UNSPECIFIED Status: Chronic Priority: High Current Visit: Yes (10) Shortness of breath SNOMED Code(s): 413483813 Code(s): R06.02 - SHORTNESS OF BREATH Status: Acute Priority: High Current Visit: Yes (11) Vasculitis SNOMED Code(s): 18346071 Code(s): I77.6 - ARTERITIS, UNSPECIFIED Status: Chronic Priority: Medium Current Visit: No (12) Chronic steroid use SNOMED Code(s): 360239246 Code(s): OLK5904 - Status: Chronic Priority: Medium Current Visit: No (13) Pacemaker SNOMED Code(s): 059717345 Code(s): Z95.0 - PRESENCE OF CARDIAC PACEMAKER Status: Chronic Priority: Low Current Visit: No (14) Hypokalemia SNOMED Code(s): 11662493 Code(s): E87.6 - HYPOKALEMIA Status: Acute Priority: High Current Visit: Yes (15) Incontinence SNOMED Code(s): 12882783 Code(s): R32 - UNSPECIFIED URINARY INCONTINENCE Status: Acute Priority: High Current Visit: Yes Qualifiers: Incontinence type: urinary Urinary Incontinence type: unspecified incontinence Qualified Code(s): R32 - Unspecified urinary incontinence (16) Hypoalbuminemia SNOMED Code(s): 239246490 Code(s): E88.09 - OTH DISORDERS OF PLASMA-PROTEIN METABOLISM, NEC Status: Acute Priority: High Current Visit: Yes (17) Cachexia SNOMED Code(s): 325944563 Code(s): R64 - CACHEXIA Status: Acute Priority: High Current Visit: Yes (18) BPH (benign prostatic hyperplasia) SNOMED Code(s): 192772049 Code(s): N40.0 - BENIGN PROSTATIC HYPERPLASIA WITHOUT LOWER URINRY TRACT SYMP Status: Chronic Priority: Medium Current Visit: No Qualifiers: Lower urinary tract symptom presence: symptoms present Lower urinary tract symptom detail: unspecified Qualified Code(s): N40.1 - Benign prostatic hyperplasia with lower urinary tract symptoms (19) Urinary retention SNOMED Code(s): 239220396 Code(s): R33.9 - RETENTION OF URINE, UNSPECIFIED Status: Chronic Priority: Medium Current Visit: No (20) History of second degree heart block SNOMED Code(s): 951063737 Code(s): Z86.79 - PERSONAL HISTORY OF OTHER DISEASES OF THE CIRCULATORY SYSTEM Status: Chronic Priority: Low Current Visit: No - Problem List Review Problem List Initiated/Reviewed/Updated: Yes - My Orders Last 24 Hours: My Active Orders 01/22/20 09:00 Enoxaparin [Lovenox] 40 mg SUBCUT DAILY 01/24/20 05:11 CBC WITH AUTO DIFF [HEME] AM CMP [COMPREHENSIVE METABOLIC PN,CMP] [CHEM] AM CRP [C-REACTIVE PROTEIN] [CHEM] AM MAGNESIUM [CHEM] AM - Plan Plan:: Assessment * 79 yo presents to ED after being seen by PCP Dr. 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 Worsening fibrosis vs. diffuse bronchitis vs. pulmonary vascular congestion * 12-lead EKG shows paced rhythm at 99 BPM * Labs * WBC 8.4-->6.77 * Hgb 9.0-->7.9 * Plt 435-->394 * Potassium 3.7-->3.5 * Creatinine 0.8, GFR >60 * Glucose 105-->128 * CRP 6.1-->7.7 * Albumin 2.0 * Influenza A & B negative * SARS-CoV-2 screen negative * Lactic acid 3.1 - Repeat 2.0 * Pro-BNP 14165 on admission * A1C 6.9 * Patient reports he is on Cellcept and daily prednisone (15mg) due to vasculitis may years ago * States he encountered multiple asthma attacks when trying to stop prednisone * Sepsis screenon admission: * CAP, Tachycardia and tachypnea but no or significant leukocytosis * Meets criteria * Patient reports incontinence that is new for him * Repeat CXR on 01/23/20 is stable Plan Hypoxia CHF exacerbation Pneumonia Pulmonary fibrosis COPD (chronic obstructive pulmonary disease) Churg-Marcella syndrome with lung involvement Hypoxemia requiring supplemental oxygen Immunocompromised Shortness of breath Chronic steroid use Hx/o Vasculitis * Continue Levaquin 750 mg PO daily * Called lab to confirm sputum culture will be plated for emilee quinolone sensitivity * IS/Acapella * Echo results pending * RT consult * Duonebs PRN * Sputum culture pending * Home medications as ordered * O2 to keep oxygen saturations 88-94% * PT/OT * 40mg IVP lasix daily * I&O monitoring * Daily weights * Restart CellCept * 2L fluid restriction and heart healthy diet * Tylenol for fever * Droplet isolation Hyperglycemia due to type 2 diabetes mellitus * Hold home metformin * QID AC and Bedtime glucose checks * Check A1C - 6.9 Hypomagnesemia�resolved Hypokalemia�resolved Hypoalbuminemia Cachexia * Monitor magnesium * Continue home magnesium supplementation * Monitor potassium * Resume home supplementation * Dietary consultation Pacemaker 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 PCP: Dr. Castillo Code status: DNR/DNI (confirmed with patient on admission) DVT Prophylaxis: Lovenox Disposition: Admit to medical floor on telemetry for treatment of Pneumonia and CHF exacerbation. Prognosis: Poor overall prognosis given immunocompromised state with multiple comorbidities LOS >96 hr due to slower than expected response to treatment, awaiting sputum cultures.
--- NOTE | 2020-01-23 08:43 | CR ---
Chest: Portable view of the chest was obtained. Comparison: Prior chest x-ray of 01/20/20 and 06/23/19. Findings: Lungs: Diffuse increased lung markings are seen. Findings are stable from most recent exam. Focal density is also noted within the right mid and lower lung which remain stable. Heart size and mediastinum: Heart size is within normal limits for portable technique. Tortuous thoracic aorta is seen. Pacemaker is noted. Osseous: Chronic rotator cuff tear seen within the right shoulder. Bony structures are osteopenic. Impression: 1. Diffuse increased lung markings as well as slight increased density with right mid and lower lung. Findings remain stable from most recent exam. 2. Nothing acute is otherwise seen. Diagnostic code #3
[2020-01-23] MEDS ORDERED: Docusate Sodium 100 MG Cap PO PRN (11:19)
[2020-01-23] MEDS: Levofloxacin 750 MG Tab PO SCH (11:40)
[2020-01-23] MEDS: Furosemide 40 MG/4 ML VIAL IVPUSH SCH (14:14)
[2020-01-23] MEDS: Potassium Chloride 20 MEQ Tab.ER PO SCH (16:07)
[2020-01-23] MEDS: Cholecalciferol (Vitamin D3) 25 MCG Tab PO SCH (21:25)
[2020-01-23] MEDS: Magnesium Oxide 400 MG Tab PO SCH (21:25)
[2020-01-23] MEDS: Citalopram 20 MG Tab PO SCH (21:26)
[2020-01-23] MEDS: Simvastatin 40 MG Tab PO SCH (21:26)
[2020-01-23] MEDS: Docusate Sodium 100 MG Cap PO SCH (21:26)
[2020-01-23] MEDS: Pantoprazole 40 MG Tab.CR PO SCH (21:26)
[2020-01-23] MEDS: CICLOPIROX 8% TOP SCH (21:28)
--- NOTE | 2020-01-24 07:31 | PCM.PN ---
- General Info Date of Service: 01/24/20 Admission Dx/Problem (Free Text): Admission Diagnosis/Problem Admission Diagnosis/Problem Hypoxia Subjective Update: In to see Deepa. He reports he feels better. We discussed the severity of his echo. Recommend cardiology follow-up after discharge. Will start on 25mg cozaar due to patient being on diuretics as well. He otherwise reports he feels good. Hopeful for discharge tomorrow 01/25/20 pending continued stability. Functional Status: Reports: Pain Controlled, Tolerating Diet, Ambulating, Urinating, Incentive Spirometry. Denies: New Symptoms - Review of Systems General: Reports: No Symptoms, Weakness (improving ). Denies: Fever, Fatigue, Malaise, Chills HEENT: Reports: No Symptoms. Denies: Headaches, Sore Throat Pulmonary: Reports: Shortness of Breath (chronic ), Cough, Sputum. Denies: Wheezing Cardiovascular: Reports: No Symptoms, Dyspnea on Exertion Gastrointestinal: Reports: No Symptoms. Denies: Abdominal Pain, Constipation, Diarrhea, Nausea, Vomiting Genitourinary: Reports: No Symptoms. Denies: Pain Musculoskeletal: Reports: No Symptoms Skin: Reports: No Symptoms. Denies: Cyanosis Neurological: Reports: No Symptoms. Denies: Confusion, Difficulty Walking, Gait Disturbance Psychiatric: Reports: No Symptoms - Patient Data Vitals - Most Recent: Last Vital Signs Temp 97.7 F 01/24/20 05:58 Pulse 82 01/24/20 05:58 Resp 18 01/24/20 05:58 BP 99/58 L 01/24/20 05:58 Pulse Ox 96 01/24/20 06:14 Weight - Most Recent: 136 lb 6.4 oz I&O - Last 24 Hours: Intake & Output 01/23/20 01/24/20 01/24/20 22:59 06:59 14:59 Intake Total 1060 300 Output Total 540 700 Balance 520 -400 Lab Results Last 24 Hours: Laboratory Results - last 24 hr 01/23/20 01/23/20 01/23/20 Range/Units 05:56 05:56 11:07 WBC (4.23-9.07) K/mm3 RBC (4.63-6.08) M/mm3 Hgb (13.7-17.5) gm/dl Hct (40.1-51.0) % MCV (79.0-92.2) fl MCH (25.7-32.2) pg MCHC (32.2-35.5) g/dl RDW Std Deviation (35.1-43.9) fL Plt Count (163-337) K/mm3 MPV (9.4-12.3) fl Neut % (Auto) (34.0-67.9) % Lymph % (Auto) (21.8-53.1) % [place] % (Auto) (5.3-12.2) % Eos % (Auto) (0.8-7.0) Baso % (Auto) (0.1-1.2) % Neut # (Auto) (1.78-5.38) K/mm3 Lymph # (Auto) (1.32-3.57) K/mm3 [place] # (Auto) (0.30-0.82) K/mm3 Eos # (Auto) (0.04-0.54) K/mm3 Baso # (Auto) (0.01-0.08) K/mm3 Manual Slide Review Abnormal smear Sodium (136-145) mEq/L Potassium (3.5-5.1) mEq/L Chloride (98-107) mEq/L Carbon Dioxide (21-32) mEq/L Anion Gap (5-15) BUN (7-18) mg/dL Creatinine (0.7-1.3) mg/dL Est Cr Clr Drug Dosing mL/min Estimated GFR (MDRD) (>60) mL/min BUN/Creatinine Ratio (14-18) Glucose (83-115) mg/dL POC Glucose 272 H (83-110) mg/dL Calcium (8.5-10.1) mg/dL Magnesium (1.8-2.4) mg/dl Iron 16 L (65-175) ug/dL TIBC 155 (100-400) ug/dL % Saturation 10 L (20-55) % Transferrin 124 L (202-364) mg/dL Total Bilirubin (0.2-1.0) mg/dL AST (15-37) U/L ALT (16-63) U/L Alkaline Phosphatase (46-116) U/L C-Reactive Protein (<1.0) mg/dL Total Protein (6.4-8.2) g/dl Albumin (3.4-5.0) g/dl Globulin gm/dL Albumin/Globulin Ratio (1-2) 01/23/20 01/23/20 01/24/20 Range/Units 16:07 21:09 04:58 WBC 7.07 (4.23-9.07) K/mm3 RBC 3.05 L (4.63-6.08) M/mm3 Hgb 8.4 L (13.7-17.5) gm/dl Hct 29.8 L (40.1-51.0) % MCV 97.7 H (79.0-92.2) fl MCH 27.5 (25.7-32.2) pg MCHC 28.2 L (32.2-35.5) g/dl RDW Std Deviation 52.2 H (35.1-43.9) fL Plt Count 425 H (163-337) K/mm3 MPV 8.3 L (9.4-12.3) fl Neut % (Auto) 69.9 H (34.0-67.9) % Lymph % (Auto) 19.5 L (21.8-53.1) % [place] % (Auto) 9.8 (5.3-12.2) % Eos % (Auto) 0.6 L (0.8-7.0) Baso % (Auto) 0.1 (0.1-1.2) % Neut # (Auto) 4.94 (1.78-5.38) K/mm3 Lymph # (Auto) 1.38 (1.32-3.57) K/mm3 [place] # (Auto) 0.69 (0.30-0.82) K/mm3 Eos # (Auto) 0.04 (0.04-0.54) K/mm3 Baso # (Auto) 0.01 (0.01-0.08) K/mm3 Manual Slide Review Sodium (136-145) mEq/L Potassium (3.5-5.1) mEq/L Chloride (98-107) mEq/L Carbon Dioxide (21-32) mEq/L Anion Gap (5-15) BUN (7-18) mg/dL Creatinine (0.7-1.3) mg/dL Est Cr Clr Drug Dosing mL/min Estimated GFR (MDRD) (>60) mL/min BUN/Creatinine Ratio (14-18) Glucose (83-115) mg/dL POC Glucose 215 H 197 H (83-110) mg/dL Calcium (8.5-10.1) mg/dL Magnesium (1.8-2.4) mg/dl Iron (65-175) ug/dL TIBC (100-400) ug/dL % Saturation (20-55) % Transferrin (202-364) mg/dL Total Bilirubin (0.2-1.0) mg/dL AST (15-37) U/L ALT (16-63) U/L Alkaline Phosphatase (46-116) U/L C-Reactive Protein (<1.0) mg/dL Total Protein (6.4-8.2) g/dl Albumin (3.4-5.0) g/dl Globulin gm/dL Albumin/Globulin Ratio (1-2) 01/24/20 01/24/20 Range/Units 04:58 06:23 WBC (4.23-9.07) K/mm3 RBC (4.63-6.08) M/mm3 Hgb (13.7-17.5) gm/dl Hct (40.1-51.0) % MCV (79.0-92.2) fl MCH (25.7-32.2) pg MCHC (32.2-35.5) g/dl RDW Std Deviation (35.1-43.9) fL Plt Count (163-337) K/mm3 MPV (9.4-12.3) fl Neut % (Auto) (34.0-67.9) % Lymph % (Auto) (21.8-53.1) % [place] % (Auto) (5.3-12.2) % Eos % (Auto) (0.8-7.0) Baso % (Auto) (0.1-1.2) % Neut # (Auto) (1.78-5.38) K/mm3 Lymph # (Auto) (1.32-3.57) K/mm3 [place] # (Auto) (0.30-0.82) K/mm3 Eos # (Auto) (0.04-0.54) K/mm3 Baso # (Auto) (0.01-0.08) K/mm3 Manual Slide Review Sodium 138 (136-145) mEq/L Potassium 3.7 (3.5-5.1) mEq/L Chloride 100 (98-107) mEq/L Carbon Dioxide 34 H (21-32) mEq/L Anion Gap 7.7 (5-15) BUN 13 (7-18) mg/dL Creatinine 0.8 (0.7-1.3) mg/dL Est Cr Clr Drug Dosing 65.52 mL/min Estimated GFR (MDRD) > 60 (>60) mL/min BUN/Creatinine Ratio 16.3 (14-18) Glucose 132 H (83-115) mg/dL POC Glucose 119 H (83-110) mg/dL Calcium 9.0 (8.5-10.1) mg/dL Magnesium 2.1 (1.8-2.4) mg/dl Iron (65-175) ug/dL TIBC (100-400) ug/dL % Saturation (20-55) % Transferrin (202-364) mg/dL Total Bilirubin 0.2 (0.2-1.0) mg/dL AST 13 L (15-37) U/L ALT 14 L (16-63) U/L Alkaline Phosphatase 79 (46-116) U/L C-Reactive Protein 5.0 H* (<1.0) mg/dL Total Protein 5.9 L (6.4-8.2) g/dl Albumin 2.1 L (3.4-5.0) g/dl Globulin 3.8 gm/dL Albumin/Globulin Ratio 0.6 L (1-2) Timothy Results Last 24 Hours: Microbiology 01/20/20 19:45 Gram Stain - Final Sputum - Expectorated Sputum Culture - Preliminary Yeast Isolated Gram Negative Rods 01/20/20 10:15 Aerobic Blood Culture - Preliminary Blood - Venous NO GROWTH AFTER 3 DAYS Anaerobic Blood Culture - Final 01/20/20 10:08 Aerobic Blood Culture - Preliminary Blood - Venous - Lab Draw NO GROWTH AFTER 3 DAYS Anaerobic Blood Culture - Preliminary NO GROWTH AFTER 3 DAYS Med Orders - Current: Current Medications Acetaminophen (Tylenol) 650 mg PO Q4H PRN PRN Reason: Pain (Mild 1-3)/fever Albuterol/Ipratropium (Duoneb 3.0-0.5 Mg/3 Ml) 3 ml NEB Q2H PRN PRN Reason: wheezing/SOB/cough Last Admin: 01/23/20 20:09 Dose: 3 ml Documented by: Arformoterol Tartrate (Brovana) 15 mcg INH BID [facility] Last Admin: 01/23/20 20:10 Dose: 15 mcg Documented by: Ascorbic Acid (Vitamin C) 500 mg PO BID [facility] Last Admin: 01/23/20 21:25 Dose: 500 mg Documented by: Aspirin (Halfprin) 81 mg PO DAILY [facility] Last Admin: 01/23/20 08:12 Dose: 81 mg Documented by: Budesonide (Pulmicort) 0.5 mg INH BID [facility] Last Admin: 01/23/20 20:10 Dose: 0.5 mg Documented by: Calcium Carbonate/Glycine (Calcium Carbonate) 600 mg PO BID [facility] Last Admin: 01/23/20 21:25 Dose: 600 mg Documented by: Cholecalciferol (Vitamin D3) 25 mcg PO BEDTIME [facility] Last Admin: 01/23/20 21:25 Dose: 25 mcg Documented by: Citalopram Hydrobromide (Celexa) 20 mg PO BEDTIME [facility] Last Admin: 01/23/20 21:26 Dose: 20 mg Documented by: Diltiazem HCl (Cardizem Cd) 180 mg PO DAILY [facility] Last Admin: 01/23/20 08:11 Dose: 180 mg Documented by: Docusate Sodium (Colace) 100 mg PO BID [facility] Last Admin: 01/23/20 21:26 Dose: 100 mg Documented by: Enoxaparin Sodium (Lovenox) 40 mg SUBCUT DAILY [facility] Last Admin: 01/23/20 08:12 Dose: 40 mg Documented by: Ferrous Sulfate (Ferrous Sulfate) 324 mg PO BID [facility] Last Admin: 01/23/20 21:26 Dose: 324 mg Documented by: Furosemide (Lasix) 40 mg IVPUSH Q24H [facility] Last Admin: 01/23/20 14:14 Dose: 40 mg Documented by: Guaifenesin/Phenylephrine HCl (Robitussin Dm) 10 ml PO TID@0700,1400,2100 PRN PRN Reason: Cough Insulin Human Lispro (Humalog) 0 unit SUBCUT QIDACANDBED [facility]; Protocol Last Admin: 01/24/20 06:30 Dose: Not Given Documented by: Levofloxacin (Levaquin) 750 mg PO Q24H [facility] Last Admin: 01/23/20 11:40 Dose: 750 mg Documented by: Magnesium Oxide (Magnesium Oxide) 400 mg PO BEDTIME [facility] Last Admin: 01/23/20 21:25 Dose: 400 mg Documented by: Multivitamins (Thera) 1 each PO DAILY [facility] Last Admin: 01/23/20 08:11 Dose: 1 each Documented by: Mycophenolate Mofetil (Cellcept) 1,000 mg PO QAM [facility] Last Admin: 01/23/20 08:12 Dose: 1,000 mg Documented by: Mycophenolate Mofetil (Cellcept) 1,500 mg PO QPM [facility] Last Admin: 01/23/20 18:54 Dose: 1,500 mg Documented by: Nystatin (Nystatin Oral Syringe) 500,000 unit PO TID [facility] Last Admin: 01/23/20 21:24 Dose: 500,000 unit Documented by: Pantoprazole Sodium (Protonix) 40 mg PO BEDTIME [facility] Last Admin: 01/23/20 21:26 Dose: 40 mg Documented by: Ciclopirox 8% (Treatment Ki) 0 each TOP BEDTIME [facility] Last Admin: 01/23/20 21:28 Dose: Not Given Documented by: Roflumilast 500 Mcg (Ptom) 0 each PO DAILY [facility] Last Admin: 01/23/20 08:17 Dose: 1 each Documented by: Potassium Chloride (Klor-Con M20) 20 meq PO DAILY [facility] Last Admin: 01/23/20 16:07 Dose: 20 meq Documented by: Prednisone (Prednisone) 15 mg PO DAILY [facility] Last Admin: 01/23/20 08:11 Dose: 15 mg Documented by: Simvastatin (Zocor) 40 mg PO BEDTIME [facility] Last Admin: 01/23/20 21:26 Dose: 40 mg Documented by: Sodium Chloride (Saline Flush) 10 ml FLUSH ASDIRECTED PRN PRN Reason: Keep Vein Open Last Admin: 01/20/20 10:11 Dose: 10 ml Documented by: Sodium Chloride (Coos Nasal [place]) 0 ml NASBOTH BID PRN PRN Reason: CONGESTION/DRYNESS Last Admin: 01/21/20 09:53 Dose: 1 spray Documented by: Tamsulosin HCl (Flomax) 0.4 mg PO DAILY [facility] Last Admin: 01/23/20 08:12 Dose: 0.4 mg Documented by: Discontinued Medications Albuterol/Ipratropium (Duoneb 3.0-0.5 Mg/3 Ml) 3 ml NEB Q6HRRT PRN PRN Reason: wheezing/SOB/cough Last Admin: 01/22/20 12:26 Dose: 3 ml Documented by: Docusate Sodium (Colace) 100 mg PO BID PRN PRN Reason: Constipation Last Admin: 01/23/20 11:40 Dose: 100 mg Documented by: Enoxaparin Sodium (Lovenox) 30 mg SUBCUT DAILY [facility] Last Admin: 01/21/20 09:52 Dose: 30 mg Documented by: Furosemide (Lasix) 40 mg IVPUSH NOW ONE Stop: 01/20/20 14:36 Last Admin: 01/20/20 16:35 Dose: 40 mg Documented by: Furosemide (Lasix) 40 mg IVPUSH DAILY [facility] Last Admin: 01/21/20 13:58 Dose: Not Given Documented by: Sodium Chloride (Normal Saline) 1,000 mls @ 125 mls/hr IV ASDIRECTED [facility] Last Infusion: 01/20/20 12:45 Dose: Infused Documented by: Levofloxacin/Dextrose 750 mg/ (Premix) 150 mls @ 100 mls/hr IV ONETIME ONE Stop: 01/20/20 11:24 Last Admin: 01/20/20 10:15 Dose: 100 mls/hr Documented by: Sodium Chloride (Normal Saline) 500 mls @ 1,000 mls/hr IV .BOLUS ONE Stop: 01/20/20 11:14 Last Admin: 01/20/20 10:58 Dose: Not Given Documented by: Levofloxacin/Dextrose 750 mg/ (Premix) 150 mls @ 100 mls/hr IV Q24H [facility] Last Admin: 01/22/20 10:40 Dose: 100 mls/hr Documented by: Magnesium Sulfate (Magnesium Sulfate In Water Premix) 2 gm in 50 mls @ 25 mls/hr IV ONETIME ONE Stop: 01/20/20 18:29 Last Admin: 01/20/20 16:40 Dose: 25 mls/hr Documented by: Magnesium Sulfate 2 gm/ Premix 50 mls @ 25 mls/hr IV ONETIME ONE Stop: 01/21/20 10:21 Last Admin: 01/21/20 12:23 Dose: 25 mls/hr Documented by: Non-Formulary Medication (Mycophenolate Mofetil [Cellcept]) 2,500 mg PO BID [facility] Potassium Chloride (Klor-Con M20) 40 meq PO BID [facility] Stop: 01/21/20 21:01 Last Admin: 01/21/20 21:31 Dose: 40 meq Documented by: - Exam Quality Assessment: Supplemental Oxygen (2L ), DVT Prophylaxis General: Alert, Oriented, Cooperative, No Acute Distress HEENT: Pupils Equal, Pupils Reactive, Mucous Membr. Moist/[place] Neck: Supple, Trachea Midline Lungs: Normal Respiratory Effort, Decreased Breath Sounds, Rhonchi (improving ) Cardiovascular: Regular Rate, Regular Rhythm, Other (Pacemaker) GI/Abdominal Exam: Normal Bowel Sounds, Soft, Non-Tender, No Distention (Male) Exam: Deferred Back Exam: Normal Inspection, Full Range of Motion Extremities: Normal Inspection, Normal Range of Motion, Non-Tender, No Pedal Edema, Normal Capillary Refill Skin: Warm, Dry, Intact Neurological: No New Focal Deficit Psy/Mental Status: Alert, Normal Affect, Normal Mood Sepsis Event Note - Evaluation Sepsis Screening Result: No Definite Risk - Focused Exam Vital Signs: Vital Signs Temp Pulse Resp BP Pulse Ox Pulse Ox 01/24/20 06:14 96 01/24/20 05:58 97.7 F 82 18 99/58 L 97 01/24/20 01:12 98.1 F 83 18 92/46 L 97 01/23/20 21:21 98.4 F 95 18 111/47 L 98 01/23/20 20:11 99 - Problem List & Annotations (1) Hypoxia SNOMED Code(s): 202210402 Code(s): R09.02 - HYPOXEMIA Status: Acute Priority: High Current Visit: Yes (2) Pneumonia SNOMED Code(s): 215304828 Code(s): J18.9 - PNEUMONIA, UNSPECIFIED ORGANISM Status: Acute Priority: High Current Visit: Yes Qualifiers: Pneumonia type: due to unspecified organism Laterality: right Lung location: lower lobe of lung Qualified Code(s): J18.9 - Pneumonia, unspecified organism (3) Pulmonary fibrosis SNOMED Code(s): 78691910 Code(s): J84.10 - PULMONARY FIBROSIS, UNSPECIFIED Status: Chronic Priority: High Current Visit: Yes (4) COPD (chronic obstructive pulmonary disease) SNOMED Code(s): 78794011 Code(s): J44.9 - CHRONIC OBSTRUCTIVE PULMONARY DISEASE, UNSPECIFIED Status: Chronic Priority: High Current Visit: Yes Qualifiers: COPD type: 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 Qualified Code(s): J41.8 - Mixed 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 SNOMED Code(s): 70674605 Code(s): M30.1 - POLYARTERITIS WITH LUNG INVOLVEMENT [CHURG-MARCELLA] Status: Chronic Priority: Low Current Visit: Yes (6) Hyperglycemia due to type 2 diabetes mellitus SNOMED Code(s): 093202835674786, 525448801904835 Code(s): E11.65 - TYPE 2 DIABETES MELLITUS WITH HYPERGLYCEMIA Status: Acute Priority: Medium Current Visit: No Qualifiers: Diabetes mellitus alf insulin use: 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 Qualified Code(s): E11.65 - Type 2 diabetes mellitus with hyperglycemia (7) Hypomagnesemia SNOMED Code(s): 521091528 Code(s): E83.42 - HYPOMAGNESEMIA Status: Resolved Priority: High Current Visit: Yes (8) Hypoxemia requiring supplemental oxygen SNOMED Code(s): 255941324 Code(s): R09.02 - HYPOXEMIA; Z99.81 - DEPENDENCE ON SUPPLEMENTAL OXYGEN Status: Acute Priority: High Current Visit: Yes (9) Immunocompromised SNOMED Code(s): 380873338 Code(s): D84.9 - IMMUNODEFICIENCY, UNSPECIFIED Status: Chronic Priority: High Current Visit: Yes (10) Shortness of breath SNOMED Code(s): 576115122 Code(s): R06.02 - SHORTNESS OF BREATH Status: Acute Priority: High Current Visit: Yes (11) Vasculitis SNOMED Code(s): 56782391 Code(s): I77.6 - ARTERITIS, UNSPECIFIED Status: Chronic Priority: Medium Current Visit: No (12) Chronic steroid use SNOMED Code(s): 658799903 Code(s): VMD0210 - Status: Chronic Priority: Medium Current Visit: No (13) Pacemaker SNOMED Code(s): 876558446 Code(s): Z95.0 - PRESENCE OF CARDIAC PACEMAKER Status: Chronic Priority: Low Current Visit: No (14) Hypokalemia SNOMED Code(s): 24680288 Code(s): E87.6 - HYPOKALEMIA Status: Acute Priority: High Current Visit: Yes (15) Incontinence SNOMED Code(s): 18554377 Code(s): R32 - UNSPECIFIED URINARY INCONTINENCE Status: Acute Priority: High Current Visit: Yes Qualifiers: Incontinence type: urinary Urinary Incontinence type: unspecified incont inence Qualified Code(s): R32 - Unspecified urinary incontinence (16) Hypoalbuminemia SNOMED Code(s): 185421884 Code(s): E88.09 - OTH DISORDERS OF PLASMA-PROTEIN METABOLISM, NEC Status: Acute Priority: High Current Visit: Yes (17) Cachexia SNOMED Code(s): 840769002 Code(s): R64 - CACHEXIA Status: Acute Priority: High Current Visit: Yes (18) BPH (benign prostatic hyperplasia) SNOMED Code(s): 792493388 Code(s): N40.0 - BENIGN PROSTATIC HYPERPLASIA WITHOUT LOWER URINRY TRACT SYMP Status: Chronic Priority: Medium Current Visit: No Qualifiers: Lower urinary tract symptom presence: symptoms present Lower urinary tract symptom detail: unspecified Qualified Code(s): N40.1 - Benign prostatic hyperplasia with lower urinary tract symptoms (19) Urinary retention SNOMED Code(s): 105203293 Code(s): R33.9 - RETENTION OF URINE, UNSPECIFIED Status: Chronic Priority: Medium Current Visit: No (20) History of second degree heart block SNOMED Code(s): 456469080 Code(s): Z86.79 - PERSONAL HISTORY OF OTHER DISEASES OF THE CIRCULATORY SYSTEM Status: Chronic Priority: Low Current Visit: No (21) Congestive heart failure SNOMED Code(s): 14507002 Code(s): I50.9 - HEART FAILURE, UNSPECIFIED Status: Acute Priority: High Current Visit: Yes Qualifiers: Heart failure type: combined systolic and diastolic Heart failure chronicity: acute on chronic Qualified Code(s): I50.43 - Acute on chronic combined systolic (congestive) and diastolic (congestive) heart failure (22) Severe sepsis SNOMED Code(s): 51288763 Code(s): A41.9 - SEPSIS, UNSPECIFIED ORGANISM; R65.20 - SEVERE SEPSIS WITHOUT SEPTIC SHOCK Status: Resolved Priority: High Current Visit: Yes - Problem List Review Problem List Initiated/Reviewed/Updated: Yes - My Orders Last 24 Hours: My Active Orders 01/23/20 14:15 Potassium Chloride [Klor-Con M20] 20 meq PO DAILY 01/23/20 Dinner Heart Healthy Diet [DIET] 01/23/20 21:00 Docusate Sodium [Colace] 100 mg PO BID 01/24/20 04:58 CBC WITH AUTO DIFF [HEME] AM - Plan Plan:: Assessment * 79 yo presents to ED after being seen by PCP Dr. 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 Worsening fibrosis vs. diffuse bronchitis vs. pulmonary vascular congestion * 12-lead EKG shows paced rhythm at 99 BPM * Labs * WBC 8.4-->6.77-->7.07 * Hgb 9.0-->7.9-->8.4 * Plt 435-->394-->425 * Potassium 3.7-->3.5-->3.7 * Creatinine 0.8, GFR >60 * Glucose 105-->128 * CRP 6.1-->7.7-->5.0 * Albumin 2.0-->2.1 * Influenza A & B negative * SARS-CoV-2 screen negative * Lactic acid 3.1 - Repeat 2.0 * Pro-BNP 05152 on admission * A1C 6.9 * Patient reports he is on Cellcept and daily prednisone (15mg) due to vasculitis may years ago * States he encountered multiple asthma attacks when trying to stop prednisone * Sepsis screenon admission: * CAP, Tachycardia and tachypnea but no or significant leukocytosis * Meets criteria * Patient reports incontinence that is new for him * Repeat CXR on 01/23/20 is stable * Echo on 01/20/2020: * 1. LVEF, by visual estimation, is 25 to 30% * 2. Global and moderately to severely decreased left ventricular systolic function * 3. The left ventricular internal cavity size is mildly increased. * 4. Mildly reduced right ventricular systolic function * 5. There is mild aortic valve sclerosis without stenosis. * 6. Mild mitral valve regurgitation. * 7. Mild to moderate tricuspid valve regurgitation * 8. Mild dilation of the aortic root. * 9. The right ventricular systolic pressure is severely elevated at 59.8 mmHg. * 10. A pacer wire is visualized in the right ventricle * 11. Compared to the prior study dated 02/23/2017 there has been a significant decrease in left ventricular systolic function and a significant increase in pulmonary pressures * 12. There is mild biatrial dilation Plan Hypoxia S/P Severe sepsis CHF exacerbation Pneumonia Pulmonary fibrosis COPD (chronic obstructive pulmonary disease) Churg-Marcella syndrome with lung involvement Hypoxemia requiring supplemental oxygen Immunocompromised Shortness of breath Chronic steroid use Hx/o Vasculitis * Continue Levaquin 750 mg PO daily * Called lab to confirm sputum culture will be plated for emilee quinolone sensitivity * IS/Acapella * Echo obtained * RT consult * Katrin PRN * Sputum culture pending * Home medications as ordered * O2 to keep oxygen saturations 88-94% * PT/OT * 40mg PO lasix BID * I&O monitoring * Daily weights * Restart CellCept * 2L fluid restriction and heart healthy diet * Tylenol for fever * Droplet isolation * Start cozaar due to low EF * Recommend Cardiology f/u at discharge Hyperglycemia due to type 2 diabetes mellitus * Hold home metformin * QID AC and Bedtime glucose checks * Check A1C - 6.9 Hypomagnesemia�resolved Hypokalemia�resolved Hypoalbuminemia Cachexia * Monitor magnesium * Continue home magnesium supplementation * Monitor potassium * Resume home supplementation * Dietary consultation Pacemaker 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 PCP: Dr. Castillo Code status: DNR/DNI (confirmed with patient on admission) DVT Prophylaxis: Lovenox Disposition: Admit to medical floor on telemetry for treatment of Pneumonia and CHF exacerbation. Prognosis: Poor overall prognosis given immunocompromised state with multiple comorbidities LOS >96 hr due to slower than expected response to treatment, awaiting sputum cultures.
[2020-01-24] MEDS: Mycophenolate Mofetil 250 MG Cap PO SCH ×2 (08:15→17:12)
[2020-01-24] MEDS: Multivitamins,Therapeutic Tab PO SCH (08:16)
[2020-01-24] MEDS: Aspirin 81 MG Tab.EC PO SCH (08:17)
[2020-01-24] MEDS: Diltiazem 180 MG Cap.CD PO SCH (08:17)
[2020-01-24] MEDS: predniSONE 5 MG Tab PO SCH (08:19)
[2020-01-24] MEDS: Docusate Sodium 100 MG Cap PO SCH ×2 (08:19→20:41)
[2020-01-24] MEDS: Potassium Chloride 20 MEQ Tab.ER PO SCH (08:20)
[2020-01-24] MEDS: Ferrous Sulfate 324 MG Tab.EC PO SCH ×2 (08:21→20:40)
[2020-01-24] MEDS: Ascorbic Acid 500 MG Tab PO SCH ×2 (08:21→20:48)
[2020-01-24] MEDS: Calcium Carbonate 600 MG Tab PO SCH ×2 (08:22→20:48)
[2020-01-24] MEDS: Tamsulosin 0.4 MG Cap.ER PO SCH (08:22)
[2020-01-24] MEDS: Enoxaparin 40 MG/0.4 ML Syringe SUBCUT SCH (08:24)
[2020-01-24] MEDS: Nystatin Susp 100,000 Unit/ML 5 ML Oral Syringe PO SCH ×3 (08:24→20:43)
[2020-01-24] MEDS: Roflumilast 500 MCG **PTOM PO SCH (08:29)
[2020-01-24] MEDS: Arformoterol 15 MCG/2 ML Neb Soln INH SCH ×2 (08:32→20:26)
[2020-01-24] MEDS: Budesonide 0.5 MG/2 ML Neb Susp INH SCH ×2 (08:32→20:27)
[2020-01-24] MEDS: Albuterol/Ipratropium 3.0-0.5 MG/3 ML Neb Soln NEB PRN ×4 (08:32→20:26)
[2020-01-24] MEDS: Levofloxacin 750 MG Tab PO SCH (11:55)
[2020-01-24] MEDS: Furosemide 40 MG Tab PO SCH (14:27)
[2020-01-24] MEDS: Cholecalciferol (Vitamin D3) 25 MCG Tab PO SCH (20:36)
[2020-01-24] MEDS: Pantoprazole 40 MG Tab.CR PO SCH (20:40)
[2020-01-24] MEDS: Magnesium Oxide 400 MG Tab PO SCH (20:40)
[2020-01-24] MEDS: Simvastatin 40 MG Tab PO SCH (20:41)
[2020-01-24] MEDS: Citalopram 20 MG Tab PO SCH (20:44)
[2020-01-24] MEDS ORDERED: Losartan 25 MG Tab PO SCH (21:00)
[2020-01-24] MEDS: CICLOPIROX 8% TOP SCH (21:21)
[2020-01-25] MEDS: Furosemide 40 MG Tab PO SCH ×2 (06:12→14:22)
[2020-01-25] MEDS: Arformoterol 15 MCG/2 ML Neb Soln INH SCH (08:40)
[2020-01-25] MEDS: Budesonide 0.5 MG/2 ML Neb Susp INH SCH (08:40)
[2020-01-25] MEDS: Albuterol/Ipratropium 3.0-0.5 MG/3 ML Neb Soln NEB PRN ×2 (08:41→11:49)
[2020-01-25] MEDS: Aspirin 81 MG Tab.EC PO SCH (09:06)
[2020-01-25] MEDS: Nystatin Susp 100,000 Unit/ML 5 ML Oral Syringe PO SCH ×2 (09:06→14:23)
[2020-01-25] MEDS: Multivitamins,Therapeutic Tab PO SCH (09:06)
[2020-01-25] MEDS: predniSONE 5 MG Tab PO SCH (09:06)
[2020-01-25] MEDS: Mycophenolate Mofetil 250 MG Cap PO SCH (09:07)
[2020-01-25] MEDS: Potassium Chloride 20 MEQ Tab.ER PO SCH (09:08)
[2020-01-25] MEDS: Ferrous Sulfate 324 MG Tab.EC PO SCH (09:08)
[2020-01-25] MEDS: Diltiazem 180 MG Cap.CD PO SCH (09:08)
[2020-01-25] MEDS: Ascorbic Acid 500 MG Tab PO SCH (09:08)
[2020-01-25] MEDS: Calcium Carbonate 600 MG Tab PO SCH (09:08)
[2020-01-25] MEDS: Tamsulosin 0.4 MG Cap.ER PO SCH (09:08)
[2020-01-25] MEDS: Docusate Sodium 100 MG Cap PO SCH (09:08)
[2020-01-25] MEDS: Enoxaparin 40 MG/0.4 ML Syringe SUBCUT SCH (09:09)
[2020-01-25] MEDS: Roflumilast 500 MCG **PTOM PO SCH (09:09)
[2020-01-25] MEDS: Levofloxacin 750 MG Tab PO SCH (11:15)
--- NOTE | 2020-01-25 12:00 | PCM.DCSUM1 ---
Discharge Summary - Hospital Course HPI Initial Comments: This is a 79 yo male who presents to our ED on 01/20/2020 after being seen by Dr. Castillo. He has been receiving treatment for pneumonia and was noted to have low saturations in the clinic. His primary care provider then instructed him to come to our ED. He is normally on 2 L of oxygen with 3 L at night. In the clinic he was noted to have oxygen saturations in the upper 70s and low 80s but they did respond with more oxygen. He was diagnosed with pneumonia in our ED on the and started on doxycycline. He reports is not getting any better. He still complains of cough and shortness of breath but denies any continuing fevers. He does have a history of COPD and pulmonary fibrosis. He is also on immunosuppressive medications secondary to vasculitis in the s. He is a former who quit in 1984. Denies any current fever, chest pain, abdominal pain, nausea, or vomiting. In the ED chest x-ray is obtained showing interstitial fibrosis with findings having increased from prior study. Findings could represent worsening fibrosis versus diffuse bronchitis versus pulmonary vascular congestion. There are other stable findings noted. In the ED temp is 97.7. Pulse 82. Respirations 20. Blood pressure 89/51. Pulse ox 97% on oxygen. Pain showing WBC of 9.79. Hemoglobin is 9.3. Hematocrit 33.0. Platelets are elevated at 440. Neutrophils are elevated at 78.6. PT is 11.7. INR is 1.10. aPTT is 20.4. Sodium is 142. Potassium is slightly low at 3.4. Anion gap is 11.4. GFR is greater than 60. Glucose is slightly high at 149. Bilirubin 0.4. AST is 13, ALT 14, alkaline phosphatase 98. LDH is 46. Troponin is 0.025. CRP is 6.4. Protein is 6.1. Albumin 2.2. Lactic acid is 3.1. Ferritin is 318. proBNP is 11/22/2000. Influenza a and B, as well as SARS-CoV-2 are all negative. Even a 500 mL bolus and started 125 mils an hour of IV fluid. ED provider consulted with pharmacy as patient has multiple prior drug allergies and Levaquin was started 750 mg. He carries a history of HLD, hypertension, Churg-Marcella syndrome/vasculitis, asthma, COPD, pulmonary fibrosis, chronic oxygen use, BPH, urinary retention, osteoarthritis, neuropathy, situational depression, type II DM, vitamin D deficiency, squamous cell cancer Bart[place], bladder cancer, cellulitis, pacemaker. He is on chronic immunosuppression therapy. He is a former smoker. His PCP is Dr. Castillo. He is a DNR/DNI. He is subsequently admitted to the medical floor on telemetry for management of his failed outpatient pneumonia, suspected CHF exacerbation, and hypoxia. Diagnosis: Stroke: No - Discharge Data Discharge Date: 01/25/20 (Admit date: 01/20/2020) Discharge Disposition: Home, W Home Health Agency 06 Condition: Good - Referral to Home Health Date of Face to Face Encounter: 01/25/20 Reason for Homebound Status: See discharge summary Primary Care Physician: Shara Castillo MD Skilled Need: See discharge summary - Discharge Diagnosis/Problem(s) (1) Hypoxia SNOMED Code(s): 234589420 ICD Code: R09.02 - HYPOXEMIA Status: Acute Priority: High Current Visit: Yes (2) Pneumonia SNOMED Code(s): 090625246 ICD Code: J18.9 - PNEUMONIA, UNSPECIFIED ORGANISM Status: Acute Priority: High Current Visit: Yes Qualifiers: Pneumonia type: due to unspecified organism Laterality: right Lung location: lower lobe of lung Qualified Code(s): J18.9 - Pneumonia, unspecified organism (3) Pulmonary fibrosis SNOMED Code(s): 37059901 ICD Code: J84.10 - PULMONARY FIBROSIS, UNSPECIFIED Status: Chronic Priority: High Current Visit: Yes (4) COPD (chronic obstructive pulmonary disease) SNOMED Code(s): 79480278 ICD Code: J44.9 - CHRONIC OBSTRUCTIVE PULMONARY DISEASE, UNSPECIFIED Status: Chronic Priority: High Current Visit: Yes Qualifiers: COPD type: 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 Qualified Code(s): J41.8 - Mixed 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 SNOMED Code(s): 53585902 ICD Code: M30.1 - POLYARTERITIS WITH LUNG INVOLVEMENT [CHURG-MARCELLA] Status: Chronic Priority: Low Current Visit: Yes (6) Hyperglycemia due to type 2 diabetes mellitus SNOMED Code(s): 488607014166362, 825555706669346 ICD Code: E11.65 - TYPE 2 DIABETES MELLITUS WITH HYPERGLYCEMIA Status: Acute Priority: Medium Current Visit: No Qualifiers: Diabetes mellitus buttermaker insulin use: unspecified mcfp insulin use status Qualified Code(s): E11.65 - Type 2 diabetes mellitus with hyperglycemia (7) Hypomagnesemia SNOMED Code(s): 432726419 ICD Code: E83.42 - HYPOMAGNESEMIA Status: Resolved Priority: High Current Visit: Yes (8) Hypoxemia requiring supplemental oxygen SNOMED Code(s): 517321949 ICD Code: R09.02 - HYPOXEMIA; Z99.81 - DEPENDENCE ON SUPPLEMENTAL OXYGEN Status: Acute Priority: High Current Visit: Yes (9) Immunocompromised SNOMED Code(s): 953638529 ICD Code: D84.9 - IMMUNODEFICIENCY, UNSPECIFIED Status: Chronic Priority: High Current Visit: Yes (10) Shortness of breath SNOMED Code(s): 995839986 ICD Code: R06.02 - SHORTNESS OF BREATH Status: Acute Priority: High Current Visit: Yes (11) Vasculitis SNOMED Code(s): 22203956 ICD Code: I77.6 - ARTERITIS, UNSPECIFIED Status: Chronic Priority: Medium Current Visit: No (12) Chronic steroid use SNOMED Code(s): 484908749 ICD Code: CKL0718 - Status: Chronic Priority: Medium Current Visit: No (13) Pacemaker SNOMED Code(s): 366409597 ICD Code: Z95.0 - PRESENCE OF CARDIAC PACEMAKER Status: Chronic Priority: Low Current Visit: No (14) Hypokalemia SNOMED Code(s): 63254208 ICD Code: E87.6 - HYPOKALEMIA Status: Acute Priority: High Current Visit: Yes (15) Incontinence SNOMED Code(s): 78909534 ICD Code: R32 - UNSPECIFIED URINARY INCONTINENCE Status: Acute Priority: High Current Visit: Yes Qualifiers: Incontinence type: urinary Urinary Incontinence type: unspecified incontinence Qualified Code(s): R32 - Unspecified urinary incontinence (16) Hypoalbuminemia SNOMED Code(s): 613447825 ICD Code: E88.09 - OTH DISORDERS OF PLASMA-PROTEIN METABOLISM, NEC Status: Acute Priority: High Current Visit: Yes (17) Cachexia SNOMED Code(s): 582684409 ICD Code: R64 - CACHEXIA Status: Acute Priority: High Current Visit: Yes (18) BPH (benign prostatic hyperplasia) SNOMED Code(s): 116393907 ICD Code: N40.0 - BENIGN PROSTATIC HYPERPLASIA WITHOUT LOWER URINRY TRACT SYMP Status: Chronic Priority: Medium Current Visit: No Qualifiers: Lower urinary tract symptom presence: symptoms present Lower urinary tract symptom detail: unspecified Qualified Code(s): N40.1 - Benign prostatic hyperplasia with lower urinary tract symptoms (19) Urinary retention SNOMED Code(s): 337632031 ICD Code: R33.9 - RETENTION OF URINE, UNSPECIFIED Status: Chronic Priority: Medium Current Visit: No (20) History of second degree heart block SNOMED Code(s): 656054806 ICD Code: Z86.79 - PERSONAL HISTORY OF OTHER DISEASES OF THE CIRCULATORY SYSTEM Status: Chronic Priority: Low Current Visit: No (21) Congestive heart failure SNOMED Code(s): 45137922 ICD Code: I50.9 - HEART FAILURE, UNSPECIFIED Status: Acute Priority: High Current Visit: Yes Qualifiers: Heart failure type: combined systolic and diastolic Heart failure chronicity: acute on chronic Qualified Code(s): I50.43 - Acute on chronic combined systolic (congestive) and diastolic (congestive) heart failure (22) Severe sepsis SNOMED Code(s): 52543019 ICD Code: A41.9 - SEPSIS, UNSPECIFIED ORGANISM; R65.20 - SEVERE SEPSIS WITHOUT SEPTIC SHOCK Status: Resolved Priority: High Current Visit: Yes - Patient Summary/Data Consults: Consultations 01/20/20 14:14 Consult to Case Management/Records Tech [CONS] Routine Consult to Research Interviewer [CONS] Routine Consult to Spiritual Care [CONS] Routine OT Evaluation and Treatment [CONS] Routine PT Evaluation and Treatment [CONS] Routine Respiratory Care Assess and Treatment [CONS] Routine Labs Pending at D/C: None Recommended Follow-up Testing/Procedures: Follow-up with primary care provider within 7-10 days of discharge. Follow-up with pulmonology as scheduled. Follow-up with cardiology after discharge regarding significant changes in echocardiogram. Hospital Course: Deepa was admitted to the hospital due to hypoxia and after being sent to the emergency room by his primary care provider. He does have a significant history of COPD with pulmonary fibrosis, chronic steroid use, and he is immunocompromised. He had been being treated with doxycycline and he was started on Levaquin in the ED. This decision occurred after discussion with pharmacy, as the patient has multiple antibiotic allergies. Sputum culture was obtained and was growing Pseudomonas and Milla albicans. Patient was started on 500,000 units 3 times daily nystatin p.o. He did note new onset incontinence on admission and UA was obtained which was negative. Influenza a and B as well as SARS-CoV-2 screen were negative. BNP was noted to be 10,000 701 on admission and given this along with possible pulmonary vascular congestion on the chest x-ray and echocardiogram was obtained on 01/20/2020. This showed: 1. LVEF, by visual estimation, is 25 to 30% 2. Global and moderately to severely decreased left ventricular systolic function 3. The left ventricular internal cavity size is mildly increased. 4. Mildly reduced right ventricular systolic function 5. There is mild aortic valve sclerosis without stenosis. 6. Mild mitral valve regurgitation. 7. Mild to moderate tricuspid valve regurgitation 8. Mild dilation of the aortic root. 9. The right ventricular systolic pressure is severely elevated at 59.8 mmHg. 10. A pacer wire is visualized in the right ventricle 11. Compared to the prior study dated 02/23/2017 there has been a significant decrease in left ventricular systolic function and a significant increase in pulmonary pressures 12. There is mild biatrial dilation. Patient was started on 25 mg at bedtime Cozaar. Lasix was increased to 40 mg twice daily. He did loose 5 pounds while here. He returned to his normal oxygen need of 2 to 3 L. A1c was obtained was 6.9. Electrolytes were supplemented and he did see our dietitian. Given his significant change in his echocardiogram is recommend the patient follow-up with cardiology. Case management was working on setting the patient up an appointment. Is also recommended he see his pulm onologist. He did state that he has an appointment already set up in February. Recommend he follow-up with his primary care provider within 10 days of discharge, sooner if needed. Recommend recheck CBC, CMP, and magnesium at that appointment. Discharged on 1 more day of Levaquin as this will complete 7 days of treatment. He will also be discharged on 4 more days of p.o. nystatin, which will bring his treatment to 7 days. As mentioned Cozaar was started and Lasix was increased. All other home medications were continued with the exception of doxycycline, which was started prior to admission for his symptoms. He was advised to take his weight daily and record this in a journal, bring it with to all medical appointments. He was advised to continue utilizing his incentive spirometer and Acapella until symptoms resolve. He was evaluated by PT/OT while here. Given the patient's chronic lung problems combined with his current pneumonia and worsening her condition it is felt that the patient would benefit from home health PT services. I did personally meet with Deepa her to discharge face to discuss his homebound status. Given his chronic oxygen demand and difficulty with transportation as he no longer drives it is felt that he will benefit from home health PT. They can work on strengthening and increased endurance. The services can be monitored by the patient's primary care provider, Dr. Castillo, and adjusted as she sees fit. - Patient Instructions Diet: Heart Healthy Diet, Low Sodium, Fluid Restriction Fluid Restriction: 2000 mL Activity: As Tolerated Driving: Do Not Drive Showering/Bathing: May Shower Notify Provider of: Fever, Increased Pain, Nausea and/or Vomiting Other/Special Instructions: Follow-up with primary care provider within 7-10 days of discharge. Weigh yourself daily and record this in a journal. Bring this with to all medical appointments. Recommend you follow-up with cardiology after discharge as directed. Take all medicatoins as prescribed. Your lasix dose was increased to twice a day and you were startedon a new medication called Cozaar. This medicaion is an angiotension receptor juanita and was started due to your heart failure. Continue your home oxygen as per your prior routine. Recommend pulmonology follow-up after discharge. You stated you already have an appointment scheduled in February. Be sure to attend this appointment. Continue to utilize your incentive spirometer (Clear/blue device you inhale through) and acapella (green tube you blow through) until you feel back to normal. Should symptoms return or worsen contact your primary care provider or return to the Emergency Department. - Discharge Plan *PRESCRIPTION DRUG MONITORING PROGRAM REVIEWED*: No *COPY OF PRESCRIPTION DRUG MONITORING REPORT IN PATIENT JONATHON: No Prescriptions/Med Rec: Losartan [Cozaar] 25 mg PO BEDTIME #20 tablet Furosemide [Lasix] 40 mg PO BIDDIURETIC #40 tablet levoFLOXacin [Levaquin] 750 mg PO Q24H #1 tablet Nystatin [Nystatin Oral Syringe] 500,000 unit PO TID 4 Days #60 ml Home Medications: Home Meds Albuterol [Ventolin HFA] 2 puff INH Q4H PRN 10/25/18 [History] Citalopram Hydrobromide [Celexa] 20 mg PO BEDTIME 10/25/18 [History] Multivitamin [Multivitamins] 1 tab PO DAILY 10/25/18 [History] Omeprazole Magnesium [Prilosec Otc] 40 mg PO BEDTIME 10/25/18 [History] Simvastatin 40 mg PO BEDTIME 10/25/18 [History] Ubidecarenone [Co Q-10] 100 mg PO DAILY 10/25/18 [History] guaiFENesin [Mucinex] 1,200 mg PO BID 10/25/18 [History] predniSONE [Prednisone] 15 mg PO DAILY 10/25/18 [History] Arformoterol [Brovana] 15 mcg INH BID 06/23/19 [History] Ascorbic Acid [Vitamin C] 500 mg PO BID 06/23/19 [History] Aspirin [Halfprin] 81 mg PO DAILY 06/23/19 [History] Denosumab [Prolia] 60 mg IM ASDIRECTED 06/23/19 [History] Lutein 6 mg PO BEDTIME 06/23/19 [History] Tamsulosin HCl 0.4 mg PO DAILY 06/23/19 [History] Fluticasone Propionate [Flonase Allergy Relief] 2 spray NASBOTH BID 11/27/19 [History] Potassium Chloride [Klor-Con M20] 20 meq PO DAILY 11/27/19 [History] dilTIAZem HCL [Dilt-Xr] 180 mg PO DAILY 11/27/19 [History] metFORMIN HCl [Metformin HCl] 500 mg PO DAILY 11/27/19 [History] Budesonide [Pulmicort] 1 unit INH BID 01/16/20 [History] Calcium Carbonate [Calcium] 600 mg PO BID 01/16/20 [History] Cholecalciferol (Vitamin D3) [Vitamin D3] 1,000 units PO BEDTIME 01/16/20 [History] Ciclopirox/Urea/Camph/Men/Euc [Ciclopirox 8% Treatment Kit] 1 applic TOP BEDTIME 01/16/20 [History] Magnesium Oxide [Magnesium] 400 mg PO BEDTIME 01/16/20 [History] Roflumilast [Daliresp] 500 mcg PO DAILY 01/16/20 [History] Sulfamethoxazole/Trimethoprim [Sulfamethoxazole-Tmp Ds Tablet] 1 tab PO MOWEFR 01/16/20 [History] Ferrous Sulfate [Iron] 325 mg PO BID 01/20/20 [History] Ipratropium/Albuterol Sulfate [Iprat-Albut 0.5-3(2.5) mg/3 ml] 1 unit IH TID 01/20/20 [History] mycophenolate mofetiL [Cellcept] 1,000 mg PO QAM 01/22/20 [History] mycophenolate mofetiL [Cellcept] 1,500 mg PO QPM 01/22/20 [History] Furosemide [Lasix] 40 mg PO BIDDIURETIC #40 tablet 01/25/20 [Rx] Losartan [Cozaar] 25 mg PO BEDTIME #20 tablet 01/25/20 [Rx] Nystatin [Nystatin Oral Syringe] 500,000 unit PO TID 4 Days #60 ml 01/25/20 [Rx] levoFLOXacin [Levaquin] 750 mg PO Q24H #1 tablet 01/25/20 [Rx] Oxygen Therapy Mode: Nasal Cannula Oxygen Flow Rate (L/min): 2 (Follow piror home routine ) Patient Handouts: Pulmonary Fibrosis, Chronic Obstructive Pulmonary Disease, Heart Failure, Self Care, Cqnf-ke-Ssaw, Sepsis, Diagnosis, Adult, Home Oxygen Use, Adult, Heart Failure Eating Plan Referrals: Shara Castillo MD [Primary Care Provider] - 01/31/20 9:00 am (Your hospital follow-up appointment is 01/30 at 9:00.) Jin Gibbons MD [Ordering Only Provider] - 01/26/20 1:00 pm (Cardiology appointment. 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 If you are unable to attend this appointment, please call and reschedule. ) - Discharge Summary/Plan Comment DC Time >30 min.: Yes (45 mins ) - General Info Date of Service: 01/25/20 Admission Dx/Problem (Free Text: Admission Diagnosis/Problem Admission Diagnosis/Problem Hypoxia Functional Status: Reports: Pain Controlled, Tolerating Diet, Ambulating, Urinating, Incentive Spirometry, Other (Acapella ). Denies: New Symptoms - Review of Systems General: Reports: No Symptoms. Denies: Fever, Weakness, Fatigue, Malaise, Chills HEENT: Reports: No Symptoms. Denies: Headaches, Sore Throat Pulmonary: Reports: Shortness of Breath (nearly baseline ), Cough. Denies: Pleuritic Chest Pain, Sputum, Wheezing Cardiovascular: Reports: Dyspnea on Exertion. Denies: Chest Pain, Palpitations Gastrointestinal: Reports: No Symptoms. Denies: Abdominal Pain, Constipation, Diarrhea, Nausea, Vomiting Genitourinary: Reports: No Symptoms. Denies: Pain Musculoskeletal: Reports: No Symptoms Skin: Reports: No Symptoms. Denies: Cyanosis Neurological: Reports: No Symptoms. Denies: Confusion, Numbness, Tingling, Difficulty Walking, Weakness, Gait Disturbance Psychiatric: Reports: No Symptoms - Patient Data Vitals - Most Recent: Last Vital Signs Temp 97.5 F 01/25/20 08:02 Pulse 84 01/25/20 08:02 Resp 16 01/25/20 08:02 BP 101/66 01/25/20 08:02 Pulse Ox 97 01/25/20 08:41 Weight - Most Recent: 133 lb 3.2 oz I&O - Last 24 hours: Intake & Output 01/24/20 01/25/20 01/25/20 22:59 06:59 14:59 Intake Total 820 150 240 Output Total 425 1225 Balance 395 -1075 240 Lab Results - Last 24 hrs: Laboratory Results - last 24 hr 01/24/20 01/24/20 01/25/20 Range/Units 16:41 21:28 04:42 Sodium 138 (136-145) mEq/L Potassium 4.0 (3.5-5.1) mEq/L Chloride 105 (98-107) mEq/L Carbon Dioxide 35 H (21-32) mEq/L Anion Gap 2.0 L (5-15) BUN 16 (7-18) mg/dL Creatinine 0.8 (0.7-1.3) mg/dL Est Cr Clr Drug Dosing 65.52 mL/min Estimated GFR (MDRD) > 60 (>60) mL/min BUN/Creatinine Ratio 20.0 H (14-18) Glucose 142 H (83-115) mg/dL POC Glucose 316 H 163 H (83-110) mg/dL Calcium 9.0 (8.5-10.1) mg/dL Magnesium 2.0 (1.8-2.4) mg/dl 01/25/20 01/25/20 Range/Units 06:11 11:36 Sodium (136-145) mEq/L Potassium (3.5-5.1) mEq/L Chloride (98-107) mEq/L Carbon Dioxide (21-32) mEq/L Anion Gap (5-15) BUN (7-18) mg/dL Creatinine (0.7-1.3) mg/dL Est Cr Clr Drug Dosing mL/min Estimated GFR (MDRD) (>60) mL/min BUN/Creatinine Ratio (14-18) Glucose (83-115) mg/dL POC Glucose 144 H 203 H (83-110) mg/dL Calcium (8.5-10.1) mg/dL Magnesium (1.8-2.4) mg/dl PHILLIP Results - Last 24 hrs: Microbiology 01/20/20 10:15 Aerobic Blood Culture - Preliminary Blood - Venous NO GROWTH AFTER 5 DAYS Anaerobic Blood Culture - Final 01/20/20 10:08 Aerobic Blood Culture - Preliminary Blood - Venous - Lab Draw NO GROWTH AFTER 5 DAYS Anaerobic Blood Culture - Preliminary NO GROWTH AFTER 5 DAYS 01/20/20 19:45 Gram Stain - Final Sputum - Expectorated Sputum Culture - Final Milla Albicans Pseudomonas Aeruginosa Med Orders - Current: Current Medications Acetaminophen (Tylenol) 650 mg PO Q4H PRN PRN Reason: Pain (Mild 1-3)/fever Albuterol/Ipratropium (Duoneb 3.0-0.5 Mg/3 Ml) 3 ml NEB Q2H PRN PRN Reason: wheezing/SOB/cough Last Admin: 01/25/20 08:41 Dose: 3 ml Documented by: Arformoterol Tartrate (Brovana) 15 mcg INH BID [facility] Last Admin: 01/25/20 08:40 Dose: 15 mcg Documented by: Ascorbic Acid (Vitamin C) 500 mg PO BID [facility] Last Admin: 01/25/20 09:08 Dose: 500 mg Documented by: Aspirin (Halfprin) 81 mg PO DAILY [facility] Last Admin: 01/25/20 09:06 Dose: 81 mg Documented by: Budesonide (Pulmicort) 0.5 mg INH BID [facility] Last Admin: 01/25/20 08:40 Dose: 0.5 mg Documented by: Calcium Carbonate/Glycine (Calcium Carbonate) 600 mg PO BID [facility] Last Admin: 01/25/20 09:08 Dose: 600 mg Documented by: Cholecalciferol (Vitamin D3) 25 mcg PO BEDTIME [facility] Last Admin: 01/24/20 20:36 Dose: 25 mcg Documented by: Citalopram Hydrobromide (Celexa) 20 mg PO BEDTIME [facility] Last Admin: 01/24/20 20:44 Dose: 20 mg Documented by: Diltiazem HCl (Cardizem Cd) 180 mg PO DAILY [facility] Last Admin: 01/25/20 09:08 Dose: 180 mg Documented by: Docusate Sodium (Colace) 100 mg PO BID [facility] Last Admin: 01/25/20 09:08 Dose: 100 mg Documented by: Enoxaparin Sodium (Lovenox) 40 mg SUBCUT DAILY [facility] Last Admin: 01/25/20 09:09 Dose: 40 mg Documented by: Ferrous Sulfate (Ferrous Sulfate) 324 mg PO BID [facility] Last Admin: 01/25/20 09:08 Dose: 324 mg Documented by: Furosemide (Lasix) 40 mg PO BIDDIURETIC [facility] Last Admin: 01/25/20 06:12 Dose: 40 mg Documented by: Guaifenesin/Phenylephrine HCl (Robitussin Dm) 10 ml PO TID@0700,1400,2100 PRN PRN Reason: Cough Insulin Human Lispro (Humalog) 0 unit SUBCUT QIDACANDBED [facility]; Protocol Last Admin: 01/25/20 06:16 Dose: Not Given Documented by: Levofloxacin (Levaquin) 750 mg PO Q24H [facility] Last Admin: 01/25/20 11:15 Dose: 750 mg Documented by: Losartan Potassium (Cozaar) 25 mg PO BEDTIME [facility] Last Admin: 01/24/20 20:36 Dose: 25 mg Documented by: Magnesium Oxide (Magnesium Oxide) 400 mg PO BEDTIME [facility] Last Admin: 01/24/20 20:40 Dose: 400 mg Documented by: Multivitamins (Thera) 1 each PO DAILY [facility] Last Admin: 01/25/20 09:06 Dose: 1 each Documented by: Mycophenolate Mofetil (Cellcept) 1,000 mg PO QAM [facility] Last Admin: 01/25/20 09:07 Dose: 1,000 mg Documented by: Mycophenolate Mofetil (Cellcept) 1,500 mg PO QPM [facility] Last Admin: 01/24/20 17:12 Dose: 1,500 mg Documented by: Nystatin (Nystatin Oral Syringe) 500,000 unit PO TID [facility] Last Admin: 01/25/20 09:06 Dose: 500,000 unit Documented by: Pantoprazole Sodium (Protonix) 40 mg PO BEDTIME [facility] Last Admin: 01/24/20 20:40 Dose: 40 mg Documented by: Ciclopirox 8% (Treatment Ki) 0 each TOP BEDTIME [facility] Last Admin: 01/24/20 21:21 Dose: Not Given Documented by: Roflumilast 500 Mcg (Ptom) 0 each PO DAILY [facility] Last Admin: 01/25/20 09:09 Dose: 1 each Documented by: Potassium Chloride (Klor-Con M20) 20 meq PO DAILY [facility] Last Admin: 01/25/20 09:08 Dose: 20 meq Documented by: Prednisone (Prednisone) 15 mg PO DAILY [facility] Last Admin: 01/25/20 09:06 Dose: 15 mg Documented by: Simvastatin (Zocor) 40 mg PO BEDTIME [facility] Last Admin: 01/24/20 20:41 Dose: 40 mg Documented by: Sodium Chloride (Saline Flush) 10 ml FLUSH ASDIRECTED PRN PRN Reason: Keep Vein Open Last Admin: 01/20/20 10:11 Dose: 10 ml Documented by: Sodium Chloride (Samoset Nasal [place]) 0 ml NASBOTH BID PRN PRN Reason: CONGESTION/DRYNESS Last Admin: 01/21/20 09:53 Dose: 1 spray Documented by: Tamsulosin HCl (Flomax) 0.4 mg PO DAILY [facility] Last Admin: 01/25/20 09:08 Dose: 0.4 mg Documented by: Discontinued Medications Albuterol/Ipratropium (Duoneb 3.0-0.5 Mg/3 Ml) 3 ml NEB Q6HRRT PRN PRN Reason: wheezing/SOB/cough Last Admin: 01/22/20 12:26 Dose: 3 ml Documented by: Docusate Sodium (Colace) 100 mg PO BID PRN PRN Reason: Constipation Last Admin: 01/23/20 11:40 Dose: 100 mg Documented by: Enoxaparin Sodium (Lovenox) 30 mg SUBCUT DAILY [facility] Last Admin: 01/21/20 09:52 Dose: 30 mg Documented by: Furosemide (Lasix) 40 mg IVPUSH NOW ONE Stop: 01/20/20 14:36 Last Admin: 01/20/20 16:35 Dose: 40 mg Documented by: Furosemide (Lasix) 40 mg IVPUSH DAILY [facility] Last Admin: 01/21/20 13:58 Dose: Not Given Documented by: Furosemide (Lasix) 40 mg IVPUSH Q24H [facility] Last Admin: 01/23/20 14:14 Dose: 40 mg Documented by: Sodium Chloride (Normal Saline) 1,000 mls @ 125 mls/hr IV ASDIRECTED [facility] Last Infusion: 01/20/20 12:45 Dose: Infused Documented by: Levofloxacin/Dextrose 750 mg/ (Premix) 150 mls @ 100 mls/hr IV ONETIME ONE Stop: 01/20/20 11:24 Last Admin: 01/20/20 10:15 Dose: 100 mls/hr Documented by: Sodium Chloride (Normal Saline) 500 mls @ 1,000 mls/hr IV .BOLUS ONE Stop: 01/20/20 11:14 Last Admin: 01/20/20 10:58 Dose: Not Given Documented by: Levofloxacin/Dextrose 750 mg/ (Premix) 150 mls @ 100 mls/hr IV Q24H [facility] Last Admin: 01/22/20 10:40 Dose: 100 mls/hr Documented by: Magnesium Sulfate (Magnesium Sulfate In Water Premix) 2 gm in 50 mls @ 25 mls/hr IV ONETIME ONE Stop: 01/20/20 18:29 Last Admin: 01/20/20 16:40 Dose: 25 mls/hr Documented by: Magnesium Sulfate 2 gm/ Premix 50 mls @ 25 mls/hr IV ONETIME ONE Stop: 01/21/20 10:21 Last Admin: 01/21/20 12:23 Dose: 25 mls/hr Documented by: Non-Formulary Medication (Mycophenolate Mofetil [Cellcept]) 2,500 mg PO BID [facility] Potassium Chloride (Klor-Con M20) 40 meq PO BID [facility] Stop: 01/21/20 21:01 Last Admin: 01/21/20 21:31 Dose: 40 meq Documented by: - Exam Quality Assessment: Reports: Supplemental Oxygen (3L), DVT Prophylaxis General: Reports: Alert, Oriented, Cooperative, No Acute Distress HEENT: Reports: Pupils Equal, Pupils Reactive, Mucous Membr. Moist/[place] Neck: Reports: Supple, Trachea Midline Lungs: Reports: Normal Respiratory Effort, Decreased Breath Sounds, Rhonchi (improved ) Cardiovascular: Reports: Regular Rate, Regular Rhythm, Other (Pacemaker ) GI/Abdominal Exam: Normal Bowel Sounds, Soft, Non-Tender, No Distention (Male) Exam: Deferred Rectal (Males) Exam: Deferred Back Exam: Reports: Normal Inspection, Full Range of Motion Extremities: Normal Inspection, Normal Range of Motion, Non-Tender, No Pedal Edema, Normal Capillary Refill Skin: Reports: Warm, Dry, Intact Neurological: Reports: No New Focal Deficit Psy/Mental Status: Reports: Alert, Normal Affect, Normal Mood
[2020-01-25 14:32] VITALS: BP 94/51; PULSE 107
== END 2020-01-25 15:28 | disposition home health service (06) | DRG 193 ==
LOC: JD.ED 09:22 → JD.MS 12:49
PROVIDERS: ADMIT Family Medicine; ATTEND Family Medicine
DX: J18.9 Pneumonia, unspecified organism (principal); A41.9 Sepsis, unspecified organism; I50.43 Acute on chronic combined systolic (congestive) and diastolic (congestive) heart failure; R65.20 Severe sepsis without septic shock; D84.9 Immunodeficiency, unspecified; R64 Cachexia; M30.1 Polyarteritis with lung involvement [Churg-Strauss]; J41.8 Mixed simple and mucopurulent chronic bronchitis; R09.02 Hypoxemia; E11.65 Type 2 diabetes mellitus with hyperglycemia; E83.42 Hypomagnesemia; J84.10 Pulmonary fibrosis, unspecified; I77.6 Arteritis, unspecified; E87.6 Hypokalemia; R32 Unspecified urinary incontinence; E88.09 Other disorders of plasma-protein metabolism, not elsewhere classified; I08.3 Combined rheumatic disorders of mitral, aortic and tricuspid valves; Z66 Do not resuscitate; H91.90 Unspecified hearing loss, unspecified ear; H54.7 Unspecified visual loss; Z87.891 Personal history of nicotine dependence; E78.00 Pure hypercholesterolemia, unspecified; R33.8 Other retention of urine; E55.9 Vitamin D deficiency, unspecified; E11.42 Type 2 diabetes mellitus with diabetic polyneuropathy; Z95.0 Presence of cardiac pacemaker; Z88.0 Allergy status to penicillin; I10 Essential (primary) hypertension; E11.40 Type 2 diabetes mellitus with diabetic neuropathy, unspecified; N40.1 Benign prostatic hyperplasia with lower urinary tract symptoms; R33.9 Retention of urine, unspecified; Z88.1 Allergy status to other antibiotic agents; Z88.8 Allergy status to other drugs, medicaments and biological substances; Z99.81 Dependence on supplemental oxygen; Z98.49 Cataract extraction status, unspecified eye; Z90.49 Acquired absence of other specified parts of digestive tract; Z88.2 Allergy status to sulfonamides; Z79.84 Long term (current) use of oral hypoglycemic drugs; Z79.82 Long term (current) use of aspirin; Z79.899 Other long term (current) drug therapy; Z20.828 Contact with and (suspected) exposure to other viral communicable diseases
CPT/HCPCS: 0240U; 36415; 71045; 80048; 80053; 81001; 82728; 82962; 83036; 83540; 83605; 83615; 83735; 83880; 84100; 84466; 84484; 85025; 85610; 85730; 86140; 87040; 87070; 87088; 87106; 87186; 87205; 93005; 93306; 94640; 94668; 94760; 94761; 96365; 96366; 97163; 97165; 97535; 99285; 99284; A9270-GY; J1650; J1815-GY; J1940; J1956; J3475; J7030; J7512; J7620-GY

== ENCOUNTER 2020-03-26 22:54 | Inpatient (IN) | payer MEDICARE, BC ==
[2020-03-26] MEDS ORDERED: Sodium Chloride 0.9% 1,000 ML IV ONE (23:30)
[2020-03-26] MEDS ORDERED: cefTRIAXone 1 GM in Sodium Chloride 0.9% 100 ML IV STA (23:30)
--- NOTE | 2020-03-26 23:37 | EDM.PDOC ---
ED HPI GENERAL MEDICAL PROBLEM - General Chief Complaint: Respiratory Problem Stated Complaint: SOB Time Seen by Provider: 03/26/20 23:10 Source of Information: Reports: Patient, Family (Daughter) History Limitations: Reports: No Limitations - History of Present Illness INITIAL COMMENTS - FREE TEXT/NARRATIVE: Mr. 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 No recent fever. He was given Tylenol tonight, otherwise, no specific treatments to address his symptoms. The patient's daughter tells me that the patient has had similar symptoms in the past, due to pneumonia. Here in the ED, the patient is initially found to be tachycardic at 112 bpm and tachypneic at 38 rpm, otherwise, he is hemodynamically stable, afebrile, initially saturating 87% on 4 L of oxygen per nasal cannula, later up to 100% on 4 L of oxygen per nasal cannula. Prior to 2 to 3 days ago, the patient denies having a recent fever, chills, sore throat, ear pain, nasal or sinus congestion, cough, chest pain, palpitations, nausea, vomiting, constipation, diarrhea, abdominal pain, urinary symptoms, recent weight gain or weight loss, recent bloody bowel movements or black bowel movements, recent joint aches, headaches, or rashes. The patient's PCP is Dr. Shara Castillo. His pulmonary midlevel is Carolyn Atkinson NP. His Game Farm Supervisor is Dr. Alfonso Chappell. His Urologist is Dr. Randall Priest. The patient states that he has already received an influenza vaccine this season. - Related Data Allergies Allergy/AdvReac Type Severity Reaction Status Date / Time alendronate sodium Allergy Intermediate Rash Verified 03/26/20 23:18 [From Fosamax] amoxicillin trihydrate Allergy Intermediate Rash Verified 03/26/20 23:18 [From Augmentin] azathioprine [From Imuran] Allergy Intermediate Rash Verified 03/26/20 23:18 azathioprine sodium Allergy Intermediate Rash Verified 03/26/20 23:18 [From Imuran] azithromycin [From Zithromax] Allergy Intermediate Rash Verified 03/26/20 23:18 cefuroxime axetil Allergy Intermediate Rash Verified 03/26/20 23:18 [From Ceftin] clindamycin Allergy Intermediate Rash Verified 03/26/20 23:18 methotrexate Allergy Intermediate Rash Verified 03/26/20 23:18 potassium clavulanate Allergy Intermediate Rash Verified 03/26/20 23:18 [From Augmentin] rofecoxib [From Vioxx] Allergy Intermediate Rash Verified 03/26/20 23:18 Sulfa (Sulfonamide Allergy Intermediate Rash Verified 03/26/20 23:18 Antibiotics) atorvastatin calcium Allergy Unknown Cannot Verified 03/26/20 23:18 [From Lipitor] Remember Home Meds: Home Meds Albuterol [Ventolin HFA] 2 puff INH Q6H PRN 10/25/18 [History] Citalopram Hydrobromide [Celexa] 20 mg PO BEDTIME 10/25/18 [History] Multivitamin [Multivitamins] 1 tab PO DAILY 10/25/18 [History] Omeprazole Magnesium [Prilosec Otc] 40 mg PO BEDTIME 10/25/18 [History] Simvastatin 40 mg PO BEDTIME 10/25/18 [History] Ubidecarenone [Co Q-10] 100 mg PO DAILY 10/25/18 [History] guaiFENesin [Mucinex] 1,200 mg PO BID 10/25/18 [History] predniSONE [Prednisone] 15 mg PO DAILY 10/25/18 [History] Ascorbic Acid [Vitamin C] 500 mg PO BID 06/23/19 [History] Aspirin [Halfprin] 81 mg PO DAILY 06/23/19 [History] Denosumab [Prolia] 60 mg IM ASDIRECTED 06/23/19 [History] Lutein 6 mg PO BEDTIME 06/23/19 [History] Tamsulosin HCl 0.4 mg PO DAILY 06/23/19 [History] Fluticasone Propionate [Flonase Allergy Relief] 2 spray NASBOTH BID 11/27/19 [History] Potassium Chloride [Klor-Con M20] 20 meq PO DAILY 11/27/19 [History] dilTIAZem HCL [Dilt-Xr] 180 mg PO DAILY 11/27/19 [History] metFORMIN HCl [Metformin HCl] 500 mg PO DAILY 11/27/19 [History] Budesonide [Pulmicort] 1 unit INH BID 01/16/20 [History] Calcium Carbonate [Calcium] 600 mg PO BID 01/16/20 [History] Cholecalciferol (Vitamin D3) [Vitamin D3] 1,000 units PO BEDTIME 01/16/20 [History] Ciclopirox/Urea/Camph/Men/Euc [Ciclopirox 8% Treatment Kit] 1 applic TOP BEDTIME 01/16/20 [History] Magnesium Oxide [Magnesium] 400 mg PO BEDTIME 01/16/20 [History] Roflumilast [Daliresp] 500 mcg PO DAILY 01/16/20 [History] Sulfamethoxazole/Trimethoprim [Sulfamethoxazole-Tmp Ds Tablet] 1 tab PO MOWEFR 01/16/20 [History] Ferrous Sulfate [Iron] 325 mg PO BID 01/20/20 [History] Ipratropium/Albuterol Sulfate [Iprat-Albut 0.5-3(2.5) mg/3 ml] 1 unit IH Q4H PRN 01/20/20 [History] mycophenolate mofetiL [Cellcept] 1,000 mg PO QAM 01/22/20 [History] mycophenolate mofetiL [Cellcept] 1,500 mg PO QPM 01/22/20 [History] Acetaminophen 650 mg PO Q6HR PRN 03/26/20 [History] Aloe Vera/Sodium Chloride [[place] Saline Nasal Gel] 1 applic JENNY Q4H PRN 03/26/20 [History] Formoterol [Perforomist] 20 mcg INH BID 03/26/20 [History] Furosemide [Lasix] 60 mg PO DAILY 03/26/20 [History] Past Medical History HEENT History: Reports: Hard of Hearing (wears hearing aids), Impaired Vision (wears glasses) Cardiovascular History: Reports: Heart Failure (global systolic & diastolic, w/ LVEF 25-30% on echo 01/20/2020), High Cholesterol, Hypertension, Pulmonary Hypertension (severe), Other (See Below) (Eosinophilic granulomatosis with polyangiitis (EGPA), previously known as sharp Skyler vasculitis) Respiratory History: Reports: 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), COPD (PFT-proven, on 3L O2 continuously), 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) Gastrointestinal History: Reports: Colon Polyp, GERD Genitourinary History: Reports: BPH Musculoskeletal History: Reports: Osteoarthritis Endocrine/Metabolic History: Reports: Diabetes, Type II, Vitamin D Deficiency Oncologic (Cancer) History: Reports: Bladder, Squamous Cell Carcinoma - Infectious Disease History Infectious Disease History: Reports: Chicken Pox - Past Surgical History HEENT Surgical History: Reports: Cataract Surgery (bilateral) Cardiovascular Surgical History: Reports: Pacer (June 2019) GI Surgical History: Reports: Appendectomy, Cholecystectomy (around 2012), Colonoscopy (x 3) Neurological Surgical History: Reports: Lumbar Spine (kyphoplasty), Other (See Below) (Sural nerve biopsy attempted) Social & Family History - Tobacco Use Tobacco Use Status *Q: Former Tobacco User Years of Tobacco use: 27 Packs/Tins Daily: 0.6 Month/Year Tobacco Last Used: Quit 1984 - Caffeine Use Caffeine Use: Reports: Coffee Caffeine Use Comment: 1 cup of coffee per day - Alcohol Use Alcohol Use History: No - Recreational Drug Use Recreational Drug Use: No - Living Situation & Occupation Living situation: Reports: , with Family (Daughter + son-in-law) Occupation: Retired ED ROS GENERAL - Review of Systems Review Of Systems: Comprehensive ROS is negative, except as noted in HPI. ED EXAM, GENERAL - Physical Exam Exam: See Below Exam Limited By: No Limitations General Appearance: Alert, WD/WN, No Apparent Distress Eye Exam: Bilateral Eye: EOMI, Normal Inspection Ears: Normal External Exam, Hearing Grossly Normal Nose: Normal Inspection Throat/Mouth: Normal Inspection, Normal Lips, Normal Voice, No Airway Compromise Head: Atraumatic, Normocephalic Neck: Normal Inspection, Full Range of Motion Respiratory/Chest: No Respiratory Distress, No Accessory Muscle Use, Crackles (across entire left lung field and upper right lung field), Rales (across entire left lung field and upper right lung field). No: Wheezing Cardiovascular: Normal Peripheral Pulses, Regular Rate, Rhythm, No Gallop, No JVD, No Murmur, No Rub Peripheral Pulses: 3+: Radial (L), Radial (R) GI/Abdominal: Normal Bowel Sounds, Soft, Non-Tender, No Organomegaly, No Distention, No Abnormal Bruit, No Mass Back Exam: Normal Inspection, Full Range of Motion, NT Extremities: Normal Inspection, Normal Range of Motion, Normal Capillary Refill, Other (2-3+ pretibial pitting edema bilaterally, worse on the left than the right) Neurological: Alert, Oriented, Normal Cognition, No Motor/Sensory Deficits Psychiatric: Normal Affect Skin Exam: Warm, Dry, Intact, Normal Color, No Rash #1 Interpretation EKG Date: 03/27/20 Time: 23:08 Rhythm: Other (Sinus tachycardia with ventricular pacing) Rate (Beats/Min): 112 Comparison: No Change (01/20/2020) Course - Vital Signs Last Recorded V/S: Last Vital Signs Temp 36.2 C 03/26/20 23:01 Pulse 112 H 03/26/20 23:01 Resp 38 H 03/26/20 23:01 BP 115/81 03/26/20 23:01 Pulse Ox 92 L 03/27/20 05:56 - Orders/Labs/Meds Orders: Active Orders 24 hr Category Date Time Status EKG Documentation Completion [RC] STAT Care 03/26/20 23:15 Active Ang Chest [CT] Stat Exams 03/27/20 01:40 Taken Chest 1V Frontal [CR] Stat Exams 03/26/20 23:28 Taken CULTURE BLOOD [BC] Stat Lab 03/26/20 23:45 Received Blood Culture x2 Reflex Set [OM.PC] Stat Oth 03/26/20 23:28 Ordered Medication Orders Rivaroxaban (Xarelto) 15 mg PO BID KEANU Labs: Laboratory Tests 03/26/20 03/26/20 03/26/20 Range/Units 23:45 23:45 23:45 WBC 9.93 H (4.23-9.07) K/mm3 RBC 3.25 L (4.63-6.08) M/mm3 Hgb 8.7 L (13.7-17.5) gm/dl Hct 30.2 L (40.1-51.0) % MCV 92.9 H D (79.0-92.2) fl MCH 26.8 (25.7-32.2) pg MCHC 28.8 L (32.2-35.5) g/dl RDW Std Deviation 54.0 H (35.1-43.9) fL Plt Count 580 H D (163-337) K/mm3 MPV 8.5 L (9.4-12.3) fl Neutrophils % (Manual) 64 H (40-60) % Band Neutrophils % 6 (0-10) % Lymphocytes % (Manual) 17 L (20-40) % Atypical Lymphs % 0 % Monocytes % (Manual) 10 (2-10) % Eosinophils % (Manual) 3 (0.8-7.0) % Basophils % (Manual) 0 L (0.2-1.2) Platelet Estimate Adequate Hypochromasia 1+ slight Anisocytosis 1+ slight RBC Morph Comment Not Reportable PT 12.0 (9.7-12.0) SECONDS INR 1.12 APTT 26.2 (21.7-31.4) SECONDS D-Dimer, Quantitative 1.15 H (0.19-0.50) mg/L Puncture Site ABG pH (7.35-7.45) ABG pCO2 (35.0-45.0) mmHg ABG pO2 (80.0-100.0) mmHg ABG HCO3 (22.0-26.0) meq/L ABG O2 Saturation (96.0-97.0) % ABG Base Excess (-2-2.0) Bruno Test O2 Delivery Device Oxygen Flow Rate Sodium 146 H (136-145) mEq/L Potassium 4.3 (3.5-5.1) mEq/L Chloride 106 (98-107) mEq/L Carbon Dioxide 29 (21-32) mEq/L Anion Gap 15.3 H (5-15) BUN 14 (7-18) mg/dL Creatinine 0.9 (0.7-1.3) mg/dL Est Cr Clr Drug Dosing 57.22 mL/min Estimated GFR (MDRD) > 60 (>60) mL/min BUN/Creatinine Ratio 15.6 (14-18) Glucose 153 H (83-115) mg/dL Lactic Acid (0.4-2.0) mmol/L Calcium 9.0 (8.5-10.1) mg/dL Magnesium 2.0 (1.8-2.4) mg/dl Total Bilirubin 0.1 L (0.2-1.0) mg/dL AST 21 (15-37) U/L ALT 20 (16-63) U/L Alkaline Phosphatase 88 (46-116) U/L Troponin I 0.024 (0.00-0.056) ng/mL NT-Pro-B Natriuret Pep (0-450) pg/mL Total Protein 6.8 (6.4-8.2) g/dl Albumin 2.5 L (3.4-5.0) g/dl Globulin 4.3 gm/dL Albumin/Globulin Ratio 0.6 L (1-2) Influenza Type A RNA (NEGATIVE) Influenza Type B RNA (NEGATIVE) SARS-CoV-2 RNA ([facility]) (NEGATIVE) 03/26/20 03/26/20 03/26/20 Range/Units 23:45 23:45 23:58 WBC (4.23-9.07) K/mm3 RBC (4.63-6.08) M/mm3 Hgb (13.7-17.5) gm/dl Hct (40.1-51.0) % MCV (79.0-92.2) fl MCH (25.7-32.2) pg MCHC (32.2-35.5) g/dl RDW Std Deviation (35.1-43.9) fL Plt Count (163-337) K/mm3 MPV (9.4-12.3) fl Neutrophils % (Manual) (40-60) % Band Neutrophils % (0-10) % Lymphocytes % (Manual) (20-40) % Atypical Lymphs % % Monocytes % (Manual) (2-10) % Eosinophils % (Manual) (0.8-7.0) % Basophils % (Manual) (0.2-1.2) Platelet Estimate Hypochromasia Anisocytosis RBC Morph Comment PT (9.7-12.0) SECONDS INR APTT (21.7-31.4) SECONDS D-Dimer, Quantitative (0.19-0.50) mg/L Puncture Site Lt radial ABG pH 7.41 (7.35-7.45) ABG pCO2 46.0 H (35.0-45.0) mmHg ABG pO2 67.0 L (80.0-100.0) mmHg ABG HCO3 28.3 H (22.0-26.0) meq/L ABG O2 Saturation 92.1 L (96.0-97.0) % ABG Base Excess 3.7 H (-2-2.0) Bruno Test Positive O2 Delivery Device Nasal cannula Oxygen Flow Rate 4.0 Sodium (136-145) mEq/L Potassium (3.5-5.1) mEq/L Chloride (98-107) mEq/L Carbon Dioxide (21-32) mEq/L Anion Gap (5-15) BUN (7-18) mg/dL Creatinine (0.7-1.3) mg/dL Est Cr Clr Drug Dosing mL/min Estimated GFR (MDRD) (>60) mL/min BUN/Creatinine Ratio (14-18) Glucose (83-115) mg/dL Lactic Acid 3.0 H* (0.4-2.0) mmol/L Calcium (8.5-10.1) mg/dL Magnesium (1.8-2.4) mg/dl Total Bilirubin (0.2-1.0) mg/dL AST (15-37) U/L ALT (16-63) U/L Alkaline Phosphatase (46-116) U/L Troponin I (0.00-0.056) ng/mL NT-Pro-B Natriuret Pep 46299 H (0-450) pg/mL Total Protein (6.4-8.2) g/dl Albumin (3.4-5.0) g/dl Globulin gm/dL Albumin/Globulin Ratio (1-2) Influenza Type A RNA (NEGATIVE) Influenza Type B RNA (NEGATIVE) SARS-CoV-2 RNA ([facility]AN) (NEGATIVE) 03/27/20 Range/Units 00:14 WBC (4.23-9.07) K/mm3 RBC (4.63-6.08) M/mm3 Hgb (13.7-17.5) gm/dl Hct (40.1-51.0) % MCV (79.0-92.2) fl MCH (25.7-32.2) pg MCHC (32.2-35.5) g/dl RDW Std Deviation (35.1-43.9) fL Plt Count (163-337) K/mm3 MPV (9.4-12.3) fl Neutrophils % (Manual) (40-60) % Band Neutrophils % (0-10) % Lymphocytes % (Manual) (20-40) % Atypical Lymphs % % Monocytes % (Manual) (2-10) % Eosinophils % (Manual) (0.8-7.0) % Basophils % (Manual) (0.2-1.2) Platelet Estimate Hypochromasia Anisocytosis RBC Morph Comment PT (9.7-12.0) SECONDS INR APTT (21.7-31.4) SECONDS D-Dimer, Quantitative (0.19-0.50) mg/L Puncture Site ABG pH (7.35-7.45) ABG pCO2 (35.0-45.0) mmHg ABG pO2 (80.0-100.0) mmHg ABG HCO3 (22.0-26.0) meq/L ABG O2 Saturation (96.0-97.0) % ABG Base Excess (-2-2.0) Bruno Test O2 Delivery Device Oxygen Flow Rate Sodium (136-145) mEq/L Potassium (3.5-5.1) mEq/L Chloride (98-107) mEq/L Carbon Dioxide (21-32) mEq/L Anion Gap (5-15) BUN (7-18) mg/dL Creatinine (0.7-1.3) mg/dL Est Cr Clr Drug Dosing mL/min Estimated GFR (MDRD) (>60) mL/min BUN/Creatinine Ratio (14-18) Glucose (83-115) mg/dL Lactic Acid (0.4-2.0) mmol/L Calcium (8.5-10.1) mg/dL Magnesium (1.8-2.4) mg/dl Total Bilirubin (0.2-1.0) mg/dL AST (15-37) U/L ALT (16-63) U/L Alkaline Phosphatase (46-116) U/L Troponin I (0.00-0.056) ng/mL NT-Pro-B Natriuret Pep (0-450) pg/mL Total Protein (6.4-8.2) g/dl Albumin (3.4-5.0) g/dl Globulin gm/dL Albumin/Globulin Ratio (1-2) Influenza Type A RNA Negative (NEGATIVE) Influenza Type B RNA Negative (NEGATIVE) SARS-CoV-2 RNA ([facility]AN) Negative (NEGATIVE) Meds: Medications Generic Name Dose Route Start Last Admin Trade Name Freq PRN Reason Stop Dose Admin Rivaroxaban 15 mg 03/27/20 09:00 Xarelto PO BID KEANU Discontinued Medications Generic Name Dose Route Start Last Admin Trade Name [place] PRN Reason Stop Dose Admin Albuterol 2.5 mg 03/27/20 05:28 Proventil Bran Hilln NEB 03/27/20 05:29 ONETIME ONE Albuterol 2.5 mg 03/27/20 06:00 03/27/20 05:52 Proventil Bran Yung NEB 03/27/20 06:01 2.5 mg ONETIME ONE Administration Sodium Chloride 1,000 mls @ 999 mls/hr 03/26/20 23:30 03/27/20 00:12 Normal Saline IV 03/27/20 00:30 999 mls/hr ONETIME ONE Administration Ceftriaxone Sodium 1 gm/ 100 mls @ 200 mls/hr 03/26/20 23:30 03/27/20 00:12 Sodium Chloride IV 03/26/20 23:59 200 mls/hr ONETIME STA Administration Levofloxacin/Dextrose 750 mg/ 150 mls @ 100 mls/hr 03/27/20 01:40 03/27/20 01:51 Premix IV 03/27/20 03:09 100 mls/hr ONETIME STA Administration Sodium Chloride 100 mls @ 4 mls/sec 03/27/20 02:37 03/27/20 02:39 Normal Saline IV 03/27/20 02:38 4 mls/sec ONETIME ONE Administration Iopamidol 100 ml 03/27/20 02:37 03/27/20 02:38 Isovue-370 (76%) IVPUSH 03/27/20 02:38 100 ml ONETIME ONE Administration Rivaroxaban 15 mg 03/27/20 03:06 03/27/20 05:21 Xarelto PO 03/27/20 03:07 15 mg ONETIME STA Administration - Re-Assessments/Exams Free Text/Narrative Re-Assessment/Exam: 03/26/20 23:31 As above, the patient has had 2 to 3 days of increased dyspnea, cough productive of cream-colored sputum, audible crackles, and 2-3+ pitting edema of his bilateral lower extremities. No recent fever. He is tachycardic and somewhat tachypneic here in the ED, with an initial oxygen saturation of 87% on 4 L of oxygen per nasal cannula, but up to 100% while I was evaluating him here. An ECG obtained at triage demonstrates sinus tachycardia with ventricular pacing at 112 bpm. On exam, he does in fact have audible crackles, and crackles across his entire left lung field and upper right lung field, with rhonchi, but no wheezing. He has 2-3+ pitting edema of his bilateral lower extremities, worse on the left than the right. The remainder of his exam is grossly unremarkable. I have ordered a work-up that includes numerous blood tests, 2 sets of blood cultures, an ABG, a swab for the SARS-CoV-2 virus and influenza virus, and a portable chest x-ray. In the meantime, since there is a high likelihood that the patient is suffering from pneumonia, I have ordered 1 L of IV fluid and 1 g of IV Rocephin. 03/27/20 01:20 Portable chest radiograph reviewed. The cardiac silhouette is within normal limits. There are increased pulmonary markings consistent with [place] vascular congestion, although could be due to other etiologies such as pulmonary fibrosis. No pleural effusions seen on this AP view. There is a distinct middle lobe infiltrate, and a left lower lobe infiltrate cannot be ruled out, either. No pneumothorax. There is a left-sided 2 chamber pacer. Formal read per the Radiologist pending. The patient's CBC is remarkable for a WBC count modestly elevated at 9.93, with 6% bandemia. His H/H are mildly depressed at 8.7/30.2, with thrombocytosis of 580,000. His CMP is remarkable for slight hypernatremia of 146. His anion gap is slightly elevated at 15.3, but with a bicarbonate normal at 29. He has hyperglycemia of 153, with the remainder of his CMP being unremarkable. His magnesium level is within normal limits at 2.0. His lactic acid level is elevated at 3.0. His troponin is within normal limits at 0.024. His pro-BNP is significantly elevated at 12,871. His D-dimer is elevated at 1.15. His coags are within normal limits. His ABG demonstrates a primary metabolic alkalosis with secondary respiratory acidosis. His swab for the SARS-CoV-2 virus and influenza virus has returned negative for both. Review of prior labs finds the patient's pro-BNP to have been elevated at 10,701 on 01/20/2020. Based on the above, I have ordered discontinuation of the patient's IV fluid. He appears to be in decompensated CHF, although also appears to have middle lobe pneumonia and possible left lower lobe pneumonia. He will need to be admitted to the hospital. 03/27/20 01:34 Test results discussed with the patient and his daughter. It appears that the patient is suffering from both pneumonia and decompensated CHF. I recommended admission to the hospital, and the patient agreed. He would like to be DNR. 03/27/20 01:[address] oRsa, Hospitalist at this facility. He accepted the patient for admission. I will order a CT angiogram of the chest, and start the patient on Levaquin 750 mg IV. He asked that I write bridge orders. 03/27/20 02:52 CT angiogram of the chest is read by ad as: 1. Severe pulmonary fibrosis which has remained stable dating back to the prior study dated 11/27/2019. 2. Acute pulmonary emboli to the right lower lung as discussed above. This is new since the prior study [sic] 3. No significant RV strain. The above findings were discussed with the [facility] Radiologist Dr. Ric Bain at 02:47. He stated that he saw no evidence for pneumonia or pulmonary vascular congestion. Based on the above, the appearance of the patient's chest x-ray may be due to pulmonary fibrosis mimicking pulmonary vascular congestion and an infiltrate, and his elevated pro-BNP due to RV strain due to severe pulmonary hypertension due to his EGPA. If that is the case, then the patient does not need to be continued on antibiotics, however, he would need to be started on an anticoagulant, such as Xarelto. 03/27/20 03:06 Test results discussed with the patient. He seems understand what the situation is. He is not aware of any reason why he cannot be placed on an anticoagulant, therefore I have ordered a starting dose of Xarelto. I will place him into observation instead of full admission. Departure - Departure Time of Disposition: 03:08 Disposition: Refer to Observation Condition: Fair Clinical Impression: Pulmonary embolus - Discharge Information *PRESCRIPTION DRUG MONITORING PROGRAM REVIEWED*: Not Applicable *COPY OF PRESCRIPTION DRUG MONITORING REPORT IN PATIENT JONATHON: Not Applicable Sepsis Event Note (ED) - Evaluation Sepsis Screening Result: Possible Sepsis Risk - Focused Exam Vital Signs: Vital Signs Temp Pulse Resp BP Pulse Ox 03/26/20 23:01 36.2 C 112 H 38 H 115/81 87 L - My Orders Last 24 Hours: My Active Orders 03/26/20 23:15 EKG Documentation Completion [RC] STAT 03/26/20 23:28 Chest 1V Frontal [CR] Stat Blood Culture x2 Reflex Set [OM.PC] Stat 03/26/20 23:45 CULTURE BLOOD [BC] Stat 03/27/20 01:40 Ang Chest [CT] Stat - Assessment/Plan Last 24 Hours: My Active Orders 03/26/20 23:15 EKG Documentation Completion [RC] STAT 03/26/20 23:28 Chest 1V Frontal [CR] Stat Blood Culture x2 Reflex Set [OM.PC] Stat 03/26/20 23:45 CULTURE BLOOD [BC] Stat 03/27/20 01:40 Ang Chest [CT] Stat
[2020-03-27 01:06] LABS: CORONAVIRUS COVID-19 NAA NEGATIVE (NEGATIVE)
[2020-03-27] MEDS ORDERED: Levofloxacin/Dextrose 5%-Water 750 MG in Premix Bag 1 BAG IV STA (01:40)
[2020-03-27] MEDS ORDERED: Sodium Chloride 0.9% 100 ML IV ONE (02:37)
[2020-03-27] MEDS ORDERED: Iopamidol 755 Mg/ML 100 ML Bottle IVPUSH ONE (02:37)
[2020-03-27] MEDS ORDERED: Rivaroxaban 15 MG Tab PO STA (03:06)
[2020-03-27] MEDS ORDERED: Albuterol 0.083% 2.5 MG/3 ML Neb Soln NEB ONE ×2 (05:28→06:00)
--- NOTE | 2020-03-27 08:28 | PCM.HP.2 ---
H&P History of Present Illness - General Date of Service: 03/27/20 Admit Problem/Dx: Admission Diagnosis/Problem Admission Diagnosis/Problem Pulmonary embolism Source of Information: Patient, Provider, RN, RN Notes Reviewed History Limitations: Reports: No Limitations - History of Present Illness Initial Comments - Free Text/Narative: This is a 9-year-old male who presents to our ED on 03/26/2020 with shortness of breath. 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 He reports that he has increased dyspnea, cough productive of cream-colored sputum, audible crackles, to 3+ pitting edema in his bilateral lower extremities. Reports symptoms have been ongoing for 2 to 3 days. Denies any fever but states he did take Tylenol prior to coming to the ED. Patient has reportedly had similar symptoms in the past 2 to pneumonia. In the ED he is tachycardic at 112 bpm and tachypneic at 38 breaths/min. Initially he is 87% on 4 L of oxygen but on recheck he is 100% on 4 L of oxygen. Temp is 36.2 Celsius. Pressure 115/81. Twelve-lead EKG is obtained showing is sinus tachycardia with ventricular pacing at 112 bpm. There is no change from 01/20/2020. Labs are obtained showing a mild leukocytosis at 9.93. Hemoglobin is 8.7. Platelets are 580,000. Neutrophils are elevated at 64%. There is 6% band neutrophils noted. INR is 1.12. D-dimer is 1.15. Sodium is 146. Potassium 4.3. Chloride 106. Carbon dioxide 29. Anion gap is 15.3. BUN is 14, creatinine 0.9, GFR greater than 60. Glucose is 153. Calcium is 9.0. Magnesium is 2.0. Bilirubin is 0.1. AST is 21, ALT 20, alkaline phosphatase 88. Troponin is 0.024. Protein 6.8. Albumin 2.5. Lactic acid is 3.0. proBNP is 12 871. ABGs obtained in the left radial with a pH of 7.41. PCO2 of 46.0. PO2 of 67.0. HCO3 of 20.3. O2 saturation is 92.1%. Base excess is 3.7. Influenza A, B, and SARS-CoV-2 RNA are all negative. Chest x-rays obtained showing an increased density in the right lung base which is thought to represent area of aspiration or pneumonia. There is also diffuse interstitial change which appears chronic in other findings which are stable. Blood cultures are obtained. Prior labs are reviewed showing elevated proBNP of 10,000 701 on 01/20/2020. He is given [address] angiogram of chest is obtained interpreted by Marley as "1. Severe pulmonary fibrosis which has remained stable dating back to the prior study dated 11/27/2019. 2. Acute pulmonary emboli to the right lower lung as discussed above. This is new since the prior study. 3. No significant RV strain." ED provider did call and discuss results with radiologist who believes that there is no evidence for pneumonia or pulmonary vascular congestion. Patient is started on Xarelto for his PE. He is placed in the observation status and admitted to the hospital. He carries a history of CHF, HLD, hypertension, pulmonary hypertension, eosinophilic granulomatosis with polyangiitis, asthma, COPD, pulmonary fibrosis, GERD, BPH, osteoarthritis, type II DM, vitamin D deficiencies, bladder cancer, squamous cell carcinoma. Does have a pacemaker which was placed on June 2019. He is a former smoker who quit in 1984. His PCP is Dr. Shara Castillo. Pulmonary provider is Luiz Atkinson NP. His cable respooler is Dr. Alfonso Chappell. His urologist is Dr. Randall Priest. - Related Data Allergies/Adverse Reactions: Allergies Allergy/AdvReac Type Severity Reaction Status Date / Time alendronate sodium Allergy Intermediate Rash Verified 03/26/20 23:18 [From Fosamax] amoxicillin trihydrate Allergy Intermediate Rash Verified 03/26/20 23:18 [From Augmentin] azathioprine [From Imuran] Allergy Intermediate Rash Verified 03/26/20 23:18 azathioprine sodium Allergy Intermediate Rash Verified 03/26/20 23:18 [From Imuran] azithromycin [From Zithromax] Allergy Intermediate Rash Verified 03/26/20 23:18 cefuroxime axetil Allergy Intermediate Rash Verified 03/26/20 23:18 [From Ceftin] clindamycin Allergy Intermediate Rash Verified 03/26/20 23:18 methotrexate Allergy Intermediate Rash Verified 03/26/20 23:18 potassium clavulanate Allergy Intermediate Rash Verified 03/26/20 23:18 [From Augmentin] rofecoxib [From Vioxx] Allergy Intermediate Rash Verified 03/26/20 23:18 Sulfa (Sulfonamide Allergy Intermediate Rash Verified 03/26/20 23:18 Antibiotics) atorvastatin calcium Allergy Unknown Cannot Verified 03/26/20 23:18 [From Lipitor] Remember Home Medications: Home Meds Albuterol [Ventolin HFA] 2 puff INH Q6H PRN 10/25/18 [History] Citalopram Hydrobromide [Celexa] 20 mg PO BEDTIME 10/25/18 [History] Multivitamin [Multivitamins] 1 tab PO DAILY 10/25/18 [History] Omeprazole Magnesium [Prilosec Otc] 40 mg PO BEDTIME 10/25/18 [History] Simvastatin 40 mg PO BEDTIME 10/25/18 [History] Ubidecarenone [Co Q-10] 100 mg PO DAILY 10/25/18 [History] guaiFENesin [Mucinex] 1,200 mg PO BID PRN 10/25/18 [History] predniSONE [Prednisone] 15 mg PO DAILY 10/25/18 [History] Ascorbic Acid [Vitamin C] 500 mg PO BID 06/23/19 [History] Aspirin [Halfprin] 81 mg PO DAILY 06/23/19 [History] Denosumab [Prolia] 60 mg IM ASDIRECTED 06/23/19 [History] Lutein 6 mg PO BEDTIME 06/23/19 [History] Tamsulosin HCl 0.4 mg PO DAILY 06/23/19 [History] Fluticasone Propionate [Flonase Allergy Relief] 1 spray NASBOTH BID 11/27/19 [History] Potassium Chloride [Klor-Con M20] 20 meq PO DAILY 11/27/19 [History] dilTIAZem HCL [Dilt-Xr] 180 mg PO DAILY 11/27/19 [History] metFORMIN HCl [Metformin HCl] 500 mg PO DAILY 11/27/19 [History] Budesonide [Pulmicort] 1 unit INH BID 01/16/20 [History] Calcium Carbonate [Calcium] 600 mg PO BID 01/16/20 [History] Cholecalciferol (Vitamin D3) [Vitamin D3] 1,000 units PO BEDTIME 01/16/20 [History] Ciclopirox/Urea/Camph/Men/Euc [Ciclopirox 8% Treatment Kit] 1 applic TOP BEDTIME 01/16/20 [History] Magnesium Oxide [Magnesium] 400 mg PO BEDTIME 01/16/20 [History] Roflumilast [Daliresp] 500 mcg PO DAILY 01/16/20 [History] Sulfamethoxazole/Trimethoprim [Sulfamethoxazole-Tmp Ds Tablet] 1 tab PO MOWEFR 01/16/20 [History] Ferrous Sulfate [Iron] 325 mg PO BID 01/20/20 [History] Ipratropium/Albuterol Sulfate [Iprat-Albut 0.5-3(2.5) mg/3 ml] 1 unit IH Q6H PRN 01/20/20 [History] mycophenolate mofetiL [Cellcept] 1,000 mg PO QAM 01/22/20 [History] mycophenolate mofetiL [Cellcept] 1,500 mg PO QPM 01/22/20 [History] Acetaminophen 650 mg PO Q6HR PRN 03/26/20 [History] Aloe Vera/Sodium Chloride [[place] Saline Nasal Gel] 1 applic JENNY Q4H PRN 03/26/20 [History] Formoterol [Perforomist] 20 mcg INH BID 03/26/20 [History] Furosemide [Lasix] 60 mg PO DAILY 03/26/20 [History] Past Medical History HEENT History: Reports: Hard of Hearing, Impaired Vision Other HEENT History: wears glasses Cardiovascular History: Reports: Heart Failure, High Cholesterol, Hypertension, Pulmonary Hypertension, Other (See Below) Other Cardiovascular History: Churg-Marcella Syndrome/vasculitis Respiratory History: Reports: Asthma, COPD, Pulmonary Fibrosis Other Respiratory History: Chronic oxygen use Gastrointestinal History: Reports: Colon Polyp, GERD Genitourinary History: Reports: BPH Other Genitourinary History: possible urinary retention...started Flomax on 06-18-2019 Musculoskeletal History: Reports: Osteoarthritis Other Musculoskeletal History: chronic left knee pain Neurological History: Reports: Other (See Below) Other Neuro History: bilateral numb 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 Psychiatric History: Reports: Depression Other Psychiatric History: situational depression Endocrine/Metabolic History: Reports: Diabetes, Type II, Vitamin D Deficiency Other Endocrine/Metabolic History: Provider told him that 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 Hematologic History: Reports: Iron Deficiency, Other (See Below) Other Hematologic History: vitamin d deficiency Immunologic History: Reports: None Oncologic (Cancer) History: Reports: Bladder, Squamous Cell Carcinoma Dermatologic History: Reports: Cellulitis Other Dermatologic History: Current cellulits has been treated with 20 days of antibiotics, completed course on 01/03/15 - Infectious Disease History Infectious Disease History: Reports: Chicken Pox, Measles - Past Surgical History Head Surgeries/Procedures: Reports: None HEENT Surgical History: Reports: Cataract Surgery Other HEENT Surgeries/Procedures: pt has full upper, lower partial and bilateral hearing aids Cardiovascular Surgical History: Reports: Pacer Respiratory Surgical History: Reports: None GI Surgical History: Reports: Appendectomy, Cholecystectomy, Colonoscopy Male Surgical History: Reports: None Endocrine Surgical History: Reports: None Neurological Surgical History: Reports: Lumbar Spine, Other (See Below) Musculoskeletal Surgical History: Reports: Other (See Below) Other Musculoskeletal Surgeries/Procedures:: kyphoplasty Oncologic Surgical History: Reports: None Social & Family History - Family History Family Medical History: No Pertinent Family History Cardiac: Reports: Other (See Below) Other Cardiac Family History: Brother recently passed after open heart surgery. Respiratory: Reports: COPD, Other (See Below) Other Respiratory Family Hisory: brother Endocrine/Metabolic: Reports: Diabetes, type II, Other (See Below) Other Endocrine/Metabolic Family History: 2 brothers Oncologic: Reports: Other (See Below) Other Oncologic Family History: brother-unknown type - Tobacco Use Tobacco Use Status *Q: Former Tobacco User Years of Tobacco use: 27 Packs/Tins Daily: 0.6 Used Tobacco, but Quit: Yes Month/Year Tobacco Last Used: Quit 1984 - Caffeine Use Caffeine Use: Reports: Coffee Caffeine Use Comment: 1 cup of coffee per day - Recreational Drug Use Recreational Drug Use: No - Living Situation & Occupation Living situation: Reports: , with Family (Daughter + son-in-law) Occupation: Retired H&P Review of Systems - Review of Systems: Review Of Systems: See Below General: Reports: No Symptoms, Weakness. Denies: Fever, Chills, Malaise, Fatigue HEENT: Reports: No Symptoms. Denies: Headaches, Sore Throat Pulmonary: Reports: Shortness of Breath, Wheezing, Cough, Sputum. Denies: Pleuritic Chest Pain Cardiovascular: Reports: Dyspnea on Exertion, Edema. Denies: Chest Pain, Palpitations, Lightheadedness Gastrointestinal: Reports: No Symptoms. Denies: Abdominal Pain, Constipation, Diarrhea, Nausea, Vomiting Genitourinary: Reports: No Symptoms. Denies: Pain Musculoskeletal: Reports: No Symptoms Skin: Reports: No Symptoms. Denies: Cyanosis Psychiatric: Reports: No Symptoms. Denies: Confusion Neurological: Reports: No Symptoms. Denies: Confusion, Pre-Existing Deficit, Difficulty Walking, Gait Disturbance Hematologic/Lymphatic: Reports: No Symptoms Immunologic: Reports: No Symptoms Exam - Exam Exam: See Below - Vital Signs Vital Signs: Last Vital Signs Temp 98.1 F 03/27/20 07:29 Pulse 126 H 03/27/20 07:29 Resp 16 03/27/20 07:29 BP 110/54 L 03/27/20 07:29 Pulse Ox 92 L 03/27/20 07:29 Weight: 133 lb 3.2 oz - Exam Quality Assessment: Supplemental Oxygen (4L), DVT Prophylaxis. No: Urinary Catheter General: Alert, Oriented, Cooperative. No: Mild Distress HEENT: Conjunctiva Clear, EACs Clear, Mucosa Moist & [place], Posterior Pharynx Clear Neck: Supple, Trachea Midline Lungs: Normal Respiratory Effort, Decreased Breath Sounds, Crackles, Rales, Wheezing Cardiovascular: Regular Rate, Regular Rhythm GI/Abdominal Exam: Normal Bowel Sounds, Soft, Non-Tender, No Distention (Male) Exam: Deferred Rectal (Males) Exam: Deferred Back Exam: Normal Inspection, Full Range of Motion Extremities: Normal Inspection, Normal Range of Motion, Non-Tender, Normal Capillary Refill, Pedal Edema (2-3+ L>R) Skin: Warm, Dry, Intact Neurological: Cranial Nerves Intact (Grossly ) Neuro Extensive - Mental Status: Alert, Oriented x3 - Patient Data Lab Results Last 24 hrs: Laboratory Results - last 24 hr 03/26/20 03/26/20 03/26/20 Range/Units 23:45 23:45 23:45 WBC 9.93 H (4.23-9.07) K/mm3 RBC 3.25 L (4.63-6.08) M/mm3 Hgb 8.7 L (13.7-17.5) gm/dl Hct 30.2 L (40.1-51.0) % MCV 92.9 H D (79.0-92.2) fl MCH 26.8 (25.7-32.2) pg MCHC 28.8 L (32.2-35.5) g/dl RDW Std Deviation 54.0 H (35.1-43.9) fL Plt Count 580 H D (163-337) K/mm3 MPV 8.5 L (9.4-12.3) fl Neutrophils % (Manual) 64 H (40-60) % Band Neutrophils % 6 (0-10) % Lymphocytes % (Manual) 17 L (20-40) % Atypical Lymphs % 0 % Monocytes % (Manual) 10 (2-10) % Eosinophils % (Manual) 3 (0.8-7.0) % Basophils % (Manual) 0 L (0.2-1.2) Platelet Estimate Adequate Hypochromasia 1+ slight Anisocytosis 1+ slight RBC Morph Comment Not Reportable PT 12.0 (9.7-12.0) SECONDS INR 1.12 APTT 26.2 (21.7-31.4) SECONDS D-Dimer, Quantitative 1.15 H (0.19-0.50) mg/L Puncture Site ABG pH (7.35-7.45) ABG pCO2 (35.0-45.0) mmHg ABG pO2 (80.0-100.0) mmHg ABG HCO3 (22.0-26.0) meq/L ABG O2 Saturation (96.0-97.0) % ABG Base Excess (-2-2.0) Bruno Test O2 Delivery Device Oxygen Flow Rate Sodium 146 H (136-145) mEq/L Potassium 4.3 (3.5-5.1) mEq/L Chloride 106 (98-107) mEq/L Carbon Dioxide 29 (21-32) mEq/L Anion Gap 15.3 H (5-15) BUN 14 (7-18) mg/dL Creatinine 0.9 (0.7-1.3) mg/dL Est Cr Clr Drug Dosing 57.22 mL/min Estimated GFR (MDRD) > 60 (>60) mL/min BUN/Creatinine Ratio 15.6 (14-18) Glucose 153 H (83-115) mg/dL Lactic Acid (0.4-2.0) mmol/L Calcium 9.0 (8.5-10.1) mg/dL Magnesium 2.0 (1.8-2.4) mg/dl Total Bilirubin 0.1 L (0.2-1.0) mg/dL AST 21 (15-37) U/L ALT 20 (16-63) U/L Alkaline Phosphatase 88 (46-116) U/L Troponin I 0.024 (0.00-0.056) ng/mL NT-Pro-B Natriuret Pep (0-450) pg/mL Total Protein 6.8 (6.4-8.2) g/dl Albumin 2.5 L (3.4-5.0) g/dl Globulin 4.3 gm/dL Albumin/Globulin Ratio 0.6 L (1-2) Influenza Type A RNA (NEGATIVE) Influenza Type B RNA (NEGATIVE) SARS-CoV-2 RNA ([facility]) (NEGATIVE) 03/26/20 03/26/20 03/26/20 Range/Units 23:45 23:45 23:58 WBC (4.23-9.07) K/mm3 RBC (4.63-6.08) M/mm3 Hgb (13.7-17.5) gm/dl Hct (40.1-51.0) % MCV (79.0-92.2) fl MCH (25.7-32.2) pg MCHC (32.2-35.5) g/dl RDW Std Deviation (35.1-43.9) fL Plt Count (163-337) K/mm3 MPV (9.4-12.3) fl Neutrophils % (Manual) (40-60) % Band Neutrophils % (0-10) % Lymphocytes % (Manual) (20-40) % Atypical Lymphs % % Monocytes % (Manual) (2-10) % Eosinophils % (Manual) (0.8-7.0) % Basophils % (Manual) (0.2-1.2) Platelet Estimate Hypochromasia Anisocytosis RBC Morph Comment PT (9.7-12.0) SECONDS INR APTT (21.7-31.4) SECONDS D-Dimer, Quantitative (0.19-0.50) mg/L Puncture Site Lt radial ABG pH 7.41 (7.35-7.45) ABG pCO2 46.0 H (35.0-45.0) mmHg ABG pO2 67.0 L (80.0-100.0) mmHg ABG HCO3 28.3 H (22.0-26.0) meq/L ABG O2 Saturation 92.1 L (96.0-97.0) % ABG Base Excess 3.7 H (-2-2.0) Bruno Test Positive O2 Delivery Device Nasal cannula Oxygen Flow Rate 4.0 Sodium (136-145) mEq/L Potassium (3.5-5.1) mEq/L Chloride (98-107) mEq/L Carbon Dioxide (21-32) mEq/L Anion Gap (5-15) BUN (7-18) mg/dL Creatinine (0.7-1.3) mg/dL Est Cr Clr Drug Dosing mL/min Estimated GFR (MDRD) (>60) mL/min BUN/Creatinine Ratio (14-18) Glucose (83-115) mg/dL Lactic Acid 3.0 H* (0.4-2.0) mmol/L Calcium (8.5-10.1) mg/dL Magnesium (1.8-2.4) mg/dl Total Bilirubin (0.2-1.0) mg/dL AST (15-37) U/L ALT (16-63) U/L Alkaline Phosphatase (46-116) U/L Troponin I (0.00-0.056) ng/mL NT-Pro-B Natriuret Pep 24391 H (0-450) pg/mL Total Protein (6.4-8.2) g/dl Albumin (3.4-5.0) g/dl Globulin gm/dL Albumin/Globulin Ratio (1-2) Influenza Type A RNA (NEGATIVE) Influenza Type B RNA (NEGATIVE) SARS-CoV-2 RNA ([facility]) (NEGATIVE) 03/27/20 Range/Units 00:14 WBC (4.23-9.07) K/mm3 RBC (4.63-6.08) M/mm3 Hgb (13.7-17.5) gm/dl Hct (40.1-51.0) % MCV (79.0-92.2) fl MCH (25.7-32.2) pg MCHC (32.2-35.5) g/dl RDW Std Deviation (35.1-43.9) fL Plt Count (163-337) K/mm3 MPV (9.4-12.3) fl Neutrophils % (Manual) (40-60) % Band Neutrophils % (0-10) % Lymphocytes % (Manual) (20-40) % Atypical Lymphs % % Monocytes % (Manual) (2-10) % Eosinophils % (Manual) (0.8-7.0) % Basophils % (Manual) (0.2-1.2) Platelet Estimate Hypochromasia Anisocytosis RBC Morph Comment PT (9.7-12.0) SECONDS INR APTT (21.7-31.4) SECONDS D-Dimer, Quantitative (0.19-0.50) mg/L Puncture Site ABG pH (7.35-7.45) ABG pCO2 (35.0-45.0) mmHg ABG pO2 (80.0-100.0) mmHg ABG HCO3 (22.0-26.0) meq/L ABG O2 Saturation (96.0-97.0) % ABG Base Excess (-2-2.0) Bruno Test O2 Delivery Device Oxygen Flow Rate Sodium (136-145) mEq/L Potassium (3.5-5.1) mEq/L Chloride (98-107) mEq/L Carbon Dioxide (21-32) mEq/L Anion Gap (5-15) BUN (7-18) mg/dL Creatinine (0.7-1.3) mg/dL Est Cr Clr Drug Dosing mL/min Estimated GFR (MDRD) (>60) mL/min BUN/Creatinine Ratio (14-18) Glucose (83-115) mg/dL Lactic Acid (0.4-2.0) mmol/L Calcium (8.5-10.1) mg/dL Magnesium (1.8-2.4) mg/dl Total Bilirubin (0.2-1.0) mg/dL AST (15-37) U/L ALT (16-63) U/L Alkaline Phosphatase (46-116) U/L Troponin I (0.00-0.056) ng/mL NT-Pro-B Natriuret Pep (0-450) pg/mL Total Protein (6.4-8.2) g/dl Albumin (3.4-5.0) g/dl Globulin gm/dL Albumin/Globulin Ratio (1-2) Influenza Type A RNA Negative (NEGATIVE) Influenza Type B RNA Negative (NEGATIVE) SARS-CoV-2 RNA ([facility]) Negative (NEGATIVE) Result Diagrams: 03/26/20 23:45 03/26/20 23:45 Timothy Results Last 24 hrs: Microbiology 03/26/20 23:45 Anaerobic Blood Culture - Final Blood - Venous Sepsis Event Note - Evaluation Sepsis Screening Result: No Definite Risk - Focused Exam Vital Signs: Vital Signs Temp Temp Pulse Pulse Resp BP BP 03/27/20 07:29 98.1 F 126 H 16 110/54 L 03/27/20 05:59 76 03/27/20 05:56 03/27/20 05:54 97.9 F 38 H 100/53 L 03/26/20 23:01 97.1 F 112 H 38 H 115/81 Pulse Ox Pulse Ox 03/27/20 07:29 92 L 03/27/20 05:59 92 L 03/27/20 05:56 92 L 03/27/20 05:54 03/26/20 23:01 87 L - Problem List (1) Pulmonary embolus SNOMED Code(s): 80138067 ICD Code: I26.99 - OTHER PULMONARY EMBOLISM WITHOUT ACUTE COR PULMONALE Status: Acute Priority: High Current Visit: Yes Qualifiers: Pulmonary embolism type: unspecified Chronicity: acute Acute cor pulmonale presence: without acute cor pulmonale Qualified Code(s): I26.99 - Other pulmonary embolism without acute cor pulmonale (2) Pulmonary fibrosis SNOMED Code(s): 93212466 ICD Code: J84.10 - PULMONARY FIBROSIS, UNSPECIFIED Status: Chronic Priority: High Current Visit: Yes (3) Heart failure SNOMED Code(s): 57163225 ICD Code: I50.9 - HEART FAILURE, UNSPECIFIED Status: Chronic Priority: High Current Visit: Yes Qualifiers: Heart failure type: unspecified heart failure type Heart failure chronicity: unspecified heart failure chronicity (4) BPH (benign prostatic hyperplasia) SNOMED Code(s): 230350807 ICD Code: N40.0 - BENIGN PROSTATIC HYPERPLASIA WITHOUT LOWER URINRY TRACT SYMP Status: Chronic Priority: Medium Current Visit: No Qualifiers: Lower urinary tract symptom presence: symptoms absent Qualified Code(s): N40.0 - Benign prostatic hyperplasia without lower urinary tract symptoms (5) COPD (chronic obstructive pulmonary disease) SNOMED Code(s): 97070493 ICD Code: J44.9 - CHRONIC OBSTRUCTIVE PULMONARY DISEASE, UNSPECIFIED Status: Chronic Priority: High Current Visit: Yes Qualifiers: COPD type: 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 Qualified Code(s): J41.8 - Mixed simple and mucopurulent chronic bronchitis (6) Chronic steroid use SNOMED Code(s): 333917973 ICD Code: KTE2283 - Status: Chronic Priority: Medium Current Visit: No (7) Churg-Marcella syndrome with lung involvement SNOMED Code(s): 67917321 ICD Code: M30.1 - POLYARTERITIS WITH LUNG INVOLVEMENT [CHURG-MARCELLA] Status: Chronic Priority: High Current Visit: Yes (8) Immunocompromised SNOMED Code(s): 901913816 ICD Code: D84.9 - IMMUNODEFICIENCY, UNSPECIFIED Status: Chronic Priority: High Current Visit: Yes (9) Pacemaker SNOMED Code(s): 016133658 ICD Code: Z95.0 - PRESENCE OF CARDIAC PACEMAKER Status: Chronic Priority: Medium Current Visit: No (10) GERD (gastroesophageal reflux disease) SNOMED Code(s): 931753851 ICD Code: K21.9 - GASTRO-ESOPHAGEAL REFLUX DISEASE WITHOUT ESOPHAGITIS Status: Chronic Priority: Low Current Visit: No Qualifiers: Esophagitis presence: esophagitis presence not specified Qualified Code(s): K21.9 - Gastro-esophageal reflux disease without esophagitis (11) HLD (hyperlipidemia) SNOMED Code(s): 80477434 ICD Code: E78.5 - HYPERLIPIDEMIA, UNSPECIFIED Status: Chronic Priority: Low Current Visit: No Qualifiers: Hyperlipidemia type: unspecified Qualified Code(s): E78.5 - Hyperlipidemia, unspecified (12) HTN (hypertension) SNOMED Code(s): 52005605 ICD Code: I10 - ESSENTIAL (PRIMARY) HYPERTENSION Status: Chronic Priority: Medium Current Visit: No Qualifiers: Hypertension type: unspecified Qualified Code(s): I10 - Essential (primary) hypertension (13) Pulmonary hypertension SNOMED Code(s): 91612990 ICD Code: I27.20 - PULMONARY HYPERTENSION, UNSPECIFIED Status: Chronic Priority: Medium Current Visit: Yes (14) Asthma SNOMED Code(s): 603474094 ICD Code: J45.909 - UNSPECIFIED ASTHMA, UNCOMPLICATED Status: Resolved Priority: Medium Current Visit: Yes Qualifiers: Asthma severity: unspecified severity Asthma persistence: unspecified Asthma complication type: unspecified Qualified Code(s): J45.909 - Unspecified asthma, uncomplicated (15) Osteoarthritis SNOMED Code(s): 676027931 ICD Code: M19.90 - UNSPECIFIED OSTEOARTHRITIS, UNSPECIFIED SITE Status: Chronic Priority: Low Current Visit: No Qualifiers: Osteoarthritis location: unspecified site Osteoarthritis type: primary Qualified Code(s): M19.91 - Primary osteoarthritis, unspecified site (16) Type II diabetes mellitus SNOMED Code(s): 62102870 ICD Code: E11.9 - TYPE 2 DIABETES MELLITUS WITHOUT COMPLICATIONS Status: Chronic Priority: Medium Current Visit: No Qualifiers: Diabetes mellitus termite helper insulin use: without longterm use Diabetes mellitus complication status: with other specified complication Qualified Code(s): E11.69 - Type 2 diabetes mellitus with other specified complication (17) Vitamin D deficiency SNOMED Code(s): 49689870 ICD Code: E55.9 - VITAMIN D DEFICIENCY, UNSPECIFIED Status: Chronic Priority: Low Current Visit: No (18) History of bladder cancer SNOMED Code(s): 967784711, 182415144 ICD Code: Z85.51 - PERSONAL HISTORY OF MALIGNANT NEOPLASM OF BLADDER Status: Chronic Priority: Medium Current Visit: No (19) Former smoker SNOMED Code(s): 6635921 ICD Code: Z87.891 - PERSONAL HISTORY OF NICOTINE DEPENDENCE Status: Chronic Priority: Low Current Visit: No (20) Pneumonia SNOMED Code(s): 919817695 ICD Code: J18.9 - PNEUMONIA, UNSPECIFIED ORGANISM Status: Acute Priority: High Current Visit: No Qualifiers: Pneumonia type: due to unspecified organism Laterality: right Lung location: unspecified part of lung Qualified Code(s): J18.9 - Pneumonia, unspecified organism (21) Elevated lactic acid level SNOMED Code(s): 8280258 ICD Code: R79.89 - OTHER SPECIFIED ABNORMAL FINDINGS OF BLOOD CHEMISTRY Status: Acute Priority: High Current Visit: Yes Problem List Initiated/Reviewed/Updated: Yes Orders Last 24hrs: Active Orders 24 hr Category Date Time Status Patient Status [ADT] Routine ADT 03/27/20 05:12 Active Oxygen Therapy Adult [Oxygen Therapy] [RC] ASDIRECTED Care 03/27/20 05:46 Act carine RT Aerosol Therapy [RC] ASDIRECTED Care 03/27/20 05:29 Active Up With Assistance [RC] BID Care 03/27/20 05:46 Active Regular Diet [DIET] Diet 03/27/20 Breakfast Active Ang Chest [CT] Stat Exams 03/27/20 01:40 Taken Chest 1V Frontal [CR] Stat Exams 03/26/20 23:49 Taken CULTURE BLOOD [BC] Stat Lab 03/26/20 23:45 Results Rivaroxaban [Xarelto] Med 03/27/20 21:00 Active 15 mg PO BID Blood Culture x2 Reflex Set [OM.PC] Stat Oth 03/26/20 23:28 Ordered Resuscitation Status Routine Resus Stat 03/27/20 05:45 Ordered Medication Orders Rivaroxaban (Xarelto) 15 mg PO BID KEANU Assessment/Plan Comment:: Assessment - day of admission (03/27/20) * 79 yo male presents to ED with worsening dyspnea, productive cough, crackles, and edema. * Denies any recent fever or other infectious symptoms. * Normally on 3 L of home oxygen but requiring 4 here. 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 * Is immunocompromised * Twelve-lead EKG in ED shows sinus tachycardia 112 bpm with ventricular pacing. * Labs in ED: * WBC 9.93 * Hemoglobin 8.7 * Platelet 580 * Neutrophils 64% * Band neutrophils 6% * INR 1.12 * D-dimer 1.15 * Sodium 146 * Potassium 4.3 * Carbon dioxide 29 * Anion gap 15.3 * BUN 14, creatinine 0.9, GFR greater than 60 * Glucose 153 * Magnesium 2.0 * Total bilirubin 0.1 * AST 21, ALT 20, alkaline phosphatase 88 * Troponin 0 0.024 * Albumin 2.5 * Lactic acid 3.0 * proBNP 03401 * Influenza a and B negative * SARS Covid 2 RNA negative * ABG in left radial pH 7.41, PCO2 46.0, PO2 67, HCO3 28.3, O2 saturation 92.1, base excess 3.7. Obtained while on 4 L via NC. * Chest x-ray shows increasing density within the right lung base from prior chest x-rays most likely representing area of aspiration pneumonia. Diffuse interstitial change which appears chronic and other findings are also noted. * CTA obatined in ED due to elevated D-Dimer: * 1. Minimal area of pulmonary embolism within the segmental branch of the right lower lung * 2. Severe pulmonary fibrosis * 3. Focal area of increased density within the right middle lobe and right lower lobe. As mentioned above, this could represent worsening fibrosis but difficult to exclude areas of mild pneumonia. * (Of note: Per ED provider notes he discussed findings initially with the ad radiologist who felt patient does not have pneumonia or signs of CHF.) * Given Rocephin and Levaquin 1 dose each in ED. * Given albuterol nebulizers and started on 15 mg p.o. Xarelto. * Patient has severe baseline heart failure and pulmonary hypertension so IV fluids were discontinued in ED * Admitted to floor observation status. 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 Pulmonary hypertension Asthma Former smoker Elevated lactic acid * Start BID 15mg xarelto for PE * Continue Rocephin at 2gm due to questionable infiltrate * Repeat lactic acid * Continue home respiratory medications * PRN Albuterol and duonebs * IS/Acapella * RT consultation * Oxygen as needed - baseline 3L * Ambulate * Monitor daily labs * If IV fluids are needed be cautious as patient has sever HF and pulmonary hypertension * Blood cultures pending Type II diabetes mellitus * Hold home metformin * QID AC and bedtime glucose checks * Low intensity sliding scale insulin * ADA diet Heart failure BPH (benign prostatic hyperplasia) Pacemaker GERD (gastroesophageal reflux disease) HLD (hyperlipidemia) HTN (hypertension) Osteoarthritis Vitamin D deficiency History of bladder cancer * Telemetry * No current concerns * Review/reconcile home medications Code status: DNR/DNI PCP: Dr. Castillo Pulmonary provider: Carolyn Atkinson NP Licensed [employer] Agents: Dr. Hamilton Poddar Urologist: Dr. Randall Priest DVT prophylaxis: Xarelto Social: Patient lives with daughter and son in-law who provide care Disposition: Patient admitted observation status. Will upgrade to inpatient status due to questionable pneumonia. Prognosis: Poor overall prognosis given baseline severe pulmonary and cardiac disease - Mortality Measure Prognosis:: Poor
[2020-03-27] MEDS ORDERED: Acetaminophen 325 MG Tab PO PRN (08:38)
[2020-03-27] MEDS ORDERED: Sodium Chloride 0.65% Nasal Spray 45 ML Bottle NAS PRN (08:38)
[2020-03-27] MEDS ORDERED: Albuterol/Ipratropium 3.0-0.5 MG/3 ML Neb Soln NEB PRN (08:42)
[2020-03-27] MEDS ORDERED: Albuterol 0.083% 2.5 MG/3 ML Neb Soln NEB PRN (08:42)
[2020-03-27] MEDS ORDERED: Ondansetron 4 MG/2 ML SDV IV PRN (08:43)
[2020-03-27] MEDS ORDERED: Docusate Sodium 100 MG Cap PO PRN (08:43)
--- NOTE | 2020-03-27 09:06 | CR ---
Chest: Portable view of the chest was obtained. Comparison: Prior chest x-rays of 01/23/20, 01/20/20 and 06/23/19. Increasing density within the right base is seen from prior exam. Diffuse interstitial change is otherwise noted which appears stable. Heart size is normal. Tortuous thoracic aorta is seen. Pacemaker is seen. Bony structures are osteopenic. Chronic rotator cuff tear is noted within the right shoulder. Impression: 1. Increasing density within the right lung base from prior chest x-rays most likely representing areas of aspiration or pneumonia. 2. Diffuse interstitial change which appears chronic. 3. Other findings which are stable as noted above. Diagnostic code #3
--- NOTE | 2020-03-27 09:27 | CT ---
CT chest Technique: Multiple axial sections were obtained from above the lung apices inferiorly through the lung bases. Intravenous contrast was utilized. Study has been performed as a pulmonary angiogram protocol. Findings: Pulmonary arteries are fairly well opacified. Small filling defect is seen within the right segmental branch within the right lower lung compatible with minimal area of pulmonary embolism. No other findings of pulmonary embolism are seen. Thoracic aorta shows atherosclerotic change without aneurysm. Multiple mediastinal lymph nodes are seen which are fairly stable but most likely are chronic. No pericardial thickening is seen. Heart is felt to be slightly enlarged. No acute abdominal abnormality is appreciated. Prominent area of interstitial fibrosis is noted. There is felt to be mild asymmetric density within the right middle lobe and right lower lobe which could represent focal increased fibrosis or an area of pneumonia. No pleural effusions are seen. No pneumothorax is appreciated. Bone window settings were reviewed which show evidence of old healed right-sided rib fractures. There are areas of compression deformities within the lower thoracic and upper lumbar spine. Prior vertebroplasty is noted within one of these vertebral compression deformities. Several levels of spondylolisthesis are noted within the cervical spine which is most likely chronic. Impression: 1. Minimal area of pulmonary embolism within the segmental branch of the right lower lung. 2. Severe pulmonary fibrosis. 3. Focal area of increased density within the right middle lobe and right lower lung. As mentioned above, this could represent worsening fibrosis but difficult to exclude areas of mild pneumonia. Diagnostic code #3 I agree with preliminary report from [facility], finalized on 03/27/20, 3:49 AM DOCTOR'S ASSISTANT
[2020-03-27] MEDS: guaiFENesin 600 MG Tab.ER PO SCH ×2 (10:48→22:35)
[2020-03-27] MEDS: Aspirin 81 MG Tab.EC PO SCH (10:48)
[2020-03-27] MEDS: Multivitamins,Therapeutic Tab PO SCH (10:48)
[2020-03-27] MEDS: Ferrous Sulfate 324 MG Tab.EC PO SCH ×2 (10:49→22:36)
[2020-03-27] MEDS: Calcium Carbonate 600 MG Tab PO SCH ×2 (10:49→22:36)
[2020-03-27] MEDS ORDERED: IPRATROPIUM NEB PRN (12:26)
[2020-03-27] MEDS ORDERED: ALBUTEROL NEB PRN (12:26)
[2020-03-27] MEDS ORDERED: predniSONE 10 MG Tab **PTOM PO SCH (13:00)
[2020-03-27] MEDS ORDERED: Tamsulosin 0.4 MG Cap.ER **PTOM PO SCH (13:00)
[2020-03-27] MEDS ORDERED: Furosemide 40 MG Tab **PTOM PO SCH (13:00)
[2020-03-27] MEDS ORDERED: DILTIAZEM HCL 180 MG PO SCH (13:00)
[2020-03-27] MEDS: FORMOTEROL FUMARATE 20 MCG/2 ML INH SCH ×2 (13:12→20:16)
[2020-03-27] MEDS: Budesonide 0.5 MG/2 ML Neb Susp **PTOM INH SCH ×2 (13:14→20:16)
[2020-03-27] MEDS: Potassium Chloride 20 MEQ Tab.ER PO SCH (14:59)
[2020-03-27] MEDS: MYCOPHENOLATE MOFETIL 500 MG PO SCH ×2 (15:09→22:53)
[2020-03-27] MEDS: Roflumilast 500 MCG **PTOM PO SCH (15:11)
[2020-03-27] MEDS ORDERED: Lactated Ringers 1,000 ML IV SCH (15:45)
[2020-03-27] MEDS: LORazepam 0.5 MG Tab PO PRN (16:37)
[2020-03-27] MEDS ORDERED: OMEPRAZOLE MAGNESIUM 20 MG PO SCH (21:00)
[2020-03-27] MEDS ORDERED: Simvastatin 40 MG Tab **PTOM PO SCH (21:00)
[2020-03-27] MEDS ORDERED: Non-Formulary Medication 1 Each (Ciclopirox/Urea/Camph/Men/Euc [Ciclopirox 8% Treatment Ki TOP SCH (21:00)
[2020-03-27] MEDS: cefTRIAXone 2 GM in Sodium Chloride 0.9% 100 ML IV SCH (22:35)
[2020-03-27] MEDS: Magnesium Oxide 400 MG Tab PO SCH (22:35)
[2020-03-27] MEDS: Citalopram 20 MG Tab PO SCH (22:35)
[2020-03-27] MEDS: Rivaroxaban 15 MG Tab PO SCH (22:36)
[2020-03-27] MEDS: Cholecalciferol (Vitamin D3) 25 MCG Tab PO SCH (22:36)
[2020-03-28] MEDS: LORazepam 0.5 MG Tab PO PRN ×3 (00:13→21:52)
--- NOTE | 2020-03-28 07:30 | PCM.PN ---
- General Info Date of Service: 03/28/20 Admission Dx/Problem (Free Text): Admission Diagnosis/Problem Admission Diagnosis/Problem Pulmonary embolism Subjective Update: In to see Deepa. He reports he feels better today and his shortness of breath has improved. Lactic acid is down to normal and his white count is back to normal. He has been utilizing his incentive spirometer and Acapella. He is on his baseline 3 L of oxygen. Continue to improve. We will continue current treatment plan. Functional Status: Reports: Pain Controlled, Tolerating Diet, Ambulating, Urinating, Incentive Spirometry, Other (Acapella ). Denies: New Symptoms - Review of Systems General: Reports: Weakness (improving ). Denies: Fever, Fatigue, Malaise, Chills HEENT: Reports: No Symptoms. Denies: Headaches, Visual Changes Pulmonary: Reports: Shortness of Breath (improved), Cough (improved ), Sputum (improved ). Denies: Pleuritic Chest Pain Cardiovascular: Reports: Dyspnea on Exertion (improved ). Denies: Chest Pain, Palpitations Gastrointestinal: Reports: No Symptoms. Denies: Abdominal Pain, Constipation, D iarrhea, Nausea, Vomiting Genitourinary: Reports: No Symptoms. Denies: Pain Musculoskeletal: Reports: No Symptoms Skin: Reports: No Symptoms. Denies: Cyanosis Neurological: Reports: No Symptoms. Denies: Confusion, Difficulty Walking, Weakness, Gait Disturbance Psychiatric: Reports: No Symptoms - Patient Data Vitals - Most Recent: Last Vital Signs Temp 97.7 F 03/28/20 04:07 Pulse 96 03/28/20 04:07 Resp 16 03/28/20 04:07 BP 112/68 03/28/20 04:07 Pulse Ox 87 L 03/28/20 04:07 Weight - Most Recent: 131 lb 3.2 oz I&O - Last 24 Hours: Intake & Output 03/27/20 03/28/20 03/28/20 22:59 06:59 14:59 Intake Total 805 Balance 805 Lab Results Last 24 Hours: Laboratory Results - last 24 hr 03/27/20 03/27/20 03/27/20 Range/Units 14:47 14:56 17:10 WBC (4.23-9.07) K/mm3 RBC (4.63-6.08) M/mm3 Hgb (13.7-17.5) gm/dl Hct (40.1-51.0) % MCV (79.0-92.2) fl MCH (25.7-32.2) pg MCHC (32.2-35.5) g/dl RDW Std Deviation (35.1-43.9) fL Plt Count (163-337) K/mm3 MPV (9.4-12.3) fl Neut % (Auto) (34.0-67.9) % Lymph % (Auto) (21.8-53.1) % Calvert % (Auto) (5.3-12.2) % Eos % (Auto) (0.8-7.0) Baso % (Auto) (0.1-1.2) % Neut # (Auto) (1.78-5.38) K/mm3 Lymph # (Auto) (1.32-3.57) K/mm3 Calvert # (Auto) (0.30-0.82) K/mm3 Eos # (Auto) (0.04-0.54) K/mm3 Baso # (Auto) (0.01-0.08) K/mm3 Manual Slide Review Sodium (136-145) mEq/L Potassium (3.5-5.1) mEq/L Chloride (98-107) mEq/L Carbon Dioxide (21-32) mEq/L Anion Gap (5-15) BUN (7-18) mg/dL Creatinine (0.7-1.3) mg/dL Est Cr Clr Drug Dosing mL/min Estimated GFR (MDRD) (>60) mL/min BUN/Creatinine Ratio (14-18) Glucose (83-115) mg/dL POC Glucose 218 H 201 H (83-110) mg/dL Lactic Acid 2.7 H* (0.4-2.0) mmol/L Calcium (8.5-10.1) mg/dL Magnesium (1.8-2.4) mg/dl 03/27/20 03/28/20 03/28/20 Range/Units 20:54 04:19 04:19 WBC 6.72 (4.23-9.07) K/mm3 RBC 3.11 L (4.63-6.08) M/mm3 Hgb 8.0 L (13.7-17.5) gm/dl Hct 28.9 L (40.1-51.0) % MCV 92.9 H (79.0-92.2) fl MCH 25.7 (25.7-32.2) pg MCHC 27.7 L (32.2-35.5) g/dl RDW Std Deviation 53.6 H (35.1-43.9) fL Plt Count 522 H (163-337) K/mm3 MPV 8.4 L (9.4-12.3) fl Neut % (Auto) 65.7 (34.0-67.9) % Lymph % (Auto) 21.3 L (21.8-53.1) % Calvert % (Auto) 12.5 H (5.3-12.2) % Eos % (Auto) 0.3 L (0.8-7.0) Baso % (Auto) 0.1 (0.1-1.2) % Neut # (Auto) 4.41 (1.78-5.38) K/mm3 Lymph # (Auto) 1.43 (1.32-3.57) K/mm3 Calvert # (Auto) 0.84 H (0.30-0.82) K/mm3 Eos # (Auto) 0.02 L (0.04-0.54) K/mm3 Baso # (Auto) 0.01 (0.01-0.08) K/mm3 Manual Slide Review Abnormal smear Sodium 145 (136-145) mEq/L Potassium 4.0 (3.5-5.1) mEq/L Chloride 105 (98-107) mEq/L Carbon Dioxide 31 (21-32) mEq/L Anion Gap 13.0 (5-15) BUN 11 (7-18) mg/dL Creatinine 0.9 (0.7-1.3) mg/dL Est Cr Clr Drug Dosing 56.79 mL/min Estimated GFR (MDRD) > 60 (>60) mL/min BUN/Creatinine Ratio 12.2 L (14-18) Glucose 120 H (83-115) mg/dL POC Glucose 147 H (83-110) mg/dL Lactic Acid (0.4-2.0) mmol/L Calcium 8.8 (8.5-10.1) mg/dL Magnesium 2.1 (1.8-2.4) mg/dl Timothy Results Last 24 Hours: Microbiology 03/26/20 00:02 Aerobic Blood Culture - Preliminary Blood - Venous - Lab Draw NO GROWTH AFTER 1 DAY Anaerobic Blood Culture - Preliminary NO GROWTH AFTER 1 DAY 03/26/20 23:45 Aerobic Blood Culture - Preliminary Blood - Venous NO GROWTH AFTER 1 DAY Anaerobic Blood Culture - Final Med Orders - Current: Current Medications Acetaminophen (Tylenol) 650 mg PO Q6HR PRN PRN Reason: mild pain Albuterol (Proventil Neb Soln) 2.5 mg NEB Q2H PRN PRN Reason: sob/wheezing Albuterol/Ipratropium (Duoneb 3.0-0.5 Mg/3 Ml) 3 ml NEB Q6HRRT PRN PRN Reason: wheezing/SOB/cough Aspirin (Halfprin) 81 mg PO DAILY [facility] Last Admin: 03/27/20 10:48 Dose: 81 mg Documented by: Budesonide (Pulmicort) 0.5 mg INH BID [facility] Last Admin: 03/27/20 20:16 Dose: 0.5 mg Documented by: Calcium Carbonate/Glycine (Calcium Carbonate) 600 mg PO BID [facility] Last Admin: 03/27/20 22:36 Dose: 600 mg Documented by: Cholecalciferol (Vitamin D3) 25 mcg PO BEDTIME [facility] Last Admin: 03/27/20 22:36 Dose: 25 mcg Documented by: Citalopram Hydrobromide (Celexa) 20 mg PO BEDTIME [facility] Last Admin: 03/27/20 22:35 Dose: 20 mg Documented by: Docusate Sodium (Colace) 100 mg PO BID PRN PRN Reason: Constipation Ferrous Sulfate (Ferrous Sulfate) 324 mg PO BID [facility] Last Admin: 03/27/20 22:36 Dose: 324 mg Documented by: Furosemide (Lasix) 60 mg PO DAILY [facility] Last Admin: 03/27/20 15:07 Dose: 60 mg Documented by: Guaifenesin (Mucinex) 1,200 mg PO BID [facility] Last Admin: 03/27/20 22:35 Dose: 1,200 mg Documented by: Ceftriaxone Sodium 2 gm/ (Sodium Chloride) 100 mls @ 200 mls/hr IV Q24H [facility] Last Admin: 03/27/20 22:35 Dose: 200 mls/hr Documented by: Insulin Human Lispro (Humalog) 0 unit SUBCUT QIDACANDBED [facility]; Protocol Last Admin: 03/28/20 06:56 Dose: Not Given Documented by: Lorazepam (Ativan) 0.5 mg PO Q6H PRN PRN Reason: Anxiety Last Admin: 03/28/20 00:13 Dose: 0.5 mg Documented by: Magnesium Oxide (Magnesium Oxide) 400 mg PO BEDTIME [facility] Last Admin: 03/27/20 22:35 Dose: 400 mg Documented by: Multivitamins (Thera) 1 each PO DAILY [facility] Last Admin: 03/27/20 10:48 Dose: 1 each Documented by: Diltiazem Hcl [Dilt- (Xr] 180 Mg Ptom) 0 mg PO DAILY [facility] Last Admin: 03/27/20 16:02 Dose: Not Given Documented by: Formoterol Fumarate 20 Mcg/2 Ml ( Perforomist) Ptom 0 mcg INH BID [facility] Last Admin: 03/27/20 20:16 Dose: 20 mcg Documented by: Mycophenolate Mofetil 500 Mg Tab * *Ptom 0 each PO DAILY [facility] Last Admin: 03/27/20 15:09 Dose: 2 each Documented by: Mycophenolate Mofetil 500 Mg Tab * *Ptom 0 each PO BEDTIME [facility] Last Admin: 03/27/20 22:53 Dose: 1 each Documented by: Omeprazole Magnesium (20 Mg Cap Ptom) 0 mg PO BEDTIME [facility] Last Admin: 03/27/20 22:55 Dose: 40 mg Documented by: Roflumilast 500 Mcg (Ptom) 0 mcg PO DAILY [facility] Last Admin: 03/27/20 15:11 Dose: 500 mcg Documented by: Ondansetron HCl (Zofran) 4 mg IV Q6H PRN PRN Reason: Nausea/Vomiting Potassium Chloride (Klor-Con M20) 20 meq PO DAILY [facility] Last Admin: 03/27/20 14:59 Dose: 20 meq Documented by: Prednisone (Prednisone) 15 mg PO DAILY [facility] Last Admin: 03/27/20 15:11 Dose: 15 mg Documented by: Rivaroxaban (Xarelto) 15 mg PO BID [facility] Last Admin: 03/27/20 22:36 Dose: 15 mg Documented by: Simvastatin (Zocor) 40 mg PO BEDTIME [facility] Last Admin: 03/27/20 22:56 Dose: 40 mg Documented by: Sodium Chloride ([place] Nasal Chaplin) 0 ml JENNY Q4H PRN PRN Reason: Nasal Dryness Tamsulosin HCl (Flomax) 0.4 mg PO DAILY [facility] Last Admin: 03/27/20 15:06 Dose: 0.4 mg Documented by: Discontinued Medications Albuterol (Proventil Neb Soln) 2.5 mg NEB ONETIME ONE Stop: 03/27/20 05:29 Last Admin: 03/27/20 08:10 Dose: Not Given Documented by: Albuterol (Proventil Neb Soln) 2.5 mg NEB ONETIME ONE Stop: 03/27/20 06:01 Last Admin: 03/27/20 05:52 Dose: 2.5 mg Documented by: Albuterol/Ipratropium (Duoneb 3.0-0.5 Mg/3 Ml) 3 ml NEB Q6HRRT PRN PRN Reason: wheezing/SOB/cough Sodium Chloride (Normal Saline) 1,000 mls @ 999 mls/hr IV ONETIME ONE Stop: 03/27/20 00:30 Last Admin: 03/27/20 00:12 Dose: 999 mls/hr Documented by: Ceftriaxone Sodium 1 gm/ (Sodium Chloride) 100 mls @ 200 mls/hr IV ONETIME STA Stop: 03/26/20 23:59 Last Admin: 03/27/20 00:12 Dose: 200 mls/hr Documented by: Levofloxacin/Dextrose 750 mg/ (Premix) 150 mls @ 100 mls/hr IV ONETIME STA Stop: 03/27/20 03:09 Last Admin: 03/27/20 01:51 Dose: 100 mls/hr Documented by: Sodium Chloride (Normal Saline) 100 mls @ 4 mls/sec IV ONETIME ONE Stop: 03/27/20 02:38 Last Admin: 03/27/20 02:39 Dose: 4 mls/sec Documented by: Lactated Ringer's (Ringers, Lactated) 1,000 mls @ 75 mls/hr IV ASDIRECTED [facility] Stop: 03/28/20 05:04 Last Admin: 03/28/20 00:13 Dose: 75 mls/hr Documented by: Iopamidol (Isovue-370 (76%)) 100 ml IVPUSH ONETIME ONE Stop: 03/27/20 02:38 Last Admin: 03/27/20 02:38 Dose: 100 ml Documented by: Non-Formulary Medication (Ciclopirox/Urea/Camph/Men/Euc [Ciclopirox 8% Treatment Kit]) 1 applic TOP BEDTIME [facility] Rivaroxaban (Xarelto) 15 mg PO ONETIME STA Stop: 03/27/20 03:07 Last Admin: 03/27/20 05:21 Dose: 15 mg Documented by: - Exam Quality Assessment: Supplemental Oxygen (3L ), DVT Prophylaxis. No: Urine Catheter General: Alert, Oriented, Cooperative, No Acute Distress HEENT: Pupils Equal, Pupils Reactive, Mucous Membr. Moist/Hustler Neck: Supple, Trachea Midline Lungs: Decreased Breath Sounds, Crackles, Rhonchi, Wheezing Cardiovascular: Regular Rate, Regular Rhythm GI/Abdominal Exam: Normal Bowel Sounds, Soft, Non-Tender, No Distention (Male) Exam: Deferred Back Exam: Normal Inspection, Full Range of Motion Extremities: Normal Inspection, Normal Range of Motion, Non-Tender, No Pedal Edema, Normal Capillary Refill Skin: Warm, Dry, Intact Neurological: No New Focal Deficit Psy/Mental Status: Alert, Normal Affect, Normal Mood Sepsis Event Note - Evaluation Sepsis Screening Result: No Definite Risk - Focused Exam Vital Signs: Vital Signs Temp Pulse Resp BP Pulse Ox Pulse Ox 03/28/20 04:07 97.7 F 96 16 112/68 87 L 03/27/20 23:59 98.1 F 98 18 110/70 98 03/27/20 20:23 97 03/27/20 20:18 98 - Problem List & Annotations (1) Pulmonary embolus SNOMED Code(s): 28385366 Code(s): I26.99 - OTHER PULMONARY EMBOLISM WITHOUT ACUTE COR PULMONALE Status: Acute Priority: High Current Visit: Yes Qualifiers: Pulmonary embolism type: unspecified Chronicity: acute Acute cor pulmonale presence: without acute cor pulmonale Qualified Code(s): I26.99 - Other pulmonary embolism without acute cor pulmonale (2) Pulmonary fibrosis SNOMED Code(s): 91036666 Code(s): J84.10 - PULMONARY FIBROSIS, UNSPECIFIED Status: Chronic Priority: High Current Visit: Yes (3) Heart failure SNOMED Code(s): 75407861 Code(s): I50.9 - HEART FAILURE, UNSPECIFIED Status: Chronic Priority: High Current Visit: Yes Qualifiers: Heart failure type: unspecified heart failure type Heart failure chronicity: unspecified heart failure chronicity (4) BPH (benign prostatic hyperplasia) SNOMED Code(s): 546123887 Code(s): N40.0 - BENIGN PROSTATIC HYPERPLASIA WITHOUT LOWER URINRY TRACT SYMP Status: Chronic Priority: Medium Current Visit: No Qualifiers: Lower urinary tract symptom presence: symptoms absent Qualified Code(s): N40.0 - Benign prostatic hyperplasia without lower urinary tract symptoms (5) COPD (chronic obstructive pulmonary disease) SNOMED Code(s): 26045096 Code(s): J44.9 - CHRONIC OBSTRUCTIVE PULMONARY DISEASE, UNSPECIFIED Status: Chronic Priority: High Current Visit: Yes Qualifiers: COPD type: 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 Qualified Code(s): J41.8 - Mixed simple and mucopurulent chronic bronchitis (6) Chronic steroid use SNOMED Code(s): 684662643 Code(s): SOV6084 - Status: Chronic Priority: Medium Current Visit: No (7) Churg-Marcella syndrome with lung involvement SNOMED Code(s): 46803530 Code(s): M30.1 - POLYARTERITIS WITH LUNG INVOLVEMENT [CHURG-MARCELLA] Status: Chronic Priority: High Current Visit: Yes (8) Immunocompromised SNOMED Code(s): 808871780 Code(s): D84.9 - IMMUNODEFICIENCY, UNSPECIFIED Status: Chronic Priority: High Current Visit: Yes (9) Pacemaker SNOMED Code(s): 655795009 Code(s): Z95.0 - PRESENCE OF CARDIAC PACEMAKER Status: Chronic Priority: Medium Current Visit: No (10) GERD (gastroesophageal reflux disease) SNOMED Code(s): 814856594 Code(s): K21.9 - GASTRO-ESOPHAGEAL REFLUX DISEASE WITHOUT ESOPHAGITIS Sta tus: Chronic Priority: Low Current Visit: No Qualifiers: Esophagitis presence: esophagitis presence not specified Qualified Code(s): K21.9 - Gastro-esophageal reflux disease without esophagitis (11) HLD (hyperlipidemia) SNOMED Code(s): 57141811 Code(s): E78.5 - HYPERLIPIDEMIA, UNSPECIFIED Status: Chronic Priority: Low Current Visit: No Qualifiers: Hyperlipidemia type: unspecified Qualified Code(s): E78.5 - Hyperlipidemia, unspecified (12) HTN (hypertension) SNOMED Code(s): 19427009 Code(s): I10 - ESSENTIAL (PRIMARY) HYPERTENSION Status: Chronic Priority: Medium Current Visit: No Qualifiers: Hypertension type: unspecified Qualified Code(s): I10 - Essential (primary) hypertension (13) Pulmonary hypertension SNOMED Code(s): 02130256 Code(s): I27.20 - PULMONARY HYPERTENSION, UNSPECIFIED Status: Chronic Priority: Medium Current Visit: Yes (14) Asthma SNOMED Code(s): 338028268 Code(s): J45.909 - UNSPECIFIED ASTHMA, UNCOMPLICATED Status: Resolved Priority: Medium Current Visit: Yes Qualifiers: Asthma severity: unspecified severity Asthma persistence: unspecified Asthma complication type: unspecified Qualified Code(s): J45.909 - Unspecified asthma, uncomplicated (15) Osteoarthritis SNOMED Code(s): 011984820 Code(s): M19.90 - UNSPECIFIED OSTEOARTHRITIS, UNSPECIFIED SITE Status: Chronic Priority: Low Current Visit: No Qualifiers: Osteoarthritis location: unspecified site Osteoarthritis type: primary Qu alified Code(s): M19.91 - Primary osteoarthritis, unspecified site (16) Type II diabetes mellitus SNOMED Code(s): 50934765 Code(s): E11.9 - TYPE 2 DIABETES MELLITUS WITHOUT COMPLICATIONS Status: Chronic Priority: Medium Current Visit: No Qualifiers: Diabetes mellitus senior care insulin use: without senior care use Diabetes mellitus complication status: with other specified complication Qualified Code(s): E11.69 - Type 2 diabetes mellitus with other specified complication (17) Vitamin D deficiency SNOMED Code(s): 32615988 Code(s): E55.9 - VITAMIN D DEFICIENCY, UNSPECIFIED Status: Chronic Priority: Low Current Visit: No (18) History of bladder cancer SNOMED Code(s): 068935823, 257561698 Code(s): Z85.51 - PERSONAL HISTORY OF MALIGNANT NEOPLASM OF BLADDER Status: Chronic Priority: Medium Current Visit: No (19) Former smoker SNOMED Code(s): 1126258 Code(s): Z87.891 - PERSONAL HISTORY OF NICOTINE DEPENDENCE Status: Chronic Priority: Low Current Visit: No (20) Pneumonia SNOMED Code(s): 166056488 Code(s): J18.9 - PNEUMONIA, UNSPECIFIED ORGANISM Status: Acute Priority: High Current Visit: No Qualifiers: Pneumonia type: due to unspecified organism Laterality: right Lung location: unspecified part of lung Qualified Code(s): J18.9 - Pneumonia, unspecified organism (21) Elevated lactic acid level SNOMED Code(s): 3919912 Code(s): R79.89 - OTHER SPECIFIED ABNORMAL FINDINGS OF BLOOD CHEMISTRY Status: Acute Priority: High Current Visit: Yes - Problem List Review Problem List Initiated/Reviewed/Updated: Yes - My Orders Last 24 Hours: My Active Orders 03/27/20 08:38 Acetaminophen [TylenoL] 650 mg PO Q6HR PRN Sodium Chloride 0.65% [[place] Nasal Chaplin] 0 ml JENNY Q4H PRN 03/27/20 08:40 RT Aerosol Therapy [RC] ASDIRECTED 03/27/20 08:42 RT Aerosol Therapy [RC] ASDIRECTED Albuterol [Proventil Neb Soln] 2.5 mg NEB Q2H PRN 03/27/20 08:43 Height and Weight [RC] 06 Intake and Output [RC] 04,16 Pulse Oximetry [RC] PRN VTE/DVT Education [RC] DAILY Vital Signs [RC] Q4H Consult to Case Management/Tank Crewmember [CONS] Routine Consult to Spiritual Care [CONS] Routine OT Evaluation and Treatment [CONS] Routine PT Evaluation and Treatment [CONS] Routine Respiratory Care Assess and Treatment [CONS] Routine Docusate Sodium [Colace] 100 mg PO BID PRN Ondansetron [Zofran] 4 mg IV Q6H PRN 03/27/20 08:54 Accu Check [Blood Glucose Check, Bedside] [RC] QIDACANDBED 03/27/20 09:00 Aspirin [Halfprin] 81 mg PO DAILY Calcium Carbonate 600 mg PO BID Ferrous Sulfate 324 mg PO BID Multivitamins,Therapeutic [Thera] 1 each PO DAILY guaiFENesin [Mucinex] 1,200 mg PO BID 03/27/20 Lunch ADA Diabetic [[place] [employer] Diet] [DIET] Insulin Lispro [HumaLOG] See Protocol SUBCUT QIDACANDBED 03/27/20 12:26 Albuterol/Ipratropium [DuoNeb 3.0-0.5 MG/3 ML] 3 ml NEB Q6HRRT PRN 03/27/20 13:00 Budesonide [Pulmicort] 0.5 mg INH BID Formoterol 0 mcg INH BID Furosemide [Lasix] 60 mg PO DAILY Non-Formulary Medication [NF Drug] 0 each PO DAILY Potassium Chloride [Klor-Con M20] 20 meq PO DAILY Roflumilast 0 mcg PO DAILY Tamsulosin [Flomax] 0.4 mg PO DAILY dilTIAZem HCL [Dilt-Xr] 0 mg PO DAILY predniSONE 15 mg PO DAILY 03/27/20 14:40 Patient Status [ADT] Routine 03/27/20 21:00 Cholecalciferol (Vitamin D3) [Vitamin D3] 25 mcg PO BEDTIME Citalopram [Celexa] 20 mg PO BEDTIME Magnesium Oxide 400 mg PO BEDTIME Non-Formulary Medication [NF Drug] 0 each PO BEDTIME Omeprazole Magnesium [Prilosec Otc] 0 mg PO BEDTIME Simvastatin [Zocor] 40 mg PO BEDTIME 03/27/20 22:00 cefTRIAXone [Rocephin] 2 gm Sodium Chloride 0.9% [Normal Saline] 100 ml IV Q24H 03/29/20 05:11 BASIC METABOLIC PANEL,BMP [CHEM] AM CBC WITH AUTO DIFF [HEME] AM MAGNESIUM [CHEM] AM 03/30/20 05:11 BASIC METABOLIC PANEL,BMP [CHEM] AM CBC WITH AUTO DIFF [HEME] AM MAGNESIUM [CHEM] AM 03/31/20 05:11 BASIC METABOLIC PANEL,BMP [CHEM] AM CBC WITH AUTO DIFF [HEME] AM MAGNESIUM [CHEM] AM - Assessment Assessment:: Assessment - day of admission (03/27/20) * 79 yo male presents to ED with worsening dyspnea, productive cough, crackles, and edema. * Denies any recent fever or other infectious symptoms. * Normally on 3 L of home oxygen but requiring 4 here. 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 * Is immunocompromised * Twelve-lead EKG in ED shows sinus tachycardia 112 bpm with ventricular pacing. * Labs in ED: * WBC 9.93 * Hemoglobin 8.7 * Platelet 580 * Neutrophils 64% * Band neutrophils 6% * INR 1.12 * D-dimer 1.15 * Sodium 146 * Potassium 4.3 * Carbon dioxide 29 * Anion gap 15.3 * BUN 14, creatinine 0.9, GFR greater than 60 * Glucose 153 * Magnesium 2.0 * Total bilirubin 0.1 * AST 21, ALT 20, alkaline phosphatase 88 * Troponin 0 0.024 * Albumin 2.5 * Lactic acid 3.0 * proBNP 81129 * Influenza a and B negative * SARS Covid 2 RNA negative * ABG in left radial pH 7.41, PCO2 46.0, PO2 67, HCO3 28.3, O2 saturation 92.1, base excess 3.7. Obtained while on 4 L via NC. * Chest x-ray shows increasing density within the right lung base from prior chest x-rays most likely representing area of aspiration pneumonia. Diffuse interstitial change which appears chronic and other findings are also noted. * CTA obatined in ED due to elevated D-Dimer: * 1. Minimal area of pulmonary embolism within the segmental branch of the r ight lower lung * 2. Severe pulmonary fibrosis * 3. Focal area of increased density within the right middle lobe and right lower lobe. As mentioned above, this could represent worsening fibrosis but difficult to exclude areas of mild pneumonia. * (Of note: Per ED provider notes he discussed findings initially with the [facility] radiologist who felt patient does not have pneumonia or signs of CHF.) * Given Rocephin and Levaquin 1 dose each in ED. * Given albuterol nebulizers and started on 15 mg p.o. Xarelto. * Patient has severe baseline heart failure and pulmonary hypertension so IV fluids were discontinued in ED * Admitted to floor observation status. 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 Pulmonary hypertension Asthma Former smoker * Continue BID 15mg xarelto for PE * Continue Rocephin at 2gm due to questionable infiltrate * Continue home respiratory medications * PRN Albuterol and duonebs * IS/Acapella * RT consultation * Oxygen as needed - baseline 3L * Ambulate * Monitor daily labs * If IV fluids are needed be cautious as patient has sever HF and pulmonary hypertension * Blood cultures negative thus far Type II diabetes mellitus * Hold home metformin * QID AC and bedtime glucose checks * Low intensity sliding scale insulin * ADA diet Heart failure BPH (benign prostatic hyperplasia) Pacemaker GERD (gastroesophageal reflux disease) HLD (hyperlipidemia) HTN (hypertension) Osteoarthritis Vitamin D deficiency History of bladder cancer * Telemetry * No current concerns * Review/reconcile home medications Resolved: Elevated lactic acid Code status: DNR/DNI PCP: Dr. Castillo Pulmonary provider: Carolyn Atkinson NP Rooms Director: Dr. Hamilton Poddar Urologist: Dr. Randall Priest DVT prophylaxis: Xarelto Social: Patient lives with daughter and son in-law who provide care Disposition: Patient admitted observation status. Will upgrade to inpatient status due to questionable pneumonia. Prognosis: Poor overall prognosis given baseline severe pulmonary and cardiac disease
[2020-03-28] MEDS ORDERED: Albuterol/Ipratropium 3.0-0.5 MG/3 ML Neb Soln NEB PRN (08:07)
[2020-03-28] MEDS ORDERED: Simvastatin 40 MG Tab PO SCH (08:08)
[2020-03-28] MEDS: Budesonide 0.5 MG/2 ML Neb Susp INH SCH ×2 (08:51→20:22)
[2020-03-28] MEDS: FORMOTEROL FUMARATE 20 MCG/2 ML INH SCH ×2 (08:51→20:23)
[2020-03-28] MEDS: Potassium Chloride 20 MEQ Tab.ER PO SCH (10:19)
[2020-03-28] MEDS: Rivaroxaban 15 MG Tab PO SCH ×2 (10:19→21:40)
[2020-03-28] MEDS: Calcium Carbonate 600 MG Tab PO SCH ×2 (10:22→21:40)
[2020-03-28] MEDS: Aspirin 81 MG Tab.EC PO SCH (10:26)
[2020-03-28] MEDS: guaiFENesin 600 MG Tab.ER PO SCH ×2 (10:26→21:39)
[2020-03-28] MEDS: MYCOPHENOLATE MOFETIL 500 MG PO SCH ×2 (10:26→21:51)
[2020-03-28] MEDS: Ferrous Sulfate 324 MG Tab.EC PO SCH ×2 (10:26→21:40)
[2020-03-28] MEDS: Tamsulosin 0.4 MG Cap.ER PO SCH (10:26)
[2020-03-28] MEDS: Furosemide 40 MG Tab PO SCH ×2 (10:26→10:48)
[2020-03-28] MEDS: predniSONE 10 MG Tab PO SCH (10:27)
[2020-03-28] MEDS: Multivitamins,Therapeutic Tab PO SCH (10:27)
[2020-03-28] MEDS: Roflumilast 500 MCG **PTOM PO SCH (10:27)
[2020-03-28] MEDS: Diltiazem 180 MG Cap.CD PO SCH (10:47)
[2020-03-28] MEDS: Simvastatin 40 MG Tab PO SCH (21:40)
[2020-03-28] MEDS: Cholecalciferol (Vitamin D3) 25 MCG Tab PO SCH (21:40)
[2020-03-28] MEDS: Magnesium Oxide 400 MG Tab PO SCH (21:40)
[2020-03-28] MEDS: Pantoprazole 40 MG Tab.CR PO SCH (21:40)
[2020-03-28] MEDS: Citalopram 20 MG Tab PO SCH (21:40)
[2020-03-28] MEDS: cefTRIAXone 2 GM in Sodium Chloride 0.9% 100 ML IV SCH (21:41)
[2020-03-29] MEDS: Budesonide 0.5 MG/2 ML Neb Susp INH SCH ×2 (08:12→20:59)
[2020-03-29] MEDS: FORMOTEROL FUMARATE 20 MCG/2 ML INH SCH (08:13)
[2020-03-29] MEDS: LORazepam 0.5 MG Tab PO PRN ×2 (09:01→20:40)
[2020-03-29] MEDS: Rivaroxaban 15 MG Tab PO SCH ×2 (09:01→20:38)
[2020-03-29] MEDS: Potassium Chloride 20 MEQ Tab.ER PO SCH (09:01)
[2020-03-29] MEDS: Diltiazem 180 MG Cap.CD PO SCH (09:03)
[2020-03-29] MEDS: Aspirin 81 MG Tab.EC PO SCH (09:03)
[2020-03-29] MEDS: Ferrous Sulfate 324 MG Tab.EC PO SCH ×2 (09:03→20:40)
[2020-03-29] MEDS: Tamsulosin 0.4 MG Cap.ER PO SCH (09:03)
[2020-03-29] MEDS: Calcium Carbonate 600 MG Tab PO SCH ×2 (09:03→20:40)
[2020-03-29] MEDS: guaiFENesin 600 MG Tab.ER PO SCH ×2 (09:04→20:40)
[2020-03-29] MEDS: MYCOPHENOLATE MOFETIL 500 MG PO SCH ×2 (09:04→20:42)
[2020-03-29] MEDS: Furosemide 40 MG Tab PO SCH (09:04)
[2020-03-29] MEDS: Multivitamins,Therapeutic Tab PO SCH (09:05)
[2020-03-29] MEDS: Roflumilast 500 MCG **PTOM PO SCH (09:05)
[2020-03-29] MEDS: predniSONE 10 MG Tab PO SCH (09:05)
--- NOTE | 2020-03-29 10:32 | PCM.PN ---
- General Info Date of Service: 03/29/20 Admission Dx/Problem (Free Text): Admission Diagnosis/Problem Admission Diagnosis/Problem Pulmonary embolism Subjective Update: Deepa is sitting up in bed eating breakfast. States shortness of breath is much decreased. States he has been up ambulating with assistance in the room. Continues to use incentive spirometer and flutter valve. Functional Status: Reports: Pain Controlled, Tolerating Diet, Ambulating, Urinating, Incentive Spirometry - Review of Systems General: Reports: No Symptoms HEENT: Reports: No Symptoms Pulmonary: Reports: Shortness of Breath (With exertion), Cough. Denies: Pleuritic Chest Pain Cardiovascular: Reports: Edema (1+ pitting to bilateral lower extremities) Gastrointestinal: Reports: No Symptoms Genitourinary: Reports: No Symptoms Musculoskeletal: Reports: No Symptoms Skin: Reports: Other (Heel ulcer) Neurological: Reports: No Symptoms Psychiatric: Reports: No Symptoms - Patient Data Vitals - Most Recent: Last Vital Signs Temp 97.5 F 03/29/20 09:00 Pulse 100 03/29/20 09:00 Resp 28 H 03/29/20 09:00 BP 103/60 03/29/20 09:00 Pulse Ox 87 L 03/29/20 09:00 Weight - Most Recent: 132 lb 12.8 oz I&O - Last 24 Hours: Intake & Output 03/28/20 03/29/20 03/29/20 22:59 06:59 14:59 Intake Total 1605 700 Output Total 0 200 Balance 1605 500 Lab Results Last 24 Hours: Laboratory Results - last 24 hr 03/28/20 03/28/20 03/28/20 Range/Units 06:42 09:41 11:47 WBC (4.23-9.07) K/mm3 RBC (4.63-6.08) M/mm3 Hgb (13.7-17.5) gm/dl Hct (40.1-51.0) % MCV (79.0-92.2) fl MCH (25.7-32.2) pg MCHC (32.2-35.5) g/dl RDW Std Deviation (35.1-43.9) fL Plt Count (163-337) K/mm3 MPV (9.4-12.3) fl Neut % (Auto) (34.0-67.9) % Lymph % (Auto) (21.8-53.1) % [place] % (Auto) (5.3-12.2) % Eos % (Auto) (0.8-7.0) Baso % (Auto) (0.1-1.2) % Neut # (Auto) (1.78-5.38) K/mm3 Lymph # (Auto) (1.32-3.57) K/mm3 [place] # (Auto) (0.30-0.82) K/mm3 Eos # (Auto) (0.04-0.54) K/mm3 Baso # (Auto) (0.01-0.08) K/mm3 Manual Slide Review Sodium (136-145) mEq/L Potassium (3.5-5.1) mEq/L Chloride (98-107) mEq/L Carbon Dioxide (21-32) mEq/L Anion Gap (5-15) BUN (7-18) mg/dL Creatinine (0.7-1.3) mg/dL Est Cr Clr Drug Dosing mL/min Estimated GFR (MDRD) (>60) mL/min BUN/Creatinine Ratio (14-18) Glucose (83-115) mg/dL POC Glucose 112 H 252 H (83-110) mg/dL Lactic Acid 1.4 (0.4-2.0) mmol/L Calcium (8.5-10.1) mg/dL Magnesium (1.8-2.4) mg/dl 03/28/20 03/28/20 03/29/20 Range/Units 17:07 21:20 05:02 WBC 6.62 (4.23-9.07) K/mm3 RBC 2.88 L (4.63-6.08) M/mm3 Hgb 7.4 L (13.7-17.5) gm/dl Hct 26.8 L (40.1-51.0) % MCV 93.1 H (79.0-92.2) fl MCH 25.7 (25.7-32.2) pg MCHC 27.6 L (32.2-35.5) g/dl RDW Std Deviation 52.7 H (35.1-43.9) fL Plt Count 509 H (163-337) K/mm3 MPV 8.2 L (9.4-12.3) fl Neut % (Auto) 65.7 (34.0-67.9) % Lymph % (Auto) 22.4 (21.8-53.1) % [place] % (Auto) 10.4 (5.3-12.2) % Eos % (Auto) 1.1 (0.8-7.0) Baso % (Auto) 0.2 (0.1-1.2) % Neut # (Auto) 4.36 (1.78-5.38) K/mm3 Lymph # (Auto) 1.48 (1.32-3.57) K/mm3 [place] # (Auto) 0.69 (0.30-0.82) K/mm3 Eos # (Auto) 0.07 (0.04-0.54) K/mm3 Baso # (Auto) 0.01 (0.01-0.08) K/mm3 Manual Slide Review Abnormal smear Sodium (136-145) mEq/L Potassium (3.5-5.1) mEq/L Chloride (98-107) mEq/L Carbon Dioxide (21-32) mEq/L Anion Gap (5-15) BUN (7-18) mg/dL Creatinine (0.7-1.3) mg/dL Est Cr Clr Drug Dosing mL/min Estimated GFR (MDRD) (>60) mL/min BUN/Creatinine Ratio (14-18) Glucose (83-115) mg/dL POC Glucose 206 H 262 H (83-110) mg/dL Lactic Acid (0.4-2.0) mmol/L Calcium (8.5-10.1) mg/dL Magnesium (1.8-2.4) mg/dl 03/29/20 03/29/20 Range/Units 05:02 06:16 WBC (4.23-9.07) K/mm3 RBC (4.63-6.08) M/mm3 Hgb (13.7-17.5) gm/dl Hct (40.1-51.0) % MCV (79.0-92.2) fl MCH (25.7-32.2) pg MCHC (32.2-35.5) g/dl RDW Std Deviation (35.1-43.9) fL Plt Count (163-337) K/mm3 MPV (9.4-12.3) fl Neut % (Auto) (34.0-67.9) % Lymph % (Auto) (21.8-53.1) % [place] % (Auto) (5.3-12.2) % Eos % (Auto) (0.8-7.0) Baso % (Auto) (0.1-1.2) % Neut # (Auto) (1.78-5.38) K/mm3 Lymph # (Auto) (1.32-3.57) K/mm3 [place] # (Auto) (0.30-0.82) K/mm3 Eos # (Auto) (0.04-0.54) K/mm3 Baso # (Auto) (0.01-0.08) K/mm3 Manual Slide Review Sodium 145 (136-145) mEq/L Potassium 4.3 (3.5-5.1) mEq/L Chloride 107 (98-107) mEq/L Carbon Dioxide 30 (21-32) mEq/L Anion Gap 12.3 (5-15) BUN 19 H (7-18) mg/dL Creatinine 0.8 (0.7-1.3) mg/dL Est Cr Clr Drug Dosing 63.02 mL/min Estimated GFR (MDRD) > 60 (>60) mL/min BUN/Creatinine Ratio 23.8 H (14-18) Glucose 115 (83-115) mg/dL POC Glucose 144 H (83-110) mg/dL Lactic Acid (0.4-2.0) mmol/L Calcium 8.7 (8.5-10.1) mg/dL Magnesium 2.1 (1.8-2.4) mg/dl Timothy Results Last 24 Hours: Microbiology 03/26/20 00:02 Aerobic Blood Culture - Preliminary Blood - Venous - Lab Draw NO GROWTH AFTER 2 DAYS Anaerobic Blood Culture - Preliminary NO GROWTH AFTER 2 DAYS 03/26/20 23:45 Aerobic Blood Culture - Preliminary Blood - Venous NO GROWTH AFTER 2 DAYS Anaerobic Blood Culture - Final Med Orders - Current: Current Medications Acetaminophen (Tylenol) 650 mg PO Q6HR PRN PRN Reason: mild pain Albuterol (Proventil Neb Soln) 2.5 mg NEB Q2H PRN PRN Reason: sob/wheezing Albuterol/Ipratropium (Duoneb 3.0-0.5 Mg/3 Ml) 3 ml NEB Q6HRRT PRN PRN Reason: wheezing/SOB/cough Aspirin (Halfprin) 81 mg PO DAILY [facility] Last Admin: 03/29/20 09:03 Dose: 81 mg Documented by: Budesonide (Pulmicort) 0.5 mg INH BID [facility] Last Admin: 03/29/20 08:12 Dose: 0.5 mg Documented by: Calcium Carbonate/Glycine (Calcium Carbonate) 600 mg PO BID [facility] Last Admin: 03/29/20 09:03 Dose: 600 mg Documented by: Cholecalciferol (Vitamin D3) 25 mcg PO BEDTIME [facility] Last Admin: 03/28/20 21:40 Dose: 25 mcg Documented by: Citalopram Hydrobromide (Celexa) 20 mg PO BEDTIME [facility] Last Admin: 03/28/20 21:40 Dose: 20 mg Documented by: Diltiazem HCl (Cardizem Cd) 180 mg PO DAILY [facility] Last Admin: 03/29/20 09:03 Dose: Not Given Documented by: Docusate Sodium (Colace) 100 mg PO BID PRN PRN Reason: Constipation Ferrous Sulfate (Ferrous Sulfate) 324 mg PO BID [facility] Last Admin: 03/29/20 09:03 Dose: 324 mg Documented by: Furosemide (Lasix) 60 mg PO DAILY [facility] Last Admin: 03/29/20 09:04 Dose: 60 mg Documented by: Guaifenesin (Mucinex) 1,200 mg PO BID [facility] Last Admin: 03/29/20 09:04 Dose: 1,200 mg Documented by: Ceftriaxone Sodium 2 gm/ (Sodium Chloride) 100 mls @ 200 mls/hr IV Q24H [facility] Last Admin: 03/28/20 21:41 Dose: 200 mls/hr Documented by: Insulin Human Lispro (Humalog) 0 unit SUBCUT QIDACANDBED [facility]; Protocol Last Admin: 03/29/20 08:05 Dose: Not Given Documented by: Lorazepam (Ativan) 0.5 mg PO Q6H PRN PRN Reason: Anxiety Last Admin: 03/29/20 09:01 Dose: 0.5 mg Documented by: Magnesium Oxide (Magnesium Oxide) 400 mg PO BEDTIME [facility] Last Admin: 03/28/20 21:40 Dose: 400 mg Documented by: Multivitamins (Thera) 1 each PO DAILY [facility] Last Admin: 03/29/20 09:05 Dose: 1 each Documented by: Formoterol Fumarate 20 Mcg/2 Ml ( Perforomist) Ptom 0 mcg INH BID [facility] Last Admin: 03/29/20 08:13 Dose: Not Given Documented by: Mycophenolate Mofetil 500 Mg Tab * *Ptom 0 each PO DAILY [facility] Last Admin: 03/29/20 09:04 Dose: 500 each Documented by: Mycophenolate Mofetil 500 Mg Tab * *Ptom 0 each PO BEDTIME [facility] Last Admin: 03/28/20 21:51 Dose: 1 each Documented by: Roflumilast 500 Mcg (Ptom) 0 mcg PO DAILY [facility] Last Admin: 03/29/20 09:05 Dose: 500 mcg Documented by: Ondansetron HCl (Zofran) 4 mg IV Q6H PRN PRN Reason: Nausea/Vomiting Pantoprazole Sodium (Protonix) 40 mg PO BEDTIME [facility] Last Admin: 03/28/20 21:40 Dose: 40 mg Documented by: Potassium Chloride (Klor-Con M20) 20 meq PO DAILY [facility] Last Admin: 03/29/20 09:01 Dose: 20 meq Documented by: Prednisone (Prednisone) 15 mg PO DAILY [facility] Last Admin: 03/29/20 09:05 Dose: 15 mg Documented by: Rivaroxaban (Xarelto) 15 mg PO BID [facility] Last Admin: 03/29/20 09:01 Dose: 15 mg Documented by: Simvastatin (Zocor) 40 mg PO BEDTIME [facility] Last Admin: 03/28/20 21:40 Dose: 40 mg Documented by: Sodium Chloride (Clarissa Nasal [place]) 0 ml JENNY Q4H PRN PRN Reason: Nasal Dryness Tamsulosin HCl (Flomax) 0.4 mg PO DAILY [facility] Last Admin: 03/29/20 09:03 Dose: 0.4 mg Documented by: Discontinued Medications Albuterol (Proventil Neb Soln) 2.5 mg NEB ONETIME ONE Stop: 03/27/20 05:29 Last Admin: 03/27/20 08:10 Dose: Not Given Documented by: Albuterol (Proventil Neb Soln) 2.5 mg NEB ONETIME ONE Stop: 03/27/20 06:01 Last Admin: 03/27/20 05:52 Dose: 2.5 mg Documented by: Albuterol/Ipratropium (Duoneb 3.0-0.5 Mg/3 Ml) 3 ml NEB Q6HRRT PRN PRN Reason: wheezing/SOB/cough Albuterol/Ipratropium (Duoneb 3.0-0.5 Mg/3 Ml) 3 ml NEB Q6HRRT PRN PRN Reason: wheezing/SOB/cough Budesonide (Pulmicort) 0.5 mg INH BID [facility] Last Admin: 03/27/20 20:16 Dose: 0.5 mg Documented by: Furosemide (Lasix) 60 mg PO DAILY [facility] Last Admin: 03/27/20 15:07 Dose: 60 mg Documented by: Sodium Chloride (Normal Saline) 1,000 mls @ 999 mls/hr IV ONETIME ONE Stop: 03/27/20 00:30 Last Admin: 03/27/20 00:12 Dose: 999 mls/hr Documented by: Ceftriaxone Sodium 1 gm/ (Sodium Chloride) 100 mls @ 200 mls/hr IV ONETIME STA Stop: 03/26/20 23:59 Last Admin: 03/27/20 00:12 Dose: 200 mls/hr Documented by: Levofloxacin/Dextrose 750 mg/ (Premix) 150 mls @ 100 mls/hr IV ONETIME STA Stop: 03/27/20 03:09 Last Admin: 03/27/20 01:51 Dose: 100 mls/hr Documented by: Sodium Chloride (Normal Saline) 100 mls @ 4 mls/sec IV ONETIME ONE Stop: 03/27/20 02:38 Last Admin: 03/27/20 02:39 Dose: 4 mls/sec Documented by: Lactated Ringer's (Ringers, Lactated) 1,000 mls @ 75 mls/hr IV ASDIRECTED [facility] Stop: 03/28/20 05:04 Last Admin: 03/28/20 00:13 Dose: 75 mls/hr Documented by: Iopamidol (Isovue-370 (76%)) 100 ml IVPUSH ONETIME ONE Stop: 03/27/20 02:38 Last Admin: 03/27/20 02:38 Dose: 100 ml Documented by: Non-Formulary Medication (Ciclopirox/Urea/Camph/Men/Euc [Ciclopirox 8% Treatment Kit]) 1 applic TOP BEDTIME [facility] Diltiazem Hcl [Dilt- (Xr] 180 Mg Ptom) 0 mg PO DAILY [facility] Last Admin: 03/27/20 16:02 Dose: Not Given Documented by: Omeprazole Magnesium (20 Mg Cap Ptom) 0 mg PO BEDTIME [facility] Last Admin: 03/27/20 22:55 Dose: 40 mg Documented by: Prednisone (Prednisone) 15 mg PO DAILY [facility] Last Admin: 03/27/20 15:11 Dose: 15 mg Documented by: Rivaroxaban (Xarelto) 15 mg PO ONETIME STA Stop: 03/27/20 03:07 Last Admin: 03/27/20 05:21 Dose: 15 mg Documented by: Simvastatin (Zocor) 40 mg PO BEDTIME [facility] Last Admin: 03/27/20 22:56 Dose: 40 mg Documented by: Simvastatin (Zocor) 40 mg PO BEDTIME [facility] Tamsulosin HCl (Flomax) 0.4 mg PO DAILY [facility] Last Admin: 03/27/20 15:06 Dose: 0.4 mg Documented by: - Exam Quality Assessment: Supplemental Oxygen (Baseline of 3 L per nasal cannula), DVT Prophylaxis (Xarelto) General: Alert, Oriented HEENT: Pupils Equal, Pupils Reactive, Mucous Membr. Moist/[place] Neck: Supple Lungs: Decreased Breath Sounds, Rales (Throughout) Cardiovascular: Regular Rate, Regular Rhythm GI/Abdominal Exam: Normal Bowel Sounds, Soft, Non-Tender, No Distention (Male) Exam: Deferred Back Exam: Normal Inspection, Full Range of Motion Extremities: Normal Inspection, Normal Range of Motion, Non-Tender, Normal Capillary Refill, Pedal Edema (1+ to bilateral lower extremities), Other (Left heel ulcer) Peripheral Pulses: 2+: Radial (L), Radial (R), Dorsalis Pedis (L), Dorsalis Pedis (R) Skin: Warm, Dry, Other (To left heel) Wound/Incisions: Dressing Dry and Intact (Left heel ulcer) Neurological: No New Focal Deficit Psy/Mental Status: Alert, Normal Affect, Normal Mood Sepsis Event Note - Evaluation Sepsis Screening Result: No Definite Risk - Focused Exam Vital Signs: Vital Signs Temp Pulse Resp BP Pulse Ox Pulse Ox 03/29/20 09:00 97.5 F 100 28 H 103/60 87 L 03/29/20 08:17 97 03/29/20 03:37 97.5 F 98 18 125/69 93 L 03/28/20 22:58 98.4 F 104 H 18 104/56 L 97 - Problem List & Annotations (1) Asthma SNOMED Code(s): 485627412 Code(s): J45.909 - UNSPECIFIED ASTHMA, UNCOMPLICATED Status: Acute Current Visit: Yes (2) Elevated lactic acid level SNOMED Code(s): 3056722 Code(s): R79.89 - OTHER SPECIFIED ABNORMAL FINDINGS OF BLOOD CHEMISTRY Status: Acute Priority: High Current Visit: Yes (3) Pulmonary embolus SNOMED Code(s): 85126177 Code(s): I26.99 - OTHER PULMONARY EMBOLISM WITHOUT ACUTE COR PULMONALE Status: Acute Priority: High Current Visit: Yes Qualifiers: Pulmonary embolism type: unspecified Chronicity: acute Acute cor pulmonale presence: without acute cor pulmonale Qualified Code(s): I26.99 - Other pulmonary embolism without acute cor pulmonale (4) COPD (chronic obstructive pulmonary disease) SNOMED Code(s): 38405391 Code(s): J44.9 - CHRONIC OBSTRUCTIVE PULMONARY DISEASE, UNSPECIFIED Status: Chronic Priority: High Current Visit: Yes Qualifiers: COPD type: 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 Qualified Code(s): J41.8 - Mixed 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 SNOMED Code(s): 48844927 Code(s): M30.1 - POLYARTERITIS WITH LUNG INVOLVEMENT [CHURG-MARCELLA] Status: Chronic Priority: High Current Visit: Yes (6) Heart failure SNOMED Code(s): 52695181 Code(s): I50.9 - HEART FAILURE, UNSPECIFIED Status: Chronic Priority: High Current Visit: Yes Qualifiers: Heart failure type: unspecified heart failure type Heart failure chronicity: unspecified heart failure chronicity (7) Immunocompromised SNOMED Code(s): 296037836 Code(s): D84.9 - IMMUNODEFICIENCY, UNSPECIFIED Status: Chronic Priority: High Current Visit: Yes (8) Pulmonary fibrosis SNOMED Code(s): 66772403 Code(s): J84.10 - PULMONARY FIBROSIS, UNSPECIFIED Status: Chronic Priority: High Current Visit: Yes (9) Pulmonary hypertension SNOMED Code(s): 34178631 Code(s): I27.20 - PULMONARY HYPERTENSION, UNSPECIFIED Status: Chronic Priority: Medium Current Visit: Yes (10) BPH (benign prostatic hyperplasia) SNOMED Code(s): 849967029 Code(s): N40.0 - BENIGN PROSTATIC HYPERPLASIA WITHOUT LOWER URINRY TRACT SYMP Status: Chronic Priority: Medium Current Visit: No Qualifiers: Lower urinary tract symptom presence: symptoms absent Qualified Code(s): N40.0 - Benign prostatic hyperplasia without lower urinary tract symptoms (11) Chronic steroid use SNOMED Code(s): 454106172 Code(s): LBW6832 - Status: Chronic Priority: Medium Current Visit: No (12) GERD (gastroesophageal reflux disease) SNOMED Code(s): 147688222 Code(s): K21.9 - GASTRO-ESOPHAGEAL REFLUX DISEASE WITHOUT ESOPHAGITIS Status: Chronic Priority: Low Current Visit: No Qualifiers: Esophagitis presence: esophagitis presence not specified Qualified Code(s): K21.9 - Gastro-esophageal reflux disease without esophagitis (13) HLD (hyperlipidemia) SNOMED Code(s): 15531366 Code(s): E78.5 - HYPERLIPIDEMIA, UNSPECIFIED Status: Chronic Priority: Low Current Visit: No Qualifiers: Hyperlipidemia type: unspecified Qualified Code(s): E78.5 - Hyperlipidemia, unspecified (14) HTN (hypertension) SNOMED Code(s): 67524961 Code(s): I10 - ESSENTIAL (PRIMARY) HYPERTENSION Status: Chronic Priority: Medium Current Visit: No Qualifiers: Hypertension type: unspecified Qualified Code(s): I10 - Essential (primary) hypertension (15) History of bladder cancer SNOMED Code(s): 250864483, 307662593 Code(s): Z85.51 - PERSONAL HISTORY OF MALIGNANT NEOPLASM OF BLADDER Status: Chronic Priority: Medium Current Visit: No (16) Osteoarthritis SNOMED Code(s): 544928685 Code(s): M19.90 - UNSPECIFIED OSTEOARTHRITIS, UNSPECIFIED SITE Status: Chronic Priority: Low Current Visit: No Qualifiers: Osteoarthritis location: unspecified site Osteoarthritis type: primary Qualified Code(s): M19.91 - Primary osteoarthritis, unspecified site (17) Pacemaker SNOMED Code(s): 543668735 Code(s): Z95.0 - PRESENCE OF CARDIAC PACEMAKER Status: Chronic Priority: Medium Current Visit: No (18) Type II diabetes mellitus SNOMED Code(s): 06305601 Code(s): E11.9 - TYPE 2 DIABETES MELLITUS WITHOUT COMPLICATIONS Status: Chronic Priority: Medium Current Visit: No Qualifiers: Diabetes mellitus halfway insulin use: without halfway use Diabetes mellitus complication status: with other specified complication Qualified Code(s): E11.69 - Type 2 diabetes mellitus with other specified complication (19) Vitamin D deficiency SNOMED Code(s): 92050817 Code(s): E55.9 - VITAMIN D DEFICIENCY, UNSPECIFIED Status: Chronic Priority: Low Current Visit: No - Problem List Review Problem List Initiated/Reviewed/Updated: Yes - Assessment Assessment:: Assessment - day of admission (03/27/20) * 79 yo male presents to ED with worsening dyspnea, productive cough, crackles, and edema. * Denies any recent fever or other infectious symptoms. * Normally on 3 L of home oxygen but requiring 4 here. 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 * Is immunocompromised * Twelve-lead EKG in ED shows sinus tachycardia 112 bpm with ventricular pacing. * Labs in ED: * WBC 9.93 * Hemoglobin 8.7 * Platelet 580 * Neutrophils 64% * Band neutrophils 6% * INR 1.12 * D-dimer 1.15 * Sodium 146 * Potassium 4.3 * Carbon dioxide 29 * Anion gap 15.3 * BUN 14, creatinine 0.9, GFR greater than 60 * Glucose 153 * Magnesium 2.0 * Total bilirubin 0.1 * AST 21, ALT 20, alkaline phosphatase 88 * Troponin 0 0.024 * Albumin 2.5 * Lactic acid 3.0 * proBNP 43290 * Influenza a and B negative * SARS Covid 2 RNA negative * ABG in left radial pH 7.41, PCO2 46.0, PO2 67, HCO3 28.3, O2 saturation 92.1, base excess 3.7. Obtained while on 4 L via [place]. * Chest x-ray shows increasing density within the right lung base from prior chest x-rays most likely representing area of aspiration pneumonia. Diffuse interstitial change which appears chronic and other findings are also noted. * CTA obatined in ED due to elevated D-Dimer: * 1. Minimal area of pulmonary embolism within the segmental branch of the right lower lung * 2. Severe pulmonary fibrosis * 3. Focal area of increased density within the right middle lobe and right lower lobe. As mentioned above, this could represent worsening fibrosis but difficult to exclude areas of mild pneumonia. * (Of note: Per ED provider notes he discussed findings initially with the ad radiologist who felt patient does not have pneumonia or signs of CHF.) * Given Rocephin and Levaquin 1 dose each in ED. * Given albuterol nebulizers and started on 15 mg p.o. Xarelto. * Patient has severe baseline heart failure and pulmonary hypertension so IV fluids were discontinued in ED * Admitted to floor observation status. 03/28/20 * Reports improved SOB * Upgraded to inpatient yesterday due to questionable pneumonia * Given 1L slow IV fluids yesterday due to high lactic acid * On baseline 3L oxygen * Continuing BID xarelto * Labs today: * WBC 6.72 * hemoglobin 8.0 * platelet 522 * neutrophils 4.41 * D-dimer 1.11 * GFR greater than 60 * lactic acid 2.7 (yesterday) --> 1.4 * Continue current treatment plan 03/29/20 * Reports feeling well, decreased shortness of breath. 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 Pulmonary hypertension Asthma Former smoker * Continue BID 15mg xarelto for PE * Continue Rocephin at 2gm due to questionable infiltrate * Continue home respiratory medications * PRN Albuterol and duonebs * IS/Acapella * RT consultation * Oxygen as needed - baseline 3L * Ambulate * Monitor daily labs * If IV fluids are needed be cautious as patient has sever HF and pulmonary hypertension * Blood cultures negative thus far Type II diabetes mellitus * Hold home metformin * QID AC and bedtime glucose checks * Low intensity sliding scale insulin * ADA diet Heart failure BPH (benign prostatic hyperplasia) Pacemaker GERD (gastroesophageal reflux disease) HLD (hyperlipidemia) HTN (hypertension) Osteoarthritis Vitamin D deficiency History of bladder cancer * Telemetry * No current concerns * Review/reconcile home medications Resolved: Elevated lactic acid Code status: DNR/DNI PCP: Dr. Castillo Pulmonary provider: Carolyn Atkinson NP Monitor Tech: Dr. Hamilton Poddar Urologist: Dr. Randall Priest DVT prophylaxis: Xarelto Social: Patient lives with daughter and son in-law who provide care Disposition: Patient is inpatient status due to questionable pneumonia Prognosis: Poor overall prognosis given baseline severe pulmonary and cardiac disease
[2020-03-29] MEDS: Pantoprazole 40 MG Tab.CR PO SCH (20:38)
[2020-03-29] MEDS: Magnesium Oxide 400 MG Tab PO SCH (20:38)
[2020-03-29] MEDS: Citalopram 20 MG Tab PO SCH (20:38)
[2020-03-29] MEDS: Simvastatin 40 MG Tab PO SCH (20:39)
[2020-03-29] MEDS: Cholecalciferol (Vitamin D3) 25 MCG Tab PO SCH (20:40)
[2020-03-29] MEDS: Arformoterol 15 MCG/2 ML Neb Soln INH SCH (20:59)
[2020-03-29] MEDS: cefTRIAXone 2 GM in Sodium Chloride 0.9% 100 ML IV SCH (21:00)
--- NOTE | 2020-03-30 07:39 | PCM.PN ---
- General Info Date of Service: 03/30/20 Admission Dx/Problem (Free Text): Admission Diagnosis/Problem Admission Diagnosis/Problem Pulmonary embolism Subjective Update: In to see Deepa. He is sitting up in the chair on 3L O2. He reports his respiratory status continues to improve. He has no concerns or complaints. We discussed how his hgb is continuing to drop. Unfortunately he is on chronic iron supplementation so occult stool would not be worthwhile. Will re-check H/H today at 1300 and again tomorrow. No obvious signs of bleeding. Patient remains on xarelto for his PEs. Continue Rocephin for PNA. Functional Status: Reports: Pain Controlled, Tolerating Diet, Ambulating, Urinating, Incentive Spirometry, Other (Acapella ). Denies: New Symptoms - Review of Systems General: Reports: No Symptoms. Denies: Fever, Weakness, Fatigue, Malaise, Chills HEENT: Reports: No Symptoms Pulmonary: Reports: Shortness of Breath (baseline ), Cough (baseline ). Denies: Sputum Cardiovascular: Reports: No Symptoms, Dyspnea on Exertion (baseline ). Denies: Palpitations Gastrointestinal: Reports: No Symptoms. Denies: Abdominal Pain, Constipation, Diarrhea, Nausea, Vomiting Genitourinary: Reports: No Symptoms. Denies: Pain Musculoskeletal: Reports: No Symptoms Skin: Reports: No Symptoms. Denies: Cyanosis Neurological: Reports: No Symptoms. Denies: Confusion Psychiatric: Reports: No Symptoms - Patient Data Vitals - Most Recent: Last Vital Signs Temp 97.7 F 03/30/20 03:42 Pulse 91 03/30/20 03:42 Resp 18 03/30/20 03:42 BP 93/57 L 03/30/20 03:42 Pulse Ox 92 L 03/30/20 03:42 Weight - Most Recent: 133 lb 1.6 oz I&O - Last 24 Hours: Intake & Output 03/29/20 03/30/20 03/30/20 22:59 06:59 14:59 Intake Total 980 450 Balance 980 450 Lab Results Last 24 Hours: Laboratory Results - last 24 hr 03/29/20 03/29/20 03/29/20 Range/Units 11:24 16:43 21:28 WBC (4.23-9.07) K/mm3 RBC (4.63-6.08) M/mm3 Hgb (13.7-17.5) gm/dl Hct (40.1-51.0) % MCV (79.0-92.2) fl MCH (25.7-32.2) pg MCHC (32.2-35.5) g/dl RDW Std Deviation (35.1-43.9) fL Plt Count (163-337) K/mm3 MPV (9.4-12.3) fl Neut % (Auto) (34.0-67.9) % Lymph % (Auto) (21.8-53.1) % [place] % (Auto) (5.3-12.2) % Eos % (Auto) (0.8-7.0) Baso % (Auto) (0.1-1.2) % Neut # (Auto) (1.78-5.38) K/mm3 Lymph # (Auto) (1.32-3.57) K/mm3 [place] # (Auto) (0.30-0.82) K/mm3 Eos # (Auto) (0.04-0.54) K/mm3 Baso # (Auto) (0.01-0.08) K/mm3 Manual Slide Review Sodium (136-145) mEq/L Potassium (3.5-5.1) mEq/L Chloride (98-107) mEq/L Carbon Dioxide (21-32) mEq/L Anion Gap (5-15) BUN (7-18) mg/dL Creatinine (0.7-1.3) mg/dL Est Cr Clr Drug Dosing mL/min Estimated GFR (MDRD) (>60) mL/min BUN/Creatinine Ratio (14-18) Glucose (83-115) mg/dL POC Glucose 244 H 281 H 215 H (83-110) mg/dL Calcium (8.5-10.1) mg/dL Magnesium (1.8-2.4) mg/dl 03/30/20 03/30/20 Range/Units 04:30 04:30 WBC 7.09 (4.23-9.07) K/mm3 RBC 2.91 L (4.63-6.08) M/mm3 Hgb 7.2 L* (13.7-17.5) gm/dl Hct 26.9 L (40.1-51.0) % MCV 92.4 H (79.0-92.2) fl MCH 24.7 L (25.7-32.2) pg MCHC 26.8 L (32.2-35.5) g/dl RDW Std Deviation 52.8 H (35.1-43.9) fL Plt Count 457 H (163-337) K/mm3 MPV 8.7 L (9.4-12.3) fl Neut % (Auto) 63.9 (34.0-67.9) % Lymph % (Auto) 23.7 (21.8-53.1) % [place] % (Auto) 9.7 (5.3-12.2) % Eos % (Auto) 2.3 (0.8-7.0) Baso % (Auto) 0.3 (0.1-1.2) % Neut # (Auto) 4.53 (1.78-5.38) K/mm3 Lymph # (Auto) 1.68 (1.32-3.57) K/mm3 [place] # (Auto) 0.69 (0.30-0.82) K/mm3 Eos # (Auto) 0.16 (0.04-0.54) K/mm3 Baso # (Auto) 0.02 (0.01-0.08) K/mm3 Manual Slide Review Abnormal smear Sodium 140 (136-145) mEq/L Potassium 4.1 (3.5-5.1) mEq/L Chloride 103 (98-107) mEq/L Carbon Dioxide 34 H (21-32) mEq/L Anion Gap 7.1 (5-15) BUN 18 (7-18) mg/dL Creatinine 0.7 (0.7-1.3) mg/dL Est Cr Clr Drug Dosing 73.07 mL/min Estimated GFR (MDRD) > 60 (>60) mL/min BUN/Creatinine Ratio 25.7 H (14-18) Glucose 115 (83-115) mg/dL POC Glucose (83-110) mg/dL Calcium 8.7 (8.5-10.1) mg/dL Magnesium 2.0 (1.8-2.4) mg/dl Timothy Results Last 24 Hours: Microbiology 03/26/20 00:02 Aerobic Blood Culture - Preliminary Blood - Venous - Lab Draw NO GROWTH AFTER 3 DAYS Anaerobic Blood Culture - Preliminary NO GROWTH AFTER 3 DAYS 03/26/20 23:45 Aerobic Blood Culture - Preliminary Blood - Venous NO GROWTH AFTER 3 DAYS Anaerobic Blood Culture - Final Med Orders - Current: Current Medications Acetaminophen (Tylenol) 650 mg PO Q6HR PRN PRN Reason: mild pain Albuterol (Proventil Neb Soln) 2.5 mg NEB Q2H PRN PRN Reason: sob/wheezing Albuterol/Ipratropium (Duoneb 3.0-0.5 Mg/3 Ml) 3 ml NEB Q6HRRT PRN PRN Reason: wheezing/SOB/cough Arformoterol Tartrate (Brovana) 15 mcg INH BID [facility] Last Admin: 03/29/20 20:59 Dose: 15 mcg Documented by: Aspirin (Halfprin) 81 mg PO DAILY [facility] Last Admin: 03/29/20 09:03 Dose: 81 mg Documented by: Budesonide (Pulmicort) 0.5 mg INH BID [facility] Last Admin: 03/29/20 20:59 Dose: 0.5 mg Documented by: Calcium Carbonate/Glycine (Calcium Carbonate) 600 mg PO BID [facility] Last Admin: 03/29/20 20:40 Dose: 600 mg Documented by: Cholecalciferol (Vitamin D3) 25 mcg PO BEDTIME [facility] Last Admin: 03/29/20 20:40 Dose: 25 mcg Documented by: Citalopram Hydrobromide (Celexa) 20 mg PO BEDTIME [facility] Last Admin: 03/29/20 20:38 Dose: 20 mg Documented by: Diltiazem HCl (Cardizem Cd) 180 mg PO DAILY [facility] Last Admin: 03/29/20 09:03 Dose: Not Given Documented by: Docusate Sodium (Colace) 100 mg PO BID PRN PRN Reason: Constipation Ferrous Sulfate (Ferrous Sulfate) 324 mg PO BID [facility] Last Admin: 03/29/20 20:40 Dose: 324 mg Documented by: Furosemide (Lasix) 60 mg PO DAILY [facility] Last Admin: 03/29/20 09:04 Dose: 60 mg Documented by: Guaifenesin (Mucinex) 1,200 mg PO BID [facility] Last Admin: 03/29/20 20:40 Dose: 1,200 mg Documented by: Ceftriaxone Sodium 2 gm/ (Sodium Chloride) 100 mls @ 200 mls/hr IV Q24H [facility] Last Admin: 03/29/20 21:00 Dose: 200 mls/hr Documented by: Insulin Human Lispro (Humalog) 0 unit SUBCUT QIDACANDBED [facility]; Protocol Last Admin: 03/30/20 06:39 Dose: Not Given Documented by: Lorazepam (Ativan) 0.5 mg PO Q6H PRN PRN Reason: Anxiety Last Admin: 03/29/20 20:40 Dose: 0.5 mg Documented by: Magnesium Oxide (Magnesium Oxide) 400 mg PO BEDTIME [facility] Last Admin: 03/29/20 20:38 Dose: 400 mg Documented by: Multivitamins (Thera) 1 each PO DAILY [facility] Last Admin: 03/29/20 09:05 Dose: 1 each Documented by: Mycophenolate Mofetil 500 Mg Tab * *Ptom 0 each PO DAILY [facility] Last Admin: 03/29/20 09:04 Dose: 500 each Documented by: Mycophenolate Mofetil 500 Mg Tab * *Ptom 0 each PO BEDTIME [facility] Last Admin: 03/29/20 20:42 Dose: 1,500 each Documented by: Roflumilast 500 Mcg (Ptom) 0 mcg PO DAILY [facility] Last Admin: 03/29/20 09:05 Dose: 500 mcg Documented by: Ondansetron HCl (Zofran) 4 mg IV Q6H PRN PRN Reason: Nausea/Vomiting Pantoprazole Sodium (Protonix) 40 mg PO BEDTIME [facility] Last Admin: 03/29/20 20:38 Dose: 40 mg Documented by: Potassium Chloride (Klor-Con M20) 20 meq PO DAILY [facility] Last Admin: 03/29/20 09:01 Dose: 20 meq Documented by: Prednisone (Prednisone) 15 mg PO DAILY [facility] Last Admin: 03/29/20 09:05 Dose: 15 mg Documented by: Rivaroxaban (Xarelto) 15 mg PO BID [facility] Last Admin: 03/29/20 20:38 Dose: 15 mg Documented by: Simvastatin (Zocor) 40 mg PO BEDTIME [facility] Last Admin: 03/29/20 20:39 Dose: 40 mg Documented by: Sodium Chloride (Wilkes Nasal [place]) 0 ml JENNY Q4H PRN PRN Reason: Nasal Dryness Tamsulosin HCl (Flomax) 0.4 mg PO DAILY [facility] Last Admin: 03/29/20 09:03 Dose: 0.4 mg Documented by: Discontinued Medications Albuterol (Proventil Neb Soln) 2.5 mg NEB ONETIME ONE Stop: 03/27/20 05:29 Last Admin: 03/27/20 08:10 Dose: Not Given Documented by: Albuterol (Proventil Neb Soln) 2.5 mg NEB ONETIME ONE Stop: 03/27/20 06:01 Last Admin: 03/27/20 05:52 Dose: 2.5 mg Documented by: Albuterol/Ipratropium (Duoneb 3.0-0.5 Mg/3 Ml) 3 ml NEB Q6HRRT PRN PRN Reason: wheezing/SOB/cough Albuterol/Ipratropium (Duoneb 3.0-0.5 Mg/3 Ml) 3 ml NEB Q6HRRT PRN PRN Reason: wheezing/SOB/cough Budesonide (Pulmicort) 0.5 mg INH BID [facility] Last Admin: 03/27/20 20:16 Dose: 0.5 mg Documented by: Furosemide (Lasix) 60 mg PO DAILY [facility] Last Admin: 03/27/20 15:07 Dose: 60 mg Documented by: Sodium Chloride (Normal Saline) 1,000 mls @ 999 mls/hr IV ONETIME ONE Stop: 03/27/20 00:30 Last Admin: 03/27/20 00:12 Dose: 999 mls/hr Documented by: Ceftriaxone Sodium 1 gm/ (Sodium Chloride) 100 mls @ 200 mls/hr IV ONETIME STA Stop: 03/26/20 23:59 Last Admin: 03/27/20 00:12 Dose: 200 mls/hr Documented by: Levofloxacin/Dextrose 750 mg/ (Premix) 150 mls @ 100 mls/hr IV ONETIME STA Stop: 03/27/20 03:09 Last Admin: 03/27/20 01:51 Dose: 100 mls/hr Documented by: Sodium Chloride (Normal Saline) 100 mls @ 4 mls/sec IV ONETIME ONE Stop: 03/27/20 02:38 Last Admin: 03/27/20 02:39 Dose: 4 mls/sec Documented by: Lactated Ringer's (Ringers, Lactated) 1,000 mls @ 75 mls/hr IV ASDIRECTED [facility] Stop: 03/28/20 05:04 Last Admin: 03/28/20 00:13 Dose: 75 mls/hr Documented by: Iopamidol (Isovue-370 (76%)) 100 ml IVPUSH ONETIME ONE Stop: 03/27/20 02:38 Last Admin: 03/27/20 02:38 Dose: 100 ml Documented by: Non-Formulary Medication (Ciclopirox/Urea/Camph/Men/Euc [Ciclopirox 8% Treatment Kit]) 1 applic TOP BEDTIME [facility] Diltiazem Hcl [Dilt- (Xr] 180 Mg Ptom) 0 mg PO DAILY [facility] Last Admin: 03/27/20 16:02 Dose: Not Given Documented by: Formoterol Fumarate 20 Mcg/2 Ml ( Perforomist) Ptom 0 mcg INH BID [facility] Last Admin: 03/29/20 08:13 Dose: Not Given Documented by: Omeprazole Magnesium (20 Mg Cap Ptom) 0 mg PO BEDTIME [facility] Last Admin: 03/27/20 22:55 Dose: 40 mg Documented by: Prednisone (Prednisone) 15 mg PO DAILY [facility] Last Admin: 03/27/20 15:11 Dose: 15 mg Documented by: Rivaroxaban (Xarelto) 15 mg PO ONETIME STA Stop: 03/27/20 03:07 Last Admin: 03/27/20 05:21 Dose: 15 mg Documented by: Simvastatin (Zocor) 40 mg PO BEDTIME [facility] Last Admin: 03/27/20 22:56 Dose: 40 mg Documented by: Simvastatin (Zocor) 40 mg PO BEDTIME [facility] Tamsulosin HCl (Flomax) 0.4 mg PO DAILY [facility] Last Admin: 03/27/20 15:06 Dose: 0.4 mg Documented by: - Exam Quality Assessment: Supplemental Oxygen (3L ), DVT Prophylaxis. No: Urine Catheter General: Alert, Oriented, Cooperative, No Acute Distress HEENT: Pupils Equal, Pupils Reactive, Mucous Membr. Moist/[place] Neck: Supple, Trachea Midline Lungs: Normal Respiratory Effort, Decreased Breath Sounds, Rales Cardiovascular: Regular Rate, Regular Rhythm, Other (Pacemaker) GI/Abdominal Exam: Normal Bowel Sounds, Soft, Non-Tender, No Distention (Male) Exam: Deferred Back Exam: Normal Inspection, Full Range of Motion Extremities: Normal Inspection, Normal Range of Motion, Non-Tender, Normal Capillary Refill, Pedal Edema (trace to 1+) Skin: Warm, Dry, Intact Neurological: No New Focal Deficit Psy/Mental Status: Alert, Normal Affect, Normal Mood Sepsis Event Note - Evaluation Sepsis Screening Result: No Definite Risk - Focused Exam Vital Signs: Vital Signs Temp Pulse Resp BP Pulse Ox Pulse Ox 03/30/20 03:42 97.7 F 91 18 93/57 L 92 L 03/30/20 00:15 97.5 F 96 22 H 103/53 L 90 L 03/29/20 21:00 99 03/29/20 20:04 97.5 F 100 20 102/63 95 - Problem List & Annotations (1) Pulmonary embolus SNOMED Code(s): 64723358 Code(s): I26.99 - OTHER PULMONARY EMBOLISM WITHOUT ACUTE COR PULMONALE Status: Acute Priority: High Current Visit: Yes Qualifiers: Pulmonary embolism type: unspecified Chronicity: acute Acute cor pulmonale presence: without acute cor pulmonale Qualified Code(s): I26.99 - Other pulmonary embolism without acute cor pulmonale (2) Pulmonary fibrosis SNOMED Code(s): 68037456 Code(s): J84.10 - PULMONARY FIBROSIS, UNSPECIFIED Status: Chronic Priority: High Current Visit: Yes (3) Heart failure SNOMED Code(s): 03266202 Code(s): I50.9 - HEART FAILURE, UNSPECIFIED Status: Chronic Priority: High Current Visit: Yes Qualifiers: Heart failure type: unspecified heart failure type Heart failure chronicity: unspecified heart failure chronicity (4) BPH (benign prostatic hyperplasia) SNOMED Code(s): 357020163 Code(s): N40.0 - BENIGN PROSTATIC HYPERPLASIA WITHOUT LOWER URINRY TRACT SYMP Status: Chronic Priority: Medium Current Visit: No Qualifiers: Lower urinary tract symptom presence: symptoms absent Qualified Code(s): N40.0 - Benign prostatic hyperplasia without lower urinary tract symptoms (5) COPD (chronic obstructive pulmonary disease) SNOMED Code(s): 72910233 Code(s): J44.9 - CHRONIC OBSTRUCTIVE PULMONARY DISEASE, UNSPECIFIED Status: Chronic Priority: High Current Visit: Yes Qualifiers: COPD type: 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 Qualified Code(s): J41.8 - Mixed simple and mucopurulent chronic bronchitis (6) Chronic steroid use SNOMED Code(s): 389273426 Code(s): HZJ4779 - Status: Chronic Priority: Medium Current Visit: No (7) Churg-Marcella syndrome with lung involvement SNOMED Code(s): 45031473 Code(s): M30.1 - POLYARTERITIS WITH LUNG INVOLVEMENT [CHURG-MARCELLA] Status: Chronic Priority: High Current Visit: Yes (8) Immunocompromised SNOMED Code(s): 819632783 Code(s): D84.9 - IMMUNODEFICIENCY, UNSPECIFIED Status: Chronic Priority: High Current Visit: Yes (9) Pacemaker SNOMED Code(s): 783513340 Code(s): Z95.0 - PRESENCE OF CARDIAC PACEMAKER Status: Chronic Priority: Medium Current Visit: No (10) GERD (gastroesophageal reflux disease) SNOMED Code(s): 079730704 Code(s): K21.9 - GASTRO-ESOPHAGEAL REFLUX DISEASE WITHOUT ESOPHAGITIS Status: Chronic Priority: Low Current Visit: No Qualifiers: Esophagitis presence: esophagitis presence not specified Qualified Code(s): K21.9 - Gastro-esophageal reflux disease without esophagitis (11) HLD (hyperlipidemia) SNOMED Code(s): 39669281 Code(s): E78.5 - HYPERLIPIDEMIA, UNSPECIFIED Status: Chronic Priority: Low Current Visit: No Qualifiers: Hyperlipidemia type: unspecified Qualified Code(s): E78.5 - Hyperlipidemia, unspecified (12) HTN (hypertension) SNOMED Code(s): 91402143 Code(s): I10 - ESSENTIAL (PRIMARY) HYPERTENSION Status: Chronic Priority: Medium Current Visit: No Qualifiers: Hypertension type: unspecified Qualified Code(s): I10 - Essential (primary) hypertension (13) Pulmonary hypertension SNOMED Code(s): 68258192 Code(s): I27.20 - PULMONARY HYPERTENSION, UNSPECIFIED Status: Chronic Priority: Medium Current Visit: Yes (14) Asthma SNOMED Code(s): 994976382 Code(s): J45.909 - UNSPECIFIED ASTHMA, UNCOMPLICATED Status: Resolved Priority: Medium Current Visit: Yes Qualifiers: Asthma severity: unspecified severity Asthma persistence: unspecified Asthma complication type: unspecified Qualified Code(s): J45.909 - Unspecified asthma, uncomplicated (15) Osteoarthritis SNOMED Code(s): 593059668 Code(s): M19.90 - UNSPECIFIED OSTEOARTHRITIS, UNSPECIFIED SITE Status: Chronic Priority: Low Current Visit: No Qualifiers: Osteoarthritis location: unspecified site Osteoarthritis type: primary Qualified Code(s): M19.91 - Primary osteoarthritis, unspecified site (16) Type II diabetes mellitus SNOMED Code(s): 22778928 Code(s): E11.9 - TYPE 2 DIABETES MELLITUS WITHOUT COMPLICATIONS Status: Chronic Priority: Medium Current Visit: No Qualifiers: Diabetes mellitus snf insulin use: without shift superintendent caustic cresylate use Diabetes mellitus complication status: with other specified complication Qualified Code(s): E11.69 - Type 2 diabetes mellitus with other specified complication (17) Vitamin D deficiency SNOMED Code(s): 15546770 Code(s): E55.9 - VITAMIN D DEFICIENCY, UNSPECIFIED Status: Chronic Priority: Low Current Visit: No (18) History of bladder cancer SNOMED Code(s): 234050762, 376685346 Code(s): Z85.51 - PERSONAL HISTORY OF MALIGNANT NEOPLASM OF BLADDER Status: Chronic Priority: Medium Current Visit: No (19) Former smoker SNOMED Code(s): 0248770 Code(s): Z87.891 - PERSONAL HISTORY OF NICOTINE DEPENDENCE Status: Chronic Priority: Low Current Visit: No (20) Pneumonia SNOMED Code(s): 047074919 Code(s): J18.9 - PNEUMONIA, UNSPECIFIED ORGANISM Status: Acute Priority: High Current Visit: No Qualifiers: Pneumonia type: due to unspecified organism Laterality: right Lung location: unspecified part of lung Qualified Code(s): J18.9 - Pneumonia, unspecified organism (21) Elevated lactic acid level SNOMED Code(s): 9336682 Code(s): R79.89 - OTHER SPECIFIED ABNORMAL FINDINGS OF BLOOD CHEMISTRY Status: Acute Priority: High Current Visit: Yes (22) Acute on chronic anemia SNOMED Code(s): 347945032, 686783269 Code(s): D64.9 - ANEMIA, UNSPECIFIED Status: Acute Priority: High Current Visit: Yes - Problem List Review Problem List Initiated/Reviewed/Updated: Yes - My Orders Last 24 Hours: My Active Orders 03/29/20 21:00 Arformoterol [Brovana] 15 mcg INH BID 03/30/20 13:00 HEMOGLOBIN/HEMATOCRIT,HH [HEME] Routine 03/31/20 05:11 BASIC METABOLIC PANEL,BMP [CHEM] AM CBC WITH AUTO DIFF [HEME] AM MAGNESIUM [CHEM] AM - Assessment Assessment:: Assessment - day of admission (03/27/20) * 79 yo male presents to ED with worsening dyspnea, productive cough, crackles, and edema. * Denies any recent fever or other infectious symptoms. * Normally on 3 L of home oxygen but requiring 4 here. 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 * Is immunocompromised * Twelve-lead EKG in ED shows sinus tachycardia 112 bpm with ventricular pacing. * Labs in ED: * WBC 9.93 * Hemoglobin 8.7 * Platelet 580 * Neutrophils 64% * Band neutrophils 6% * INR 1.12 * D-dimer 1.15 * Sodium 146 * Potassium 4.3 * Carbon dioxide 29 * Anion gap 15.3 * BUN 14, creatinine 0.9, GFR greater than 60 * Glucose 153 * Magnesium 2.0 * Total bilirubin 0.1 * AST 21, ALT 20, alkaline phosphatase 88 * Troponin 0 0.024 * Albumin 2.5 * Lactic acid 3.0 * proBNP 33258 * Influenza a and B negative * SARS Covid 2 RNA negative * ABG in left radial pH 7.41, PCO2 46.0, PO2 67, HCO3 28.3, O2 saturation 92.1, base excess 3.7. Obtained while on 4 L via [place]. * Chest x-ray shows increasing density within the right lung base from prior chest x-rays most likely representing area of aspiration pneumonia. Diffuse interstitial change which appears chronic and other findings are also noted. * CTA obatined in ED due to elevated D-Dimer: * 1. Minimal area of pulmonary embolism within the segmental branch of the right lower lung * 2. Severe pulmonary fibrosis * 3. Focal area of increased density within the right middle lobe and right lower lobe. As mentioned above, this could represent worsening fibrosis but difficult to exclude areas of mild pneumonia. * (Of note: Per ED provider notes he discussed findings initially with the [facility] radiologist who felt patient does not have pneumonia or signs of CHF.) * Given Rocephin and Levaquin 1 dose each in ED. * Given albuterol nebulizers and started on 15 mg p.o. Xarelto. * Patient has severe baseline heart failure and pulmonary hypertension so IV fluids were discontinued in ED * Admitted to floor observation status. 03/28/20 * Reports improved SOB * Upgraded to inpatient yesterday due to questionable pneumonia * Given 1L slow IV fluids yesterday due to high lactic acid * On baseline 3L oxygen * Continuing BID xarelto * Labs today: * WBC 6.72 * hemoglobin 8.0 * platelet 522 * neutrophils 4.41 * D-dimer 1.11 * GFR greater than 60 * lactic acid 2.7 (yesterday) --> 1.4 * Continue current treatment plan 03/29/20 * Reports feeling well, decreased shortness of breath. * Continues on baseline 3 L of oxygen * Continuing twice daily Xarelto * Labs today: WBC 6.62 Hemoglobin 7.4 Platelet 509 Blood cultures are showing no growth * Continue current treatment plan 04/08/20 * Continues to have no complaints - states respiratory status is at baseline * On home 3L of oxygen * Continue BID xarelto * Continues daily rocephin * Labs today: * WBC 7.09 * Hgb 7.2 * Platelets 457 * GFR >60 * No obvious signs of bleeding * Continue current treatment plan * Recheck CBC today at 1300 - Plan Plan:: Acute on chronic anemia * Re-check H/H today at 1300 * Monitor labs * Continue home iron supplementation * Iron panel * No obvious signs of bleeding * On iron supplementation so Occult stool unable to be obtained * Transfuse if necessary * May be somewhat dilutional as patient received moo hydration Pulmonary embolus Pneumonia Pulmonary fibrosis COPD (chronic obstructive pulmonary disease) Chronic steroid use 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 Pulmonary hypertension Asthma Former smoker * Continue BID 15mg xarelto for PE * Continue Rocephin at 2gm due to questionable infiltrate * Continue home respiratory medications * PRN Albuterol and duonebs * IS/Acapella * RT consultation * Oxygen as needed - baseline 3L * Ambulate * Monitor daily labs * If IV fluids are needed be cautious as patient has sever HF and pulmonary hypertension * Blood cultures negative thus far Type II diabetes mellitus * Hold home metformin * QID AC and bedtime glucose checks * Low intensity sliding scale insulin * ADA diet Heart failure BPH (benign prostatic hyperplasia) Pacemaker GERD (gastroesophageal reflux disease) HLD (hyperlipidemia) HTN (hypertension) Osteoarthritis Vitamin D deficiency History of bladder cancer * Telemetry * No current concerns * Review/reconcile home medications Resolved: Elevated lactic acid Code status: DNR/DNI PCP: Dr. Castillo Pulmonary provider: Carolyn Atkinson NP Field Project Manager: Dr. Hamilton Poddar Urologist: Dr. Randall Priest DVT prophylaxis: Xarelto Social: Patient lives with daughter and son in-law who provide care Disposition: Patient is inpatient status due to questionable pneumonia Prognosis: Poor overall prognosis given baseline severe pulmonary and cardiac disease
[2020-03-30] MEDS: Calcium Carbonate 600 MG Tab PO SCH ×2 (08:29→20:46)
[2020-03-30] MEDS: Rivaroxaban 15 MG Tab PO SCH ×2 (08:29→20:46)
[2020-03-30] MEDS: guaiFENesin 600 MG Tab.ER PO SCH ×2 (08:30→20:45)
[2020-03-30] MEDS: Multivitamins,Therapeutic Tab PO SCH (08:30)
[2020-03-30] MEDS: Potassium Chloride 20 MEQ Tab.ER PO SCH (08:30)
[2020-03-30] MEDS: Aspirin 81 MG Tab.EC PO SCH (08:30)
[2020-03-30] MEDS: Diltiazem 180 MG Cap.CD PO SCH (08:30)
[2020-03-30] MEDS: Ferrous Sulfate 324 MG Tab.EC PO SCH ×2 (08:30→20:45)
[2020-03-30] MEDS: Tamsulosin 0.4 MG Cap.ER PO SCH (08:31)
[2020-03-30] MEDS: Arformoterol 15 MCG/2 ML Neb Soln INH SCH ×2 (08:32→20:09)
[2020-03-30] MEDS: Budesonide 0.5 MG/2 ML Neb Susp INH SCH ×2 (08:32→20:09)
[2020-03-30] MEDS: MYCOPHENOLATE MOFETIL 500 MG PO SCH ×2 (08:32→20:47)
[2020-03-30] MEDS: Furosemide 40 MG Tab PO SCH (08:34)
[2020-03-30] MEDS: predniSONE 10 MG Tab PO SCH (08:34)
[2020-03-30] MEDS: Roflumilast 500 MCG **PTOM PO SCH (08:50)
[2020-03-30] MEDS ORDERED: Furosemide 100 MG/10 ML SDV IVPUSH ONE (16:30)
[2020-03-30] MEDS: Magnesium Oxide 400 MG Tab PO SCH (20:45)
[2020-03-30] MEDS: Citalopram 20 MG Tab PO SCH (20:46)
[2020-03-30] MEDS: Cholecalciferol (Vitamin D3) 25 MCG Tab PO SCH (20:46)
[2020-03-30] MEDS: Pantoprazole 40 MG Tab.CR PO SCH (20:46)
[2020-03-30] MEDS: Simvastatin 40 MG Tab PO SCH (20:47)
[2020-03-30] MEDS: LORazepam 0.5 MG Tab PO PRN (20:52)
[2020-03-30] MEDS ORDERED: Sodium Chloride 0.9% 100 ML ONE (22:02)
[2020-03-30] MEDS: cefTRIAXone 2 GM in Sodium Chloride 0.9% 100 ML IV SCH (22:10)
[2020-03-31] MEDS: Arformoterol 15 MCG/2 ML Neb Soln INH SCH ×2 (08:00→20:11)
[2020-03-31] MEDS: Budesonide 0.5 MG/2 ML Neb Susp INH SCH ×2 (08:00→20:11)
[2020-03-31] MEDS: Ferrous Sulfate 324 MG Tab.EC PO SCH ×2 (08:37→20:28)
[2020-03-31] MEDS: predniSONE 10 MG Tab PO SCH (08:37)
[2020-03-31] MEDS: Potassium Chloride 20 MEQ Tab.ER PO SCH (08:37)
[2020-03-31] MEDS: Tamsulosin 0.4 MG Cap.ER PO SCH (08:37)
[2020-03-31] MEDS: Aspirin 81 MG Tab.EC PO SCH (08:37)
[2020-03-31] MEDS: Diltiazem 180 MG Cap.CD PO SCH (08:38)
[2020-03-31] MEDS: Furosemide 40 MG Tab PO SCH (08:38)
[2020-03-31] MEDS: MYCOPHENOLATE MOFETIL 500 MG PO SCH ×2 (08:39→20:29)
[2020-03-31] MEDS: guaiFENesin 600 MG Tab.ER PO SCH ×2 (08:39→20:29)
[2020-03-31] MEDS: Multivitamins,Therapeutic Tab PO SCH (08:39)
[2020-03-31] MEDS: Rivaroxaban 15 MG Tab PO SCH ×2 (08:39→20:29)
[2020-03-31] MEDS: Calcium Carbonate 600 MG Tab PO SCH ×2 (08:39→20:29)
[2020-03-31] MEDS: Roflumilast 500 MCG **PTOM PO SCH (09:30)
--- NOTE | 2020-03-31 09:34 | CR ---
Chest: Portable view of the chest was obtained. Comparison: Previous chest x-ray of 03/27/20. Diffuse interstitial change is noted throughout both lungs which is stable. Decreasing area of consolidation is noted within the right mid and lower lung from prior chest x-ray. Heart size is normal. Tortuous thoracic aorta is seen. Bichamber pacemaker is noted. Chronic rotator cuff tear is noted within the right shoulder. Osteopenia is also present. Impression: 1. Resolving area of consolidation within the right mid and lower lobe. 2. Diffuse interstitial change is noted which appears stable. 3. Other bony findings as noted above. Diagnostic code #3 I agree with preliminary report from [facility], finalized on 03/30/20, 4:58 PM [employer]
--- NOTE | 2020-03-31 12:10 | PCM.PN ---
- General Info Date of Service: 03/31/20 Admission Dx/Problem (Free Text): Admission Diagnosis/Problem Admission Diagnosis/Problem Pulmonary embolism Subjective Update: No overnight or acute issues. He rested well last night. He states he is getting better. He is now back at his baseline of 3L NC. He denies having fever or chills. His Hgb today is down to 7.9 grams. His blood glucose is not controlled. Functional Status: Reports: Pain Controlled, Urinating - Review of Systems General: Denies: Fever, Chills Pulmonary: Reports: Shortness of Breath, Cough (mild phlegm) Cardiovascular: Denies: Chest Pain Gastrointestinal: Denies: Abdominal Pain, Nausea, Vomiting Genitourinary: Reports: Retention Musculoskeletal: Reports: No Symptoms Skin: Denies: Pruritis, Rash Neurological: Reports: Difficulty Walking, Weakness, Gait Disturbance Psychiatric: Denies: Confusion, Anxiety - Patient Data Vitals - Most Recent: Last Vital Signs Temp 36.6 C 03/31/20 08:29 Pulse 93 03/31/20 08:29 Resp 20 03/31/20 08:29 BP 102/71 03/31/20 08:29 Pulse Ox 92 L 03/31/20 08:29 Weight - Most Recent: 57.425 kg I&O - Last 24 Hours: Intake & Output 03/30/20 03/31/20 03/31/20 22:59 06:59 14:59 Intake Total 930 600 480 Output Total 800 760 225 Balance 130 -160 255 Lab Results Last 24 Hours: Laboratory Results - last 24 hr 03/30/20 03/30/20 03/30/20 Range/Units 04:35 12:59 15:55 WBC (4.23-9.07) K/mm3 RBC (4.63-6.08) M/mm3 Hgb 8.3 L (13.7-17.5) gm/dl Hct 29.8 L (40.1-51.0) % MCV (79.0-92.2) fl MCH (25.7-32.2) pg MCHC (32.2-35.5) g/dl RDW Std Deviation (35.1-43.9) fL Plt Count (163-337) K/mm3 MPV (9.4-12.3) fl Neut % (Auto) (34.0-67.9) % Lymph % (Auto) (21.8-53.1) % [place] % (Auto) (5.3-12.2) % Eos % (Auto) (0.8-7.0) Baso % (Auto) (0.1-1.2) % Neut # (Auto) (1.78-5.38) K/mm3 Lymph # (Auto) (1.32-3.57) K/mm3 [place] # (Auto) (0.30-0.82) K/mm3 Eos # (Auto) (0.04-0.54) K/mm3 Baso # (Auto) (0.01-0.08) K/mm3 Manual Slide Review Sodium 141 (136-145) mEq/L Potassium 4.6 (3.5-5.1) mEq/L Chloride 102 (98-107) mEq/L Carbon Dioxide 34 H (21-32) mEq/L Anion Gap 9.6 (5-15) BUN 19 H (7-18) mg/dL Creatinine 0.8 (0.7-1.3) mg/dL Est Cr Clr Drug Dosing 63.94 mL/min Estimated GFR (MDRD) > 60 (>60) mL/min BUN/Creatinine Ratio 23.8 H (14-18) Glucose 218 H (83-115) mg/dL POC Glucose (83-110) mg/dL Calcium 9.1 (8.5-10.1) mg/dL Magnesium 2.1 (1.8-2.4) mg/dl Iron 21 L (65-175) ug/dL TIBC 169 (100-400) ug/dL % Saturation 12 L (20-55) % Transferrin 135 L (202-364) mg/dL Total Bilirubin 0.1 L (0.2-1.0) mg/dL AST 12 L (15-37) U/L ALT 11 L (16-63) U/L Alkaline Phosphatase 75 (46-116) U/L Troponin I < 0.017 (0.00-0.056) ng/mL NT-Pro-B Natriuret Pep (0-450) pg/mL Total Protein 6.4 (6.4-8.2) g/dl Albumin 2.3 L (3.4-5.0) g/dl Globulin 4.1 gm/dL Albumin/Globulin Ratio 0.6 L (1-2) 03/30/20 03/30/20 03/30/20 Range/Units 15:59 17:10 20:38 WBC (4.23-9.07) K/mm3 RBC (4.63-6.08) M/mm3 Hgb (13.7-17.5) gm/dl Hct (40.1-51.0) % MCV (79.0-92.2) fl MCH (25.7-32.2) pg MCHC (32.2-35.5) g/dl RDW Std Deviation (35.1-43.9) fL Plt Count (163-337) K/mm3 MPV (9.4-12.3) fl Neut % (Auto) (34.0-67.9) % Lymph % (Auto) (21.8-53.1) % [place] % (Auto) (5.3-12.2) % Eos % (Auto) (0.8-7.0) Baso % (Auto) (0.1-1.2) % Neut # (Auto) (1.78-5.38) K/mm3 Lymph # (Auto) (1.32-3.57) K/mm3 [place] # (Auto) (0.30-0.82) K/mm3 Eos # (Auto) (0.04-0.54) K/mm3 Baso # (Auto) (0.01-0.08) K/mm3 Manual Slide Review Sodium (136-145) mEq/L Potassium (3.5-5.1) mEq/L Chloride (98-107) mEq/L Carbon Dioxide (21-32) mEq/L Anion Gap (5-15) BUN (7-18) mg/dL Creatinine (0.7-1.3) mg/dL Est Cr Clr Drug Dosing mL/min Estimated GFR (MDRD) (>60) mL/min BUN/Creatinine Ratio (14-18) Glucose (83-115) mg/dL POC Glucose 229 H 213 H (83-110) mg/dL Calcium (8.5-10.1) mg/dL Magnesium (1.8-2.4) mg/dl Iron (65-175) ug/dL TIBC (100-400) ug/dL % Saturation (20-55) % Transferrin (202-364) mg/dL Total Bilirubin (0.2-1.0) mg/dL AST (15-37) U/L ALT (16-63) U/L Alkaline Phosphatase (46-116) U/L Troponin I (0.00-0.056) ng/mL NT-Pro-B Natriuret Pep 86154 H (0-450) pg/mL Total Protein (6.4-8.2) g/dl Albumin (3.4-5.0) g/dl Globulin gm/dL Albumin/Globulin Ratio (1-2) 03/31/20 03/31/20 03/31/20 Range/Units 04:53 06:44 11:21 WBC 9.15 H (4.23-9.07) K/mm3 RBC 3.04 L (4.63-6.08) M/mm3 Hgb 7.9 L (13.7-17.5) gm/dl Hct 27.9 L (40.1-51.0) % MCV 91.8 (79.0-92.2) fl MCH 26.0 (25.7-32.2) pg MCHC 28.3 L (32.2-35.5) g/dl RDW Std Deviation 52.4 H (35.1-43.9) fL Plt Count 555 H D (163-337) K/mm3 MPV 8.3 L (9.4-12.3) fl Neut % (Auto) 66.1 (34.0-67.9) % Lymph % (Auto) 19.0 L (21.8-53.1) % [place] % (Auto) 12.0 (5.3-12.2) % Eos % (Auto) 2.6 (0.8-7.0) Baso % (Auto) 0.2 (0.1-1.2) % Neut # (Auto) 6.04 H (1.78-5.38) K/mm3 Lymph # (Auto) 1.74 (1.32-3.57) K/mm3 [place] # (Auto) 1.10 H (0.30-0.82) K/mm3 Eos # (Auto) 0.24 (0.04-0.54) K/mm3 Baso # (Auto) 0.02 (0.01-0.08) K/mm3 Manual Slide Review Abnormal smear Sodium (136-145) mEq/L Potassium (3.5-5.1) mEq/L Chloride (98-107) mEq/L Carbon Dioxide (21-32) mEq/L Anion Gap (5-15) BUN (7-18) mg/dL Creatinine (0.7-1.3) mg/dL Est Cr Clr Drug Dosing mL/min Estimated GFR (MDRD) (>60) mL/min BUN/Creatinine Ratio (14-18) Glucose (83-115) mg/dL POC Glucose 132 H 264 H (83-110) mg/dL Calcium (8.5-10.1) mg/dL Magnesium (1.8-2.4) mg/dl Iron (65-175) ug/dL TIBC (100-400) ug/dL % Saturation (20-55) % Transferrin (202-364) mg/dL Total Bilirubin (0.2-1.0) mg/dL AST (15-37) U/L ALT (16-63) U/L Alkaline Phosphatase (46-116) U/L Troponin I (0.00-0.056) ng/mL NT-Pro-B Natriuret Pep (0-450) pg/mL Total Protein (6.4-8.2) g/dl Albumin (3.4-5.0) g/dl Globulin gm/dL Albumin/Globulin Ratio (1-2) Timothy Results Last 24 Hours: Microbiology 03/26/20 00:02 Aerobic Blood Culture - Preliminary Blood - Venous - Lab Draw NO GROWTH AFTER 4 DAYS Anaerobic Blood Culture - Preliminary NO GROWTH AFTER 4 DAYS 03/26/20 23:45 Aerobic Blood Culture - Preliminary Blood - Venous NO GROWTH AFTER 4 DAYS Anaerobic Blood Culture - Final Med Orders - Current: Current Medications Acetaminophen (Tylenol) 650 mg PO Q6HR PRN PRN Reason: mild pain Albuterol (Proventil Neb Soln) 2.5 mg NEB Q2H PRN PRN Reason: sob/wheezing Albuterol/Ipratropium (Duoneb 3.0-0.5 Mg/3 Ml) 3 ml NEB Q6HRRT PRN PRN Reason: wheezing/SOB/cough Arformoterol Tartrate (Brovana) 15 mcg INH BID KEANU Last Admin: 03/31/20 08:00 Dose: 15 mcg Documented by: Aspirin (Halfprin) 81 mg PO DAILY [facility] Last Admin: 03/31/20 08:37 Dose: 81 mg Documented by: Budesonide (Pulmicort) 0.5 mg INH BID [facility] Last Admin: 03/31/20 08:00 Dose: 0.5 mg Documented by: Calcium Carbonate/Glycine (Calcium Carbonate) 600 mg PO BID [facility] Last Admin: 03/31/20 08:39 Dose: 600 mg Documented by: Cholecalciferol (Vitamin D3) 25 mcg PO BEDTIME [facility] Last Admin: 03/30/20 20:46 Dose: 25 mcg Documented by: Citalopram Hydrobromide (Celexa) 20 mg PO BEDTIME [facility] Last Admin: 03/30/20 20:46 Dose: 20 mg Documented by: Diltiazem HCl (Cardizem Cd) 180 mg PO DAILY [facility] Last Admin: 03/31/20 08:38 Dose: 180 mg Documented by: Docusate Sodium (Colace) 100 mg PO BID PRN PRN Reason: Constipation Ferrous Sulfate (Ferrous Sulfate) 324 mg PO BID [facility] Last Admin: 03/31/20 08:37 Dose: 324 mg Documented by: Furosemide (Lasix) 60 mg PO DAILY [facility] Last Admin: 03/31/20 08:38 Dose: 60 mg Documented by: Guaifenesin (Mucinex) 1,200 mg PO BID [facility] Last Admin: 03/31/20 08:39 Dose: 1,200 mg Documented by: Ceftriaxone Sodium 2 gm/ (Sodium Chloride) 100 mls @ 200 mls/hr IV Q24H [facility] Last Admin: 03/30/20 22:10 Dose: 200 mls/hr Documented by: Insulin Human Lispro (Humalog) 0 unit SUBCUT QIDACANDBED [facility]; Protocol Last Admin: 03/31/20 11:36 Dose: 3 units Documented by: Lorazepam (Ativan) 0.5 mg PO Q6H PRN PRN Reason: Anxiety Last Admin: 03/30/20 20:52 Dose: 0.5 mg Documented by: Magnesium Oxide (Magnesium Oxide) 400 mg PO BEDTIME [facility] Last Admin: 03/30/20 20:45 Dose: 400 mg Documented by: Multivitamins (Thera) 1 each PO DAILY [facility] Last Admin: 03/31/20 08:39 Dose: 1 each Documented by: Mycophenolate Mofetil 500 Mg Tab * *Ptom 0 each PO DAILY [facility] Last Admin: 03/31/20 08:39 Dose: 1,000 each Documented by: Mycophenolate Mofetil 500 Mg Tab * *Ptom 0 each PO BEDTIME [facility] Last Admin: 03/30/20 20:47 Dose: 1 each Documented by: Roflumilast 500 Mcg (Ptom) 0 mcg PO DAILY [facility] Last Admin: 03/31/20 09:30 Dose: 500 mcg Documented by: Ondansetron HCl (Zofran) 4 mg IV Q6H PRN PRN Reason: Nausea/Vomiting Pantoprazole Sodium (Protonix) 40 mg PO BEDTIME [facility] Last Admin: 03/30/20 20:46 Dose: 40 mg Documented by: Potassium Chloride (Klor-Con M20) 20 meq PO DAILY [facility] Last Admin: 03/31/20 08:37 Dose: 20 meq Documented by: Prednisone (Prednisone) 15 mg PO DAILY [facility] Last Admin: 03/31/20 08:37 Dose: 15 mg Documented by: Rivaroxaban (Xarelto) 15 mg PO BID [facility] Last Admin: 03/31/20 08:39 Dose: 15 mg Documented by: Simvastatin (Zocor) 40 mg PO BEDTIME [facility] Last Admin: 03/30/20 20:47 Dose: 40 mg Documented by: Sodium Chloride ([place] Nasal Carmen) 0 ml JENNY Q4H PRN PRN Reason: Nasal Dryness Tamsulosin HCl (Flomax) 0.4 mg PO DAILY [facility] Last Admin: 03/31/20 08:37 Dose: 0.4 mg Documented by: Discontinued Medications Albuterol (Proventil Neb Soln) 2.5 mg NEB ONETIME ONE Stop: 03/27/20 05:29 Last Admin: 03/27/20 08:10 Dose: Not Given Documented by: Albuterol (Proventil Neb Soln) 2.5 mg NEB ONETIME ONE Stop: 03/27/20 06:01 Last Admin: 03/27/20 05:52 Dose: 2.5 mg Documented by: Albuterol/Ipratropium (Duoneb 3.0-0.5 Mg/3 Ml) 3 ml NEB Q6HRRT PRN PRN Reason: wheezing/SOB/cough Albuterol/Ipratropium (Duoneb 3.0-0.5 Mg/3 Ml) 3 ml NEB Q6HRRT PRN PRN Reason: wheezing/SOB/cough Budesonide (Pulmicort) 0.5 mg INH BID [facility] Last Admin: 03/27/20 20:16 Dose: 0.5 mg Documented by: Furosemide (Lasix) 60 mg PO DAILY [facility] Last Admin: 03/27/20 15:07 Dose: 60 mg Documented by: Furosemide (Lasix) 60 mg IVPUSH NOW ONE Stop: 03/30/20 16:31 Last Admin: 03/30/20 16:53 Dose: 60 mg Documented by: Sodium Chloride (Normal Saline) 1,000 mls @ 999 mls/hr IV ONETIME ONE Stop: 03/27/20 00:30 Last Admin: 03/27/20 00:12 Dose: 999 mls/hr Documented by: Ceftriaxone Sodium 1 gm/ (Sodium Chloride) 100 mls @ 200 mls/hr IV ONETIME STA Stop: 03/26/20 23:59 Last Admin: 03/27/20 00:12 Dose: 200 mls/hr Documented by: Levofloxacin/Dextrose 750 mg/ (Premix) 150 mls @ 100 mls/hr IV ONETIME STA Stop: 03/27/20 03:09 Last Admin: 03/27/20 01:51 Dose: 100 mls/hr Documented by: Sodium Chloride (Normal Saline) 100 mls @ 4 mls/sec IV ONETIME ONE Stop: 03/27/20 02:38 Last Admin: 03/27/20 02:39 Dose: 4 mls/sec Documented by: Lactated Ringer's (Ringers, Lactated) 1,000 mls @ 75 mls/hr IV ASDIRECTED [facility] Stop: 03/28/20 05:04 Last Admin: 03/28/20 00:13 Dose: 75 mls/hr Documented by: Ferric Sodium Gluconate Complex 250 mg/ Sodium Chloride 120 mls @ 60 mls/hr IV ONETIME ONE Stop: 03/30/20 16:44 Last Admin: 03/30/20 14:45 Dose: 60 mls/hr Documented by: Sodium Chloride (Normal Saline) Confirm Administered Dose 100 mls @ as directed .ROUTE .STK-MED ONE Stop: 03/30/20 22:03 Last Admin: 02/12/21 22:16 Dose: Not Given Documented by: Iopamidol (Isovue-370 (76%)) 100 ml IVPUSH ONETIME ONE Stop: 03/27/20 02:38 Last Admin: 03/27/20 02:38 Dose: 100 ml Documented by: Non-Formulary Medication (Ciclopirox/Urea/Camph/Men/Euc [Ciclopirox 8% Treatment Kit]) 1 applic TOP BEDTIME [facility] Diltiazem Hcl [Dilt- (Xr] 180 Mg Ptom) 0 mg PO DAILY [facility] Last Admin: 03/27/20 16:02 Dose: Not Given Documented by: Formoterol Fumarate 20 Mcg/2 Ml ( Perforomist) Ptom 0 mcg INH BID [facility] Last Admin: 03/29/20 08:13 Dose: Not Given Documented by: Omeprazole Magnesium (20 Mg Cap Ptom) 0 mg PO BEDTIME [facility] Last Admin: 03/27/20 22:55 Dose: 40 mg Documented by: Prednisone (Prednisone) 15 mg PO DAILY [facility] Last Admin: 03/27/20 15:11 Dose: 15 mg Documented by: Rivaroxaban (Xarelto) 15 mg PO ONETIME STA Stop: 03/27/20 03:07 Last Admin: 03/27/20 05:21 Dose: 15 mg Documented by: Simvastatin (Zocor) 40 mg PO BEDTIME [facility] Last Admin: 03/27/20 22:56 Dose: 40 mg Documented by: Simvastatin (Zocor) 40 mg PO BEDTIME [facility] Tamsulosin HCl (Flomax) 0.4 mg PO DAILY [facility] Last Admin: 03/27/20 15:06 Dose: 0.4 mg Documented by: - Exam Quality Assessment: Supplemental Oxygen General: Alert, Oriented, Cooperative HEENT: Pupils Equal, Pupils Reactive, Mucous Membr. Moist/[place] Neck: Supple Lungs: Normal Respiratory Effort, Rales Cardiovascular: Regular Rate, Regular Rhythm GI/Abdominal Exam: Normal Bowel Sounds, Soft, Non-Tender, No Organomegaly, No Distention, No Abnormal Bruit (Male) Exam: Other (urinary catheter) Back Exam: Normal Inspection, Decreased Range of Motion Extremities: Normal Range of Motion, Non-Tender, No Pedal Edema, Normal C apillary Refill, Other (muscle wasting on both lower extremity) Peripheral Pulses: 2+: Dorsalis Pedis (L), Dorsalis Pedis (R) Skin: Warm, Dry, Intact Neurological: No New Focal Deficit. No: Normal Gait Psy/Mental Status: Alert, Normal Affect, Normal Mood Sepsis Event Note - Evaluation Sepsis Screening Result: No Definite Risk - Focused Exam Vital Signs: Vital Signs Temp Pulse Resp BP Pulse Ox 03/31/20 08:29 36.6 C 93 20 102/71 92 L 03/31/20 04:44 36.3 C 93 20 91/54 L 93 L 03/31/20 00:26 36.3 C 88 18 95/57 L 100 - Problem List Review Problem List Initiated/Reviewed/Updated: Yes - Assessment Assessment:: Assessment - day of admission (03/27/20) * 79 yo male presents to ED with worsening dyspnea, productive cough, crackles, and edema. * Denies any recent fever or other infectious symptoms. * Normally on 3 L of home oxygen but requiring 4 here. 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 * Is immunocompromised * Twelve-lead EKG in ED shows sinus tachycardia 112 bpm with ventricular pacing. * Labs in ED: * WBC 9.93 * Hemoglobin 8.7 * Platelet 580 * Neutrophils 64% * Band neutrophils 6% * INR 1.12 * D-dimer 1.15 * Sodium 146 * Potassium 4.3 * Carbon dioxide 29 * Anion gap 15.3 * BUN 14, creatinine 0.9, GFR greater than 60 * Glucose 153 * Magnesium 2.0 * Total bilirubin 0.1 * AST 21, ALT 20, alkaline phosphatase 88 * Troponin 0 0.024 * Albumin 2.5 * Lactic acid 3.0 * proBNP 80333 * Influenza a and B negative * SARS Covid 2 RNA negative * ABG in left radial pH 7.41, PCO2 46.0, PO2 67, HCO3 28.3, O2 saturation 92.1, base excess 3.7. Obtained while on 4 L via NC. * Chest x-ray shows increasing density within the right lung base from prior chest x-rays most likely representing area of aspiration pneumonia. Diffuse interstitial change which appears chronic and other findings are also noted. * CTA obatined in ED due to elevated D-Dimer: * 1. Minimal area of pulmonary embolism within the segmental branch of the right lower lung * 2. Severe pulmonary fibrosis * 3. Focal area of increased density within the right middle lobe and right lower lobe. As mentioned above, this could represent worsening fibrosis but difficult to exclude areas of mild pneumonia. * (Of note: Per ED provider notes he discussed findings initially with the ad radiologist who felt patient does not have pneumonia or signs of CHF.) * Given Rocephin and Levaquin 1 dose each in ED. * Given albuterol nebulizers and started on 15 mg p.o. Xarelto. * Patient has severe baseline heart failure and pulmonary hypertension so IV fluids were discontinued in ED * Admitted to floor observation status. 03/28/20 * Reports improved SOB * Upgraded to inpatient yesterday due to questionable pneumonia * Given 1L slow IV fluids yesterday due to high lactic acid * On baseline 3L oxygen * Continuing BID xarelto * Labs today: * WBC 6.72 * hemoglobin 8.0 * platelet 522 * neutrophils 4.41 * D-dimer 1.11 * GFR greater than 60 * lactic acid 2.7 (yesterday) --> 1.4 * Continue current treatment plan 03/29/20 * Reports feeling well, decreased shortness of breath. * Continues on baseline 3 L of oxygen * Continuing twice daily Xarelto * Labs today: WBC 6.62 Hemoglobin 7.4 Platelet 509 Blood cultures are showing no growth * Continue current treatment plan 03/30/20 * Continues to have no complaints - states respiratory status is at baseline * On home 3L of oxygen * Continue BID xarelto * Continues daily rocephin * Labs today: * WBC 7.09 * Hgb 7.2 * Platelets 457 * GFR >60 * No obvious signs of bleeding * Continue current treatment plan * Recheck CBC today at 1300 03/31/20 * Continue current treatment * At baseline 3L NC * Continue IV antibiotic * Monitor Hgb, trending down * Xarelto BID for PE treatment * Routine AM labs * Continue IS and FV as directed * Change ISS to high intensity * Fall precautions - Plan Plan:: Acute on chronic anemia * Re-check H/H today at 1300 * Monitor labs * Continue home iron supplementation * Iron panel * No obvious signs of bleeding * On iron supplementation so Occult stool unable to be obtained * Transfuse if necessary; Hgb is 7.9 grams * May be somewhat dilutional as patient received moo hydration Pulmonary embolus Pneumonia Pulmonary fibrosis COPD (chronic obstructive pulmonary disease) Chronic steroid use 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 Pulmonary hypertension Asthma Former smoker * Continue BID 15mg xarelto for PE * Continue Rocephin at 2 gm due to questionable infiltrate; has multiple abx allergies to include azithromycin * Continue home respiratory medications * PRN Albuterol and duonebs * IS/Acapella * RT consultation * Oxygen as needed - baseline 3L * Ambulate * Monitor daily labs * If IV fluids are needed be cautious as patient has sever HF and pulmonary hypertension * Blood cultures negative thus far Type II diabetes mellitus, not controlled * Hold home metformin * QID AC and bedtime glucose checks * On steroid for maintenance medication * Low intensity sliding scale insulin-->change to high intensity * ADA diet Heart failure BPH (benign prostatic hyperplasia) Pacemaker GERD (gastroesophageal reflux disease) HLD (hyperlipidemia) HTN (hypertension) Osteoarthritis Vitamin D deficiency History of bladder cancer * Telemetry * No current concerns * Review/reconcile home medications Resolved: Elevated lactic acid Code status: DNR/DNI PCP: Dr. Castillo Pulmonary provider: Carolyn Atkinson NP Finished Metal Repairer: Dr. Hamilton Poddar Urologist: Dr. Randall Priest DVT prophylaxis: Xarelto Social: Patient lives with daughter and son in-law who provide care Disposition: Patient is inpatient status due to questionable pneumonia Prognosis: Poor overall prognosis given baseline severe pulmonary and cardiac disease
[2020-03-31] MEDS: Citalopram 20 MG Tab PO SCH (20:28)
[2020-03-31] MEDS: Magnesium Oxide 400 MG Tab PO SCH (20:28)
[2020-03-31] MEDS: Pantoprazole 40 MG Tab.CR PO SCH (20:28)
[2020-03-31] MEDS: Simvastatin 40 MG Tab PO SCH (20:28)
[2020-03-31] MEDS: Cholecalciferol (Vitamin D3) 25 MCG Tab PO SCH (20:29)
[2020-03-31] MEDS: LORazepam 0.5 MG Tab PO PRN (20:29)
[2020-03-31] MEDS: cefTRIAXone 2 GM in Sodium Chloride 0.9% 100 ML IV SCH (21:47)
[2020-03-31] MEDS: Fluticasone Propionate Nasal Spray 16 GM Bottle NASBOTH SCH (21:47)
[2020-04-01] MEDS: Arformoterol 15 MCG/2 ML Neb Soln INH SCH ×2 (08:35→20:32)
[2020-04-01] MEDS: Budesonide 0.5 MG/2 ML Neb Susp INH SCH ×2 (08:35→20:32)
[2020-04-01] MEDS: Furosemide 40 MG Tab PO SCH (09:35)
[2020-04-01] MEDS: guaiFENesin 600 MG Tab.ER PO SCH ×2 (09:35→21:56)
[2020-04-01] MEDS: Diltiazem 180 MG Cap.CD PO SCH (09:35)
[2020-04-01] MEDS: Tamsulosin 0.4 MG Cap.ER PO SCH (09:35)
[2020-04-01] MEDS: Multivitamins,Therapeutic Tab PO SCH (09:35)
[2020-04-01] MEDS: Rivaroxaban 15 MG Tab PO SCH ×2 (09:35→21:56)
[2020-04-01] MEDS: predniSONE 10 MG Tab PO SCH (09:37)
[2020-04-01] MEDS: Potassium Chloride 20 MEQ Tab.ER PO SCH (09:38)
[2020-04-01] MEDS: Ferrous Sulfate 324 MG Tab.EC PO SCH ×2 (09:38→21:56)
[2020-04-01] MEDS: Fluticasone Propionate Nasal Spray 16 GM Bottle NASBOTH SCH ×2 (09:38→21:57)
[2020-04-01] MEDS: Aspirin 81 MG Tab.EC PO SCH (09:38)
[2020-04-01] MEDS: Calcium Carbonate 600 MG Tab PO SCH ×2 (09:38→21:56)
[2020-04-01] MEDS: Roflumilast 500 MCG **PTOM PO SCH (09:45)
[2020-04-01] MEDS: MYCOPHENOLATE MOFETIL 500 MG PO SCH ×2 (09:45→22:13)
--- NOTE | 2020-04-01 12:00 | PCM.PN ---
- General Info Date of Service: 04/01/20 Admission Dx/Problem (Free Text): Admission Diagnosis/Problem Admission Diagnosis/Problem Pulmonary embolism Subjective Update: No overnight or acute issues. He remains on 3L NC. He denies having fever or chills. His Hgb today slightly improves to 8.0 grams. His blood glucose is much better. His BPs were borderline low this morning. Functional Status: Reports: Pain Controlled, Tolerating Diet, Ambulating, Urinating. Denies: New Symptoms - Review of Systems General: Denies: Fever, Chills HEENT: Reports: No Symptoms Pulmonary: Reports: Shortness of Breath (baseline), Cough Cardiovascular: Denies: Chest Pain Gastrointestinal: Denies: Abdominal Pain, Nausea, Vomiting Genitourinary: Reports: Retention Musculoskeletal: Denies: Neck Pain, Joint Pain Skin: Denies: Cyanosis, Bruising, Rash Neurological: Reports: Weakness, Gait Disturbance. Denies: Confusion Psychiatric: Denies: Depression, Anxiety - Patient Data Vitals - Most Recent: Last Vital Signs Temp 36.4 C 04/01/20 09:14 Pulse 92 04/01/20 09:14 Resp 20 04/01/20 09:14 BP 107/58 L 04/01/20 09:14 Pulse Ox 91 L 04/01/20 09:55 Weight - Most Recent: 56.971 kg I&O - Last 24 Hours: Intake & Output 03/31/20 04/01/20 04/01/20 22:59 06:59 14:59 Intake Total 1220 550 Output Total 875 325 400 Balance 345 225 -400 Lab Results Last 24 Hours: Laboratory Results - last 24 hr 03/31/20 03/31/20 04/01/20 Range/Units 16:41 20:45 04:45 WBC 10.83 H (4.23-9.07) K/mm3 RBC 3.15 L (4.63-6.08) M/mm3 Hgb 8.0 L (13.7-17.5) gm/dl Hct 29.0 L (40.1-51.0) % MCV 92.1 (79.0-92.2) fl MCH 25.4 L (25.7-32.2) pg MCHC 27.6 L (32.2-35.5) g/dl RDW Std Deviation 52.5 H (35.1-43.9) fL Plt Count 502 H (163-337) K/mm3 MPV 8.6 L (9.4-12.3) fl Neut % (Auto) 77.2 H (34.0-67.9) % Lymph % (Auto) 10.2 L (21.8-53.1) % [place] % (Auto) 11.6 (5.3-12.2) % Eos % (Auto) 0.7 L (0.8-7.0) Baso % (Auto) 0.1 (0.1-1.2) % Neut # (Auto) 8.36 H (1.78-5.38) K/mm3 Lymph # (Auto) 1.10 L (1.32-3.57) K/mm3 [place] # (Auto) 1.26 H (0.30-0.82) K/mm3 Eos # (Auto) 0.08 (0.04-0.54) K/mm3 Baso # (Auto) 0.01 (0.01-0.08) K/mm3 Manual Slide Review Abnormal smear Sodium (136-145) mEq/L Potassium (3.5-5.1) mEq/L Chloride (98-107) mEq/L Carbon Dioxide (21-32) mEq/L Anion Gap (5-15) BUN (7-18) mg/dL Creatinine (0.7-1.3) mg/dL Est Cr Clr Drug Dosing mL/min Estimated GFR (MDRD) (>60) mL/min BUN/Creatinine Ratio (14-18) Glucose (83-115) mg/dL POC Glucose 231 H 217 H (83-110) mg/dL Calcium (8.5-10.1) mg/dL Magnesium (1.8-2.4) mg/dl 04/01/20 04/01/20 04/01/20 Range/Units 04:45 06:39 11:04 WBC (4.23-9.07) K/mm3 RBC (4.63-6.08) M/mm3 Hgb (13.7-17.5) gm/dl Hct (40.1-51.0) % MCV (79.0-92.2) fl MCH (25.7-32.2) pg MCHC (32.2-35.5) g/dl RDW Std Deviation (35.1-43.9) fL Plt Count (163-337) K/mm3 MPV (9.4-12.3) fl Neut % (Auto) (34.0-67.9) % Lymph % (Auto) (21.8-53.1) % [place] % (Auto) (5.3-12.2) % Eos % (Auto) (0.8-7.0) Baso % (Auto) (0.1-1.2) % Neut # (Auto) (1.78-5.38) K/mm3 Lymph # (Auto) (1.32-3.57) K/mm3 [place] # (Auto) (0.30-0.82) K/mm3 Eos # (Auto) (0.04-0.54) K/mm3 Baso # (Auto) (0.01-0.08) K/mm3 Manual Slide Review Sodium 144 (136-145) mEq/L Potassium 3.9 (3.5-5.1) mEq/L Chloride 100 (98-107) mEq/L Carbon Dioxide 37 H (21-32) mEq/L Anion Gap 10.9 (5-15) BUN 20 H (7-18) mg/dL Creatinine 0.8 (0.7-1.3) mg/dL Est Cr Clr Drug Dosing 60.33 mL/min Estimated GFR (MDRD) > 60 (>60) mL/min BUN/Creatinine Ratio 25.0 H (14-18) Glucose 200 H (83-115) mg/dL POC Glucose 198 H 166 H (83-110) mg/dL Calcium 9.1 (8.5-10.1) mg/dL Magnesium 2.3 (1.8-2.4) mg/dl Timothy Results Last 24 Hours: Microbiology 03/26/20 00:02 Aerobic Blood Culture - Preliminary Blood - Venous - Lab Draw NO GROWTH AFTER 5 DAYS Anaerobic Blood Culture - Preliminary NO GROWTH AFTER 5 DAYS 03/26/20 23:45 Aerobic Blood Culture - Preliminary Blood - Venous NO GROWTH AFTER 5 DAYS Anaerobic Blood Culture - Final Med Orders - Current: Current Medications Acetaminophen (Tylenol) 650 mg PO Q6HR PRN PRN Reason: mild pain Albuterol (Proventil Neb Soln) 2.5 mg NEB Q2H PRN PRN Reason: sob/wheezing Albuterol/Ipratropium (Duoneb 3.0-0.5 Mg/3 Ml) 3 ml NEB Q6HRRT PRN PRN Reason: wheezing/SOB/cough Arformoterol Tartrate (Brovana) 15 mcg INH BID [facility] Last Admin: 04/01/20 08:35 Dose: 15 mcg Documented by: Aspirin (Halfprin) 81 mg PO DAILY [facility] Last Admin: 04/01/20 09:38 Dose: 81 mg Documented by: Budesonide (Pulmicort) 0.5 mg INH BID [facility] Last Admin: 04/01/20 08:35 Dose: 0.5 mg Documented by: Calcium Carbonate/Glycine (Calcium Carbonate) 600 mg PO BID [facility] Last Admin: 04/01/20 09:38 Dose: 600 mg Documented by: Cholecalciferol (Vitamin D3) 25 mcg PO BEDTIME [facility] Last Admin: 03/31/20 20:29 Dose: 25 mcg Documented by: Citalopram Hydrobromide (Celexa) 20 mg PO BEDTIME [facility] Last Admin: 03/31/20 20:28 Dose: 20 mg Documented by: Diltiazem HCl (Cardizem Cd) 180 mg PO DAILY [facility] Last Admin: 04/01/20 09:35 Dose: 180 mg Documented by: Docusate Sodium (Colace) 100 mg PO BID PRN PRN Reason: Constipation Ferrous Sulfate (Ferrous Sulfate) 324 mg PO BID [facility] Last Admin: 04/01/20 09:38 Dose: 324 mg Documented by: Fluticasone Propionate (Flonase) 0 gm NASBOTH BID [facility] Last Admin: 04/01/20 09:38 Dose: 1 each Documented by: Furosemide (Lasix) 60 mg PO DAILY [facility] Last Admin: 04/01/20 09:35 Dose: 60 mg Documented by: Guaifenesin (Mucinex) 1,200 mg PO BID [facility] Last Admin: 04/01/20 09:35 Dose: 1,200 mg Documented by: Ceftriaxone Sodium 2 gm/ (Sodium Chloride) 100 mls @ 200 mls/hr IV Q24H [facility] Last Admin: 03/31/20 21:47 Dose: 200 mls/hr Documented by: Insulin Human Lispro (Humalog) 0 unit SUBCUT QIDACANDBED [facility]; Protocol Last Admin: 04/01/20 09:34 Dose: 3 units Documented by: Lorazepam (Ativan) 0.5 mg PO Q6H PRN PRN Reason: Anxiety Last Admin: 03/31/20 20:29 Dose: 0.5 mg Documented by: Magnesium Oxide (Magnesium Oxide) 400 mg PO BEDTIME [facility] Last Admin: 03/31/20 20:28 Dose: 400 mg Documented by: Multivitamins (Thera) 1 each PO DAILY [facility] Last Admin: 04/01/20 09:35 Dose: 1 each Documented by: Mycophenolate Mofetil 500 Mg Tab * *Ptom 0 each PO DAILY [facility] Last Admin: 04/01/20 09:45 Dose: 2 each Documented by: Mycophenolate Mofetil 500 Mg Tab * *Ptom 0 each PO BEDTIME [facility] Last Admin: 03/31/20 20:29 Dose: 1 each Documented by: Roflumilast 500 Mcg (Ptom) 0 mcg PO DAILY [facility] Last Admin: 04/01/20 09:45 Dose: 500 mcg Documented by: Ondansetron HCl (Zofran) 4 mg IV Q6H PRN PRN Reason: Nausea/Vomiting Pantoprazole Sodium (Protonix) 40 mg PO BEDTIME [facility] Last Admin: 03/31/20 20:28 Dose: 40 mg Documented by: Potassium Chloride (Klor-Con M20) 20 meq PO DAILY [facility] Last Admin: 04/01/20 09:38 Dose: 20 meq Documented by: Prednisone (Prednisone) 15 mg PO DAILY [facility] Last Admin: 04/01/20 09:37 Dose: 15 mg Documented by: Rivaroxaban (Xarelto) 15 mg PO BID [facility] Last Admin: 04/01/20 09:35 Dose: 15 mg Documented by: Simvastatin (Zocor) 40 mg PO BEDTIME [facility] Last Admin: 03/31/20 20:28 Dose: 40 mg Documented by: Sodium Chloride ([place] Nasal [place]) 0 ml JENNY Q4H PRN PRN Reason: Nasal Dryness Tamsulosin HCl (Flomax) 0.4 mg PO DAILY [facility] Last Admin: 04/01/20 09:35 Dose: 0.4 mg Documented by: Discontinued Medications Albuterol (Proventil Neb Soln) 2.5 mg NEB ONETIME ONE Stop: 03/27/20 05:29 Last Admin: 03/27/20 08:10 Dose: Not Given Documented by: Albuterol (Proventil Neb Soln) 2.5 mg NEB ONETIME ONE Stop: 03/27/20 06:01 Last Admin: 03/27/20 05:52 Dose: 2.5 mg Documented by: Albuterol/Ipratropium (Duoneb 3.0-0.5 Mg/3 Ml) 3 ml NEB Q6HRRT PRN PRN Reason: wheezing/SOB/cough Albuterol/Ipratropium (Duoneb 3.0-0.5 Mg/3 Ml) 3 ml NEB Q6HRRT PRN PRN Reason: wheezing/SOB/cough Budesonide (Pulmicort) 0.5 mg INH BID [facility] Last Admin: 03/27/20 20:16 Dose: 0.5 mg Documented by: Furosemide (Lasix) 60 mg PO DAILY [facility] Last Admin: 03/27/20 15:07 Dose: 60 mg Documented by: Furosemide (Lasix) 60 mg IVPUSH NOW ONE Stop: 03/30/20 16:31 Last Admin: 03/30/20 16:53 Dose: 60 mg Documented by: Sodium Chloride (Normal Saline) 1,000 mls @ 999 mls/hr IV ONETIME ONE Stop: 03/27/20 00:30 Last Admin: 03/27/20 00:12 Dose: 999 mls/hr Documented by: Ceftriaxone Sodium 1 gm/ (Sodium Chloride) 100 mls @ 200 mls/hr IV ONETIME STA Stop: 03/26/20 23:59 Last Admin: 03/27/20 00:12 Dose: 200 mls/hr Documented by: Levofloxacin/Dextrose 750 mg/ (Premix) 150 mls @ 100 mls/hr IV ONETIME STA Stop: 03/27/20 03:09 Last Admin: 03/27/20 01:51 Dose: 100 mls/hr Documented by: Sodium Chloride (Normal Saline) 100 mls @ 4 mls/sec IV ONETIME ONE Stop: 03/27/20 02:38 Last Admin: 03/27/20 02:39 Dose: 4 mls/sec Documented by: Lactated Ringer's (Ringers, Lactated) 1,000 mls @ 75 mls/hr IV ASDIRECTED [facility] Stop: 03/28/20 05:04 Last Admin: 03/28/20 00:13 Dose: 75 mls/hr Documented by: Ferric Sodium Gluconate Complex 250 mg/ Sodium Chloride 120 mls @ 60 mls/hr IV ONETIME ONE Stop: 03/30/20 16:44 Last Admin: 03/30/20 14:45 Dose: 60 mls/hr Documented by: Sodium Chloride (Normal Saline) Confirm Administered Dose 100 mls @ as directed .ROUTE .STK-MED ONE Stop: 03/30/20 22:03 Last Admin: 03/30/20 22:16 Dose: Not Given Documented by: Iopamidol (Isovue-370 (76%)) 100 ml IVPUSH ONETIME ONE Stop: 03/27/20 02:38 Last Admin: 03/27/20 02:38 Dose: 100 ml Documented by: Non-Formulary Medication (Ciclopirox/Urea/Camph/Men/Euc [Ciclopirox 8% Treatment Kit]) 1 applic TOP BEDTIME [facility] Diltiazem Hcl [Dilt- (Xr] 180 Mg Ptom) 0 mg PO DAILY [facility] Last Admin: 03/27/20 16:02 Dose: Not Given Documented by: Formoterol Fumarate 20 Mcg/2 Ml ( Perforomist) Ptom 0 mcg INH BID [facility] Last Admin: 03/29/20 08:13 Dose: Not Given Documented by: Omeprazole Magnesium (20 Mg Cap Ptom) 0 mg PO BEDTIME [facility] Last Admin: 03/27/20 22:55 Dose: 40 mg Documented by: Prednisone (Prednisone) 15 mg PO DAILY [facility] Last Admin: 03/27/20 15:11 Dose: 15 mg Documented by: Rivaroxaban (Xarelto) 15 mg PO ONETIME STA Stop: 03/27/20 03:07 Last Admin: 03/27/20 05:21 Dose: 15 mg Documented by: Simvastatin (Zocor) 40 mg PO BEDTIME [facility] Last Admin: 03/27/20 22:56 Dose: 40 mg Documented by: Simvastatin (Zocor) 40 mg PO BEDTIME [facility] Tamsulosin HCl (Flomax) 0.4 mg PO DAILY [facility] Last Admin: 03/27/20 15:06 Dose: 0.4 mg Documented by: - Exam Quality Assessment: Supplemental Oxygen General: Alert, Oriented, Cooperative HEENT: Pupils Equal, Pupils Reactive, EOMI, Mucous Membr. Moist/[place] Neck: Supple Lungs: Normal Respiratory Effort, Rales Cardiovascular: Regular Rate, Regular Rhythm GI/Abdominal Exam: Normal Bowel Sounds, Soft, Non-Tender, No Organomegaly, No Distention, No Abnormal Bruit, No Mass (Male) Exam: Other (urinary catheter ) Back Exam: Normal Inspection, Decreased Range of Motion Extremities: Normal Inspection, Normal Range of Motion, Non-Tender, Other (muscle wasting on both legs). No: No Pedal Edema, Normal Capillary Refill Peripheral Pulses: 2+: Dorsalis Pedis (L), Dorsalis Pedis (R) Skin: Warm, Dry, Intact Neurological: No New Focal Deficit. No: Normal Gait Psy/Mental Status: Alert, Normal Affect, Normal Mood Sepsis Event Note - Evaluation Sepsis Screening Result: No Definite Risk - Focused Exam Vital Signs: Vital Signs Temp Pulse Resp BP Pulse Ox Pulse Ox 04/01/20 09:55 91 L 04/01/20 09:14 36.4 C 92 20 107/58 L 92 L 04/01/20 08:37 93 L 04/01/20 07:54 36.3 C 91 28 H 102/57 L 91 L 04/01/20 04:46 36.3 C 91 16 118/57 L 91 L 04/01/20 00:09 36.1 C 81 20 102/55 L 93 L - Problem List Review Problem List Initiated/Reviewed/Updated: Yes - My Orders Last 24 Hours: My Active Orders 03/31/20 21:00 Fluticasone Propionate [Flonase] 0 gm NASBOTH BID 04/02/20 05:11 BMP [BASIC METABOLIC PANEL,BMP] [CHEM] AM CBC WITH AUTO DIFF [HEME] AM MAGNESIUM [CHEM] AM 04/03/20 05:11 BMP [BASIC METABOLIC PANEL,BMP] [CHEM] AM CBC WITH AUTO DIFF [HEME] AM MAGNESIUM [CHEM] AM - Assessment Assessment:: Assessment - day of admission (03/27/20) * 79 yo male presents to ED with worsening dyspnea, productive cough, crackles, and edema. * Denies any recent fever or other infectious symptoms. * Normally on 3 L of home oxygen but requiring 4 here. 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 * Is immunocompromised * Twelve-lead EKG in ED shows sinus tachycardia 112 bpm with ventricular pacing. * Labs in ED: * WBC 9.93 * Hemoglobin 8.7 * Platelet 580 * Neutrophils 64% * Band neutrophils 6% * INR 1.12 * D-dimer 1.15 * Sodium 146 * Potassium 4.3 * Carbon dioxide 29 * Anion gap 15.3 * BUN 14, creatinine 0.9, GFR greater than 60 * Glucose 153 * Magnesium 2.0 * Total bilirubin 0.1 * AST 21, ALT 20, alkaline phosphatase 88 * Troponin 0 0.024 * Albumin 2.5 * Lactic acid 3.0 * proBNP 20957 * Influenza a and B negative * SARS Covid 2 RNA negative * ABG in left radial pH 7.41, PCO2 46.0, PO2 67, HCO3 28.3, O2 saturation 92.1, base excess 3.7. Obtained while on 4 L via NC. * Chest x-ray shows increasing density within the right lung base from prior chest x-rays most likely representing area of aspiration pneumonia. Diffuse interstitial change which appears chronic and other findings are also noted. * CTA obatined in ED due to elevated D-Dimer: * 1. Minimal area of pulmonary embolism within the segmental branch of the right lower lung * 2. Severe pulmonary fibrosis * 3. Focal area of increased density within the right middle lobe and right lower lobe. As mentioned above, this could represent worsening fibrosis but difficult to exclude areas of mild pneumonia. * (Of note: Per ED provider notes he discussed findings initially with the ad radiologist who felt patient does not have pneumonia or signs of CHF.) * Given Rocephin and Levaquin 1 dose each in ED. * Given albuterol nebulizers and started on 15 mg p.o. Xarelto. * Patient has severe baseline heart failure and pulmonary hypertension so IV fluids were discontinued in ED * Admitted to floor observation status. 03/28/20 * Reports improved SOB * Upgraded to inpatient yesterday due to questionable pneumonia * Given 1L slow IV fluids yesterday due to high lactic acid * On baseline 3L oxygen * Continuing BID xarelto * Labs today: * WBC 6.72 * hemoglobin 8.0 * platelet 522 * neutrophils 4.41 * D-dimer 1.11 * GFR greater than 60 * lactic acid 2.7 (yesterday) --> 1.4 * Continue current treatment plan 03/29/20 * Reports feeling well, decreased shortness of breath. * Continues on baseline 3 L of oxygen * Continuing twice daily Xarelto * Labs today: WBC 6.62 Hemoglobin 7.4 Platelet 509 Blood cultures are showing no growth * Continue current treatment plan 03/30/20 * Continues to have no complaints - states respiratory status is at baseline * On home 3L of oxygen * Continue BID xarelto * Continues daily rocephin * Labs today: * WBC 7.09 * Hgb 7.2 * Platelets 457 * GFR >60 * No obvious signs of bleeding * Continue current treatment plan * Recheck CBC today at 1300 03/31/20 * Continue current treatment * At baseline 3L NC * Continue IV antibiotic * Monitor Hgb, trending down * Xarelto BID for PE treatment * Routine AM labs * Continue IS and FV as directed * Change ISS to high intensity * Fall precautions 04/01/20 * Continue current treatment * At baseline 3L NC * Continue IV antibiotic * Monitor Hgb, trending down * Xarelto BID for PE treatment * Routine AM labs * Continue IS and FV as directed * Repeat CXR in AM * Voiding trial after removal of urinary catheter * Fall precautions * Possible discharge in 1-2 days - Plan Plan:: Acute on chronic anemia * Re-check H/H today at 1300 * Monitor labs * Continue home iron supplementation * Iron panel * No obvious signs of bleeding * On iron supplementation so Occult stool unable to be obtained * Transfuse if necessary; Hgb is 8.0 grams today * May be somewhat dilutional as patient received moo hydration Pulmonary embolus Pneumonia Pulmonary fibrosis COPD (chronic obstructive pulmonary disease) Chronic steroid use 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 Pulmonary hypertension Asthma Leukocytosis, POA, on oral steroid Former smoker * Continue BID 15 mg Xarelto for PE * Continue Rocephin at 2 gm due to questionable infiltrate * Continue home respiratory medications * PRN Albuterol and duonebs * IS/Acapella * RT consultation * Oxygen as needed - baseline 3L * Ambulate * Monitor daily labs * If IV fluids are needed be cautious as patient has sever HF and pulmonary hypertension * Blood cultures negative thus far * Repeat CXR in AM Type II diabetes mellitus, improved * Hold home metformin * QID AC and bedtime glucose checks * On steroid for maintenance medication * Now on high intensity sliding scale insulin * ADA diet Heart failure BPH (benign prostatic hyperplasia) Pacemaker GERD (gastroesophageal reflux disease) HLD (hyperlipidemia) HTN (hypertension) Osteoarthritis Vitamin D deficiency History of bladder cancer * Telemetry * No current concerns * Review/reconcile home medications * Currently has urinary catheter Resolved: Elevated lactic acid Code status: DNR/DNI PCP: Dr. Castillo Pulmonary provider: Carolyn Atkinson NP Vat Skimmer: Dr. Hamilton Poddar Urologist: Dr. Randall Priest DVT prophylaxis: Xarelto form PE treatment Social: Patient lives with daughter and son in-law who provide care Disposition: Patient is inpatient status due to questionable pneumonia Prognosis: Poor overall prognosis given baseline severe pulmonary and cardiac disease
[2020-04-01] MEDS ORDERED: Azithromycin 500 MG in Sodium Chloride 0.9% 250 ML IV SCH (12:15)
[2020-04-01] MEDS: Citalopram 20 MG Tab PO SCH (21:56)
[2020-04-01] MEDS: Cholecalciferol (Vitamin D3) 25 MCG Tab PO SCH (21:56)
[2020-04-01] MEDS: Simvastatin 40 MG Tab PO SCH (21:56)
[2020-04-01] MEDS: Pantoprazole 40 MG Tab.CR PO SCH (21:56)
[2020-04-01] MEDS: Magnesium Oxide 400 MG Tab PO SCH (21:56)
[2020-04-01] MEDS: cefTRIAXone 2 GM in Sodium Chloride 0.9% 100 ML IV SCH (22:06)
[2020-04-01] MEDS: LORazepam 0.5 MG Tab PO PRN (22:12)
--- NOTE | 2020-04-02 07:30 | PCM.PN ---
- General Info Date of Service: 04/02/20 Admission Dx/Problem (Free Text): Admission Diagnosis/Problem Admission Diagnosis/Problem Pulmonary embolism - Patient Data Vitals - Most Recent: Last Vital Signs Temp 97.3 F 04/02/20 04:04 Pulse 82 04/02/20 04:04 Resp 20 04/02/20 04:04 BP 100/55 L 04/02/20 04:04 Pulse Ox 94 L 04/02/20 04:04 Weight - Most Recent: 126 lb 8 oz I&O - Last 24 Hours: Intake & Output 04/01/20 04/02/20 04/02/20 22:59 06:59 14:59 Intake Total 910 150 Output Total 810 1 Balance 100 149 Lab Results Last 24 Hours: Laboratory Results - last 24 hr 04/01/20 04/01/20 04/01/20 Range/Units 06:39 11:04 17:09 WBC (4.23-9.07) K/mm3 RBC (4.63-6.08) M/mm3 Hgb (13.7-17.5) gm/dl Hct (40.1-51.0) % MCV (79.0-92.2) fl MCH (25.7-32.2) pg MCHC (32.2-35.5) g/dl RDW Std Deviation (35.1-43.9) fL Plt Count (163-337) K/mm3 MPV (9.4-12.3) fl Neut % (Auto) (34.0-67.9) % Lymph % (Auto) (21.8-53.1) % Gilmer % (Auto) (5.3-12.2) % Eos % (Auto) (0.8-7.0) Baso % (Auto) (0.1-1.2) % Neut # (Auto) (1.78-5.38) K/mm3 Lymph # (Auto) (1.32-3.57) K/mm3 Gilmer # (Auto) (0.30-0.82) K/mm3 Eos # (Auto) (0.04-0.54) K/mm3 Baso # (Auto) (0.01-0.08) K/mm3 Sodium (136-145) mEq/L Potassium (3.5-5.1) mEq/L Chloride (98-107) mEq/L Carbon Dioxide (21-32) mEq/L Anion Gap (5-15) BUN (7-18) mg/dL Creatinine (0.7-1.3) mg/dL Est Cr Clr Drug Dosing mL/min Estimated GFR (MDRD) (>60) mL/min BUN/Creatinine Ratio (14-18) Glucose (83-115) mg/dL POC Glucose 198 H 166 H 378 H (83-110) mg/dL Calcium (8.5-10.1) mg/dL Magnesium (1.8-2.4) mg/dl C-Reactive Protein (<1.0) mg/dL 04/01/20 04/02/20 04/02/20 Range/Units 21:30 05:20 05:20 WBC 11.06 H (4.23-9.07) K/mm3 RBC 3.00 L (4.63-6.08) M/mm3 Hgb 7.6 L (13.7-17.5) gm/dl Hct 27.9 L (40.1-51.0) % MCV 93.0 H (79.0-92.2) fl MCH 25.3 L (25.7-32.2) pg MCHC 27.2 L (32.2-35.5) g/dl RDW Std Deviation 53.5 H (35.1-43.9) fL Plt Count 519 H (163-337) K/mm3 MPV 8.6 L (9.4-12.3) fl Neut % (Auto) 74.5 H (34.0-67.9) % Lymph % (Auto) 13.6 L (21.8-53.1) % Gilmer % (Auto) 10.6 (5.3-12.2) % Eos % (Auto) 0.8 (0.8-7.0) Baso % (Auto) 0.2 (0.1-1.2) % Neut # (Auto) 8.25 H (1.78-5.38) K/mm3 Lymph # (Auto) 1.50 (1.32-3.57) K/mm3 Gilmer # (Auto) 1.17 H (0.30-0.82) K/mm3 Eos # (Auto) 0.09 (0.04-0.54) K/mm3 Baso # (Auto) 0.02 (0.01-0.08) K/mm3 Sodium 144 (136-145) mEq/L Potassium 4.0 (3.5-5.1) mEq/L Chloride 102 (98-107) mEq/L Carbon Dioxide 38 H (21-32) mEq/L Anion Gap 8.0 (5-15) BUN 17 (7-18) mg/dL Creatinine 0.7 (0.7-1.3) mg/dL Est Cr Clr Drug Dosing 69.45 mL/min Estimated GFR (MDRD) > 60 (>60) mL/min BUN/Creatinine Ratio 24.3 H (14-18) Glucose 124 H (83-115) mg/dL POC Glucose 89 (83-110) mg/dL Calcium 8.5 (8.5-10.1) mg/dL Magnesium 2.2 (1.8-2.4) mg/dl C-Reactive Protein 2.6 H* (<1.0) mg/dL 04/02/20 Range/Units 06:24 WBC (4.23-9.07) K/mm3 RBC (4.63-6.08) M/mm3 Hgb (13.7-17.5) gm/dl Hct (40.1-51.0) % MCV (79.0-92.2) fl MCH (25.7-32.2) pg MCHC (32.2-35.5) g/dl RDW Std Deviation (35.1-43.9) fL Plt Count (163-337) K/mm3 MPV (9.4-12.3) fl Neut % (Auto) (34.0-67.9) % Lymph % (Auto) (21.8-53.1) % Gilmer % (Auto) (5.3-12.2) % Eos % (Auto) (0.8-7.0) Baso % (Auto) (0.1-1.2) % Neut # (Auto) (1.78-5.38) K/mm3 Lymph # (Auto) (1.32-3.57) K/mm3 Gilmer # (Auto) (0.30-0.82) K/mm3 Eos # (Auto) (0.04-0.54) K/mm3 Baso # (Auto) (0.01-0.08) K/mm3 Sodium (136-145) mEq/L Potassium (3.5-5.1) mEq/L Chloride (98-107) mEq/L Carbon Dioxide (21-32) mEq/L Anion Gap (5-15) BUN (7-18) mg/dL Creatinine (0.7-1.3) mg/dL Est Cr Clr Drug Dosing mL/min Estimated GFR (MDRD) (>60) mL/min BUN/Creatinine Ratio (14-18) Glucose (83-115) mg/dL POC Glucose 131 H (83-110) mg/dL Calcium (8.5-10.1) mg/dL Magnesium (1.8-2.4) mg/dl C-Reactive Protein (<1.0) mg/dL Timothy Results Last 24 Hours: Microbiology 03/26/20 00:02 Aerobic Blood Culture - Preliminary Blood - Venous - Lab Draw NO GROWTH AFTER 6 DAYS Anaerobic Blood Culture - Preliminary NO GROWTH AFTER 6 DAYS 03/26/20 23:45 Aerobic Blood Culture - Preliminary Blood - Venous NO GROWTH AFTER 6 DAYS Anaerobic Blood Culture - Final Med Orders - Current: Current Medications Acetaminophen (Tylenol) 650 mg PO Q6HR PRN PRN Reason: mild pain Albuterol (Proventil Neb Soln) 2.5 mg NEB Q2H PRN PRN Reason: sob/wheezing Albuterol/Ipratropium (Duoneb 3.0-0.5 Mg/3 Ml) 3 ml NEB Q6HRRT PRN PRN Reason: wheezing/SOB/cough Arformoterol Tartrate (Brovana) 15 mcg INH BID [facility] Last Admin: 04/01/20 20:32 Dose: 15 mcg Documented by: Aspirin (Halfprin) 81 mg PO DAILY [facility] Last Admin: 04/01/20 09:38 Dose: 81 mg Documented by: Budesonide (Pulmicort) 0.5 mg INH BID [facility] Last Admin: 04/01/20 20:32 Dose: 0.5 mg Documented by: Calcium Carbonate/Glycine (Calcium Carbonate) 600 mg PO BID [facility] Last Admin: 04/01/20 21:56 Dose: 600 mg Documented by: Cholecalciferol (Vitamin D3) 25 mcg PO BEDTIME [facility] Last Admin: 04/01/20 21:56 Dose: 25 mcg Documented by: Citalopram Hydrobromide (Celexa) 20 mg PO BEDTIME [facility] Last Admin: 04/01/20 21:56 Dose: 20 mg Documented by: Diltiazem HCl (Cardizem Cd) 180 mg PO DAILY [facility] Last Admin: 04/01/20 09:35 Dose: 180 mg Documented by: Docusate Sodium (Colace) 100 mg PO BID PRN PRN Reason: Constipation Ferrous Sulfate (Ferrous Sulfate) 324 mg PO BID [facility] Last Admin: 04/01/20 21:56 Dose: 324 mg Documented by: Fluticasone Propionate (Flonase) 0 gm NASBOTH BID [facility] Last Admin: 04/01/20 21:57 Dose: 1 each Documented by: Furosemide (Lasix) 60 mg PO DAILY [facility] Last Admin: 04/01/20 09:35 Dose: 60 mg Documented by: Guaifenesin (Mucinex) 1,200 mg PO BID [facility] Last Admin: 04/01/20 21:56 Dose: 1,200 mg Documented by: Ceftriaxone Sodium 2 gm/ (Sodium Chloride) 100 mls @ 200 mls/hr IV Q24H [facility] Last Admin: 04/01/20 22:06 Dose: 200 mls/hr Documented by: Insulin Human Lispro (Humalog) 0 unit SUBCUT QIDACANDBED [facility]; Protocol Last Admin: 04/02/20 07:03 Dose: Not Given Documented by: Lorazepam (Ativan) 0.5 mg PO Q6H PRN PRN Reason: Anxiety Last Admin: 04/01/20 22:12 Dose: 0.5 mg Documented by: Magnesium Oxide (Magnesium Oxide) 400 mg PO BEDTIME [facility] Last Admin: 04/01/20 21:56 Dose: 400 mg Documented by: Multivitamins (Thera) 1 each PO DAILY [facility] Last Admin: 04/01/20 09:35 Dose: 1 each Documented by: Mycophenolate Mofetil 500 Mg Tab * *Ptom 0 each PO DAILY [facility] Last Admin: 04/01/20 09:45 Dose: 2 each Documented by: Mycophenolate Mofetil 500 Mg Tab * *Ptom 0 each PO BEDTIME [facility] Last Admin: 04/01/20 22:13 Dose: 3 each Documented by: Roflumilast 500 Mcg (Ptom) 0 mcg PO DAILY [facility] Last Admin: 04/01/20 09:45 Dose: 500 mcg Documented by: Ondansetron HCl (Zofran) 4 mg IV Q6H PRN PRN Reason: Nausea/Vomiting Pantoprazole Sodium (Protonix) 40 mg PO BEDTIME [facility] Last Admin: 04/01/20 21:56 Dose: 40 mg Documented by: Potassium Chloride (Klor-Con M20) 20 meq PO DAILY [facility] Last Admin: 04/01/20 09:38 Dose: 20 meq Documented by: Prednisone (Prednisone) 15 mg PO DAILY [facility] Last Admin: 04/01/20 09:37 Dose: 15 mg Documented by: Rivaroxaban (Xarelto) 15 mg PO BID [facility] Last Admin: 04/01/20 21:56 Dose: 15 mg Documented by: Simvastatin (Zocor) 40 mg PO BEDTIME [facility] Last Admin: 04/01/20 21:56 Dose: 40 mg Documented by: Sodium Chloride ([place] Nasal [place]) 0 ml JENNY Q4H PRN PRN Reason: Nasal Dryness Tamsulosin HCl (Flomax) 0.4 mg PO DAILY [facility] Last Admin: 04/01/20 09:35 Dose: 0.4 mg Documented by: Discontinued Medications Albuterol (Proventil Neb Soln) 2.5 mg NEB ONETIME ONE Stop: 03/27/20 05:29 Last Admin: 03/27/20 08:10 Dose: Not Given Documented by: Albuterol (Proventil Neb Soln) 2.5 mg NEB ONETIME ONE Stop: 03/27/20 06:01 Last Admin: 03/27/20 05:52 Dose: 2.5 mg Documented by: Albuterol/Ipratropium (Duoneb 3.0-0.5 Mg/3 Ml) 3 ml NEB Q6HRRT PRN PRN Reason: wheezing/SOB/cough Albuterol/Ipratropium (Duoneb 3.0-0.5 Mg/3 Ml) 3 ml NEB Q6HRRT PRN PRN Reason: wheezing/SOB/cough Budesonide (Pulmicort) 0.5 mg INH BID [facility] Last Admin: 03/27/20 20:16 Dose: 0.5 mg Documented by: Furosemide (Lasix) 60 mg PO DAILY [facility] Last Admin: 03/27/20 15:07 Dose: 60 mg Documented by: Furosemide (Lasix) 60 mg IVPUSH NOW ONE Stop: 03/30/20 16:31 Last Admin: 03/30/20 16:53 Dose: 60 mg Documented by: Sodium Chloride (Normal Saline) 1,000 mls @ 999 mls/hr IV ONETIME ONE Stop: 03/27/20 00:30 Last Admin: 03/27/20 00:12 Dose: 999 mls/hr Documented by: Ceftriaxone Sodium 1 gm/ (Sodium Chloride) 100 mls @ 200 mls/hr IV ONETIME STA Stop: 03/26/20 23:59 Last Admin: 03/27/20 00:12 Dose: 200 mls/hr Documented by: Levofloxacin/Dextrose 750 mg/ (Premix) 150 mls @ 100 mls/hr IV ONETIME STA Stop: 03/27/20 03:09 Last Admin: 03/27/20 01:51 Dose: 100 mls/hr Documented by: Sodium Chloride (Normal Saline) 100 mls @ 4 mls/sec IV ONETIME ONE Stop: 03/27/20 02:38 Last Admin: 03/27/20 02:39 Dose: 4 mls/sec Documented by: Lactated Ringer's (Ringers, Lactated) 1,000 mls @ 75 mls/hr IV ASDIRECTED KEANU Stop: 03/28/20 05:04 Last Admin: 03/28/20 00:13 Dose: 75 mls/hr Documented by: Ferric Sodium Gluconate Complex 250 mg/ Sodium Chloride 120 mls @ 60 mls/hr IV ONETIME ONE Stop: 03/30/20 16:44 Last Admin: 03/30/20 14:45 Dose: 60 mls/hr Documented by: Sodium Chloride (Normal Saline) Confirm Administered Dose 100 mls @ as directed .ROUTE .STK-MED ONE Stop: 03/30/20 22:03 Last Admin: 03/30/20 22:16 Dose: Not Given Documented by: Azithromycin 500 mg/ Sodium (Chloride) 250 mls @ 250 mls/hr IV Q24H [facility] Iopamidol (Isovue-370 (76%)) 100 ml IVPUSH ONETIME ONE Stop: 03/27/20 02:38 Last Admin: 03/27/20 02:38 Dose: 100 ml Documented by: Non-Formulary Medication (Ciclopirox/Urea/Camph/Men/Euc [Ciclopirox 8% Treatment Kit]) 1 applic TOP BEDTIME [facility] Diltiazem Hcl [Dilt- (Xr] 180 Mg Ptom) 0 mg PO DAILY [facility] Last Admin: 03/27/20 16:02 Dose: Not Given Documented by: Formoterol Fumarate 20 Mcg/2 Ml ( Perforomist) Ptom 0 mcg INH BID [facility] Last Admin: 03/29/20 08:13 Dose: Not Given Documented by: Omeprazole Magnesium (20 Mg Cap Ptom) 0 mg PO BEDTIME [facility] Last Admin: 03/27/20 22:55 Dose: 40 mg Documented by: Prednisone (Prednisone) 15 mg PO DAILY [facility] Last Admin: 03/27/20 15:11 Dose: 15 mg Documented by: Rivaroxaban (Xarelto) 15 mg PO ONETIME STA Stop: 03/27/20 03:07 Last Admin: 03/27/20 05:21 Dose: 15 mg Documented by: Simvastatin (Zocor) 40 mg PO BEDTIME [facility] Last Admin: 03/27/20 22:56 Dose: 40 mg Documented by: Simvastatin (Zocor) 40 mg PO BEDTIME [facility] Tamsulosin HCl (Flomax) 0.4 mg PO DAILY [facility] Last Admin: 03/27/20 15:06 Dose: 0.4 mg Documented by: Sepsis Event Note - Evaluation Sepsis Screening Result: No Definite Risk - Focused Exam Vital Signs: Vital Signs Temp Pulse Resp BP Pulse Ox Pulse Ox 04/02/20 04:04 97.3 F 82 20 100/55 L 94 L 04/02/20 00:19 98.1 F 100 20 106/55 L 90 L 04/01/20 21:34 98.8 F 92 15 93/62 94 L 04/01/20 20:32 96 - Problem List & Annotations (1) Pulmonary embolus SNOMED Code(s): 76366855 Code(s): I26.99 - OTHER PULMONARY EMBOLISM WITHOUT ACUTE COR PULMONALE Status: Acute Priority: High Current Visit: Yes Qualifiers: Pulmonary embolism type: unspecified Chronicity: acute Acute cor pulmonale presence: without acute cor pulmonale Qualified Code(s): I26.99 - Other pulmonary embolism without acute cor pulmonale (2) Pulmonary fibrosis SNOMED Code(s): 50501240 Code(s): J84.10 - PULMONARY FIBROSIS, UNSPECIFIED Status: Chronic Priority: High Current Visit: Yes (3) Heart failure SNOMED Code(s): 98522592 Code(s): I50.9 - HEART FAILURE, UNSPECIFIED Status: Chronic Priority: High Current Visit: Yes Qualifiers: Heart failure type: unspecified heart failure type Heart failure chronicity: unspecified heart failure chronicity (4) BPH (benign prostatic hyperplasia) SNOMED Code(s): 546865154 Code(s): N40.0 - BENIGN PROSTATIC HYPERPLASIA WITHOUT LOWER URINRY TRACT SYMP Status: Chronic Priority: Medium Current Visit: No Qualifiers: Lower urinary tract symptom presence: symptoms absent Qualified Code(s): N40.0 - Benign prostatic hyperplasia without lower urinary tract symptoms (5) COPD (chronic obstructive pulmonary disease) SNOMED Code(s): 01289969 Code(s): J44.9 - CHRONIC OBSTRUCTIVE PULMONARY DISEASE, UNSPECIFIED Status: Chronic Priority: High Current Visit: Yes Qualifiers: COPD type: 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 Qualified Code(s): J41.8 - Mixed simple and mucopurulent chronic bronchitis (6) Chronic steroid use SNOMED Code(s): 216879044 Code(s): TBQ5734 - Status: Chronic Priority: Medium Current Visit: No (7) Churg-Marcella syndrome with lung involvement SNOMED Code(s): 41167382 Code(s): M30.1 - POLYARTERITIS WITH LUNG INVOLVEMENT [CHURG-MARCELLA] Status: Chronic Priority: High Current Visit: Yes (8) Immunocompromised SNOMED Code(s): 574230188 Code(s): D84.9 - IMMUNODEFICIENCY, UNSPECIFIED Status: Chronic Priority: High Current Visit: Yes (9) Pacemaker SNOMED Code(s): 343924356 Code(s): Z95.0 - PRESENCE OF CARDIAC PACEMAKER Status: Chronic Priority: Medium Current Visit: No (10) GERD (gastroesophageal reflux disease) SNOMED Code(s): 133576547 Code(s): K21.9 - GASTRO-ESOPHAGEAL REFLUX DISEASE WITHOUT ESOPHAGITIS Status: Chronic Priority: Low Current Visit: No Qualifiers: Esophagitis presence: esophagitis presence not specified Qualified Code(s): K21.9 - Gastro-esophageal reflux disease without esophagitis (11) HLD (hyperlipidemia) SNOMED Code(s): 34093854 Code(s): E78.5 - HYPERLIPIDEMIA, UNSPECIFIED Status: Chronic Priority: Low Current Visit: No Qualifiers: Hyperlipidemia type: unspecified Qualified Code(s): E78.5 - Hyperlipidemia, unspecified (12) HTN (hypertension) SNOMED Code(s): 49447492 Code(s): I10 - ESSENTIAL (PRIMARY) HYPERTENSION Status: Chronic Priority: Medium Current Visit: No Qualifiers: Hypertension type: unspecified Qualified Code(s): I10 - Essential (primary) hypertension (13) Pulmonary hypertension SNOMED Code(s): 56933899 Code(s): I27.20 - PULMONARY HYPERTENSION, UNSPECIFIED Status: Chronic Priority: Medium Current Visit: Yes (14) Asthma SNOMED Code(s): 013378570 Code(s): J45.909 - UNSPECIFIED ASTHMA, UNCOMPLICATED Status: Resolved Priority: Medium Current Visit: Yes Qualifiers: Asthma severity: unspecified severity Asthma persistence: unspecified Asthma complication type: unspecified Qualified Code(s): J45.909 - Unspecified asthma, uncomplicated (15) Osteoarthritis SNOMED Code(s): 320861543 Code(s): M19.90 - UNSPECIFIED OSTEOARTHRITIS, UNSPECIFIED SITE Status: Chronic Priority: Low Current Visit: No Qualifiers: Osteoarthritis location: unspecified site Osteoarthritis type: primary Qualified Code(s): M19.91 - Primary osteoarthritis, unspecified site (16) Type II diabetes mellitus SNOMED Code(s): 33924017 Code(s): E11.9 - TYPE 2 DIABETES MELLITUS WITHOUT COMPLICATIONS Status: Chronic Priority: Medium Current Visit: No Qualifiers: Diabetes mellitus predatory animal exterminator insulin use: without predatory animal exterminator use Diabetes mellitus complication status: with other specified complication Qualified Code(s): E11.69 - Type 2 diabetes mellitus with other specified complication (17) Vitamin D deficiency SNOMED Code(s): 66146752 Code(s): E55.9 - VITAMIN D DEFICIENCY, UNSPECIFIED Status: Chronic Priority: Low Current Visit: No (18) History of bladder cancer SNOMED Code(s): 178776356, 762494377 Code(s): Z85.51 - PERSONAL HISTORY OF MALIGNANT NEOPLASM OF BLADDER Status: Chronic Priority: Medium Current Visit: No (19) Former smoker SNOMED Code(s): 5265855 Code(s): Z87.891 - PERSONAL HISTORY OF NICOTINE DEPENDENCE Status: Chronic Priority: Low Current Visit: No (20) Pneumonia SNOMED Code(s): 609790603 Code(s): J18.9 - PNEUMONIA, UNSPECIFIED ORGANISM Status: Acute Priority: High Current Visit: No Qualifiers: Pneumonia type: due to unspecified organism Laterality: right Lung location: unspecified part of lung Qualified Code(s): J18.9 - Pneumonia, unspecified organism (21) Elevated lactic acid level SNOMED Code(s): 2047121 Code(s): R79.89 - OTHER SPECIFIED ABNORMAL FINDINGS OF BLOOD CHEMISTRY Status: Acute Priority: High Current Visit: Yes (22) Acute on chronic anemia SNOMED Code(s): 192427646, 353660514 Code(s): D64.9 - ANEMIA, UNSPECIFIED Status: Acute Priority: High Current Visit: Yes - Assessment Assessment:: Assessment - day of admission (03/27/20) * 79 yo male presents to ED with worsening dyspnea, productive cough, crackles, and edema. * Denies any recent fever or other infectious symptoms. * Normally on 3 L of home oxygen but requiring 4 here. 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 * Is immunocompromised * Twelve-lead EKG in ED shows sinus tachycardia 112 bpm with ventricular pacing. * Labs in ED: * WBC 9.93 * Hemoglobin 8.7 * Platelet 580 * Neutrophils 64% * Band neutrophils 6% * INR 1.12 * D-dimer 1.15 * Sodium 146 * Potassium 4.3 * Carbon dioxide 29 * Anion gap 15.3 * BUN 14, creatinine 0.9, GFR greater than 60 * Glucose 153 * Magnesium 2.0 * Total bilirubin 0.1 * AST 21, ALT 20, alkaline phosphatase 88 * Troponin 0 0.024 * Albumin 2.5 * Lactic acid 3.0 * proBNP 48209 * Influenza a and B negative * SARS Covid 2 RNA negative * ABG in left radial pH 7.41, PCO2 46.0, PO2 67, HCO3 28.3, O2 saturation 92.1, base excess 3.7. Obtained while on 4 L via NC. * Chest x-ray shows increasing density within the right lung base from prior [facility] [facility] x-rays most likely representing area of aspiration pneumonia. Diffuse interstitial change which appears chronic and other findings are also noted. * CTA obatined in ED due to elevated D-Dimer: * 1. Minimal area of pulmonary embolism within the segmental branch of the right lower lung * 2. Severe pulmonary fibrosis * 3. Focal area of increased density within the right middle lobe and right lower lobe. As mentioned above, this could represent worsening fibrosis but difficult to exclude areas of mild pneumonia. * (Of note: Per ED provider notes he discussed findings initially with the ad radiologist who felt patient does not have pneumonia or signs of CHF.) * Given Rocephin and Levaquin 1 dose each in ED. * Given albuterol nebulizers and started on 15 mg p.o. Xarelto. * Patient has severe baseline heart failure and pulmonary hypertension so IV fluids were discontinued in ED * Admitted to floor observation status. 03/28/20 * Reports improved SOB * Upgraded to inpatient yesterday due to questionable pneumonia * Given 1L slow IV fluids yesterday due to high lactic acid * On baseline 3L oxygen * Continuing BID xarelto * Labs today: * WBC 6.72 * hemoglobin 8.0 * platelet 522 * neutrophils 4.41 * D-dimer 1.11 * GFR greater than 60 * lactic acid 2.7 (yesterday) --> 1.4 * Continue current treatment plan 03/29/20 * Reports feeling well, decreased shortness of breath. * Continues on baseline 3 L of oxygen * Continuing twice daily Xarelto * Labs today: WBC 6.62 Hemoglobin 7.4 Platelet 509 Blood cultures are showing no growth * Continue current treatment plan 03/30/20 * Continues to have no complaints - states respiratory status is at baseline * On home 3L of oxygen * Continue BID xarelto * Continues daily rocephin * Labs today: * WBC 7.09 * Hgb 7.2 * Platelets 457 * GFR >60 * No obvious signs of bleeding * Continue current treatment plan * Recheck CBC today at 1300 03/31/20 * Continue current treatment * At baseline 3L NC * Continue IV antibiotic * Monitor Hgb, trending down * Xarelto BID for PE treatment * Routine AM labs * Continue IS and FV as directed * Change ISS to high intensity * Fall precautions 2/14/21 * Continue current treatment * At baseline 3L NC * Continue IV antibiotic * Monitor Hgb, trending down * Xarelto BID for PE treatment * Routine AM labs * Continue IS and FV as directed * Repeat CXR in AM * Voiding trial after removal of urinary catheter * Fall precautions * Possible discharge in 1-2 days - Plan Plan:: Acute on chronic anemia * Re-check H/H today at 1300 * Monitor labs * Continue home iron supplementation * Iron panel * No obvious signs of bleeding * On iron supplementation so Occult stool unable to be obtained * Transfuse if necessary; Hgb is 8.0 grams today * May be somewhat dilutional as patient received moo hydration Pulmonary embolus Pneumonia Pulmonary fibrosis COPD (chronic obstructive pulmonary disease) Chronic steroid use 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 Pulmonary hypertension Asthma Leukocytosis, POA, on oral steroid Former smoker * Continue BID 15 mg Xarelto for PE * Continue Rocephin at 2 gm due to questionable infiltrate * Continue home respiratory medications * PRN Albuterol and duonebs * IS/Acapella * RT consultation * Oxygen as needed - baseline 3L * Ambulate * Monitor daily labs * If IV fluids are needed be cautious as patient has sever HF and pulmonary hypertension * Blood cultures negative thus far * Repeat CXR in AM Type II diabetes mellitus, improved * Hold home metformin * QID AC and bedtime glucose checks * On steroid for maintenance medication * Now on high intensity sliding scale insulin * ADA diet Heart failure BPH (benign prostatic hyperplasia) Pacemaker GERD (gastroesophageal reflux disease) HLD (hyperlipidemia) HTN (hypertension) Osteoarthritis Vitamin D deficiency History of bladder cancer * Telemetry * No current concerns * Review/reconcile home medications * Currently has urinary catheter Resolved: Elevated lactic acid Code status: DNR/DNI PCP: Dr. Castillo Pulmonary provider: Carolyn Atkinson NP Life Manager: Dr. Hamilton Poddar Urologist: Dr. Randall Priest DVT prophylaxis: Xarelto form PE treatment Social: Patient lives with daughter and son in-law who provide care Disposition: Patient is inpatient status due to questionable pneumonia Prognosis: Poor overall prognosis given baseline severe pulmonary and cardiac disease
[2020-04-02] MEDS: Tamsulosin 0.4 MG Cap.ER PO SCH (08:00)
[2020-04-02] MEDS: Multivitamins,Therapeutic Tab PO SCH (08:00)
[2020-04-02] MEDS: guaiFENesin 600 MG Tab.ER PO SCH (08:00)
[2020-04-02] MEDS: Calcium Carbonate 600 MG Tab PO SCH (08:00)
[2020-04-02] MEDS: Potassium Chloride 20 MEQ Tab.ER PO SCH (08:00)
[2020-04-02] MEDS: Rivaroxaban 15 MG Tab PO SCH (08:00)
[2020-04-02] MEDS: predniSONE 10 MG Tab PO SCH (08:00)
[2020-04-02] MEDS: Diltiazem 180 MG Cap.CD PO SCH (08:00)
[2020-04-02] MEDS: Aspirin 81 MG Tab.EC PO SCH (08:00)
[2020-04-02] MEDS: Ferrous Sulfate 324 MG Tab.EC PO SCH (08:00)
[2020-04-02] MEDS: Furosemide 40 MG Tab PO SCH (08:01)
[2020-04-02] MEDS: Arformoterol 15 MCG/2 ML Neb Soln INH SCH (08:03)
[2020-04-02] MEDS: Budesonide 0.5 MG/2 ML Neb Susp INH SCH (08:03)
[2020-04-02] MEDS: MYCOPHENOLATE MOFETIL 500 MG PO SCH (08:04)
[2020-04-02] MEDS: Roflumilast 500 MCG **PTOM PO SCH (08:04)
[2020-04-02] MEDS: Fluticasone Propionate Nasal Spray 16 GM Bottle NASBOTH SCH (08:06)
--- NOTE | 2020-04-02 11:46 | PCM.DCSUM1 ---
Discharge Summary - Hospital Course HPI Initial Comments: This is a 9-year-old male who presents to our ED on 03/26/2020 with shortness of breath. 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 He reports that he has increased dyspnea, cough productive of cream-colored sputum, audible crackles, to 3+ pitting edema in his bilateral lower extremities. Reports symptoms have been ongoing for 2 to 3 days. Denies any fever but states he did take Tylenol prior to coming to the ED. Patient has reportedly had similar symptoms in the past 2 to pneumonia. In the ED he is tachycardic at 112 bpm and tachypneic at 38 breaths/min. Initially he is 87% on 4 L of oxygen but on recheck he is 100% on 4 L of oxygen. Temp is 36.2 Celsius. Pressure 115/81. Twelve-lead EKG is obtained showing is sinus tachycardia with ventricular pacing at 112 bpm. There is no change from 01/20/2020. Labs are obtained showing a mild leukocytosis at 9.93. Hemoglobin is 8.7. Platelets are 580,000. Neutrophils are elevated at 64%. There is 6% band neutrophils noted. INR is 1.12. D-dimer is 1.15. Sodium is 146. Potassium 4.3. Chloride 106. Carbon dioxide 29. Anion gap is 15.3. BUN is 14, creatinine 0.9, GFR greater than 60. Glucose is 153. Calcium is 9.0. Magnesium is 2.0. Bilirubin is 0.1. AST is 21, ALT 20, alkaline phosphatase 88. Troponin is 0.024. Protein 6.8. Albumin 2.5. Lactic acid is 3.0. proBNP is 12 871. ABGs obtained in the left radial with a pH of 7.41. PCO2 of 46.0. PO2 of 67.0. HCO3 of 20.3. O2 saturation is 92.1%. Base excess is 3.7. Influenza A, B, and SARS-CoV-2 RNA are all negative. Chest x-rays obtained showing an increased density in the right lung base which is thought to represent area of aspiration or pneumonia. There is also diffuse interstitial change which appears chronic in other findings which are stable. Blood cultures are obtained. Prior labs are reviewed showing elevated proBNP of 10,000 701 on 01/20/2020. He is given [address] angiogram of chest is obtained interpreted by [facility] as "1. Severe pulmonary fibrosis which has remained stable dating back to the prior study dated 11/27/2019. 2. Acute pulmonary emboli to the right lower lung as discussed above. This is new since the prior study. 3. No significant RV strain." ED provider did call and discuss results with radiologist who believes that there is no evidence for pneumonia or pulmonary vascular congestion. Patient is started on Xarelto for his PE. He is placed in the observation status and admitted to the hospital. He carries a history of CHF, HLD, hypertension, pulmonary hypertension, eosinophilic granulomatosis with polyangiitis, asthma, COPD, pulmonary fibrosis, GERD, BPH, osteoarthritis, type II DM, vitamin D deficiencies, bladder cancer, squamous cell carcinoma. Does have a pacemaker which was placed on June 2019. He is a former smoker who quit in 1984. His PCP is Dr. Shara Castillo. Pulmonary provider is Luiz Atkinson NP. His electrical maintenance worker is Dr. Alfonso Chappell. His urologist is Dr. Randall Priest. Diagnosis: Stroke: No - Discharge Data Discharge Date: 04/02/20 (Admit date: 03/27/20) Discharge Disposition: Home, Home Health Agency 06 Condition: Good - Referral to Home Health Date of Face to Face Encounter: 04/02/20 Reason for Homebound Status: See discharge summary Primary Care Physician: Shara Castillo MD Skilled Need: See discharge summary - Discharge Diagnosis/Problem(s) (1) Pulmonary embolus SNOMED Code(s): 43792653 ICD Code: I26.99 - OTHER PULMONARY EMBOLISM WITHOUT ACUTE COR PULMONALE Status: Acute Priority: High Qualifiers: Pulmonary embolism type: unspecified Chronicity: acute Acute cor pulmonale presence: without acute cor pulmonale Qualified Code(s): I26.99 - Other pulmonary embolism without acute cor pulmonale (2) Pulmonary fibrosis SNOMED Code(s): 18951130 ICD Code: J84.10 - PULMONARY FIBROSIS, UNSPECIFIED Status: Chronic Priority: High (3) Heart failure SNOMED Code(s): 56487462 ICD Code: I50.9 - HEART FAILURE, UNSPECIFIED Status: Chronic Priority: High Qualifiers: Heart failure type: unspecified heart failure type Heart failure chronicity: unspecified heart failure chronicity (4) BPH (benign prostatic hyperplasia) SNOMED Code(s): 834832295 ICD Code: N40.0 - BENIGN PROSTATIC HYPERPLASIA WITHOUT LOWER URINRY TRACT SYMP Status: Chronic Priority: Medium Qualifiers: Lower urinary tract symptom presence: symptoms absent Qualified Code(s): N40.0 - Benign prostatic hyperplasia without lower urinary tract symptoms (5) COPD (chronic obstructive pulmonary disease) SNOMED Code(s): 60787230 ICD Code: J44.9 - CHRONIC OBSTRUCTIVE PULMONARY DISEASE, UNSPECIFIED Status: Chronic Priority: High Qualifiers: COPD type: 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 Qualified Code(s): J41.8 - Mixed simple and mucopurulent chronic bronchitis (6) Chronic steroid use SNOMED Code(s): 504063243 ICD Code: HPD5993 - Status: Chronic Priority: Medium (7) Churg-Marcella syndrome with lung involvement SNOMED Code(s): 14025883 ICD Code: M30.1 - POLYARTERITIS WITH LUNG INVOLVEMENT [CHURG-MARCELLA] Status: Chronic Priority: High (8) Immunocompromised SNOMED Code(s): 134094042 ICD Code: D84.9 - IMMUNODEFICIENCY, UNSPECIFIED Status: Chronic Priority: High (9) Pacemaker SNOMED Code(s): 003319785 ICD Code: Z95.0 - PRESENCE OF CARDIAC PACEMAKER Status: Chronic Priority: Medium (10) GERD (gastroesophageal reflux disease) SNOMED Code(s): 691270431 ICD Code: K21.9 - GASTRO-ESOPHAGEAL REFLUX DISEASE WITHOUT ESOPHAGITIS Status: Chronic Priority: Low Qualifiers: Esophagitis presence: esophagitis presence not specified Qualified Code(s): K21.9 - Gastro-esophageal reflux disease without esophagitis (11) HLD (hyperlipidemia) SNOMED Code(s): 68860973 ICD Code: E78.5 - HYPERLIPIDEMIA, UNSPECIFIED Status: Chronic Priority: Low Qualifiers: Hyperlipidemia type: unspecified Qualified Code(s): E78.5 - Hyperlipidemia, unspecified (12) HTN (hypertension) SNOMED Code(s): 25996657 ICD Code: I10 - ESSENTIAL (PRIMARY) HYPERTENSION Status: Chronic Priority: Medium Qualifiers: Hypertension type: unspecified Qualified Code(s): I10 - Essential (primary) hypertension (13) Pulmonary hypertension SNOMED Code(s): 21155397 ICD Code: I27.20 - PULMONARY HYPERTENSION, UNSPECIFIED Status: Chronic Priority: Medium (14) Asthma SNOMED Code(s): 900222633 ICD Code: J45.909 - UNSPECIFIED ASTHMA, UNCOMPLICATED Status: Resolved Priority: Medium Qualifiers: Asthma severity: unspecified severity Asthma persistence: unspecified Asthma complication type: unspecified Qualified Code(s): J45.909 - Unspecified asthma, uncomplicated (15) Osteoarthritis SNOMED Code(s): 723929179 ICD Code: M19.90 - UNSPECIFIED OSTEOARTHRITIS, UNSPECIFIED SITE Status: Chronic Priority: Low Qualifiers: Osteoarthritis location: unspecified site Osteoarthritis type: primary Qualified Code(s): M19.91 - Primary osteoarthritis, unspecified site (16) Type II diabetes mellitus SNOMED Code(s): 35026782 ICD Code: E11.9 - TYPE 2 DIABETES MELLITUS WITHOUT COMPLICATIONS Status: Chronic Priority: Medium Qualifiers: Diabetes mellitus skilled nursing insulin use: without intermodal truck driver use Diabetes mellitus complication status: with other specified complication Qualified Code(s): E11.69 - Type 2 diabetes mellitus with other specified complication (17) Vitamin D deficiency SNOMED Code(s): 44583791 ICD Code: E55.9 - VITAMIN D DEFICIENCY, UNSPECIFIED Status: Chronic Priority: Low (18) History of bladder cancer SNOMED Code(s): 553765364, 273547944 ICD Code: Z85.51 - PERSONAL HISTORY OF MALIGNANT NEOPLASM OF BLADDER Status: Chronic Priority: Medium (19) Former smoker SNOMED Code(s): 5086393 ICD Code: Z87.891 - PERSONAL HISTORY OF NICOTINE DEPENDENCE Status: Chronic Priority: Low (20) Pneumonia SNOMED Code(s): 410298355 ICD Code: J18.9 - PNEUMONIA, UNSPECIFIED ORGANISM Status: Acute Priority: High Qualifiers: Pneumonia type: due to unspecified organism Laterality: right Lung location: unspecified part of lung Qualified Code(s): J18.9 - Pneumonia, unspecified organism (21) Elevated lactic acid level SNOMED Code(s): 6117580 ICD Code: R79.89 - OTHER SPECIFIED ABNORMAL FINDINGS OF BLOOD CHEMISTRY Status: Acute Priority: High (22) Acute on chronic anemia SNOMED Code(s): 282325194, 492468564 ICD Code: D64.9 - ANEMIA, UNSPECIFIED Status: Acute Priority: High - Patient Summary/Data Consults: Consultations 03/27/20 08:43 Consult to Case Management/Frog Or Oyster Farmworker [CONS] Routine Consult to Spiritual Care [CONS] Routine OT Evaluation and Treatment [CONS] Routine PT Evaluation and Treatment [CONS] Routine Respiratory Care Assess and Treatment [CONS] Routine Labs Pending at D/C: None Recommended Follow-up Testing/Procedures: Follow-up with PCP within 5-7 days of discharge, sooner if needed. -Recommend repeat CBC, CMP, Magnesium Hospital Course: This is a 79-year-old male who presents to ED on 03/27/2020 with worsening dyspnea, productive cough, crackles, and edema. He denies any recent fever or other infection symptoms but was noted to be hypoxic requiring 4 L of oxygen while here. He was also tachycardic and tachypneic. He is chronically on 3 L of home oxygen therapy and has a longstanding history of heart and lung problems which include Churg-Marcella vasculitis, asthma, COPD, continuous oxygen use, systolic and diastolic heart failure with LVEF of 25 to 30%, severe pulmonary hypertension, and pulmonary fibrosis. He is chronically immunosuppressed. CTA was obtained in the ED showing minimal areas of pulmonary embolism within the segmental branch of the right lower lung, severe pulmonary fibrosis, and that increased density within the right middle lobe and right lower lobe. Unsure if this represented worsening fibrosis or pneumonia. He was started on 50 mg twice daily Xarelto for his pulmonary embolisms although given both Rocephin and Levaquin in the ED he was ultimately given 2 g Levaquin on the floor while here. He initially was admitted observation status however he was noted to have an elevated lactic acid and a hemoglobin that waxed and waned. Lobe and did get as low as 7.2 and there were no obvious signs of bleeding. Patient does take chronic p.o. iron supplementation so we are unable to obtain a Hemoccult. Given his chronic anemia iron panel was obtained and showed iron of 21 which is quite low. He was given an iron infusion. After this infusion patient was noted to have an episode of acute dyspnea. Repeat BNP was obtained and had increased from 12,871 on admission to 18,899. Patient was then given IV push Lasix with good results. Moore catheter was placed for accurate I&O's. This was ultimately removed and patient was able to urinate fine afterwards. Prior to discharge patient had repeat x-ray which showed improving density within the right lung base. Patient will be prescribed 1 dose of 100 mg p.o. doxycycline tonight and then twice daily tomorrow for a total of 3 doses. Blood cultures remain negative. He did work with PT and OT who are recommending SNF placement. Patient and family are ultimately refusing this. Patient had been living with family prior to hospitalization. Family is made aware of the level of care required by nursing during this hospitalization and ultimately still refused SNF. Patient will therefore be discharged today home with family with home health care services. While here patient was noted to have significant bouts of anxiety. He was placed on 0.5 mg of Ativan as needed. We discussed possibility of this worsening respiratory symptoms and patient still felt like this was a good option for him. Patient will therefore be discharged on 0.5 mg as needed Ativan for anxiety. Recommend patient follow-up with PCP and/or outpatient psych services in the future. Patient will also be prescribed 15 mg twice daily Xarelto. He should continue this regimen and then switch to 20 mg daily on 04/18/2020. 20 mg prescription will need to be provided by patient's primary care provider. Home medications were otherwise continued. Patient discharged home today with family. I personally met with Deepa today prior to discharge [id number] to discuss his homebound status. Patient has significant chronic pulmonary and cardiac comorbidities including Churg-Marcella vasculitis, asthma, COPD, combined systolic and diastolic heart failure with LVEF 25 to 30%, severe pulmonary hypertension, pulmonary fibrosis, chronic oxygen use, weakness, and difficulty with ambulation. Because of this it is felt that the patient would benefit from home health services as he has difficulty getting to clinic appointments and difficulty with transportation. At this time we are recommending home health PT for strengthening and gait training, home health nursing services for assistance with medication and overall disease monitoring, and home health care OT for ADL training and a home safety evaluation. The services can be monitored by the patient's primary care provider, Dr. Shara Castillo, and adjusted as she sees fit. Is also felt Deepa would benefit from a hospital bed at home. As noted patient has significant cardiopulmonary disease including Churg-Marcella vasculitis, asthma, COPD,'s combined systolic and diastolic heart failure with LVEF of 25 to 30%, severe pulmonary hypertension, severe pulmonary fibrosis, weakness, and chronic home oxygen use. Patient requires head of bed be elevated 30 degrees or more due to these chronic conditions. Patient has also been spending significant amount of time in bed due to his worsening respiratory status and there are concerns for bedsores and need to reposition the patient. Overall patient's chronic medical conditions are worsening. Unknown total length of time patient will need this bed, however it is anticipated patient will require this until he ultimately expires. - Patient Instructions Diet: Diabetic Diet Activity: As Tolerated Driving: Do Not Drive Showering/Bathing: May Shower Notify Provider of: Fever, Increased Pain, Nausea and/or Vomiting Other/Special Instructions: Follow-up with primary care provider within 5-7 days of discharge, sooner if needed. You were prescribed an antibiotic pill for your pneumonia. You should take your first dose tonight (04/02/20) and then take it tomorrow AM and PM. You will have completed your treatment after this. You were prescribed a blood thinner called xarelto for the blood clots in your lungs. You will take 15mg twice a day until 04/18/20. On that day you should switch to 20mg daily. Your primary care provider will help you with this. Continue home medications as directed. Should symptoms return or worsen contact primary care provider or return to the Emergency Department. - Discharge Plan *PRESCRIPTION DRUG MONITORING PROGRAM REVIEWED*: Not Applicable *COPY OF PRESCRIPTION DRUG MONITORING REPORT IN PATIENT JONATHON: Not Applicable Prescriptions/Med Rec: LORazepam [Ativan] 0.5 mg PO BID PRN #10 tablet PRN Reason: Anxiety Doxycycline [Vibra-Tabs] 100 mg PO Q12HR #3 tab Rivaroxaban [Xarelto] 15 mg PO BID #31 tablet Home Medications: Home Meds Albuterol [Ventolin HFA] 2 puff INH Q6H PRN 10/25/18 [History] Citalopram Hydrobromide [Celexa] 20 mg PO BEDTIME 10/25/18 [History] Multivitamin [Multivitamins] 1 tab PO DAILY 10/25/18 [History] Omeprazole Magnesium [Prilosec Otc] 40 mg PO BEDTIME 10/25/18 [History] Simvastatin 40 mg PO BEDTIME 10/25/18 [History] Ubidecarenone [Co Q-10] 100 mg PO DAILY 10/25/18 [History] guaiFENesin [Mucinex] 1,200 mg PO BID PRN 10/25/18 [History] predniSONE [Prednisone] 15 mg PO DAILY 10/25/18 [History] Ascorbic Acid [Vitamin C] 500 mg PO BID 06/23/19 [History] Aspirin [Halfprin] 81 mg PO DAILY 06/23/19 [History] Denosumab [Prolia] 60 mg IM ASDIRECTED 06/23/19 [History] Lutein 6 mg PO BEDTIME 06/23/19 [History] Tamsulosin HCl 0.4 mg PO DAILY 06/23/19 [History] Fluticasone Propionate [Flonase Allergy Relief] 1 spray NASBOTH BID 11/27/19 [History] Potassium Chloride [Klor-Con M20] 20 meq PO DAILY 11/27/19 [History] dilTIAZem HCL [Dilt-Xr] 180 mg PO DAILY 11/27/19 [History] metFORMIN HCl [Metformin HCl] 500 mg PO DAILY 11/27/19 [History] Budesonide [Pulmicort] 1 unit INH BID 01/16/20 [History] Calcium Carbonate [Calcium] 600 mg PO BID 01/16/20 [History] Cholecalciferol (Vitamin D3) [Vitamin D3] 1,000 units PO BEDTIME 01/16/20 [History] Ciclopirox/Urea/Camph/Men/Euc [Ciclopirox 8% Treatment Kit] 1 applic TOP BEDTIME 01/16/20 [History] Magnesium Oxide [Magnesium] 400 mg PO BEDTIME 01/16/20 [History] Roflumilast [Daliresp] 500 mcg PO DAILY 01/16/20 [History] Sulfamethoxazole/Trimethoprim [Sulfamethoxazole-Tmp Ds Tablet] 1 tab PO MOWEFR 01/16/20 [History] Ferrous Sulfate [Iron] 325 mg PO BID 01/20/20 [History] Ipratropium/Albuterol Sulfate [Iprat-Albut 0.5-3(2.5) mg/3 ml] 1 unit IH Q6H PRN 01/20/20 [History] mycophenolate mofetiL [Cellcept] 1,000 mg PO QAM 01/22/20 [History] mycophenolate mofetiL [Cellcept] 1,500 mg PO QPM 01/22/20 [History] Acetaminophen 650 mg PO Q6HR PRN 03/26/20 [History] Aloe Vera/Sodium Chloride [[place] Saline Nasal Gel] 1 applic JENNY Q4H PRN 03/26/20 [History] Formoterol [Perforomist] 20 mcg INH BID 03/26/20 [History] Furosemide [Lasix] 60 mg PO DAILY 03/26/20 [History] Doxycycline [Vibra-Tabs] 100 mg PO Q12HR #3 tab 04/02/20 [Rx] LORazepam [Ativan] 0.5 mg PO BID PRN #10 tablet 04/02/20 [Rx] Rivaroxaban [Xarelto] 15 mg PO BID #31 tablet 04/02/20 [Rx] Oxygen Therapy Mode: Nasal Cannula Oxygen Flow Rate (L/min): 3 Maintain SpO2% greater than: 88 Patient Handouts: Rivaroxaban oral tablets, Heart Failure, Self Care, [id number]-Vljp, Heart Failure Action Plan, Pulmonary Embolism, Living With Heart Failure, Sepsis, Self Care, Adult Referrals: Shara Castillo MD [Primary Care Provider] - 04/06/20 11:00 am (Please arrive at 10:30 to check in and appt. time is at 11:00) Pj Atkinson NP [Ordering Only Provider] - (this is patients Pulmonology Nurse Practitioner Follow up as needed) Alfonso Chappell MD [Ordering Only Provider] - (This is Patients Entry Examiner follow up as needed) Alyx Priest MD [Ordering Only Provider] - (This is patients Urologist follow up as needed) - Discharge Summary/Plan Comment DC Time >30 min.: Yes (60 mins ) - General Info Date of Service: 04/02/20 Subjective Update: No overnight or acute issues. He remains on 3L NC. He denies having fever or chills. His Hgb today slightly improves to 8.0 grams. His blood glucose is much better. His BPs were borderline low this morning. Functional Status: Reports: Pain Controlled, Tolerating Diet, Ambulating, Urinating, Incentive Spirometry, Other (Acapella ). Denies: New Symptoms - Review of Systems General: Reports: Weakness (improving ). Denies: Fever, Fatigue, Malaise, Chills HEENT: Reports: No Symptoms. Denies: Headaches, Sore Throat Pulmonary: Reports: Shortness of Breath (baseline ), Cough (baeline ). Denies: Pleuritic Chest Pain, Sputum, Wheezing Cardiovascular: Reports: Dyspnea on Exertion (baeline ). Denies: Chest Pain, Palpitations Gastrointestinal: Reports: No Symptoms. Denies: Abdominal Pain, Constipation, Diarrhea, Nausea, Vomiting Genitourinary: Reports: No Symptoms. Denies: Pain Musculoskeletal: Reports: No Symptoms Skin: Reports: No Symptoms. Denies: Cyanosis Neurological: Reports: Difficulty Walking, Weakness (improving ), Gait Disturbance. Denies: Confusion, Pre-Existing Deficit Psychiatric: Reports: No Symptoms - Patient Data Vitals - Most Recent: Last Vital Signs Temp 98.2 F 04/02/20 11:21 Pulse 86 04/02/20 11:21 Resp 20 04/02/20 10:00 BP 92/54 L 04/02/20 11:21 Pulse Ox 95 04/02/20 11:21 Weight - Most Recent: 126 lb 8 oz I&O - Last 24 hours: Intake & Output 04/01/20 04/02/20 04/02/20 22:59 06:59 14:59 Intake Total 1450 150 350 Output Total 810 1 Balance 640 149 350 Lab Results - Last 24 hrs: Laboratory Results - last 24 hr 04/01/20 04/01/20 04/02/20 Range/Units 17:09 21:30 05:20 WBC 11.06 H (4.23-9.07) K/mm3 RBC 3.00 L (4.63-6.08) M/mm3 Hgb 7.6 L (13.7-17.5) gm/dl Hct 27.9 L (40.1-51.0) % MCV 93.0 H (79.0-92.2) fl MCH 25.3 L (25.7-32.2) pg MCHC 27.2 L (32.2-35.5) g/dl RDW Std Deviation 53.5 H (35.1-43.9) fL Plt Count 519 H (163-337) K/mm3 MPV 8.6 L (9.4-12.3) fl Neut % (Auto) 74.5 H (34.0-67.9) % Lymph % (Auto) 13.6 L (21.8-53.1) % [place] % (Auto) 10.6 (5.3-12.2) % Eos % (Auto) 0.8 (0.8-7.0) Baso % (Auto) 0.2 (0.1-1.2) % Neut # (Auto) 8.25 H (1.78-5.38) K/mm3 Lymph # (Auto) 1.50 (1.32-3.57) K/mm3 [place] # (Auto) 1.17 H (0.30-0.82) K/mm3 Eos # (Auto) 0.09 (0.04-0.54) K/mm3 Baso # (Auto) 0.02 (0.01-0.08) K/mm3 Manual Slide Review Abnormal smear Sodium (136-145) mEq/L Potassium (3.5-5.1) mEq/L Chloride (98-107) mEq/L Carbon Dioxide (21-32) mEq/L Anion Gap (5-15) BUN (7-18) mg/dL Creatinine (0.7-1.3) mg/dL Est Cr Clr Drug Dosing mL/min Estimated GFR (MDRD) (>60) mL/min BUN/Creatinine Ratio (14-18) Glucose (83-115) mg/dL POC Glucose 378 H 89 (83-110) mg/dL Calcium (8.5-10.1) mg/dL Magnesium (1.8-2.4) mg/dl C-Reactive Protein (<1.0) mg/dL 04/02/20 04/02/20 Range/Units 05:20 06:24 WBC (4.23-9.07) K/mm3 RBC (4.63-6.08) M/mm3 Hgb (13.7-17.5) gm/dl Hct (40.1-51.0) % MCV (79.0-92.2) fl MCH (25.7-32.2) pg MCHC (32.2-35.5) g/dl RDW Std Deviation (35.1-43.9) fL Plt Count (163-337) K/mm3 MPV (9.4-12.3) fl Neut % (Auto) (34.0-67.9) % Lymph % (Auto) (21.8-53.1) % [place] % (Auto) (5.3-12.2) % Eos % (Auto) (0.8-7.0) Baso % (Auto) (0.1-1.2) % Neut # (Auto) (1.78-5.38) K/mm3 Lymph # (Auto) (1.32-3.57) K/mm3 [place] # (Auto) (0.30-0.82) K/mm3 Eos # (Auto) (0.04-0.54) K/mm3 Baso # (Auto) (0.01-0.08) K/mm3 Manual Slide Review Sodium 144 (136-145) mEq/L Potassium 4.0 (3.5-5.1) mEq/L Chloride 102 (98-107) mEq/L Carbon Dioxide 38 H (21-32) mEq/L Anion Gap 8.0 (5-15) BUN 17 (7-18) mg/dL Creatinine 0.7 (0.7-1.3) mg/dL Est Cr Clr Drug Dosing 69.45 mL/min Estimated GFR (MDRD) > 60 (>60) mL/min BUN/Creatinine Ratio 24.3 H (14-18) Glucose 124 H (83-115) mg/dL POC Glucose 131 H (83-110) mg/dL Calcium 8.5 (8.5-10.1) mg/dL Magnesium 2.2 (1.8-2.4) mg/dl C-Reactive Protein 2.6 H* (<1.0) mg/dL PHILLIP Results - Last 24 hrs: Microbiology 03/26/20 00:02 Aerobic Blood Culture - Preliminary Blood - Venous - Lab Draw NO GROWTH AFTER 6 DAYS Anaerobic Blood Culture - Preliminary NO GROWTH AFTER 6 DAYS 03/26/20 23:45 Aerobic Blood Culture - Preliminary Blood - Venous NO GROWTH AFTER 6 DAYS Anaerobic Blood Culture - Final Med Orders - Current: Current Medications Acetaminophen (Tylenol) 650 mg PO Q6HR PRN PRN Reason: mild pain Albuterol (Proventil Neb Soln) 2.5 mg NEB Q2H PRN PRN Reason: sob/wheezing Albuterol/Ipratropium (Duoneb 3.0-0.5 Mg/3 Ml) 3 ml NEB Q6HRRT PRN PRN Reason: wheezing/SOB/cough Arformoterol Tartrate (Brovana) 15 mcg INH BID [facility] Last Admin: 04/02/20 08:03 Dose: 15 mcg Documented by: Aspirin (Halfprin) 81 mg PO DAILY [facility] Last Admin: 04/02/20 08:00 Dose: 81 mg Documented by: Budesonide (Pulmicort) 0.5 mg INH BID [facility] Last Admin: 04/02/20 08:03 Dose: 0.5 mg Documented by: Calcium Carbonate/Glycine (Calcium Carbonate) 600 mg PO BID [facility] Last Admin: 04/02/20 08:00 Dose: 600 mg Documented by: Cholecalciferol (Vitamin D3) 25 mcg PO BEDTIME [facility] Last Admin: 04/01/20 21:56 Dose: 25 mcg Documented by: Citalopram Hydrobromide (Celexa) 20 mg PO BEDTIME [facility] Last Admin: 04/01/20 21:56 Dose: 20 mg Documented by: Diltiazem HCl (Cardizem Cd) 180 mg PO DAILY [facility] Last Admin: 04/02/20 08:00 Dose: 180 mg Documented by: Docusate Sodium (Colace) 100 mg PO BID PRN PRN Reason: Constipation Ferrous Sulfate (Ferrous Sulfate) 324 mg PO BID [facility] Last Admin: 04/02/20 08:00 Dose: 324 mg Documented by: Fluticasone Propionate (Flonase) 0 gm NASBOTH BID [facility] Last Admin: 04/02/20 08:06 Dose: 1 each Documented by: Furosemide (Lasix) 60 mg PO DAILY [facility] Last Admin: 04/02/20 08:01 Dose: 60 mg Documented by: Guaifenesin (Mucinex) 1,200 mg PO BID [facility] Last Admin: 04/02/20 08:00 Dose: 1,200 mg Documented by: Ceftriaxone Sodium 2 gm/ (Sodium Chloride) 100 mls @ 200 mls/hr IV Q24H [facility] Last Admin: 04/01/20 22:06 Dose: 200 mls/hr Documented by: Insulin Human Lispro (Humalog) 0 unit SUBCUT QIDACANDBED [facility]; Protocol Last Admin: 04/02/20 07:03 Dose: Not Given Documented by: Lorazepam (Ativan) 0.5 mg PO Q6H PRN PRN Reason: Anxiety Last Admin: 04/01/20 22:12 Dose: 0.5 mg Documented by: Magnesium Oxide (Magnesium Oxide) 400 mg PO BEDTIME [facility] Last Admin: 04/01/20 21:56 Dose: 400 mg Documented by: Multivitamins (Thera) 1 each PO DAILY [facility] Last Admin: 04/02/20 08:00 Dose: 1 each Documented by: Mycophenolate Mofetil 500 Mg Tab * *Ptom 0 each PO DAILY [facility] Last Admin: 04/02/20 08:04 Dose: 2 each Documented by: Mycophenolate Mofetil 500 Mg Tab * *Ptom 0 each PO BEDTIME [facility] Last Admin: 04/01/20 22:13 Dose: 3 each Documented by: Roflumilast 500 Mcg (Ptom) 0 mcg PO DAILY [facility] Last Admin: 04/02/20 08:04 Dose: 1 mcg Documented by: Ondansetron HCl (Zofran) 4 mg IV Q6H PRN PRN Reason: Nausea/Vomiting Pantoprazole Sodium (Protonix) 40 mg PO BEDTIME [facility] Last Admin: 04/01/20 21:56 Dose: 40 mg Documented by: Potassium Chloride (Klor-Con M20) 20 meq PO DAILY [facility] Last Admin: 04/02/20 08:00 Dose: 20 meq Documented by: Prednisone (Prednisone) 15 mg PO DAILY [facility] Last Admin: 04/02/20 08:00 Dose: 15 mg Documented by: Rivaroxaban (Xarelto) 15 mg PO BID [facility] Last Admin: 04/02/20 08:00 Dose: 15 mg Documented by: Simvastatin (Zocor) 40 mg PO BEDTIME [facility] Last Admin: 04/01/20 21:56 Dose: 40 mg Documented by: Sodium Chloride ([place] Nasal [place]) 0 ml JENNY Q4H PRN PRN Reason: Nasal Dryness Tamsulosin HCl (Flomax) 0.4 mg PO DAILY [facility] Last Admin: 04/02/20 08:00 Dose: 0.4 mg Documented by: Discontinued Medications Albuterol (Proventil Neb Soln) 2.5 mg NEB ONETIME ONE Stop: 03/27/20 05:29 Last Admin: 03/27/20 08:10 Dose: Not Given Documented by: Albuterol (Proventil Neb Soln) 2.5 mg NEB ONETIME ONE Stop: 03/27/20 06:01 Last Admin: 03/27/20 05:52 Dose: 2.5 mg Documented by: Albuterol/Ipratropium (Duoneb 3.0-0.5 Mg/3 Ml) 3 ml NEB Q6HRRT PRN PRN Reason: wheezing/SOB/cough Albuterol/Ipratropium (Duoneb 3.0-0.5 Mg/3 Ml) 3 ml NEB Q6HRRT PRN PRN Reason: wheezing/SOB/cough Budesonide (Pulmicort) 0.5 mg INH BID [facility] Last Admin: 03/27/20 20:16 Dose: 0.5 mg Documented by: Furosemide (Lasix) 60 mg PO DAILY [facility] Last Admin: 03/27/20 15:07 Dose: 60 mg Documented by: Furosemide (Lasix) 60 mg IVPUSH NOW ONE Stop: 03/30/20 16:31 Last Admin: 03/30/20 16:53 Dose: 60 mg Documented by: Sodium Chloride (Normal Saline) 1,000 mls @ 999 mls/hr IV ONETIME ONE Stop: 03/27/20 00:30 Last Admin: 03/27/20 00:12 Dose: 999 mls/hr Documented by: Ceftriaxone Sodium 1 gm/ (Sodium Chloride) 100 mls @ 200 mls/hr IV ONETIME STA Stop: 03/26/20 23:59 Last Admin: 03/27/20 00:12 Dose: 200 mls/hr Documented by: Levofloxacin/Dextrose 750 mg/ (Premix) 150 mls @ 100 mls/hr IV ONETIME STA Stop: 03/27/20 03:09 Last Admin: 03/27/20 01:51 Dose: 100 mls/hr Documented by: Sodium Chloride (Normal Saline) 100 mls @ 4 mls/sec IV ONETIME ONE Stop: 03/27/20 02:38 Last Admin: 03/27/20 02:39 Dose: 4 mls/sec Documented by: Lactated Ringer's (Ringers, Lactated) 1,000 mls @ 75 mls/hr IV ASDIRECTED [facility] Stop: 03/28/20 05:04 Last Admin: 03/28/20 00:13 Dose: 75 mls/hr Documented by: Ferric Sodium Gluconate Complex 250 mg/ Sodium Chloride 120 mls @ 60 mls/hr IV ONETIME ONE Stop: 03/30/20 16:44 Last Admin: 03/30/20 14:45 Dose: 60 mls/hr Documented by: Sodium Chloride (Normal Saline) Confirm Administered Dose 100 mls @ as directed .ROUTE .STK-MED ONE Stop: 03/30/20 22:03 Last Admin: 03/30/20 22:16 Dose: Not Given Documented by: Azithromycin 500 mg/ Sodium (Chloride) 250 mls @ 250 mls/hr IV Q24H [facility] Iopamidol (Isovue-370 (76%)) 100 ml IVPUSH ONETIME ONE Stop: 03/27/20 02:38 Last Admin: 03/27/20 02:38 Dose: 100 ml Documented by: Non-Formulary Medication (Ciclopirox/Urea/Camph/Men/Euc [Ciclopirox 8% Treatment Kit]) 1 applic TOP BEDTIME [facility] Diltiazem Hcl [Dilt- (Xr] 180 Mg Ptom) 0 mg PO DAILY [facility] Last Admin: 03/27/20 16:02 Dose: Not Given Documented by: Formoterol Fumarate 20 Mcg/2 Ml ( Perforomist) Ptom 0 mcg INH BID [facility] Last Admin: 03/29/20 08:13 Dose: Not Given Documented by: Omeprazole Magnesium (20 Mg Cap Ptom) 0 mg PO BEDTIME [facility] Last Admin: 03/27/20 22:55 Dose: 40 mg Documented by: Prednisone (Prednisone) 15 mg PO DAILY [facility] Last Admin: 03/27/20 15:11 Dose: 15 mg Documented by: Rivaroxaban (Xarelto) 15 mg PO ONETIME STA Stop: 03/27/20 03:07 Last Admin: 03/27/20 05:21 Dose: 15 mg Documented by: Simvastatin (Zocor) 40 mg PO BEDTIME [facility] Last Admin: 03/27/20 22:56 Dose: 40 mg Documented by: Simvastatin (Zocor) 40 mg PO BEDTIME [facility] Tamsulosin HCl (Flomax) 0.4 mg PO DAILY [facility] Last Admin: 03/27/20 15:06 Dose: 0.4 mg Documented by: - Exam Quality Assessment: Reports: Supplemental Oxygen (3L ), DVT Prophylaxis. Denies: Urine Catheter General: Reports: Alert, Oriented, Cooperative, No Acute Distress HEENT: Reports: Pupils Equal, Pupils Reactive, Mucous Membr. Moist/[place] Neck: Reports: Supple, Trachea Midline Lungs: Reports: Normal Respiratory Effort, Decreased Breath Sounds, Rales Cardiovascular: Reports: Regular Rate, Regular Rhythm GI/Abdominal Exam: Normal Bowel Sounds, Soft, Non-Tender, No Distention (Male) Exam: Deferred Rectal (Males) Exam: Deferred Back Exam: Reports: Normal Inspection, Decreased Range of Motion Extremities: Normal Inspection, Normal Range of Motion, Non-Tender, No Pedal Edema, Normal Capillary Refill Skin: Reports: Warm, Dry, Intact Neurological: Reports: No New Focal Deficit Psy/Mental Status: Reports: Alert, Normal Affect, Normal Mood, Anxious (at times )
--- NOTE | 2020-04-02 13:14 | CR ---
Chest: Portable view of the chest was obtained. Comparison: Previous chest x-ray of 03/30/20. Decreasing density within the right lung base is seen from prior study. Stable focal density within the right midlung is seen. Diffuse interstitial fibrosis is noted. Heart size is unchanged. Tortuous thoracic aorta is seen. Pacemaker is noted. Chronic rotator cuff tear noted within the right shoulder. Osteopenia is present. Impression: 1. Slight improving density within the right lung base. 2. Other portions of the portable chest x-ray are without change from previous study. Diagnostic code #2 MTDD
[2020-04-02 15:29] VITALS: BP 98/59; PULSE 92
== END 2020-04-02 16:15 | disposition home health service (06) | DRG 175 ==
LOC: JD.ED 22:54 → JD.MS 03-27 05:12 → OBSVTOIN 03-27 14:40
PROVIDERS: ADMIT Internal Medicine; ATTEND Internal Medicine
DX: I26.99 Other pulmonary embolism without acute cor pulmonale (principal); J18.9 Pneumonia, unspecified organism; M30.1 Polyarteritis with lung involvement [Churg-Strauss]; D84.9 Immunodeficiency, unspecified; I50.42 Chronic combined systolic (congestive) and diastolic (congestive) heart failure; M25.062 Hemarthrosis, left knee; H91.93 Unspecified hearing loss, bilateral; E78.00 Pure hypercholesterolemia, unspecified; J84.10 Pulmonary fibrosis, unspecified; M19.90 Unspecified osteoarthritis, unspecified site; N40.0 Benign prostatic hyperplasia without lower urinary tract symptoms; D64.9 Anemia, unspecified; J41.8 Mixed simple and mucopurulent chronic bronchitis; K21.9 Gastro-esophageal reflux disease without esophagitis; E78.5 Hyperlipidemia, unspecified; I11.0 Hypertensive heart disease with heart failure; I27.20 Pulmonary hypertension, unspecified; J45.909 Unspecified asthma, uncomplicated; M19.91 Primary osteoarthritis, unspecified site; E11.9 Type 2 diabetes mellitus without complications; E55.9 Vitamin D deficiency, unspecified; R79.89 Other specified abnormal findings of blood chemistry; F41.9 Anxiety disorder, unspecified; Z66 Do not resuscitate; H54.7 Unspecified visual loss; Z20.822 Contact with and (suspected) exposure to COVID-19; H91.90 Unspecified hearing loss, unspecified ear; G89.29 Other chronic pain; F32.9 Major depressive disorder, single episode, unspecified; Z85.828 Personal history of other malignant neoplasm of skin; Z90.49 Acquired absence of other specified parts of digestive tract; Z98.49 Cataract extraction status, unspecified eye; Z79.01 Long term (current) use of anticoagulants; Z99.81 Dependence on supplemental oxygen; Z79.82 Long term (current) use of aspirin; Z85.51 Personal history of malignant neoplasm of bladder; Z87.891 Personal history of nicotine dependence; Z79.52 Long term (current) use of systemic steroids; Z95.0 Presence of cardiac pacemaker; Z79.899 Other long term (current) drug therapy; Z88.1 Allergy status to other antibiotic agents; Z88.8 Allergy status to other drugs, medicaments and biological substances; Z88.2 Allergy status to sulfonamides
CPT/HCPCS: 0240U; 36415; 36600; 51702; 71045; 71275; 80048; 80053; 82803; 82962; 83540; 83605; 83735; 83880; 84466; 84484; 85007; 85014; 85018; 85025; 85027; 85379; 85610; 85730; 86140; 87040; 93005; 94640; 94667; 94668; 94761; 96365; 96367; 97110; 97162; 97165; 97530; 97535; 99285; 93010; 99223; 99232; 99233; 99239; A9270-GY; G0378; J0696; J1815-GY; J1940; J1956; J2916; J7030; J7120; J7512; Q9967